=== PATIENT | male | born 1945 | race Caucasian/White ===

== ENCOUNTER → 2018-01-02 15:09 | Outpatient (CLI) | payer OTHER, SELFPAY ==
[2018-01-02 16:42] LABS: Alanine Aminotransferase 72 IU/L (21-72); Albumin 4.4 g/dL (3.5-5.0); Albumin Globulin Ratio 1.6 (1.0-2.8); Alkaline Phosphatase 58 U/L (38-126); Aspartate Aminotransferase 54 IU/L (17-59); Bilirubin Total 0.8 mg/dL (0.2-1.3); Bilirubin Unconjugated 0.5 mg/dL (0.0-1.1); Globulin 2.8 g/dL (1.7-4.1); HEMOLYSIS < 15 (0-50); Total Protein 7.2 g/dL (6.3-8.2)
== END ==
PROVIDERS: Family Provider Family Medicine; PCP Family Medicine; Visit Provider Internal Medicine Cardiovascular Disease
DX: E78.5 Hyperlipidemia, unspecified (principal)
CPT/HCPCS: 36415; 80076

== ENCOUNTER → 2018-01-19 12:14 | Outpatient (CLI) | payer OTHER, SELFPAY ==
--- NOTE | 2018-01-21 05:15 | DI.NM.S_ITS ---
DATE OF SERVICE: 01/19/2018 REFERRING PHYSICIAN: Alcon Hardin MD PROCEDURE: Nuclear cardiac stress study. INDICATIONS: Mr. Friedman is a 72-year-old gentleman with a prior history of coronary bypass graft surgery. Nuclear cardiac stress study is performed for follow-up evaluation. STRESS TEST: This patient underwent pharmacologic stress study using a standard Lexiscan injection due to a ventricularly paced rhythm. He received 25.4 mCi of technetium-99 Myoview and returned 1 day later for the resting portion of the examination, receiving an additional 25.5 mCi. The patient had no symptoms of anginal chest discomfort following Lexiscan injection and tolerated the procedure well. FINDINGS: Raw Data: Raw data images show a modest amount of up-and-down motion artifact on both stress and rest perfusion imaging. No other significant source of artifact or interference noted. Quantitative Gated SPECT Imaging: Gated images demonstrate an enlarged ventricle with an end diastolic volume of 283 cc. Estimated ejection fraction in the range of 51% with no clear-cut obvious wall motion abnormalities seen. There is some dyskinesia of the distal apex identified on both stress and rest perfusion imaging, likely related to right ventricular apical pacing. Quantitative Perfusion SPECT Imaging: Myocardial perfusion imaging shows a moderate amount of diaphragmatic attenuation on both stress and rest perfusion images, which is eliminated with prone imaging. There is a small fixed inferior apical defect which may relate to right ventricular apical pacing. I don't see any reversible perfusion abnormalities that would suggest significant ischemia. IMPRESSION: Abnormal nuclear cardiac stress study. Left ventricular enlargement with mildly reduced ejection fraction of 51% and apical wall motion abnormality related to right ventricular apical pacing. Small focal inferoapical region of fixed hypoperfusion, likely related to right ventricular apical pacing with no reversible perfusion abnormalities to suggest ischemia. Clinical correlation suggested. Saeed Friedman - DL/fn/ts doc#: [id number]/job#: [id number] dd: 01/20/2018 16:03:00 dt: 01/21/2018 04:57:00 DICTATING MD/COPIES TO: Raymundo Chiu MD COPIES MNE: DERIK
== END ==
PROVIDERS: Family Provider Family Medicine; PCP Family Medicine; Visit Provider Internal Medicine Cardiovascular Disease
DX: I51.7 Cardiomegaly (principal); Z95.1 Presence of aortocoronary bypass graft
CPT/HCPCS: 78452; 93016; 93017; 93018; A9502; J2785

== ENCOUNTER → 2018-01-20 08:01 | Outpatient (CLI) | payer OTHER, SELFPAY ==
--- NOTE | 2018-01-20 | DI.ECHO.S_ITS ---
[facility]---------[facility] +---------+ : : [address] : : [place] : : : : [phone] : : : : Phone: [phone]+ Echocardiogram Report + + :Name: LOBO BROOKS Study Date: 01/20/2018 Height: 73 in : :[facility] Exam Location: [place] Weight: 249 lb : : Gender: Male BSA: 2.4 m2 : :: 1945 Age: 72 yrs BP: 155/95 mmHg: :Reason For Study: Ascending aorta dilation : :Ordering Physician: Alcon : :Wilfred Performed By: Lara Page : + + Interpretation Summary The patient has a paced rhythm. The patient had frequent PVCs during the exam. The left ventricle is mild-moderately dilated (Increased). The ejection fraction is estimated to be 50-55%. Compared to the prior exam, the left ventricular function is reduced. Apical wall motion abnormality with apical hypokinesis may reflect pacemaker activation (New). There is a significant dyssynchronous contraction pattern during PVCs, consistent with a conduction abnormality. The right ventricle is mild to moderately dilated. The right ventricular systolic function is normal. There is a pacemaker lead in the right ventricle (New). There is mild to moderate mitral regurgitation. Compared to the prior echo study, there has been an increase in the severity of mitral regurgitation. There is a bioprosthetic aortic valve. The prosthetic aortic valve is well-seated. The prosthetic aortic valve appears to open OK. The peak aortic velocity is 3.5 m/sec. The peak aortic velocity on the previous exam was 3.5 m/sec. The aortic valve mean gradient is 28.5 mmHg. There is mild tricuspid regurgitation. Compared to the prior echo exam, there has been no change in TR severity. The right ventricular systolic pressure is estimated at 25 mmHg assuming a right atrial pressure of 3 mm Hg. The ascending aorta is moderately enlarged. Asc Aorta Diam: 4.6 cm. In 06/2011 it was 4.4 cm. Procedure: A two-dimensional transthoracic echocardiogram with color flow and Doppler was performed. The study quality was technically adequate. Comparison is made with the echocardiogram of 06/17/2011. The patient has a paced rhythm. The patient had frequent PVCs during the exam. Left Ventricle: The left ventricle is mild-moderately dilated. There is mild-moderate concentric left ventricular hypertrophy. Trabeculae near apex are visualized. No thrombus is observed. A false chord is noted (normal variant). The ejection fraction is estimated to be 50-55%. Compared to the prior exam, the left ventricular function is reduced. Apical wall motion abnormality may reflect pacemaker activation. There is a significant dyssynchronous contraction pattern, consistent with a conduction abnormality. MV E/A: 2.0 Med Peak E' Adam: 3.3 cm/sec E/E' med: 28. Right Ventricle: The right ventricle is mild to moderately dilated. There is a pacemaker lead in the right ventricle. The right ventricular systolic function is normal. Atria: The left atrium is severely dilated. The left atrium has mildly increased in size since the prior echo exam. The right atrium is mild to moderately dilated. The right atrium has mildly increased in size since the prior echo exam. There is no Doppler evidence for an interatrial shunt. Mitral Valve: The mitral valve leaflets appear thickened, but open well. There is mild mitral annular calcification. The mitral valve leaflets are slightly calcified. There is mild to moderate mitral regurgitation. Compared to the prior echo study, there has been an increase in the severity of mitral regurgitation. Aortic Valve: There is a bioprosthetic aortic valve. The prosthetic aortic valve is well-seated. The prosthetic aortic valve appears to open well. The peak aortic velocity is 3.5 m/sec. The peak aortic velocity on the previous exam was 3.5 m/sec. The aortic valve mean gradient is 28.5 mmHg. No aortic regurgitation is present. Tricuspid Valve: The tricuspid valve is not well visualized, but is grossly normal. There is mild tricuspid regurgitation. The right ventricular systolic pressure is estimated at 25 mmHg assuming a right atrial pressure of 3 mm Hg. Compared to the prior echo exam, there has been a decrease in the severity of pulmonary hypertension. Compared to the prior echo exam, there has been no change in TR severity. Pulmonic Valve: The pulmonic valve is not well seen, but is grossly normal. There is trace pulmonic regurgitation. Great Vessels: The aortic root is normal size. The ascending aorta is moderately enlarged. The aortic arch is normal in size. The pulmonary artery is normal size. The IVC is of normal diameter and collapses greater than 50% with a sniff. This suggests a low right atrial pressure of 3 mm Hg. Pericardium/ Pleura There is no pericardial effusion. There is no pleural effusion. MMode/2D Measurements & Calculations LVIDd: 6.6 cm LVOT diam: 2.4 cm LVIDs: 4.7 cm Ao root diam: 4.1 cm FS: 28.7 % asc Aorta Diam: 4.6 cm EPSS: 1.0 cm Ao Arch Diam (Prox Trans): 3.0 cm IVSd: 1.2 cm LVPWd: 0.98 cm LV carter. diameter/BSA (cm/m^2): 2.8 LV sys. diameter/BSA (cm/m^2): 2.0 LA A2 area: 35.5 cm2 RA long axis: 6.2 cm LA A4 area: 35.3 cm2 RA area: 25.5 cm2 LA length (vol): 7.4 cm RA vol: 89.2 ml LA vol: 143.7 ml RA : 37.8 ml/m2 LA vol index: 60.9 ml/m2 IVC diam: 1.6 cm RVD1 (basal): 5.6 cm TAPSE: 2.0 cm Doppler Measurements & Calculations Ao V2 max: 352.5 cm/sec LVOT Max Adam: 94.2 cm/sec Ao V2 mean: 251.5 cm/sec LV V1 max P.5 mmHg Ao max P.7 mmHg LV V1 VTI: 18.9 cm Ao mean P.5 mmHg ELICIA(I,D): 1.4 cm2 Ao V2 VTI: 62.8 cm ELICIA(V,D): 1.2 cm2 sev ratio: 0.30 ELICIA indexed to BSA (cm^2/m^2): 0.57 MV E max adam: 93.5 cm/sec TR max adam: 231.6 cm/sec MV A max adam: 46.1 cm/sec TR max P.5 mmHg MV E/A: 2.0 PA V2 max: 78.6 cm/sec Med Peak E' Adam: 3.3 cm/sec PA V2 mean: 59.1 cm/sec E/E' med: 28.3 PA mean P.5 mmHg Lat Peak E' Adam: 3.6 cm/sec PA Accel Time: 0.06 sec E/E' lat: 25.9 E/e' average: 27.1 MV dec time: 0.26 sec MV P1/2t: 75.6 msec MV P1/2t max adam: 93.9 cm/sec MVA(P1/2t): 2.9 cm2 Reading Physician:JAM
== END ==
PROVIDERS: Family Provider Family Medicine; PCP Family Medicine; Visit Provider Internal Medicine Cardiovascular Disease
DX: I77.819 Aortic ectasia, unspecified site (principal)
CPT/HCPCS: 93306

== ENCOUNTER → 2018-02-21 13:28 | Outpatient (CLI) | payer OTHER, SELFPAY ==
[2018-02-21 15:19] LABS: Alanine Aminotransferase 91 IU/L (21-72); Albumin 4.5 g/dL (3.5-5.0); Albumin Globulin Ratio 1.7 (1.0-2.8); Alkaline Phosphatase 50 U/L (38-126); Aspartate Aminotransferase 71 IU/L (17-59); BUN Creatinine Ratio 17.5 (6-22); Bilirubin Total 1.1 mg/dL (0.2-1.3); Bilirubin Unconjugated 0.8 mg/dL (0.0-1.1); Blood Urea Nitrogen 14 mg/dL (9-20); Calcium 9.8 mg/dL (8.4-10.2); Carbon Dioxide 23 mmol/L (22-32); Chloride 102 mmol/L (98-107); Estimated Glomerular Filt Rate > 60.0 mL/min (>60); Globulin 2.6 g/dL (1.7-4.1); Glucose 107 mg/dL (80-110); HEMOLYSIS < 15 (0-50); Magnesium 1.9 mg/dL (1.6-2.3); Potassium 3.7 mmol/L (3.4-5.1); Sodium 140 mmol/L (137-145); Total Protein 7.1 g/dL (6.3-8.2)
[2018-02-21 15:50] LABS: Thyroid Stimulating Hormone 2.72 uIU/mL (0.47-4.68)
== END ==
PROVIDERS: Family Provider Family Medicine; PCP Family Medicine; Visit Provider Internal Medicine Cardiovascular Disease
DX: I10 Essential (primary) hypertension (principal); E78.5 Hyperlipidemia, unspecified; I42.0 Dilated cardiomyopathy
CPT/HCPCS: 36415; 80048; 80076; 83735; 84443

== ENCOUNTER → 2018-09-06 14:51 | Outpatient (CLI) | payer OTHER, SELFPAY ==
--- NOTE | 2018-09-06 14:53 | DI.ECHO.S_ITS ---
[facility]---------+ [facility] +---------+ : : [address] : : [place] : : : : [phone] : : : : Phone: [phone] +---------+ Echocardiogram Report + + :Name: LOBO BROOKS Study Date: 09/06/2018 Height: 73 in : :[facility] Weight: 240 lb : : Gender: Male BSA: 2.3 m2 : :: 1945 Age: 72 yrs BP: 150/90 mmHg: :Reason For Study: DCMO : : Performed By: Odalys Baum : :Referring: Michael Byrd : + + Interpretation Summary The patient has a paced rhythm. The patient had frequent PVCs during the exam. The left ventricle is normal in size. The ejection fraction is estimated to be 50-55%. Apical wall motion abnormality with apical hypokinesis may reflect pacemaker activation. The right ventricle is mildly dilated. Right ventricular systolic function is at the lower limits of normal. There is a bioprosthetic aortic valve. The prosthetic aortic valve is well-seated. The peak aortic velocity is 2.6 m/sec. The aortic valve mean gradient is 15 mmHg. These values are within normal limits for a bioprosthetic valve and are lower than prior study (3.5 m/s and 28.5 mmHg) -Overall there is no significant change compared to prior study on 01/20/2018 iron and lower is aortic valve velocities and gradients. Procedure: A two-dimensional transthoracic echocardiogram with color flow and Doppler was performed. The study quality was technically adequate. Comparison is made with the echocardiogram of 01/20/2018. The patient has a paced rhythm. The patient had frequent PVCs during the exam. Left Ventricle: Left ventricular wall thickness is mildly increased. The left ventricle is normal in size. Apical wall motion abnormality with apical hypokinesis may reflect pacemaker activation. Trabeculae near apex are visualized. No thrombus is observed. A false chord is noted (normal variant). The ejection fraction is estimated to be 50-55%. Apical wall motion abnormality may reflect pacemaker activation. Right Ventricle: There is a pacemaker lead in the right ventricle. The right ventricle is mildly dilated. Right ventricular systolic function is at the lower limits of normal. Atria: The left atrium is severely dilated. The right atrium is mildly dilated. There is no Doppler evidence for an interatrial shunt. Mitral Valve: The mitral valve leaflets appear mildly thickened, but open well. The mitral valve chordae are thickened and/or calcified. There is moderate mitral regurgitation. Aortic Valve: The prosthetic aortic valve is well-seated. There is a bioprosthetic aortic valve. The prosthetic aortic valve appears to open well. The peak aortic velocity is 2.6 m/sec. The aortic valve mean gradient is 15 mmHg. No aortic regurgitation is present. Tricuspid Valve: The tricuspid valve is normal in structure and function. There is mild tricuspid regurgitation. The right ventricular systolic pressure is estimated to be at least 25 mmHg based on an estimated right atrial pressure of 3 mm Hg. Pulmonic Valve: The pulmonic valve leaflets are thin and pliable; valve motion is normal. There is mild to moderate pulmonic regurgitation. Great Vessels: The aortic root is normal size. The ascending aorta is mildly enlarged. Mild pulmonary artery dilation. The IVC is of normal diameter and collapses greater than 50% with a sniff. This suggests a low right atrial pressure of 3 mm Hg. Pericardium/ Pleura There is no pericardial effusion. There is no pleural effusion. MMode/2D Measurements & Calculations LVIDd: 6.4 cm LVOT diam: 2.6 cm LVIDs: 4.5 cm Ao root diam: 3.8 cm FS: 29.0 % asc Aorta Diam: 4.1 cm IVSd: 0.99 cm LVPWd: 1.1 cm LV carter. diameter/BSA (cm/m^2): 2.7 LV sys. diameter/BSA (cm/m^2): 2.0 LA A2 area: 29.0 cm2 RA long axis: 6.3 cm LA A4 area: 30.7 cm2 RA area: 24.8 cm2 LA length (vol): 6.2 cm RA vol: 83.1 ml LA vol: 121.0 ml RA : 35.7 ml/m2 LA vol index: 52.1 ml/m2 IVC diam: 2.1 cm RVD1 (basal): 4.9 cm LVAd ap4: 43.9 cm2 TAPSE: 1.7 cm LVAs ap4: 32.4 cm2 LVLs ap4: 8.4 cm Doppler Measurements & Calculations Ao V2 max: 261.8 cm/sec LVOT Max Adam: 75.9 cm/sec Ao V2 mean: 178.1 cm/sec LV V1 max P.3 mmHg Ao max P.4 mmHg LV V1 VTI: 16.1 cm Ao mean P.7 mmHg ELICIA(I,D): 1.6 cm2 Ao V2 VTI: 52.4 cm ELICIA(V,D): 1.5 cm2 sev ratio: 0.31 ELICIA indexed to BSA (cm^2/m^2): 0.69 MV E max adam: 114.0 cm/sec TR max adam: 235.6 cm/sec MV A max adam: 54.9 cm/sec TR max P.2 mmHg MV E/A: 2.1 Med Peak E' Adam: 3.3 cm/sec E/E' med: 34.6 MV dec time: 0.27 sec SV(LVOT): 84.5 ml Electronically signed by: Vinny Purvis M.D. on Reading Physician:09/06/2018 08:26 PM
== END ==
PROVIDERS: Family Provider Family Medicine; PCP Family Medicine; Visit Provider Physician Assistant
DX: I08.1 Rheumatic disorders of both mitral and tricuspid valves (principal); I42.0 Dilated cardiomyopathy; Z95.0 Presence of cardiac pacemaker; Z95.2 Presence of prosthetic heart valve
CPT/HCPCS: 93306

== ENCOUNTER → 2018-12-28 10:09 | Outpatient (CLI) | payer OTHER, SELFPAY ==
[2018-12-28 11:26] LABS: Hematocrit 39.3 % (41-53); Hemoglobin 13.6 g/dL (13.5-17.5); Mean Corpuscular HGB Conc 34.6 % (30-36); Mean Corpuscular Hemoglobin 31.6 PG (26-34); Mean Corpuscular Volume 91.5 fL (80-100); Platelet Count 141 X10^3/uL (150-400); Red Cell Distribution Width 13.2 % (11.6-14.8); White Blood Cell Count 6.6 X10^3/uL (4.5-11.0)
[2018-12-28 12:03] LABS: Alanine Aminotransferase 108 IU/L (21-72); Albumin 4.3 g/dL (3.5-5.0); Albumin Globulin Ratio 1.7 (1.0-2.8); Alkaline Phosphatase 54 U/L (38-126); Aspartate Aminotransferase 87 IU/L (17-59); BUN Creatinine Ratio 18.8 (6-22); Bilirubin Total 0.6 mg/dL (0.2-1.3); Blood Urea Nitrogen 15 mg/dL (9-20); Calcium 10.5 mg/dL (8.4-10.2); Carbon Dioxide 26 mmol/L (22-32); Chloride 107 mmol/L (98-107); Cholesterol 134 mg/dL (140-199); Estimated Glomerular Filt Rate > 60.0 mL/min (>60); Globulin 2.6 g/dL (1.7-4.1); Glucose 180 mg/dL (80-110); HDL Cholesterol 25 mg/dL (40-60); HEMOLYSIS < 15 (0-50); LDL Cholesterol Calculated 42 mg/dL (<100); Sodium 141 mmol/L (137-145); Total Protein 6.9 g/dL (6.3-8.2); Triglycerides 336 mg/dL (35-150)
[2018-12-28 12:04] LABS: Appearance Urine UA CLEAR; Bilirubin Urine UA NEGATIVE (NEGATIVE); Color Urine UA YELLOW; Glucose Urine UA NEGATIVE (Negative); Ketones Urine UA NEGATIVE (NEGATIVE); Leukocyte Esterase Urine UA NEGATIVE (NEGATIVE); Neutrophils Absolute Manual 4158 /uL (3000-5900); Nitrite Urine UA NEGATIVE (Negative); Occult Blood Urine UA NEGATIVE (Negative); Protein Urine UA NEGATIVE (Negative); RBC Morphology Normal Morphology; Specific Gravity Urine UA >=1.030 (1.000-1.035); Total Cells Counted 100; Urobilinogen Urine UA 0.2 E.U./dL (0.2); pH Urine UA 5.5 (4.5-8.0)
[2018-12-28 12:31] LABS: Prostate Specific Antigen Scrn 0.694 ng/mL (0.1-4.0)
[2018-12-28 12:35] LABS: Thyroid Stimulating Hormone 2.51 uIU/mL (0.47-4.68)
== END ==
PROVIDERS: Family Provider Family Medicine; PCP Family Medicine; Visit Provider Family Medicine
DX: I25.10 Atherosclerotic heart disease of native coronary artery without angina pectoris (principal); I48.91 Unspecified atrial fibrillation; Z13.220 Encounter for screening for lipoid disorders; Z13.29 Encounter for screening for other suspected endocrine disorder; Z51.81 Encounter for therapeutic drug level monitoring; Z12.5 Encounter for screening for malignant neoplasm of prostate
CPT/HCPCS: 36415; 80053; 80061; 81003; 84443; 85025; G0103

== ENCOUNTER → 2018-12-29 15:36 | Outpatient (CLI) | payer OTHER, SELFPAY ==
[2018-12-29 15:55] LABS: Hemoglobin A1C% w Est Avg Glu 6.2 % (4.0-6.0)
[2019-01-01 08:36] LABS: Hepatitis A Antibody IgM NONREACTIVE (NONREACTIVE); Hepatitis Acute Panel Interp 0.01; Hepatitis B Core Antibody IgM NONREACTIVE (NONREACTIVE); Hepatitis B Surface Antigen NONREACTIVE (NONREACTIVE); Hepatitis C Antibody NONREACTIVE
== END ==
PROVIDERS: Family Provider Family Medicine; PCP Family Medicine; Visit Provider Family Medicine
DX: R73.09 Other abnormal glucose (principal); R74.8 Abnormal levels of other serum enzymes
CPT/HCPCS: 80074; 83036

== ENCOUNTER → 2019-01-12 09:49 | Outpatient (CLI) | payer OTHER, SELFPAY | PROVIDERS: Family Provider Family Medicine; PCP Family Medicine; Visit Provider Physician Assistant | DX: J02.9 Acute pharyngitis, unspecified (principal) | CPT/HCPCS: 87070 ==

== ENCOUNTER 2019-02-20 11:13 | Inpatient (IN) | payer OTHER, SELFPAY ==
[2019-02-20] VITALS (16 sets, daily range): BP systolic 112–156; BP diastolic 56–70; PULSE 60–68; RESP 13–20; TEMP 36.4–37.4; O2SAT 99–100; BMI 30.9; BMI 29.7
--- NOTE | 2019-02-20 11:17 | ED.SOB ---
HPI - SOB/Dyspnea General Chief Complaint: Shortness of Breath/Dyspnea Stated Complaint: shortness of breath,chest pain Time Seen by Provider: 02/20/19 11:16 Source: patient Mode of arrival: ambulatory Limitations: no limitations History of Present Illness 73-year-old male here for evaluation of 2 weeks of dyspnea on exertion and chest pain on exertion. He does have a significant cardiac history with history of atrial fibrillation, aortic valve replacement, coronary artery bypass graft. States that the past couple weeks he has had shortness of breath with walking which has started to occur with less and less exertion. No abdominal pain. No change in bowel habits. 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 Related Data Home Medications Medication Instructions Recorded Confirmed multivitamin 1 tab PO DAILY #0 11/23/10 02/20/19 aspirin 81 mg PO DAILY #0 05/31/11 02/20/19 metoprolol succinate [Toprol XL] 25 mg PO QAM #0 09/01/16 02/20/19 lisinopril 10 mg tablet 10 mg PO QPM 11/22/18 02/20/19 lisinopril 20 1 tab PO QAM 11/22/18 02/20/19 mg-hydrochlorothiazide 12.5 mg tablet rivaroxaban 20 mg tablet 20 mg PO QPM 11/22/18 02/20/19 atorvastatin 40 mg PO QPM 02/20/19 02/20/19 Allergies Allergy/AdvReac Type Severity Reaction Status Date / Time No Known Drug Allergies Allergy Verified 02/20/19 11:20 Review of Systems Constitutional Denies fever(s), Denies headache(s) and Reports lethargy ENT Ears, Nose, Mouth, and Throat: Denies headache(s) Cardiovascular Reports chest pain (On exertion), Denies edema, Denies leg edema and Reports dyspnea on exertion Respiratory Reports dyspnea on exertion Gastrointestinal Gastrointestinal: Denies abdominal pain, Denies coffee ground emesis, Denies dyspepsia, Denies nausea and Denies vomiting Genitourinary Denies dysuria Musculoskeletal Denies abnormal gait, Denies myalgias and Denies arthralgias Integumentary/Breasts Denies lesions, Denies new lesions and Denies rash Neurologic Denies abnormal gait and Denies headache(s) Hematologic/Lymphatic Comments: On blood thinners Allergic/Immunologic Denies urticaria [facility] Medical History Paroxysmal atrial fibrillation (Acute) Coronary artery disease (Acute) Surgical History History of aortic valve replacement with bioprosthetic valve (Acute) Status post cardiac catheterization Status post coronary artery bypass graft Status post hernia repair Social History household members: spouse Smoking Status: Former smoker alcohol intake: never Social History household members: spouse Smoking Status: Former smoker alcohol intake: never Exam Initial Vital Signs Initial Vital Signs: Vital Signs Temperature 97.5 F L 02/20/19 11:20 Pulse Rate 68 02/20/19 11:20 Respiratory Rate 18 02/20/19 11:20 Blood Pressure 156/67 H 02/20/19 11:20 Pulse Oximetry 100 02/20/19 11:20 Const General: cooperative, comfortable, well developed, well groomed and No acute distress Orientation: alert, awake and oriented x3 HENMT Head: normal to inspection and normocephalic Resp Effort & Inspection: normal respiratory effort Auscultation: clear to auscultation bilaterally Cardio Rate: regular rate Rhythm: regular rhythm Pulses: radial pulses present GI Inspection: non-distended Palpation: soft, No firm and No tender Rectal Exam: heme negative stool Skin Lesions: no lesions Rashes: no rashes Other: Skin pallor Neuro General: alert, awake and oriented x3 Cognition: normal cognition Speech: speech normal Gait: normal gait Sensory Exam: no sensory deficits noted Extrem General: normal to inspection and capillary refill normal Psych Appearance: grossly normal and well kempt Scores GCS [place] coma scale eye opening: Spontaneous Imelda coma scale verbal response: Orientated [place] coma scale motor response: Obey commands Imelda coma scale total score: 15 Course Orders Ordered: ED Orders 02/20/19 11:16 EKG-12 Lead Stat 02/20/19 11:17 XR chest 1V Stat 02/20/19 11:23 B Type Natriuretic Peptide Stat Complete Blood Count AUTO DIFF Stat Comprehensive Metabolic Panel Stat Ferritin Routine Iron Profile (w/ % Saturation) Routine Lipase Stat Partial Thromboplastin Time Stat Prothrombin Time INR Stat Troponin I Stat 02/20/19 12:00 Lactate (Lactic Acid) Stat Packed Cells Stat Type and Screen Stat 02/20/19 13:25 MRSA PCR Stat 02/20/19 13:31 Consult to Physician Routine 02/21/19 05:00 Complete Blood Count AUTO DIFF Routine 02/21/19 07:30 Complete Blood Count AUTO DIFF DAILY Acetaminophen (Tylenol) 650 mg PO Q6HR PRN PRN Reason: As Needed for Fever/Mild Pain Atorvastatin Calcium (Lipitor) 40 mg PO QPM FERNANDA Hydrochlorothiazide (Hydrochlorothiazide) 12.5 mg PO DAILY [facility] Pantoprazole Sodium 80 mg/ (Sodium Chloride) 100 mls @ 10 mls/hr IV CONT [facility] Last Admin: 02/20/19 15:30 Dose: 8 mg/hr, 10 mls/hr Lisinopril (Zestril) 10 mg PO 0900,1700 [facility] Magnesium Hydroxide (Milk Of Magnesia) 30 ml PO DAILY PRN PRN Reason: Constipation Metoprolol Succinate (Toprol Xl) 25 mg PO DAILY [facility] Last Admin: 02/20/19 14:52 Dose: Not Given Vital Signs - 8 hr 02/20/19 11:20 02/20/19 11:30 02/20/19 12:04 Temperature 97.5 F L Pulse Rate 68 60 61 Respiratory Rate 18 14 15 Blood Pressure 156/67 H Blood Pressure [Left Arm] 124/67 125/67 Pulse Oximetry 100 100 100 02/20/19 12:29 02/20/19 12:30 02/20/19 12:43 Temperature Pulse Rate 62 60 60 Respiratory Rate 13 13 15 Blood Pressure 120/61 Blood Pressure [Left Arm] 115/61 120/61 Pulse Oximetry 99 100 100 02/20/19 12:58 02/20/19 13:46 02/20/19 13:50 Temperature 98.4 F 98.7 F 98.7 F Pulse Rate 64 61 61 Respiratory Rate 20 14 14 Blood Pressure 140/59 L 113/58 L 113/58 L Blood Pressure [Left Arm] Pulse Oximetry 100 100 02/20/19 14:05 Temperature 98.9 F Pulse Rate 61 Respiratory Rate 18 Blood Pressure 112/56 L Blood Pressure [Left Arm] Pulse Oximetry MDM - SOB/Dyspnea Lab Data Attestation: I reviewed the patient's lab results. Result diagrams: 02/20/19 11:23 02/20/19 11:23 Lab Results 02/20/19 02/20/19 02/20/19 Range/Units 11:23 11:23 11:23 WBC 7.8 (4.5-11.0) X10^3/uL RBC 2.50 L (4.5-5.9) X10^6/uL Hgb 6.5 L* (13.5-17.5) g/dL Hct 20.2 L* (41-53) % MCV 80.9 (80-100) fL MCH 26.1 (26-34) PG MCHC 32.3 (30-36) % RDW 19.4 H (11.6-14.8) % Plt Count 236 (150-400) X10^3/uL Neut % (Auto) 76.8 H (50-75) % Lymph % (Auto) 13.1 L (25-40) % [place] % (Auto) 8.4 (3-14) % Eos % (Auto) 0.6 L (2-4) % Baso % (Auto) 1.1 (0-2) % Neut # (Auto) 6000 (0864-7413) /uL Lymph # (Auto) 1000 L (7729-7982) /uL [place] # (Auto) 700 (0-900) /uL Eos # (Auto) 0 (0-450) /uL Baso # (Auto) 100 (0-100) /uL PT 16.9 H (10.1-12.7) SECONDS INR 1.5 H (0.9-1.3) APTT 37 H (26.4-36.2) SECONDS Sodium 138 (137-145) mmol/L Potassium 4.2 (3.4-5.1) mmol/L Chloride 102 (98-107) mmol/L Carbon Dioxide 22 (22-32) mmol/L BUN 17 (9-20) mg/dL Creatinine 1.00 (0.66-1.25) mg/dL Estimated GFR > 60.0 (>60) mL/min BUN/Creatinine Ratio 17.0 (6-22) Glucose 196 H (80-110) mg/dL Lactate (0.7-2.1) mmol/L Calcium 9.9 (8.4-10.2) mg/dL Iron (49-181) ug/dL TIBC (261-462) ug/dL % Saturation (20-50) % Transferrin (206-381) mg/dL Total Bilirubin 0.7 (0.2-1.3) mg/dL AST 71 H (17-59) IU/L ALT 77 H (21-72) IU/L Alkaline Phosphatase 53 (38-126) U/L Troponin I 0.014 (0.01-0.034) ng/mL B-Natriuretic Peptide < 100 (<100) Total Protein 7.1 (6.3-8.2) g/dL Albumin 4.5 (3.5-5.0) g/dL Globulin 2.6 (1.7-4.1) g/dL Albumin/Globulin Ratio 1.7 (1.0-2.8) Lipase 197 (23-300) U/L Nasal Screen MRSA (PCR) (Negative) Blood Type Antibody Screen Crossmatch 02/20/19 02/20/19 02/20/19 Range/Units 11:23 12:00 12:00 WBC (4.5-11.0) X10^3/uL RBC (4.5-5.9) X10^6/uL Hgb (13.5-17.5) g/dL Hct (41-53) % MCV (80-100) fL MCH (26-34) PG MCHC (30-36) % RDW (11.6-14.8) % Plt Count (150-400) X10^3/uL Neut % (Auto) (50-75) % Lymph % (Auto) (25-40) % [place] % (Auto) (3-14) % Eos % (Auto) (2-4) % Baso % (Auto) (0-2) % Neut # (Auto) (2913-4821) /uL Lymph # (Auto) (7316-9509) /uL [place] # (Auto) (0-900) /uL Eos # (Auto) (0-450) /uL Baso # (Auto) (0-100) /uL PT (10.1-12.7) SECONDS INR (0.9-1.3) APTT (26.4-36.2) SECONDS Sodium (137-145) mmol/L Potassium (3.4-5.1) mmol/L Chloride (98-107) mmol/L Carbon Dioxide (22-32) mmol/L BUN (9-20) mg/dL Creatinine (0.66-1.25) mg/dL Estimated GFR (>60) mL/min BUN/Creatinine Ratio (6-22) Glucose (80-110) mg/dL Lactate 3.3 H (0.7-2.1) mmol/L Calcium (8.4-10.2) mg/dL Iron 14 L (49-181) ug/dL TIBC 470 H (261-462) ug/dL % Saturation 3 L (20-50) % Transferrin 381 (206-381) mg/dL Total Bilirubin (0.2-1.3) mg/dL AST (17-59) IU/L ALT (21-72) IU/L Alkaline Phosphatase (38-126) U/L Troponin I (0.01-0.034) ng/mL B-Natriuretic Peptide (<100) Total Protein (6.3-8.2) g/dL Albumin (3.5-5.0) g/dL Globulin (1.7-4.1) g/dL Albumin/Globulin Ratio (1.0-2.8) Lipase (23-300) U/L Nasal Screen MRSA (PCR) (Negative) Blood Type A Negative Antibody Screen Negative Crossmatch See Detail 02/20/19 02/20/19 Range/Units 13:25 14:20 WBC (4.5-11.0) X10^3/uL RBC (4.5-5.9) X10^6/uL Hgb (13.5-17.5) g/dL Hct (41-53) % MCV (80-100) fL MCH (26-34) PG MCHC (30-36) % RDW (11.6-14.8) % Plt Count (150-400) X10^3/uL Neut % (Auto) (50-75) % Lymph % (Auto) (25-40) % [place] % (Auto) (3-14) % Eos % (Auto) (2-4) % Baso % (Auto) (0-2) % Neut # (Auto) (4873-4430) /uL Lymph # (Auto) (6255-5192) /uL [place] # (Auto) (0-900) /uL Eos # (Auto) (0-450) /uL Baso # (Auto) (0-100) /uL PT (10.1-12.7) SECONDS INR (0.9-1.3) APTT (26.4-36.2) SECONDS Sodium (137-145) mmol/L Potassium (3.4-5.1) mmol/L Chloride (98-107) mmol/L Carbon Dioxide (22-32) mmol/L BUN (9-20) mg/dL Creatinine (0.66-1.25) mg/dL Estimated GFR (>60) mL/min BUN/Creatinine Ratio (6-22) Glucose (80-110) mg/dL Lactate 1.8 (0.7-2.1) mmol/L Calcium (8.4-10.2) mg/dL Iron (49-181) ug/dL TIBC (261-462) ug/dL % Saturation (20-50) % Transferrin (206-381) mg/dL Total Bilirubin (0.2-1.3) mg/dL AST (17-59) IU/L ALT (21-72) IU/L Alkaline Phosphatase (38-126) U/L Troponin I (0.01-0.034) ng/mL B-Natriuretic Peptide (<100) Total Protein (6.3-8.2) g/dL Albumin (3.5-5.0) g/dL Globulin (1.7-4.1) g/dL Albumin/Globulin Ratio (1.0-2.8) Lipase (23-300) U/L Nasal Screen MRSA (PCR) Negative for mrsa (Negative) Blood Type Antibody Screen Crossmatch Imaging Data Chest x-ray: Radiologist's impression: Saeed Friedman Jose L M [address] [address] XRay Report Signed Patient: Saeed Friedman HMR#: [id number] : 8Acct:[id number] Age/Sex: 73 / MDate of Service: 02/20/19 Loc: ED Accession Number: [id number] Procedure: XR chest 1V Ordering Provider: Bryant Alvarado D.O. PROCEDURE: XR CHEST 1V INDICATIONS: Shortness of breath TECHNIQUE: One view of the chest was acquired. COMPARISON: [facility], , CHEST 2 VIEW, 09/04/2009, 14:01. FINDINGS: Surgical changes and devices: Sternotomy wires, presumed prior CABG. Dual chambered cardiac pacemaking device and leads appear normal Lungs and pleura: Lungs are clear. No pleural effusions or pneumothorax. Mediastinum: Mediastinal contours appear normal. Heart size is normal. Bones and chest wall: No suspicious bony lesions. Overlying soft tissues appear unremarkable. IMPRESSION: Source of shortness of breath is not seen. Cardiac surgery and pacemaking device as discussed. Dictated by: Eric Goodwin M.D. on 02/20/2019 at 11:42 Approved by: Eric Goodwin M.D. on 02/20/2019 at 11:42 ECG Data Attestation: I personally reviewed and interpreted this ECG as follows: Prior ECG tracings: not available for review Interpretation: Ventricular paced Rate is [address] changes concerning for acute abdomen MDM Narrative Medical decision making narrative: Patient does have symptomatic anemia. Discussed with him the importance of a blood transfusion. Patient did sign the consent. This discussion was had with his at bedside. Patient does have heme-negative stool however this does not completely rule out a GI source. He has not been vomiting. Does not drink alcohol. Is on blood thinners. Does not have excessive use of nonsteroidal anti-inflammatories. I did discuss the case with Dr. Badillo with internal medicine will accept the patient. Discussed admission with the patient expressed understanding and agreement. Critical Care Time Critical Care Time: Yes Total Critical Care Time: 30 Attestation: The high probability of a clinically significant, sudden or life threatening deterioration of the cardiovascular/hematology system(s) required my full and direct attention, intervention and personal management. The aggregate critical care time was 30 minutes. This time is in addition to time spent performing reported procedures but includes the following: [] Data Review and interpretation [] Patient assessment and monitoring of vital signs [] Documentation [] Medication orders and management Discharge Plan Departure Patient Disposition: Admitted As Inpatient Clinical Impression: Dyspnea on exertion Anemia Qualifiers: Anemia type: unspecified type Qualified Code(s): D64.9 - Anemia, unspecified Coronary artery disease Qualifiers: Coronary Disease-Associated Artery/Lesion type: unspecified vessel or lesion type [place] vs. transplanted heart: ka[place]ab heart Associated angina: with unspecified angina Qualified Code(s): I25.119 - Atherosclerotic heart disease of [place] coronary artery with unspecified angina pectoris Discharge Date/Time: 02/20/19 12:45 Interventions: ED Discharge Assessment Last Done: 02/20/19 12:43 Admit Date/Time: 02/20/19 12:41 Admit Provider: Td Badillo
[2019-02-20 11:38] LABS: Alanine Aminotransferase 77 IU/L (21-72); Albumin 4.5 g/dL (3.5-5.0); Albumin Globulin Ratio 1.7 (1.0-2.8); Alkaline Phosphatase 53 U/L (38-126); Aspartate Aminotransferase 71 IU/L (17-59); Bilirubin Total 0.7 mg/dL (0.2-1.3); Blood Urea Nitrogen 17 mg/dL (9-20); Calcium 9.9 mg/dL (8.4-10.2); Carbon Dioxide 22 mmol/L (22-32); Chloride 102 mmol/L (98-107); Estimated Glomerular Filt Rate > 60.0 mL/min (>60); Globulin 2.6 g/dL (1.7-4.1); Glucose 196 mg/dL (80-110); HEMOLYSIS < 15 (0-50); Lipase 197 U/L (23-300); Potassium 4.2 mmol/L (3.4-5.1); Sodium 138 mmol/L (137-145); Total Protein 7.1 g/dL (6.3-8.2)
[2019-02-20 11:48] LABS: INR 1.5 (0.9-1.3); Prothrombin Time 16.9 SECONDS (10.1-12.7)
[2019-02-20 11:50] LABS: Troponin I 0.014 ng/mL (0.01-0.034)
[2019-02-20 11:51] LABS: PTT Partial Thromboplastin Tim 37 SECONDS (26.4-36.2)
[2019-02-20 11:53] LABS: Add Manual Diff / Slide Review NO; Basophils Absolute Auto 100 /uL (0-100); Basophils Percent Auto 1.1 % (0-2); Eosinophils Absolute Auto 0 /uL (0-450); Eosinophils Percent Auto 0.6 % (2-4); Lymphocytes Absolute Auto 1000 /uL (1100-4500); Lymphocytes Percent Auto 13.1 % (25-40); Mean Corpuscular HGB Conc 32.3 % (30-36); Mean Corpuscular Hemoglobin 26.1 PG (26-34); Mean Corpuscular Volume 80.9 fL (80-100); Monocytes Absolute Auto 700 /uL (0-900); Monocytes Percent Auto 8.4 % (3-14); Neutrophils Absolute Auto 6000 /uL (1500-7000); Neutrophils Percent Auto 76.8 % (50-75); Platelet Count 236 X10^3/uL (150-400); Red Cell Distribution Width 19.4 % (11.6-14.8); White Blood Cell Count 7.8 X10^3/uL (4.5-11.0)
[2019-02-20 11:55] LABS: Hemoglobin 6.5 g/dL (13.5-17.5)
[2019-02-20 11:56] LABS: Hematocrit 20.2 % (41-53)
[2019-02-20 11:59] LABS: B Type Natriuretic Peptide < 100 (<100)
[2019-02-20 12:20] LABS: Lactate (Lactic Acid) 3.3 mmol/L (0.7-2.1)
--- NOTE | 2019-02-20 13:49 | P.HP_ITS ---
History of Present Illness Date Patient Seen: 02/20/19 Chief complaint: shortness of breath,chest pain Narrative: Mr. segura is a 73-year-old male with history of CAD, CABG x3 vessels, ventricular pacemaker, porcine aortic valve replacement, paroxysmal atrial fibrillation presented to emergency department with complaints of dyspnea on exertion. He did notice gradual onset of dyspnea on exertion for the past jay h. It has gradually gotten worse. He states his chest feels a little tight with exertion but feels it is more related to the being out of breath. Patient is on low-dose aspirin and Xarelto. In addition he had a tonsillar abscess about a month ago and took both Aleve and ibuprofen for a couple of days during that time. Patient states he had a colonoscopy within the past 3-5 years which was normal. He has never had a peptic ulcer or GI bleed. His troponin was normal at 0.014. He was severely anemic with hemoglobin 6.5 and hematocrit 20.2. Back on December 28, 2018 his hemoglobin was 13.6 and hematocrit 39.3. Patient History Medical History (Updated 02/20/19 @ 13:39 by Td Badillo MD) Paroxysmal atrial fibrillation (Acute) Coronary artery disease (Acute) Surgical History (Updated 02/20/19 @ 13:41 by Td Badillo MD) History of aortic valve replacement with bioprosthetic valve (Acute) Status post cardiac catheterization Status post coronary artery bypass graft Status post hernia repair Social History household members: spouse Smoking Status: Former smoker alcohol intake: never Family & Social History Social History: household members spouse Prior Living Arrangements House Safety & Behavioral: Feels Safe in Current Yes Environment Been Physically Hurt or No Threatened By a Person Suicidal Ideation Description None Suicide Plan Description No Plan Tobacco & Substance use: Smoking Status Former smoker alcohol intake never Substance Use Type does not use Meds Home Medications Medication Instructions Recorded Confirmed Type multivitamin 1 tab PO DAILY #0 11/23/10 02/20/19 History aspirin 81 mg PO DAILY #0 05/31/11 02/20/19 History metoprolol succinate [Toprol XL] 25 mg PO QAM #0 09/01/16 02/20/19 History lisinopril 10 mg tablet 10 mg PO QPM 11/22/18 02/20/19 History lisinopril 20 1 tab PO QAM 11/22/18 02/20/19 History mg-hydrochlorothiazide 12.5 mg tablet rivaroxaban 20 mg tablet 20 mg PO QPM 11/22/18 02/20/19 History atorvastatin 40 mg PO QPM 02/20/19 02/20/19 History Allergies Allergy/AdvReac Type Severity Reaction Status Date / Time No Known Drug Allergies Allergy Verified 02/20/19 11:20 Review of Systems Review of Systems All systems reviewed & are unremarkable except as noted in HPI and below Exam Vital Signs (past 8 hours): - 02/20/19 11:20 02/20/19 11:30 02/20/19 12:04 Temperature 97.5 F L Pulse Rate 68 60 61 Respiratory Rate 18 14 15 Blood Pressure 156/67 H Blood Pressure [Left Arm] 124/67 125/67 Pulse Oximetry 100 100 100 02/20/19 12:29 02/20/19 12:30 02/20/19 12:43 Temperature Pulse Rate 62 60 60 Respiratory Rate 13 13 15 Blood Pressure 120/61 Blood Pressure [Left Arm] 115/61 120/61 Pulse Oximetry 99 100 100 02/20/19 12:58 Temperature 98.4 F Pulse Rate 64 Respiratory Rate 20 Blood Pressure 140/59 L Blood Pressure [Left Arm] Pulse Oximetry 100 Oxygen Delivery Method Room Air Oxygen Flow Rate 0 Narrative Exam Narrative: GENERAL: Alert very pleasant male in no acute distress HEAD: Atraumatic. Normocephalic. EYES: Pale conjunctiva. Pupils equal, round and reactive. Extraocular motions intact. No scleral icterus. OROPHARYNX: moist mucosa NECK: Trachea midline. No JVD or lymphadenopathy. CARDIOVASCULAR: Regular rate and rhythm, 3/6 systolic murmur heard throughout RESPIRATORY: Clear to auscultation bilaterally. GASTROINTESTINAL: Abdomen nondistended, soft, non-tender. No hepato- splenomegaly, or palpable masses. EXTREMITIES: No edema. NEUROLOGICAL: Alert, well oriented, speech is intact, normal bilateral upper and lower extremity strength SKIN: warm, dry, no rash Objective Imaging Chest x-ray: Radiologist's impression: Normal findings Labs Result Diagrams: 02/20/19 11:23 02/20/19 11:23 Labs: Laboratory Results - last 24 hr 02/20/19 02/20/19 02/20/19 11:23 11:23 11:23 WBC 7.8 RBC 2.50 L Hgb 6.5 L* Hct 20.2 L* MCV 80.9 MCH 26.1 MCHC 32.3 RDW 19.4 H Plt Count 236 Neut % (Auto) 76.8 H Lymph % (Auto) 13.1 L [place] % (Auto) 8.4 Eos % (Auto) 0.6 L Baso % (Auto) 1.1 Neut # (Auto) 6000 Lymph # (Auto) 1000 L [place] # (Auto) 700 Eos # (Auto) 0 Baso # (Auto) 100 PT 16.9 H INR 1.5 H APTT 37 H Sodium 138 Potassium 4.2 Chloride 102 Carbon Dioxide 22 BUN 17 Creatinine 1.00 Estimated GFR > 60.0 BUN/Creatinine Ratio 17.0 Glucose 196 H Lactate Calcium 9.9 Total Bilirubin 0.7 AST 71 H ALT 77 H Alkaline Phosphatase 53 Troponin I 0.014 B-Natriuretic Peptide < 100 Total Protein 7.1 Albumin 4.5 Globulin 2.6 Albumin/Globulin Ratio 1.7 Lipase 197 Blood Type Antibody Screen Crossmatch 02/20/19 02/20/19 12:00 12:00 WBC RBC Hgb Hct MCV MCH MCHC RDW Plt Count Neut % (Auto) Lymph % (Auto) [place] % (Auto) Eos % (Auto) Baso % (Auto) Neut # (Auto) Lymph # (Auto) [place] # (Auto) Eos # (Auto) Baso # (Auto) PT INR APTT Sodium Potassium Chloride Carbon Dioxide BUN Creatinine Estimated GFR BUN/Creatinine Ratio Glucose Lactate 3.3 H Calcium Total Bilirubin AST ALT Alkaline Phosphatase Troponin I B-Natriuretic Peptide Total Protein Albumin Globulin Albumin/Globulin Ratio Lipase Blood Type A Negative Antibody Screen Negative Crossmatch See Detail Assessment & Plan Assessment & Plan narrative: 1. Acute blood loss anemia secondary to GI bleed -patient presenting with dyspnea on exertion and severe anemia with hemoglobin 6.5 and hematocrit 20 -last colonoscopy within the past 3-5 years -patient on both aspirin and Xarelto as well as took combination NSAIDs for couple of days a month ago -hemodynamically stable -transfuse 2 units PRBC for symptom control -hold aspirin and Xarelto -consult Dr. Henderson for upper endoscopy, scheduled for a.m. -check iron profile and ferritin -repeat H&H in a.m. 2. Cardiac issues: History of CAD, ventricular pacemaker, paroxysmal AFib, bioprosthetic aortic valve -he is in paced ventricular rhythm with PVCs, normal troponin -dyspnea on exertion likely secondary to severe anemia and not a primary cardiac etiology -patient's senior environmental practice leader is Dr. Hardin -hold aspirin and Xarelto but continue other routine medications Patient is admitted to hospital observation services for workup and treatment of severe symptomatic anemia. Quality VTE Deep Vein Thrombosis/Pulmonary Embolism Present on Admission: No
--- NOTE | 2019-02-20 14:03 | PC.ADMIT ---
[email or web address] [place] [address] Admission Note: The patient,Saeed Friedman,73 y/o, was given written information regarding hospital policies, unit procedures and contact persons. Patient's smoking status: Former smoker. Vital Signs - 8 hr 02/20/19 11:20 02/20/19 11:30 02/20/19 12:04 Temperature 97.5 F L Pulse Rate 68 60 61 Respiratory Rate 18 14 15 Blood Pressure 156/67 H Blood Pressure [Left Arm] 124/67 125/67 Pulse Oximetry 100 100 100 02/20/19 12:29 02/20/19 12:30 02/20/19 12:43 Temperature Pulse Rate 62 60 60 Respiratory Rate 13 13 15 Blood Pressure 120/61 Blood Pressure [Left Arm] 115/61 120/61 Pulse Oximetry 99 100 100 02/20/19 12:58 02/20/19 13:46 02/20/19 13:50 Temperature 98.4 F 98.7 F 98.7 F Pulse Rate 64 61 61 Respiratory Rate 20 14 14 Blood Pressure 140/59 L 113/58 L 113/58 L Blood Pressure [Left Arm] Pulse Oximetry 100 100 Rec'd pt to rm 102 from ED at 1250 via w/c. Pt is AAO x3. Stood from w/c and walked into BR with steady gait to void. Completed admission assessment. Verified blood consent signed and educated pt to blood transfusion. Pt called to update on plan of care. Oriented to room, environment, routine, call light, fall risk. Call light in easy reach.
[2019-02-20 14:07] LABS: Reflexed Lactate in 2 Hours Y
--- NOTE | 2019-02-20 14:34 | P.CONS_ITS ---
History of Present Illness Date Patient Seen: 02/20/19 Time Patient Seen: 14:29 Chief complaint: shortness of breath,chest pain Narrative: 73-year-old white male with history of coronary artery disease having CABG about 3 years ago and a history of atrial fib on aspirin and Xarelto. Has had a 1 month history of feeling weak and fatigued. Denies abdominal pain denies observing melena or hematochezia. Has no history of ulcer disease. This found to have a hemoglobin of 6-1/2 in the emergency room this morning. Current he is being transfused. His vital signs are stable. [facility] Medical History (Updated 02/20/19 @ 13:39 by Td Badillo MD) Paroxysmal atrial fibrillation (Acute) Coronary artery disease (Acute) Surgical History (Updated 02/20/19 @ 13:41 by Td Badillo MD) History of aortic valve replacement with bioprosthetic valve (Acute) Status post cardiac catheterization Status post coronary artery bypass graft Status post hernia repair Social History household members: spouse Smoking Status: Former smoker alcohol intake: never Social History household members: spouse Smoking Status: Former smoker alcohol intake: never Meds Home Medications Medication Instructions Recorded Confirmed Type multivitamin 1 tab PO DAILY #0 11/23/10 02/20/19 History aspirin 81 mg PO DAILY #0 05/31/11 02/20/19 History metoprolol succinate [Toprol XL] 25 mg PO QAM #0 09/01/16 02/20/19 History lisinopril 10 mg tablet 10 mg PO QPM 11/22/18 02/20/19 History lisinopril 20 1 tab PO QAM 11/22/18 02/20/19 History mg-hydrochlorothiazide 12.5 mg tablet rivaroxaban 20 mg tablet 20 mg PO QPM 11/22/18 02/20/19 History atorvastatin 40 mg PO QPM 02/20/19 02/20/19 History Allergies Allergy/AdvReac Type Severity Reaction Status Date / Time No Known Drug Allergies Allergy Verified 02/20/19 11:20 Review of Systems Review of Systems All systems reviewed & are unremarkable except as noted in HPI and below Exam Vital Signs (past 8 hours): - 02/20/19 11:20 02/20/19 11:30 02/20/19 12:04 Temperature 97.5 F L Pulse Rate 68 60 61 Respiratory Rate 18 14 15 Blood Pressure 156/67 H Blood Pressure [Left Arm] 124/67 125/67 Pulse Oximetry 100 100 100 02/20/19 12:29 02/20/19 12:30 02/20/19 12:43 Temperature Pulse Rate 62 60 60 Respiratory Rate 13 13 15 Blood Pressure 120/61 Blood Pressure [Left Arm] 115/61 120/61 Pulse Oximetry 99 100 100 02/20/19 12:58 02/20/19 13:46 02/20/19 13:50 Temperature 98.4 F 98.7 F 98.7 F Pulse Rate 64 61 61 Respiratory Rate 20 14 14 Blood Pressure 140/59 L 113/58 L 113/58 L Blood Pressure [Left Arm] Pulse Oximetry 100 100 02/20/19 14:05 Temperature 98.9 F Pulse Rate 61 Respiratory Rate 18 Blood Pressure 112/56 L Blood Pressure [Left Arm] Pulse Oximetry Oxygen Delivery Method Room Air Oxygen Flow Rate 0 Narrative Exam Narrative: Patient is alert and oriented having no pain, heart rate is in the 70s blood pressure 140 systolic. Lungs are clear Heart regular rhythm at the moment. Abdomen is soft and nontender. No masses are noted. Objective Labs Result Diagrams: 02/20/19 11:23 02/20/19 11:23 Labs: Laboratory Results - last 24 hr 02/20/19 02/20/19 02/20/19 11:23 11:23 11:23 WBC 7.8 RBC 2.50 L Hgb 6.5 L* Hct 20.2 L* MCV 80.9 MCH 26.1 MCHC 32.3 RDW 19.4 H Plt Count 236 Neut % (Auto) 76.8 H Lymph % (Auto) 13.1 L Borden % (Auto) 8.4 Eos % (Auto) 0.6 L Baso % (Auto) 1.1 Neut # (Auto) 6000 Lymph # (Auto) 1000 L B[place] # (Auto) 700 Eos # (Auto) 0 Baso # (Auto) 100 PT 16.9 H INR 1.5 H APTT 37 H Sodium 138 Potassium 4.2 Chloride 102 Carbon Dioxide 22 BUN 17 Creatinine 1.00 Estimated GFR > 60.0 BUN/Creatinine Ratio 17.0 Glucose 196 H Lactate Calcium 9.9 Total Bilirubin 0.7 AST 71 H ALT 77 H Alkaline Phosphatase 53 Troponin I 0.014 B-Natriuretic Peptide < 100 Total Protein 7.1 Albumin 4.5 Globulin 2.6 Albumin/Globulin Ratio 1.7 Lipase 197 Blood Type Antibody Screen Crossmatch 02/20/19 02/20/19 12:00 12:00 WBC RBC Hgb Hct MCV MCH MCHC RDW Plt Count Neut % (Auto) Lymph % (Auto) Borden % (Auto) Eos % (Auto) Baso % (Auto) Neut # (Auto) Lymph # (Auto) Borden # (Auto) Eos # (Auto) Baso # (Auto) PT INR APTT Sodium Potassium Chloride Carbon Dioxide BUN Creatinine Estimated GFR BUN/Creatinine Ratio Glucose Lactate 3.3 H Calcium Total Bilirubin AST ALT Alkaline Phosphatase Troponin I B-Natriuretic Peptide Total Protein Albumin Globulin Albumin/Globulin Ratio Lipase Blood Type A Negative Antibody Screen Negative Crossmatch See Detail Assessment & Plan Assessment & Plan narrative: Patient with blood loss anemia presumably from upper GI source. This is no doubt related to his aspirin and Xarelto therapy. Patient is being transfused today now receiving his 1st unit of packed cells. He is due to receive several units of packed cells today. Once he is transfused and has a hemoglobin closer to 10 I will do an EGD likely tomorrow. Patient understands and agrees. I have instituted PPI therapy with a continuous Protonix drip. I will recheck his hemoglobin 1st thing in the morning.
[2019-02-20 14:48] LABS: HEMOLYSIS < 15 (0-50); Iron 14 ug/dL (49-181)
[2019-02-20 14:52] LABS: Lactate 2HR (Lactic Acid Rflx) 1.8 mmol/L (0.7-2.1)
[2019-02-20 14:59] LABS: Percent Iron Saturation 3 % (20-50); Total Iron Binding Capacity 470 ug/dL (261-462); Transferrin 381 mg/dL (206-381)
[2019-02-20] MEDS: PANTOPRAZOLE 80 MG in SODIUM CHLORIDE 0.9% 100 ML 10 ML IV (15:30)
[2019-02-20 16:50] LABS: Ferritin 7.3 ng/mL (17.9-464)
[2019-02-20] MEDS: ATORVASTATIN 20 MG TABLET 40 MG PO (17:13)
[2019-02-20] MEDS: LISINOPRIL 10 MG TABLET PO (17:13)
--- NOTE | 2019-02-20 22:15 | PC.NURSE ---
2215 -Pt resting in bed. Reports that maybe feeling less fatigued following completion of blood transfusions. It's hard to tell when your just laying around in bed. Denies lightheadedness, dizziness or chest pressure. VSS. Protonix gtt infusing. Reviewed NPO at ND. Pt verbalized understanding. Reinforced safety and call light use. Call light in reach.
[2019-02-21] VITALS (17 sets, daily range): BP systolic 108–154; BP diastolic 67–84; PULSE 60–66; RESP 11–18; TEMP 36.5–37.2; O2SAT 97–99
--- NOTE | 2019-02-21 | PATH_ITS ---
[facility] Accession Number: [id number] . 01 Material submitted: . gastrointestinal site - BIOPSY GASTRIC ANTRUM . 01 Clinical history: . RULE OUT H.PYLORI . 02 Diagnosis: Stomach, Antrum, Biopsy: Antral mucosa with no diagnostic abnormality. Negative for Helicobacter by immunohistochemistry. Negative for intestinal metaplasia. Negative for dysplasia and malignancy. [facility]/02/23/2019 . 02 Electronically signed: . Lilly Hester MD, Pathologist NPI- [id number] . 01 Gross description: . BIOPSY GASTRIC ANTRUM: Received in formalin is 1 fragment(s) of arce, soft tissue measuring 0.3 x 0.2 x 0.2 cm which is entirely submitted and submitted entirely in 1 cassette(s) /DMC /DMC . 02 Microscopic: . An immunohistochemical stain was performed to evaluate for Helicobacter organisms and is negative. The control stain showed appropriate reactivity. . * This test was developed and its performance characteristics determined by [facility]. It has not been cleared or approved by the U.S. Food and Drug Administration. The FDA has determined that such clearance or approval is not necessary. This test is used for clinical purposes. It should not be regarded as investigational or for research. . 02 Pathologist provided ICD-10: R10.9 . 02 CPT . 555525, V69516 Performed at: [facility] [address] [facility], [place], [place] [id number] MD Dmitri Chen MD Phone: [phone] Performed at: [facility] [id number] [place], [place] [id number] MD Lilly Hester MD Phone: [phone]
[2019-02-21 05:26] LABS: Add Manual Diff / Slide Review NO; Basophils Absolute Auto 100 /uL (0-100); Basophils Percent Auto 0.8 % (0-2); Eosinophils Absolute Auto 100 /uL (0-450); Eosinophils Percent Auto 1.3 % (2-4); Hematocrit 21.6 % (41-53); Lymphocytes Absolute Auto 1600 /uL (1100-4500); Lymphocytes Percent Auto 22.2 % (25-40); Mean Corpuscular HGB Conc 32.5 % (30-36); Mean Corpuscular Hemoglobin 26.6 PG (26-34); Mean Corpuscular Volume 81.8 fL (80-100); Monocytes Absolute Auto 800 /uL (0-900); Monocytes Percent Auto 10.7 % (3-14); Neutrophils Absolute Auto 4600 /uL (1500-7000); Platelet Count 188 X10^3/uL (150-400); Red Blood Cell Count 2.64 X10^6/uL (4.5-5.9); Red Cell Distribution Width 18.4 % (11.6-14.8); White Blood Cell Count 7.1 X10^3/uL (4.5-11.0)
[2019-02-21] MEDS: PANTOPRAZOLE 80 MG in SODIUM CHLORIDE 0.9% 100 ML 10 ML IV ×2 (06:45→09:10)
--- NOTE | 2019-02-21 07:12 | PC.NURSE ---
NOC Shift: Pt post RBC transfusion for possible GIB admit H&H 01/04. VSS, Vpaced on tele. Denies pain, discomfort. No active bleeding thru shift pt ambulating to bathroom w/o symptoms. Dr. Cruz notified this AM for continued low H&H 02/04 orders to transfuse 2 more RBC's, cont. protonix infusion. Pt. NPO for EGD this morning at 1100. Pt aware and agreed.
--- NOTE | 2019-02-21 08:56 | CM.DANOTE ---
Addendum entered by Lissa Gallardo R.N. 02/21/19 15:31: Patient already had EGD today, which noted, no GI bleed. Patient will be discharged home, will be initiating iron, secondary to iron deficiency, and will be following up with Dr. Lemus. Original Note: DCP: Case received, EMR reviewed and met with patient. Introduced self and role. Was able to obtain baseline health information from patient. , [place], also at bedside. DCP assessment completed with information currently available. Patient is a 73 year old male who admitted yesterday afternoon to the care of the hospitalist team. PCP: Dr. Fournier. Payer: confirmed: [facility]. Patient came to the hospital via family vehicle secondary to some fatigue and shortness of breath. Patient holds diagnosis of Anemia, potential GI bleed. He is having an EGD at approximately 11:00. Patient received some blood yesterday, and is currently receiving blood now, secondary to low H&H. Met with patient, pleasant. Alert and oriented, independent. , [place], also at bedside. They both reside here in [place]. Patient discussed his cardiac history. He has history of a-fib, has a ventricular pacemaker, and has had CABG. He was concerned that this problem was heart related. He is from [place], his shgaal-ma-cem lives with him and his . His mother used to reside at [facility] with dementia, but passed. He is an avid [employer], and stated that his cammie helped him give up smoking cold turkey. P: DCP to continue to follow. He will have his procedure today. He should be able to go home when he is medically stable. Lissa Gallardo RN/Party Plan Sales Agent
[2019-02-21] MEDS: LISINOPRIL 10 MG TABLET PO (09:03)
[2019-02-21] MEDS: hydroCHLOROthiazide 12.5 MG CAPSULE PO (09:04)
[2019-02-21] MEDS: METOPROLOL ER 25 MG TABLET PO (09:04)
--- NOTE | 2019-02-21 11:50 | PM.OP.ENDO ---
Operative Date/Time/Diagnoses Date of procedure: 02/21/19 Time of procedure: 11:50 Pre-op diagnosis: Upper GI bleed Post-op diagnosis: other (No evidence of upper GI bleeding patient has a hiatal hernia small periesophageal hiatal hernia slight esophageal stricture at the EG junction) Procedure & Clinicians Same procedure as scheduled: Yes Surgeon: Juan Henderson Procedure Notes SCOAP/Timeout: Was done Procedure in detail: Patient was properly identified during surgical pause given mac conscious sedation by the anesthesiologist because he has a severe cardiac history. The flexible fiberoptic gastroscope was inserted transorally from the hypopharynx into the 2nd portion of the duodenum. the patient does have a sliding hiatal hernia with mild stricture at the EG junction and also has a pair esophageal hernia. this was all photographed. The gastroscope was retroflexed and there is no evidence of a Stephania-Stapleton tear. There is absolutely no fresh or old blood anywhere in the upper GI tract. The stomach appears normal. I biopsy the gastric antrum for H pylori. The pyloric channel 1st and 2nd portion of the duodenum and duodenal bulb are all normal. the procedure was well tolerated. Scope withdrawal time: 8 Sedation minutes: 10 Findings: stricture Specimen(s): other (Gastric biopsy for H pylori) Complications: none Impression: There is no evidence of recent upper GI bleeding in this patient. there is certainly no old blood new blood or any source of upper GI bleeding identified. Disposition: ICU
[2019-02-21] MEDS: LACTATED RINGERS 1,000 ML 42 ML IV (13:20)
[2019-02-21 14:25] LABS: Add Manual Diff / Slide Review NO; Basophils Absolute Auto 100 /uL (0-100); Basophils Percent Auto 1.1 % (0-2); Eosinophils Absolute Auto 100 /uL (0-450); Eosinophils Percent Auto 0.7 % (2-4); Hematocrit 26.9 % (41-53); Hemoglobin 8.9 g/dL (13.5-17.5); Lymphocytes Absolute Auto 1200 /uL (1100-4500); Lymphocytes Percent Auto 18.3 % (25-40); Mean Corpuscular HGB Conc 33.1 % (30-36); Mean Corpuscular Hemoglobin 27.6 PG (26-34); Mean Corpuscular Volume 83.3 fL (80-100); Monocytes Absolute Auto 500 /uL (0-900); Monocytes Percent Auto 7.7 % (3-14); Neutrophils Absolute Auto 4900 /uL (1500-7000); Neutrophils Percent Auto 72.2 % (50-75); Platelet Count 180 X10^3/uL (150-400); Red Blood Cell Count 3.23 X10^6/uL (4.5-5.9); Red Cell Distribution Width 17.9 % (11.6-14.8); White Blood Cell Count 6.8 X10^3/uL (4.5-11.0)
[2019-02-21 14:37] LABS: Lactate Dehydrogenase 603 U/L (313-618)
--- NOTE | 2019-02-21 14:50 | P.PN_ITS ---
Subjective Date Patient Seen: 02/21/19 Interval history: The patient is a 73-year-old male who was admitted to the hospital for symptomatic anemia yesterday. He received 2 units of blood last evening. His hemoglobin this morning remained at 7 despite 2 units of blood. He has since received 2 additional units of blood. In addition the patient underwent upper endoscopy which was negative for any evidence of bleeding. He has had no hematemesis or melena. Overall he feels significantly improved. He has no further shortness of breath or dizziness at this time. Exam Vital Signs (past 8 hours): - 02/21/19 07:48 02/21/19 08:00 02/21/19 08:07 Temperature 98.4 F 98.4 F 98.2 F Pulse Rate 61 61 60 Respiratory Rate 12 12 12 Blood Pressure 130/80 128/73 135/74 Pulse Oximetry 97 02/21/19 09:03 02/21/19 09:04 02/21/19 11:09 Temperature 98.2 F Pulse Rate 60 60 61 Respiratory Rate 12 Blood Pressure 135/74 128/73 151/84 H Pulse Oximetry 02/21/19 11:23 02/21/19 11:53 02/21/19 12:00 Temperature 97.7 F Pulse Rate 61 60 61 Respiratory Rate 11 L 18 Blood Pressure 154/81 H 108/69 117/69 Pulse Oximetry 98 98 02/21/19 12:05 02/21/19 12:10 02/21/19 12:16 Temperature 99.0 F Pulse Rate 61 61 63 Respiratory Rate 17 11 L 15 Blood Pressure 127/67 132/69 131/78 Pulse Oximetry 99 99 99 02/21/19 13:44 Temperature 98.6 F Pulse Rate 60 Respiratory Rate 12 Blood Pressure 134/72 Pulse Oximetry Fraction of Inspired Oxygen 0 Oxygen Delivery Method Room Air Oxygen Flow Rate 0 Narrative Exam Narrative: Pleasant male in no obvious distress Lungs: Clear to auscultation Cardiac exam: Regular rate and rhythm normal S1-S2 with a 3/6 systolic ejection murmur Abdomen: Soft and nontender nondistended without hepatosplenomegaly Extremities: No edema Objective Labs Result Diagrams: 02/21/19 14:13 02/20/19 11:23 Labs: Laboratory Results - last 24 hr 02/20/19 02/20/19 02/20/19 11:23 11:23 12:00 WBC RBC Hgb Hct MCV MCH MCHC RDW Plt Count Neut % (Auto) Lymph % (Auto) Ste[place]s % (Auto) Eos % (Auto) Baso % (Auto) Neut # (Auto) Lymph # (Auto) [place]s # (Auto) Eos # (Auto) Baso # (Auto) Lactate Iron 14 L TIBC 470 H % Saturation 3 L Transferrin 381 Ferritin 7.3 L Total Bilirubin Lactate Dehydrogenase Nasal Screen MRSA (PCR) Blood Type A Negative Antibody Screen Negative Crossmatch See Detail 02/20/19 02/20/19 02/21/19 13:25 14:20 05:00 WBC 7.1 RBC 2.64 L Hgb 7.0 L Hct 21.6 L MCV 81.8 MCH 26.6 MCHC 32.5 RDW 18.4 H Plt Count 188 Neut % (Auto) 65.0 Lymph % (Auto) 22.2 L [place] % (Auto) 10.7 Eos % (Auto) 1.3 L Baso % (Auto) 0.8 Neut # (Auto) 4600 Lymph # (Auto) 1600 [place]s # (Auto) 800 Eos # (Auto) 100 Baso # (Auto) 100 Lactate 1.8 Iron TIBC % Saturation Transferrin Ferritin Total Bilirubin Lactate Dehydrogenase Nasal Screen MRSA (PCR) Negative for mrsa Blood Type Antibody Screen Crossmatch 02/21/19 02/21/19 14:13 14:13 WBC 6.8 RBC 3.23 L Hgb 8.9 L Hct 26.9 L MCV 83.3 MCH 27.6 MCHC 33.1 RDW 17.9 H Plt Count 180 Neut % (Auto) 72.2 Lymph % (Auto) 18.3 L [place] % (Auto) 7.7 Eos % (Auto) 0.7 L Baso % (Auto) 1.1 Neut # (Auto) 4900 Lymph # (Auto) 1200 Ste[place]s # (Auto) 500 Eos # (Auto) 100 Baso # (Auto) 100 Lactate Iron TIBC % Saturation Transferrin Ferritin Total Bilirubin 1.0 Lactate Dehydrogenase 603 Nasal Screen MRSA (PCR) Blood Type Antibody Screen Crossmatch Assessment & Plan Assessment & Plan narrative: 1. Symptomatic anemia, etiology unclear. No evidence of blood loss at this time. Patient will be ruled out for hemolytic anemia, if his hemolysis workup is negative would consider Hematology consultation and bone marrow aspirate/biopsy as an outpatient. Patient has been transfused to a hemoglobin of 8.9. Will advance his diet and await laboratory studies. Should the home also as workup be negative consider discharge home. 2. Coronary artery disease, status post poor seen valve, with a history of atrial fibrillation. Patient will continue his aspirin and rivaroxaban. Will continue him on his other home meds as well. 3. Hyperlipidemia continue statin 4. Hypertension continue lisinopril Quality VTE Deep Vein Thrombosis/Pulmonary Embolism Present on Admission: No
--- NOTE | 2019-02-21 15:20 | PM.DS.1 ---
History of Present Illness Date Patient Seen: 02/21/19 Chief complaint: shortness of breath,chest pain Narrative: Mr. segura is a 73-year-old male with history of CAD, CABG x3 vessels, ventricular pacemaker, porcine aortic valve replacement, paroxysmal atrial fibrillation presented to emergency department with complaints of dyspnea on exertion. He did notice gradual onset of dyspnea on exertion for the past month. It has gradually gotten worse. He states his chest feels a little tight with exertion but feels it is more related to the being out of breath. Patient is on low-dose aspirin and Xarelto. In addition he had a tonsillar abscess about a month ago and took both Aleve and ibuprofen for a couple of days during that time. Patient states he had a colonoscopy within the past 3-5 years which was normal. He has never had a peptic ulcer or GI bleed. His troponin was normal at 0.014. He wa Discharge Providers Date of admission: 02/20/19 12:41 Discharge Date: 02/21/19 Primary care physician: Katarina Fournier DO Consults: 02/20/19 13:31 Consult to Physician Routine Comment: Consulting Provider: Juan Henderson Reason for consultation: GI BLEED Has provider been notified: Yes Discharge provider: Anaya Oconnor MD Summary Discharge Diagnosis: 1. Iron deficient anemia 2. Status post 4 units of packed RBCs 3. Paroxysmal atrial fibrillation 4. Coronary artery disease 5. Hyperlipidemia 6. Hypertension Hospital Course: The patient is a 73-year-old male who was admitted to the hospital for symptomatic anemia. He received 2 units of blood the 1st evening. Following day he had an upper endoscopy which was negative for any evidence of bleeding. The patient was guaiac negative. He was no rectal bleeding. He received 2 additional units of blood with improvement of his hemoglobin to 8.6. His iron study showed that he was markedly iron deficient with a iron saturation of 3%. Iron level of 14. The patient made significant improvement and was deemed appropriate for discharge home. He will be started on iron 325 twice daily. The patient will follow up with Dr. Fournier next week, and he will be referred to Dr. Whipple for an evaluation in 2 weeks. Patient is deemed appropriate for discharge and arrangements were made for him to be discharged home. Status at Discharge Cognitive/behavioral status at discharge: oriented Functional status at discharge: independent ambulation Overall status at discharge: patient is back to baseline Time Spent with Patient Less than 30 minutes Exam Vital Signs (past 8 hours): - 02/21/19 07:48 02/21/19 08:00 02/21/19 08:07 Temperature 98.4 F 98.4 F 98.2 F Pulse Rate 61 61 60 Respiratory Rate 12 12 12 Blood Pressure 130/80 128/73 135/74 Pulse Oximetry 97 02/21/19 09:03 02/21/19 09:04 02/21/19 11:09 Temperature 98.2 F Pulse Rate 60 60 61 Respiratory Rate 12 Blood Pressure 135/74 128/73 151/84 H Pulse Oximetry 02/21/19 11:23 02/21/19 11:53 02/21/19 12:00 Temperature 97.7 F Pulse Rate 61 60 61 Respiratory Rate 11 L 18 Blood Pressure 154/81 H 108/69 117/69 Pulse Oximetry 98 98 02/21/19 12:05 02/21/19 12:10 02/21/19 12:16 Temperature 99.0 F Pulse Rate 61 61 63 Respiratory Rate 17 11 L 15 Blood Pressure 127/67 132/69 131/78 Pulse Oximetry 99 99 99 02/21/19 13:44 Temperature 98.6 F Pulse Rate 60 Respiratory Rate 12 Blood Pressure 134/72 Pulse Oximetry Fraction of Inspired Oxygen 0 Oxygen Delivery Method Room Air Oxygen Flow Rate 0 Narrative Exam Narrative: Pleasant gentleman resting comfortably in no obvious distress Lungs: Clear to auscultation Cardiac exam: Regular rate and rhythm normal S1-S2 with a 3/6 systolic ejection murmur Abdomen: Soft and nontender Extremities: No edema Objective Labs Result Diagrams: 02/21/19 14:13 02/20/19 11:23 Labs: Laboratory Results - last 24 hr 02/20/19 02/20/19 02/21/19 11:23 12:00 05:00 WBC 7.1 RBC 2.64 L Hgb 7.0 L Hct 21.6 L MCV 81.8 MCH 26.6 MCHC 32.5 RDW 18.4 H Plt Count 188 Neut % (Auto) 65.0 Lymph % (Auto) 22.2 L [place] % (Auto) 10.7 Eos % (Auto) 1.3 L Baso % (Auto) 0.8 Neut # (Auto) 4600 Lymph # (Auto) 1600 [place] # (Auto) 800 Eos # (Auto) 100 Baso # (Auto) 100 Ferritin 7.3 L Total Bilirubin Lactate Dehydrogenase Blood Type A Negative Antibody Screen Negative Crossmatch See Detail 02/21/19 02/21/19 14:13 14:13 WBC 6.8 RBC 3.23 L Hgb 8.9 L Hct 26.9 L MCV 83.3 MCH 27.6 MCHC 33.1 RDW 17.9 H Plt Count 180 Neut % (Auto) 72.2 Lymph % (Auto) 18.3 L [place]ward % (Auto) 7.7 Eos % (Auto) 0.7 L Baso % (Auto) 1.1 Neut # (Auto) 4900 Lymph # (Auto) 1200 [place] # (Auto) 500 Eos # (Auto) 100 Baso # (Auto) 100 Ferritin Total Bilirubin 1.0 Lactate Dehydrogenase 603 Blood Type Antibody Screen Crossmatch Discharge Plan Discharge Plan Discharge Problem: Anemia, Dyspnea on exertion, Coronary artery disease Patient Disposition: Home Discharge Med Rec/Prescriptions Prescriptions: New ferrous sulfate [iron] 325 mg (65 mg iron) tablet 325 mg PO BID Qty: 60 RF: 0 Continued multivitamin Tablet 1 tab PO DAILY Qty: 0 RF: 0 aspirin 81 mg Tablet,Delayed Release (Dr/Ec) 81 mg PO DAILY Qty: 0 RF: 0 metoprolol succinate [Toprol XL] 25 MG tablet extended release 24 hr 25 mg PO QAM Qty: 0 RF: 0 Xarelto 20 mg tablet 20 mg PO QPM RF: 0 lisinopril-hydrochlorothiazide 20-12.5 mg tablet 1 tab PO QAM RF: 0 lisinopril 10 mg tablet 10 mg PO QPM RF: 0 atorvastatin 40 mg tablet 40 mg PO QPM RF: 0 Follow up/Referrals: Katarina Fournier DO [Primary Care Provider] - Provider Discharge Instructions Diet: Low-sodium and Low-cholesterol Activity: as tolerated Other treatments: F/U with Dr. Fournier in one week, F/U with Dr. Lemus in 2 weeks Discharge Data Primary Care Provider: Katarina Fournier Attending Provider: Td Badillo Admit Date/Time: 02/20/19 12:41 Quality VTE Deep Vein Thrombosis/Pulmonary Embolism Present on Admission: No
[2019-02-23 15:08] LABS: Haptoglobin 175 mg/dL (43-212)
== END 2019-02-21 16:10 | disposition home or self-care (01) | DRG 812 ==
LOC: ED 12:24 → ICU 12:46
PROVIDERS: Internal Medicine; Surgery; Admitting Provider Internal Medicine; Emergency Provider Emergency Medicine; Family Provider Family Medicine; PCP Family Medicine; Visit Provider Internal Medicine
PROC: 0DJ08ZZ Inspection of Upper Intestinal Tract, Via Natural or Artificial Opening Endoscopic (ICD-10-PCS; CPT 43235; principal; 2019-02-21 11:15)
DX: D50.9 Iron deficiency anemia, unspecified (principal); R06.09 Other forms of dyspnea; I25.10 Atherosclerotic heart disease of native coronary artery without angina pectoris; Z95.0 Presence of cardiac pacemaker; I48.0 Paroxysmal atrial fibrillation; Z95.1 Presence of aortocoronary bypass graft; Z95.2 Presence of prosthetic heart valve; E78.5 Hyperlipidemia, unspecified; I10 Essential (primary) hypertension; Z79.01 Long term (current) use of anticoagulants
CPT/HCPCS: 36415; 36430; 36591; 43235; 71045; 80053; 82247; 82728; 83010; 83540; 83550; 83605; 83615; 83690; 83880; 84484; 85025; 85610; 85730; 86850; 86900; 86901; 87797; 93005; 99152; 99232; 99283; 99285; P9016; C9113; J2704

== ENCOUNTER → 2019-03-05 10:10 | Outpatient (CLI) | payer OTHER, SELFPAY ==
[2019-02-20 12:50] VITALS: BMI 29.7
[2019-03-05 10:54] LABS: Add Manual Diff / Slide Review NO; Basophils Absolute Auto 100 /uL (0-100); Basophils Percent Auto 1.2 % (0-2); Eosinophils Absolute Auto 100 /uL (0-450); Eosinophils Percent Auto 1.7 % (2-4); Hematocrit 30.5 % (41-53); Hemoglobin 9.9 g/dL (13.5-17.5); Lymphocytes Absolute Auto 1100 /uL (1100-4500); Lymphocytes Percent Auto 17.5 % (25-40); Mean Corpuscular HGB Conc 32.4 % (30-36); Mean Corpuscular Volume 86.3 fL (80-100); Monocytes Absolute Auto 600 /uL (0-900); Monocytes Percent Auto 8.7 % (3-14); Neutrophils Absolute Auto 4600 /uL (1500-7000); Neutrophils Percent Auto 70.9 % (50-75); Platelet Count 183 X10^3/uL (150-400); Red Blood Cell Count 3.54 X10^6/uL (4.5-5.9); Red Cell Distribution Width 21.3 % (11.6-14.8); White Blood Cell Count 6.5 X10^3/uL (4.5-11.0)
[2019-03-05 11:06] LABS: BUN Creatinine Ratio 16.3 (6-22); Blood Urea Nitrogen 13 mg/dL (9-20); Calcium 9.8 mg/dL (8.4-10.2); Carbon Dioxide 23 mmol/L (22-32); Chloride 109 mmol/L (98-107); Estimated Glomerular Filt Rate > 60.0 mL/min (>60); Glucose 141 mg/dL (80-110); HEMOLYSIS < 15 (0-50); Potassium 4.2 mmol/L (3.4-5.1); Sodium 141 mmol/L (137-145)
[2019-03-05 11:14] LABS: Appearance Urine UA CLEAR; Bilirubin Urine UA NEGATIVE (NEGATIVE); Color Urine UA YELLOW; Glucose Urine UA NEGATIVE (Negative); Ketones Urine UA NEGATIVE (NEGATIVE); Leukocyte Esterase Urine UA NEGATIVE (NEGATIVE); Nitrite Urine UA NEGATIVE (Negative); Occult Blood Urine UA NEGATIVE (Negative); Protein Urine UA NEGATIVE (Negative); Specific Gravity Urine UA 1.025 (1.000-1.035); Urobilinogen Urine UA 0.2 E.U./dL (0.2)
[2019-03-05 11:17] LABS: Anisocytosis 2+; Hypochromasia 1+
== END ==
PROVIDERS: PCP Family Medicine; Visit Provider Nurse Practitioner
DX: K92.2 Gastrointestinal hemorrhage, unspecified (principal); D64.9 Anemia, unspecified; I25.10 Atherosclerotic heart disease of native coronary artery without angina pectoris; I48.0 Paroxysmal atrial fibrillation; R06.09 Other forms of dyspnea; I10 Essential (primary) hypertension
CPT/HCPCS: 36415; 80048; 81003; 85025; 86747

== ENCOUNTER → 2019-04-10 10:20 | Oncology outpatient (ONC) | payer OTHER, SELFPAY ==
[2019-02-20 12:50] VITALS: BMI 29.7
[2019-03-07 08:49] VITALS: BP 142/89; PULSE 59; RESP 18; TEMP 37.2; O2SAT 97
--- NOTE | 2019-03-07 09:29 | P.CONONC_ITS ---
History of Present Illness - Data of Consult Consult date: 03/07/19 Primary Care Provider: Katarina Fournier DO - Consult Narrative Narrative: Diagnosis: Anemia, likely iron deficiency History of present illness: Saeed Friedman is a 73 year old male who is referred for further evaluation of a new onset anemia. The patient reports that he has recently developed a significant anemia. He had a CBC done in December. At that time, his hemoglobin was 13.9 hematocrit was 39.3. In early January, he developed some upper respiratory symptoms with cough and sore throat. Because of the sore throat, he had taken some frjr-map-wpvzait pain medications including Aleve and ibuprofen. He gradually began to develop some increasing dyspnea on exertion and shortness of breath. By February, the symptoms were severe enough that he presented to the emergency room. He was found to have a hemoglobin of 6.5 hematocrit of 20.2. He was transfused 4 units with an improvement in his hemoglobin and hematocrit 8.9 and 26.9. He did have an endoscopy done with no obvious cause of bleeding found. His ferritin was 7.3. Iron was 14 with a TIBC of 470. B12 and folate were normal TSH was normal. Bilirubin was normal although ALT and AST were slightly elevated. He started taking iron replacement. On CBC earlier this week, his hemoglobin had improved to 9.9 and hematocrit 30.5. The patient reports that he had not been aware of any unusual bleeding or bruising but had been taking Xarelto and aspirin. He is now taking oral iron and tolerating it well. He is not having any abdominal pain or nausea. He has had a little bit of a tendency towards constipation. No fevers chills or sweats. He has not noted any adenopathy. His weight has been stable. He denies any prior history of anemia. His past medical history is notable for coronary artery disease. He has had a prior bypass surgery. He has had valve replacement. He does have a history of atrial fibrillation and has a pacemaker. He has a history of reflux symptoms and has taken Tums frequently. He has had a prior hernia repair. He had multiple fractures as child. He also has had some borderline or diet-controlled diabetes. His family history is notable for cancer in his father. He had a grandfather with lung cancer. There been multiple family members with skin cancers. 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 He quit smoking more than 30 years ago. He does not drink alcohol. CC: Jerson Lemus MD Home Medications and Allergies Home Medications Medication Instructions Recorded Confirmed Type multivitamin 1 tab PO DAILY #0 11/23/10 03/07/19 History aspirin 81 mg PO DAILY #0 05/31/11 03/07/19 History metoprolol succinate [Toprol XL] 25 mg PO QAM #0 09/01/16 03/07/19 History rivaroxaban 20 mg tablet 20 mg PO QPM 11/22/18 03/07/19 History atorvastatin 40 mg PO QPM 02/20/19 03/07/19 History ferrous sulfate [iron] 325 mg PO BID #60 tab 02/21/19 03/07/19 Rx ascorbic acid (vitamin C) [Vitamin 500 mg PO DAILY 03/07/19 03/07/19 History C] chlorthalidone 25 mg PO DAILY 03/07/19 03/07/19 History lisinopril 20 mg PO DAILY 03/07/19 03/07/19 History Allergies Allergy/AdvReac Type Severity Reaction Status Date / Time No Known Drug Allergies Allergy Verified 02/28/19 09:34 Medical History - Medical, Surgical, Family History Medical History: Medical History (Updated 02/20/19 @ 13:39 by Td Badillo MD) Paroxysmal atrial fibrillation (Acute) Coronary artery disease (Acute) Surgical History: Surgical History (Updated 02/20/19 @ 13:41 by Td Badillo MD) History of aortic valve replacement with bioprosthetic valve Status post cardiac catheterization Status post coronary artery bypass graft Status post hernia repair - Social History Smoking Status: Former smoker Review of Systems - Patient Self-Reported Symptoms SR ears, nose, mouth, throat issues: Cough SR respiratory issues: Cough SR Neuro issues: Numbness or tingling Constitutional: able to conduct usual activities, no weight loss Ears, nose, mouth, throat: lightheadedness Cardiovascular: no chest pain, no palpitations, no dyspnea on exertion Gastrointestinal: no change in appetite, no abdominal pain, no abnormal stools Hematologic/Lymphatic: anemia Exam Vital signs: Vital Signs Temp Pulse Resp BP Pulse Ox 03/07/19 08:49 99.0 F 59 L 18 142/89 H 97 Intake and Output 03/06/19 03/07/19 03/07/19 23:59 07:59 15:59 Other: Weight 109.3 kg Patient Weight 03/07/19 23:59 Weight 109.3 kg - Constitutional positive no acute distress, positive average body habitus - Routine HEENT Exam Head: Present: normocephalic, atraumatic Eye: Present: EOMI, PERRL. Absent: conjunctival icterus, scleral injection ENT: Present: mucous membranes moist, oropharynx clear - Routine Neck Exam Present: supple. Absent: lymphadenopathy, thyromegaly - Routine Chest/Breast/Axilla Exam Axillae: Absent: lymphadenopathy - Routine Respiratory Exam Present: Clear to auscultation bilaterally. Absent: rales, wheezes - Routine Cardiovascular Exam Present: RRR, S1, S2, murmur Comments: He has a soft systolic murmur. - Routine Abdominal Exam Present: soft, normoactive bowel sounds. Absent: tenderness, organomegaly, mass - Routine Extremities Exam Absent: cyanosis, clubbing, edema - Routine Back/Spine Exam Back/Spine: Absent: vertebral tenderness - Routine Skin Exam Present: intact. Absent: petechiae, rash - Routine Neurological Exam Present: alert, oriented X3 - Routine Psychiatric Exam Present: normal affect, normal thought process Results - Imaging Additional studies: Procedures Colonoscopy (06/05/14) Excision of Stomach, Via Natural or Artificial Opening Endoscopic, Diagnostic (02/20/19) Transfusion of Nonautologous Red Blood Cells into Peripheral Vein, Percutaneous Approach (02/20/19) Assessment and Plan (1) Anemia Current visit: No Status: Acute 73-year-old man with a recent onset of anemia his labs are consistent with iron deficiency. I suspect that he has had some slow ongoing a blood loss possibly related to his blood thinner. He is clinically improving after his transfusion and iron therapy. I think would be reasonable to check a serum and urine protein electrophoresis just to make sure that there is no underlying sign of myeloma. Will also plan on checking a reticulocyte count to make sure that he is responding to iron as expected. Will also make referral to Gastroenterology for colonoscopy as it has been several years since he has had that done. He will return to clinic in about 4 weeks or so for follow-up. (1) Anemia Qualifiers: Anemia type: unspecified type Qualified Code(s): D64.9 - Anemia, unspecified
[2019-03-21 10:57] LABS: Add Manual Diff / Slide Review NO; Basophils Absolute Auto 100 /uL (0-100); Eosinophils Absolute Auto 100 /uL (0-450); Eosinophils Percent Auto 1.7 % (2-4); Hematocrit 36.8 % (41-53); Hemoglobin 12.2 g/dL (13.5-17.5); Lymphocytes Absolute Auto 1400 /uL (1100-4500); Lymphocytes Percent Auto 23.6 % (25-40); Mean Corpuscular HGB Conc 33.1 % (30-36); Mean Corpuscular Hemoglobin 29.3 PG (26-34); Mean Corpuscular Volume 88.6 fL (80-100); Monocytes Absolute Auto 500 /uL (0-900); Monocytes Percent Auto 9.3 % (3-14); Neutrophils Absolute Auto 3800 /uL (1500-7000); Neutrophils Percent Auto 64.4 % (50-75); Platelet Count 147 X10^3/uL (150-400); Red Blood Cell Count 4.15 X10^6/uL (4.5-5.9); Red Cell Distribution Width 21.7 % (11.6-14.8); White Blood Cell Count 5.9 X10^3/uL (4.5-11.0)
[2019-03-21 11:13] LABS: Reticulocyte Count, Percent 1.5 % (0.87-2.60)
[2019-03-21 11:44] LABS: Anisocytosis 1+; Poikilocytosis 1+
[2019-03-21 12:50] LABS: Lactate Dehydrogenase 397 U/L (313-618)
[2019-03-23 14:02] LABS: Free Kappa/ Lambda Ratio 1.02 (0.26-1.65); Free Lambda 13.8 mg/L (5.7-26.3)
[2019-03-23 20:54] LABS: Alpha 1 Globulin 0.3 g/dL (0.2-0.3); Alpha 2 Globulin 0.8 g/dL (0.5-0.9); Beta 1 Globulin 0.4 g/dL (0.4-0.6); Gamma Globulin 0.7 g/dL (0.8-1.7); Protein, Total 6.5 g/dL (6.1-8.1)
[2019-03-24 17:29] LABS: Albumin 100 %; Protein/ Creatinine Ratio 68 mg/g creat (22-128); Total Urine Protein 11 mg/dL (5-25); Urine Creatinine, Random 161 mg/dL (20-320)
[2019-04-10 10:19] VITALS: BP 122/65; PULSE 66; RESP 18; TEMP 36.8; O2SAT 99
--- NOTE | 2019-04-10 10:31 | P.PNONC_ITS ---
PN -Subjective Interval history: Diagnosis: Iron deficiency anemia Previous treatment: Transfusion in February 2019 with oral iron replacement. Interval history: The patient is a 73-year-old man who returns today for follow-up. He developed acute onset of anemia in February of this year. He had not been aware of any bleeding but his hemoglobin had dropped to 6.6. He was found to be iron deficient and started on oral iron replacement as well as a transfusion. Since his visit here, he feels like his strength and energy level have been improving. He feels like he is nearly back to normal. He is not having any dyspnea on exertion. No chest pain or pressure. No dizziness or lightheadedness. He is tolerating the iron without any difficulty and denies any nausea or vomiting. He does have occasional constipation but it has not been severe. He has not been aware of any unusual bleeding or bruising. He did have an EGD during his h ospitalization. He is scheduled for colonoscopy an 1-2 months. He does continue on anticoagulation. He denies any other changes in his health. - Patient Self-Reported Symptoms SR ears, nose, mouth, throat issues: Cough SR respiratory issues: Cough SR Neuro issues: Numbness or tingling Home Medications and Allergies Home Medications Medication Instructions Recorded Confirmed Type multivitamin 1 tab PO DAILY #0 11/23/10 04/10/19 History aspirin 81 mg PO DAILY #0 05/31/11 04/10/19 History metoprolol succinate [Toprol XL] 25 mg PO QAM #0 09/01/16 04/10/19 History rivaroxaban 20 mg tablet 20 mg PO QPM 11/22/18 04/10/19 History atorvastatin 40 mg PO QPM 02/20/19 04/10/19 History ferrous sulfate [iron] 325 mg PO BID #60 tab 02/21/19 04/10/19 Rx ascorbic acid (vitamin C) [Vitamin 500 mg PO DAILY 03/07/19 04/10/19 History C] chlorthalidone 25 mg PO DAILY 03/07/19 04/10/19 History lisinopril 20 mg PO DAILY 03/07/19 04/10/19 History Allergies Allergy/AdvReac Type Severity Reaction Status Date / Time No Known Drug Allergies Allergy Verified 03/22/19 10:03 Exam Vital signs: Vital Signs Temp Pulse Resp BP Pulse Ox 04/10/19 10:19 98.3 F 66 18 122/65 99 Intake and Output 04/09/19 04/10/19 04/10/19 23:59 07:59 15:59 Other: Weight 107.1 kg Patient Weight 04/10/19 23:59 Weight 107.1 kg - Constitutional positive no acute distress, positive average body habitus Comments: He is not further examined. Results - Labs Laboratory Last Values WBC 5.9 X10^3/uL (4.5-11.0) 03/21/19 10:30 RBC 4.15 X10^6/uL (4.5-5.9) L 03/21/19 10:30 Hgb 12.2 g/dL (13.5-17.5) L 03/21/19 10:30 Hct 36.8 % (41-53) L 03/21/19 10:30 MCV 88.6 fL (80-100) 03/21/19 10:30 MCH 29.3 PG (26-34) 03/21/19 10:30 MCHC 33.1 % (30-36) 03/21/19 10:30 RDW 21.7 % (11.6-14.8) H 03/21/19 10:30 Plt Count 147 X10^3/uL (150-400) L 03/21/19 10:30 Neut % (Auto) 64.4 % (50-75) 03/21/19 10:30 Lymph % (Auto) 23.6 % (25-40) L 03/21/19 10:30 [place] % (Auto) 9.3 % (3-14) 03/21/19 10:30 Eos % (Auto) 1.7 % (2-4) L 03/21/19 10:30 Baso % (Auto) 1.0 % (0-2) 03/21/19 10:30 Neut # (Auto) 3800 /uL (8520-2784) 03/21/19 10:30 Lymph # (Auto) 1400 /uL (6857-9292) 03/21/19 10:30 [place] # (Auto) 500 /uL (0-900) 03/21/19 10:30 Eos # (Auto) 100 /uL (0-450) 03/21/19 10:30 Baso # (Auto) 100 /uL (0-100) 03/21/19 10:30 RBC Morphology See below 03/21/19 10:30 Poikilocytosis 1+ H 03/21/19 10:30 Anisocytosis 1+ H 03/21/19 10:30 Percent Retic 1.5 % (0.87-2.60) 03/21/19 10:30 Lactate Dehydrogenase 397 U/L (313-618) 03/21/19 10:30 Serum Total Protein 6.5 g/dL (6.1-8.1) 03/21/19 10:30 Albumin 4.0 g/dL (3.8-4.8) 03/21/19 10:30 Orwim-8-Misybgwbg 0.3 g/dL (0.2-0.3) 03/21/19 10:30 Beoxt-5-Reechvasz 0.8 g/dL (0.5-0.9) 03/21/19 10:30 Frqo-5-Tcirczuz 0.4 g/dL (0.4-0.6) 03/21/19 10:30 Mjtk-7-Tqcqlvuz 0.3 g/dL (0.2-0.5) 03/21/19 10:30 Gamma Globulins 0.7 g/dL (0.8-1.7) L 03/21/19 10:30 Abnorm Protein Band 1 Not Reportable 03/21/19 10:30 Abnorm Protein Band 2 Not Reportable 03/21/19 10:30 Abn Gamma Band 3 Serum Not Reportable 03/21/19 10:30 PEP Comment See note 03/21/19 10:30 Ur Random Creatinine 161 mg/dL (20-320) 03/21/19 11:01 Protein/Creatinin Ratio 68 mg/g creat (22-128) 03/21/19 11:01 Urine Total Protein 11 mg/dL (5-25) 03/21/19 11:01 Urine Albumin 100 % 03/21/19 11:01 U Random e-2-Kvldfmax 0 % 03/21/19 11:01 U Shjse-3-Cmrdqhrx 0 % 03/21/19 11:01 U Beta Globulin 0 % 03/21/19 11:01 U Gamma Globulin 0 % 03/21/19 11:01 U Abnormal Prot Band 1 Not Reportable 03/21/19 11:01 U Abnormal Prot Band 2 Not Reportable 03/21/19 11:01 U Abnormal Prot Band 3 Not Reportable 03/21/19 11:01 Urine Interpretation See note 03/21/19 11:01 Free [place] Light Chains 14.0 mg/L (3.3-19.4) 03/21/19 10:30 Free Lambda Light Chain 13.8 mg/L (5.7-26.3) 03/21/19 10:30 Free [place]/Lambda Ratio 1.02 (0.26-1.65) 03/21/19 10:30 - Imaging Additional studies: Procedures Colonoscopy (06/05/14) Excision of Stomach, Via Natural or Artificial Opening Endoscopic, Diagnostic (02/20/19) Transfusion of Nonautologous Red Blood Cells into Peripheral Vein, Percutaneous Approach (02/20/19) Assessment and Plan (1) Anemia Current visit: No Status: Acute 73-year-old man with a recent onset of anemia his labs are consistent with iron deficiency. He has had marked improvement with near normalization in his hemoglobin and hematocrit with iron therapy. There is no evidence of underlying myeloma. B12 and folate were normal. He will continue with his iron for a few more months and. Around the end of the year. He will go ahead with his colonoscopy. I believe this is scheduled in May. I have not scheduled a follow-up appointment for him here but would be happy to see him again in the future should new questions or problems arise. (1) Anemia Qualifiers: Anemia type: unspecified type Qualified Code(s): D64.9 - Anemia, unspecified
== END ==
PROVIDERS: PCP Family Medicine
DX: D50.9 Iron deficiency anemia, unspecified (principal)
CPT/HCPCS: 36415; 83615; 83883; 84155; 84156; 84165; 84166; 85025; 85045; 99204; 99213; 99214

== ENCOUNTER → 2019-04-11 17:05 | Outpatient (CLI) | payer OTHER, SELFPAY ==
[2019-03-08 12:19] VITALS: BMI 29.7
[2019-04-11 18:36] LABS: BUN Creatinine Ratio 16.7 (6-22); Blood Urea Nitrogen 15 mg/dL (9-20); Calcium 10.6 mg/dL (8.4-10.2); Carbon Dioxide 25 mmol/L (22-32); Chloride 101 mmol/L (98-107); Estimated Glomerular Filt Rate > 60.0 mL/min (>60); Glucose 123 mg/dL (80-110); HEMOLYSIS < 15 (0-50); Potassium 4.4 mmol/L (3.4-5.1); Sodium 137 mmol/L (137-145)
== END ==
PROVIDERS: Family Provider Family Medicine; PCP Family Medicine; Visit Provider Nurse Practitioner
DX: I10 Essential (primary) hypertension (principal)
CPT/HCPCS: 36415; 80048

== ENCOUNTER 2019-05-31 11:45 | Observation (INO) | payer OTHER, SELFPAY ==
[2019-03-08 12:19] VITALS: BMI 29.7
[2019-05-31] VITALS (21 sets, daily range): BP systolic 119–161; BP diastolic 67–119; PULSE 59–119; RESP 9–25; TEMP 36.4–37.1; O2SAT 91–99; BMI 30.7
[2019-05-31] MEDS: SODIUM CHLORIDE 0.9% 1,000 ML 200 ML IV (12:37)
--- NOTE | 2019-05-31 13:03 | PM.HP.1 ---
History of Present Illness History of Present Illness Date Patient Seen: 05/31/19 Time Patient Seen: 13:05 Chief complaint: [id number] DIAGNOSTIC COLONOSCOPY Narrative: 73-year-old male referred by Oncology with a diagnosis of iron deficiency anemia for screening colonoscopy. He has a history of aflutter for which he is maintained on Xarelto and aspirin and developed symptomatic anemia over the past month. As part of his workup he underwent an esophagoduodenoscopy which was negative for gastritis and peptic ulcer disease. He has had previous colonoscopy within the past 10 years which was reportedly negative per the patient. He has no history of colon cancer or inflammatory bowel disease. He has not had no bright red blood per rectum or melena. Patient History Medical History Coronary artery disease (Acute) Paroxysmal atrial fibrillation (Acute) Surgical History History of aortic valve replacement with bioprosthetic valve (Acute) Status post cardiac catheterization Status post coronary artery bypass graft Status post hernia repair Family & Social History Social History: household members spouse Tobacco & Substance use: Smoking Status Former smoker alcohol intake never Substance Use Type does not use Meds Home Medications and Allergies Home Medications Medication Instructions Recorded Confirmed Type multivitamin 1 tab PO DAILY #0 11/23/10 05/31/19 History aspirin 81 mg PO DAILY #0 05/31/11 05/31/19 History metoprolol succinate [Toprol XL] 25 mg PO QAM #0 09/01/16 05/31/19 History rivaroxaban 20 mg tablet 20 mg PO QPM 11/22/18 05/31/19 History atorvastatin 40 mg PO QPM 02/20/19 05/31/19 History ferrous sulfate [iron] 325 mg PO BID #60 tab 02/21/19 05/31/19 Rx ascorbic acid (vitamin C) [Vitamin 500 mg PO DAILY 03/07/19 05/31/19 History C] chlorthalidone 25 mg PO DAILY 03/07/19 05/31/19 History lisinopril 20 mg PO DAILY 03/07/19 05/31/19 History Allergies Allergy/AdvReac Type Severity Reaction Status Date / Time No Known Drug Allergies Allergy Verified 03/22/19 10:03 Review of Systems Review of Systems ROS Unobtainable: All systems reviewed & are unremarkable except as noted in HPI and below Exam Vital Signs (past 8 hours): - 05/31/19 12:06 Temperature 97.6 F Pulse Rate 62 Respiratory Rate 16 Blood Pressure 142/80 H Pulse Oximetry 97 Oxygen Delivery Method Room Air Narrative Exam Narrative: General-no acute distress, well nourished HEENT-moist mucous membranes, no scleral icterus Neck-supple, no lymphadenopathy Chest- non labored respirations, clear to auscultation bilaterally Cardiac-regular rate no peripheral edema Abdomen-soft, nontender, non distended Extremities-warm, well perfused Neurological-alert and oriented, no focal deficits Assessment & Plan Assessment & Plan narrative: The patient requires diagnostic colonoscopy for anemia. Technical details were discussed. Risks, benefits, alternatives explained. Risks including but not limited to myocardial infarction, aspiration, bleeding, pain, missed lesion, incomplete examination, need for further radiographic studies, colonic perforation, and need for major abdominal surgery were discussed. All questions were answered to their satisfaction, and they are in agreement with this plan.
[2019-05-31] MEDS: fentaNYL 250 MCG/5 ML INJ IV (13:30)
[2019-05-31] MEDS: MIDAZOLAM 5 MG/5 ML VIAL IV (13:31)
--- NOTE | 2019-05-31 13:37 | PM.OP.ENDO ---
Operative Date/Time/Diagnoses Date of procedure: 05/31/19 Time of procedure: 13:37 Pre-op diagnosis: anemia Post-op diagnosis: same Procedure & Clinicians Study performed: colonoscopy Same procedure as scheduled: Yes Indications: 73-year-old male with previously normal colonoscopy 10 years ago developed microcytic anemia and presents for a diagnostic colonoscopy. Surgeon: Jian Alas Procedure Notes SCOAP/Timeout: Performed Procedure in detail: Patient placed in left lateral decubitus position. Time out was performed. Procedural sedation was administered with Versed and Fentanyl. A rectal exam demonstrated no external hemorrhoids no internal masses. Colonoscopy scope was placed into the rectum and advanced through the colon to the cecum. The ileocecal valve was identified. The scope was then slowly withdrawn examining colon thoroughly in all directions. The colonoscopy was notable for the following 1. Sigmoid diverticulosis 2. Moderate quality prep Scope withdrawal time: 8 Sedation minutes: 26 Findings: diverticulosis Specimen(s): none sent Complications: none Impression: normal colonoscopy Post-procedure Recommendations: Colonscopy in 10 years Disposition: same day surgery
--- NOTE | 2019-05-31 13:52 | SUR.PHASEI ---
Patient denied pain. Abd distended, soft. Insp wheeze in blanka anterior lobes. HR 119, sinus tach, BP 151/109. Pt instructed to hold his breath and bear down. HR decreased to 60s for approx 15 seconds and then increased to 110s. Dr. Alas notified of patient status by Karen. Orders obtained.
--- NOTE | 2019-05-31 13:58 | SUR.PHASEI ---
Pt's heart rate ranging from 110s to 60s and back again. Patient denied chest pain, nausea or sob.
--- NOTE | 2019-05-31 14:56 | SUR.PHASEI ---
Dr. lAas and Dr. Lutz shown the EKG results and discussed patient status. No new orders. Dr. Lutz notified of troponin results.
--- NOTE | 2019-05-31 16:13 | SUR.PHASEII ---
pt held for observation after episodes of tach/aflutter/fib on monitor, 12 lead done and troponins drawn x2
[2019-05-31 16:22] LABS: Add Manual Diff / Slide Review NO; Basophils Absolute Auto 0 /uL (0-100); Basophils Percent Auto 0.7 % (0-2); Eosinophils Absolute Auto 100 /uL (0-450); Eosinophils Percent Auto 1.1 % (2-4); Hematocrit 37.3 % (41-53); Lymphocytes Absolute Auto 1600 /uL (1100-4500); Mean Corpuscular HGB Conc 34.9 % (30-36); Mean Corpuscular Hemoglobin 32.3 PG (26-34); Mean Corpuscular Volume 92.7 fL (80-100); Monocytes Absolute Auto 600 /uL (0-900); Monocytes Percent Auto 9.4 % (3-14); Neutrophils Absolute Auto 4300 /uL (1500-7000); Neutrophils Percent Auto 64.8 % (50-75); Platelet Count 146 X10^3/uL (150-400); Red Blood Cell Count 4.02 X10^6/uL (4.5-5.9); Red Cell Distribution Width 13.2 % (11.6-14.8); White Blood Cell Count 6.6 X10^3/uL (4.5-11.0)
[2019-05-31 16:39] LABS: Creatine Kinase 106 U/L (55-170)
[2019-05-31 16:51] LABS: Troponin I 0.045 ng/mL (0.01-0.034)
[2019-05-31 16:54] LABS: CKMB % Relative Index 2.2 % (1.5-5.0); Creatine Kinase MB 2.38 ng/mL (<2.37)
--- NOTE | 2019-05-31 18:45 | SUR.PHASEII ---
Pt remained in Aflutter with BBB at a controlled rate in the low 60's Occasional PVC noted when HR elevates to around 65 due to pt having a ventricle pace maker implanted. First set of troponins at 1408 showed a slight elevation of 0.040 and the second set at 1608 showed an increase of 0.045. CK-MB also was elevated at 2.38 on the 1608 draw. It was decided that with this elevation change pt would be admitted under observation status so cardiac panel could be monitored more closely. He was admitted to room 222 and pt care was transferred to [facility]. Pt was in stable condition at the time of transfer
--- NOTE | 2019-05-31 21:09 | PM.CN ---
History of Present Illness Consult details Date Patient Seen: 05/31/19 Time Patient Seen: 21:09 Chief complaint: [id number] DIAGNOSTIC COLONOSCOPY Reason for consult: Cardiac Arrhythmia Requesting provider: Jian Alas Narrative: The patient is a 73-year-old male with PMH of HTN, CAD and aortic stenosis (s/p 3v-CABG and bovine bioprosthetic AVR, during the same surgery, 2010), bradycardia / heart block (s/p PPM, 2 lead [employer], 06/24/2015), PAF (h/o cardioversion, cardiac ablation 2015), chronic AC w/ Xarelto, obesity, pre-diabetes, HLD, and prior history of tobacco dependence (32 PYH, quit 1981), iron deficiency, and anemia. Patient is being admitted for observation and evaluation of suspected cardiac arrhythmia (specifically atrial fibrillation). Earlier in the day patient was undergoing a colonoscopy for evaluation of anemia. Patient is known to have developed a sudden onset of anemia. At that time a hemoglobin of 6.6 g/dL noted. Patient's workup revealed iron deficiency. He required transfusion of 4 units of PRBCs and iron supplementation. His workup included an EGD (02/21/2019), which was unremarkable for gastritis and peptic ulcer disease. However, a sliding hiatal hernia w/ mild stricture at the EG junction and a paraesophageal hernia noted. He was referred to Oncology, Dr. Lemus. A colonoscopy was recommended, which patient was receiving earlier in the day. Prior to the procedure he was prepped w/ a Miralax-Gatorade solution. During his prep he was taking all of his medications, including chlorthalidone 25 mg QD. Colonoscopy (05/31/2019) revealed sigmoid diverticulosis. No external hemorrhoids or masses noted, per most recent oncology note. Shortly post colonoscopy, while in recovery was noted to have an episode of tachyarrhythmia, suspected to be atrial fibrillation. There is no telemetry strip or EKG available for review. Review vital signs does show an hour of elevated heart rate of 110-120s, patient reports being asymptomatic. At time of event labs and EKG obtained. Troponin of 0.04. EKG showed V-paced rhythm and prolonged QTc 546. Patient was treated w/ 5 mg of IV metoprolol. Patient denied experiencing headache, change in vision, chest pain, palpitations, dyspnea, dizziness, lightheadedness, abdominal pain, or GI distress. FOR[facility]LY [facility] Medical History (Updated 05/31/19 @ 23:22 by NED Nguyen) Aortic stenosis (Chronic) Coronary artery disease (Chronic) Essential hypertension (Chronic) Paroxysmal atrial fibrillation (Acute) Surgical History History of aortic valve replacement with bioprosthetic valve (Acute) Status post cardiac catheterization Status post coronary artery bypass graft Status post hernia repair Social History (Updated 05/31/19 @ 23:24 by NED Nguyen) household members: spouse Smoking Status: Former smoker alcohol intake: never additional social history: Former smoker, 2ppd, quit in 1981. reports a 1 year h/o of tobacco dependence. Meds Home Medications and Allergies Home Medications Medication Instructions Recorded Confirmed Type multivitamin 1 tab PO DAILY #0 11/23/10 05/31/19 History aspirin 81 mg PO DAILY #0 05/31/11 05/31/19 History metoprolol succinate [Toprol XL] 25 mg PO QAM #0 09/01/16 05/31/19 History rivaroxaban 20 mg tablet 20 mg PO QPM 11/22/18 05/31/19 History atorvastatin 40 mg PO QPM 02/20/19 05/31/19 History ferrous sulfate [iron] 325 mg PO BID #60 tab 02/21/19 05/31/19 Rx Vitamin C 500 mg PO DAILY 03/07/19 05/31/19 History chlorthalidone 25 mg PO DAILY 03/07/19 05/31/19 History lisinopril 20 mg PO DAILY 03/07/19 05/31/19 History Allergies Allergy/AdvReac Type Severity Reaction Status Date / Time No Known Drug Allergies Allergy Verified 03/22/19 10:03 Review of Systems Review of Systems ROS Unobtainable: All systems reviewed & are unremarkable except as noted in HPI and below Exam Vital Signs (past 8 hours): - 05/31/19 13:40 05/31/19 13:43 05/31/19 13:45 Temperature 97.8 F Pulse Rate 118 H 119 H 111 H Respiratory Rate 16 20 25 H Blood Pressure 149/117 H 160/119 H 161/115 H Pulse Oximetry 91 92 94 05/31/19 13:49 05/31/19 13:54 05/31/19 14:00 Temperature Pulse Rate 112 H 60 106 H Respiratory Rate 11 L 13 14 Blood Pressure 151/109 H 146/95 H 144/89 H Pulse Oximetry 96 96 93 05/31/19 14:06 05/31/19 14:09 05/31/19 14:19 Temperature Pulse Rate 116 H 60 60 Respiratory Rate 13 13 13 Blood Pressure 120/79 135/82 133/88 Pulse Oximetry 95 95 95 05/31/19 14:29 05/31/19 14:44 05/31/19 14:52 Temperature Pulse Rate 60 60 59 L Respiratory Rate 15 14 9 L Blood Pressure 142/89 H 132/82 138/86 Pulse Oximetry 94 96 95 05/31/19 15:50 05/31/19 16:42 05/31/19 16:57 Temperature Pulse Rate 61 61 61 Respiratory Rate 16 12 12 Blood Pressure 130/95 H 140/82 140/82 Pulse Oximetry 98 96 96 05/31/19 17:27 05/31/19 17:42 05/31/19 17:57 Temperature Pulse Rate 59 L 60 60 Respiratory Rate 9 L 11 L 12 Blood Pressure 138/86 142/88 H 140/85 Pulse Oximetry 95 96 99 05/31/19 18:20 Temperature 97.6 F Pulse Rate 63 Respiratory Rate 20 Blood Pressure 135/98 H Pulse Oximetry 95 Oxygen Delivery Method Room Air Oxygen Flow Rate 0 Narrative Exam Narrative: Constitutional: seen at bedside, in good spirits, no acute distress, at bedside appears younger than stated age, BMI 30.7 Neurologic: AOx3, no focal neurological deficits, forgetful Head: NC, AT Eyes: PERRL, EOMI, sclerae anicteric Ears: external ears normal, no otorrhea Nose: external nose normal, no rhinorrhea or epistaxis Throat: dry MM, oropharynx w/o exudate Neck: no masses, lymphadenopathy, or JVD Chest / Respiratory: equal chest rise, unlabored respiratory effort, No dyspnea or tachypnea at rest. On room air. CTAB Heart / CV: S1-S2, occasional ectopic beats, click noted, no murmur Abdomen / GI: round, NT, ND, + BS / hyperactive, no organomegaly : no suprapubic tenderness, no CVA Peripheral / Vascular: warm to touch, DP and PT pulses palpable, no edema; varicose veins noted Musc: full ROM of upper and lower extremities, adequate muscle tone and bulk Skin: no ecchymosis or suspicious lesions / ulcers Objective Labs Result Diagrams: 05/31/19 16:08 05/31/19 21:00 Labs: Laboratory Results - last 24 hr 05/31/19 05/31/19 05/31/19 14:08 16:08 16:08 WBC 6.6 RBC 4.02 L Hgb 13.0 L Hct 37.3 L MCV 92.7 MCH 32.3 MCHC 34.9 RDW 13.2 Plt Count 146 L Neut % (Auto) 64.8 Lymph % (Auto) 24.0 L [place] % (Auto) 9.4 Eos % (Auto) 1.1 L Baso % (Auto) 0.7 Neut # (Auto) 4300 Lymph # (Auto) 1600 [place] # (Auto) 600 Eos # (Auto) 100 Baso # (Auto) 0 Total Creatine Kinase 106 CK-MB (CK-2) 2.38 H CK-MB (CK-2) Rel Index 2.2 Troponin I 0.040 H 0.045 H Assessment & Plan Assessment & Plan narrative: Hospital Medicine consult requested for evaluation of arrhythmia Tachyarrhythmia, acute, present on admission, active - acute self-limited episode of tachyarrhythmia, present x1 hour (rats 110-120s) - h/o PAF, PPM present EKG v-paced rhythm, Trop 0.04 and 0.045, asymptomatic Given that the rhythm is paced, it is difficult to definitively know if tachy-arrhythmia was afib - STAT labs CMP, Mg, and TSH - Resume PT regimen of metoprolol succinate in a.m. (06/01) PAF, chronic condition, present on admission, active - PPM present, consider interrogating (Blume Distillation) to determine if patient is in persistent atrial fibrillation - Replete electrolytes, goal K > 4 and goal Mg > 2 - Resuming Xarelto 06/01, when ok with surgery Echo, 09/06/2018, LVEF 50-55%. Apical wall motion abnormality with atypical hypokinesis may reflect pacemaker activation. LV normal in size. RV mildly dilated. RV systolic function is at the lower limit of normal. Bioprosthetic aortic valve. Peak aortic velocity 2.6 m/sec and aortic valve mean gradient 15 mmHg, values are within normal limits for bioprosthetic valve in her lower than prior study. Type II MT, acute, present on admission, active - Trop 0.04 and 0.045. EKG not indicative of ischemia. Suspected to be in the setting of tachy arrhythmia - Hgb 13, stable, no active s/s of bleeding - Trend troponin level - Risk stratify: FLP, A1C Electrolyte imbalance, acute, present on admission, active - Suspected to be in the setting of recent GI prep and concurrent use of chlorthalidone - CMP reviewed. K 3.2 and Mg 1.9 replete w/ 40 mEq IV KCl and 2 gm MgSO4 Dehydration, acute, present on admission, active - IV hydration, 1L NS over 12 hours. 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 Today will get ASA 325 mg, then continue w/ 81 mg QD Essential hypertension, chronic condition, present on admission, stable - BP within normal limits, continue trending - ASSISTANT DEPARTMENT MANAGER on chlorthalidone 25 mg QD, lisinopril 20 mg QD, and metoprolol succinate 25 mg QD hold chlorthalidone pending BP trend overnight, consider resume lisinopril and metoprolol in am (06/01), if stable Chronic Thrombocytopenia, present on admission, stable - continued to trend / monitor platelets with routine lab, no active s/s of bleeding Full code. Spouse is the surrogate decision maker. Home medications reviewed and reconciled accordingly.
[2019-05-31 21:24] LABS: Alanine Aminotransferase 117 IU/L (<50); Albumin 4.2 g/dL (3.5-5.0); Albumin Globulin Ratio 1.7 (1.0-2.8); Alkaline Phosphatase 44 U/L (38-126); Aspartate Aminotransferase 106 IU/L (17-59); BUN Creatinine Ratio 18.8 (6-22); Bilirubin Total 0.8 mg/dL (0.2-1.3); Blood Urea Nitrogen 15 mg/dL (9-20); Calcium 9.7 mg/dL (8.4-10.2); Carbon Dioxide 31 mmol/L (22-32); Chloride 101 mmol/L (98-107); Creatine Kinase 98 U/L (55-170); Estimated Glomerular Filt Rate > 60.0 mL/min (>60); Globulin 2.5 g/dL (1.7-4.1); Glucose 155 mg/dL (80-110); HEMOLYSIS < 15 (0-50); Magnesium 1.9 mg/dL (1.6-2.3); Potassium 3.2 mmol/L (3.4-5.1); Sodium 141 mmol/L (137-145); Total Protein 6.7 g/dL (6.3-8.2)
[2019-05-31 21:34] LABS: B Type Natriuretic Peptide < 100 (<100)
[2019-05-31 21:36] LABS: Troponin I 0.043 ng/mL (0.01-0.034)
--- NOTE | 2019-05-31 21:40 | P.PN_ITS ---
Exam Vital Signs (past 8 hours): - 05/31/19 13:43 05/31/19 13:45 05/31/19 13:49 Temperature Pulse Rate 119 H 111 H 112 H Respiratory Rate 20 25 H 11 L Blood Pressure 160/119 H 161/115 H 151/109 H Pulse Oximetry 92 94 96 05/31/19 13:54 05/31/19 14:00 05/31/19 14:06 Temperature Pulse Rate 60 106 H 116 H Respiratory Rate 13 14 13 Blood Pressure 146/95 H 144/89 H 120/79 Pulse Oximetry 96 93 95 05/31/19 14:09 05/31/19 14:19 05/31/19 14:29 Temperature Pulse Rate 60 60 60 Respiratory Rate 13 13 15 Blood Pressure 135/82 133/88 142/89 H Pulse Oximetry 95 95 94 05/31/19 14:44 05/31/19 14:52 05/31/19 15:50 Temperature Pulse Rate 60 59 L 61 Respiratory Rate 14 9 L 16 Blood Pressure 132/82 138/86 130/95 H Pulse Oximetry 96 95 98 05/31/19 16:42 05/31/19 16:57 05/31/19 17:27 Temperature Pulse Rate 61 61 59 L Respiratory Rate 12 12 9 L Blood Pressure 140/82 140/82 138/86 Pulse Oximetry 96 96 95 05/31/19 17:42 05/31/19 17:57 05/31/19 18:20 Temperature 97.6 F Pulse Rate 60 60 63 Respiratory Rate 11 L 12 20 Blood Pressure 142/88 H 140/85 135/98 H Pulse Oximetry 96 99 95 Oxygen Delivery Method Room Air Oxygen Flow Rate 0 Objective Labs Result Diagrams: 05/31/19 16:08 05/31/19 21:00 Labs: Laboratory Results - last 24 hr 05/31/19 05/31/19 05/31/19 14:08 16:08 16:08 WBC 6.6 RBC 4.02 L Hgb 13.0 L Hct 37.3 L MCV 92.7 MCH 32.3 MCHC 34.9 RDW 13.2 Plt Count 146 L Neut % (Auto) 64.8 Lymph % (Auto) 24.0 L [place] % (Auto) 9.4 Eos % (Auto) 1.1 L Baso % (Auto) 0.7 Neut # (Auto) 4300 Lymph # (Auto) 1600 [place] # (Auto) 600 Eos # (Auto) 100 Baso # (Auto) 0 Sodium Potassium Chloride Carbon Dioxide BUN Creatinine Estimated GFR BUN/Creatinine Ratio Glucose Calcium Magnesium Total Bilirubin AST ALT Alkaline Phosphatase Total Creatine Kinase 106 CK-MB (CK-2) 2.38 H CK-MB (CK-2) Rel Index 2.2 Troponin I 0.040 H 0.045 H B-Natriuretic Peptide Total Protein Albumin Globulin Albumin/Globulin Ratio 05/31/19 05/31/19 05/31/19 21:00 21:00 21:00 WBC RBC Hgb Hct MCV MCH MCHC RDW Plt Count Neut % (Auto) Lymph % (Auto) [place] % (Auto) Eos % (Auto) Baso % (Auto) Neut # (Auto) Lymph # (Auto) [place] # (Auto) Eos # (Auto) Baso # (Auto) Sodium 141 Potassium 3.2 L Chloride 101 Carbon Dioxide 31 BUN 15 Creatinine 0.80 Estimated GFR > 60.0 BUN/Creatinine Ratio 18.8 Glucose 155 H Calcium 9.7 Magnesium 1.9 Total Bilirubin 0.8 AST 106 H ALT 117 H Alkaline Phosphatase 44 Total Creatine Kinase 98 CK-MB (CK-2) TNP CK-MB (CK-2) Rel Index TNP Troponin I 0.043 H B-Natriuretic Peptide < 100 Total Protein 6.7 Albumin 4.2 Globulin 2.5 Albumin/Globulin Ratio 1.7 Quality VTE Deep Vein Thrombosis/Pulmonary Embolism Present on Admission: No
--- NOTE | 2019-05-31 21:41 | PM.EVENT ---
Event Note Date Patient Seen: 05/31/19 Time Patient Seen: 14:41 Event Note: 73 M with cardiac history underwent routine screening colonoscopy today. During the procedure he had some form of tachyarythmia that subsequently resolved spontaneously. He remained hemodynamically stable. An EKG and troponin were checked in recovery room demonstrates ventricular pacing no ischemia similar to prior EKG and trop 0.040 (slightly elevated). In PACU he has no chest pain. Internal medicine was consulted and plans to admit the patient for observation. Discussed with the patient and who are in agreement with this plan. His cardiac history is significant for coronary artery disease sp CABG, aortic valve replacement, pacemaker and atrial fibrillation.
[2019-05-31] MEDS: SODIUM CHLORIDE 0.9% 1,000 ML 75 ML IV (22:43)
[2019-05-31] MEDS: MAGNESIUM SULFATE 2 GM/50 ML PIGGYBACK IV (22:43)
[2019-05-31] MEDS: ASPIRIN 325 MG TABLET PO (23:59)
[2019-06-01] MEDS: POTASSIUM CHLORIDE 40 MEQ in SODIUM CHLORIDE 0.9% 500 ML 130 ML IV (00:49)
[2019-06-01 04:42] LABS: Cholesterol 123 mg/dL (140-199); HDL Cholesterol 23 mg/dL (40-60); LDL Cholesterol Calculated 34 mg/dL (<100); Triglycerides 332 mg/dL (35-150)
[2019-06-01 04:45] LABS: Hemoglobin A1C% w Est Avg Glu 6.3 % (4.0-6.0)
[2019-06-01 04:50] VITALS: BP 141/88; PULSE 63; RESP 16; TEMP 36.8; O2SAT 97
[2019-06-01 04:54] LABS: Troponin I 0.036 ng/mL (0.01-0.034)
[2019-06-01 05:14] LABS: TSH w/ Reflex to FT4 1.64 uIU/mL (0.47-4.68)
[2019-06-01 08:00] VITALS: BP 143/87; PULSE 62; RESP 16; TEMP 36.8; O2SAT 99
[2019-06-01 08:36] VITALS: BP 143/87
[2019-06-01] MEDS: METOPROLOL ER 25 MG TABLET PO (08:36)
[2019-06-01 08:37] VITALS: BP 143/87
[2019-06-01] MEDS: FERROUS SULFATE 325 MG TABLET PO (08:37)
[2019-06-01] MEDS: LISINOPRIL 20 MG TABLET PO (08:37)
[2019-06-01] MEDS: ASPIRIN EC 81 MG TABLET PO (08:37)
[2019-06-01] MEDS: ASCORBIC ACID 500 MG TABLET PO (08:37)
[2019-06-01] MEDS: MULTIVITAMIN 1 TABLET 1 TAB PO (08:37)
[2019-06-01 08:42] LABS: Add Manual Diff / Slide Review NO; Basophils Absolute Auto 100 /uL (0-100); Basophils Percent Auto 0.8 % (0-2); Eosinophils Absolute Auto 200 /uL (0-450); Eosinophils Percent Auto 2.2 % (2-4); Hematocrit 37.1 % (41-53); Lymphocytes Absolute Auto 2100 /uL (1100-4500); Lymphocytes Percent Auto 26.5 % (25-40); Mean Corpuscular HGB Conc 35.1 % (30-36); Mean Corpuscular Hemoglobin 32.4 PG (26-34); Mean Corpuscular Volume 92.2 fL (80-100); Monocytes Absolute Auto 800 /uL (0-900); Monocytes Percent Auto 10.4 % (3-14); Neutrophils Absolute Auto 4700 /uL (1500-7000); Neutrophils Percent Auto 60.1 % (50-75); Platelet Count 155 X10^3/uL (150-400); Red Blood Cell Count 4.02 X10^6/uL (4.5-5.9); Red Cell Distribution Width 13.3 % (11.6-14.8); White Blood Cell Count 7.8 X10^3/uL (4.5-11.0)
[2019-06-01 08:47] LABS: Alanine Aminotransferase 110 IU/L (<50); Albumin 3.9 g/dL (3.5-5.0); Albumin Globulin Ratio 1.6 (1.0-2.8); Alkaline Phosphatase 55 U/L (38-126); Aspartate Aminotransferase 96 IU/L (17-59); BUN Creatinine Ratio 23.8 (6-22); Bilirubin Total 0.5 mg/dL (0.2-1.3); Blood Urea Nitrogen 19 mg/dL (9-20); Calcium 9.5 mg/dL (8.4-10.2); Carbon Dioxide 25 mmol/L (22-32); Chloride 107 mmol/L (98-107); Estimated Glomerular Filt Rate > 60.0 mL/min (>60); Globulin 2.4 g/dL (1.7-4.1); Glucose 122 mg/dL (80-110); HEMOLYSIS < 15 (0-50); Potassium 4.3 mmol/L (3.4-5.1); Sodium 140 mmol/L (137-145); Total Protein 6.3 g/dL (6.3-8.2)
--- NOTE | 2019-06-01 09:01 | P.DS_ITS ---
History of Present Illness History of Present Illness Date Patient Seen: 06/01/19 Chief complaint: [id number] DIAGNOSTIC COLONOSCOPY Narrative: The patient is a 73-year-old male with PMH of HTN, CAD and aortic stenosis (s/p 3v-CABG and bovine bioprosthetic AVR, during the same surgery, 2010), bradycardia / heart block (s/p PPM, 2 lead [employer], 06/24/2015), PAF (h/o cardioversion, cardiac ablation 2015), chronic AC w/ Xarelto, obesity, pre-diabetes, HLD, and prior history of tobacco dependence (32 PYH, quit 1981), iron deficiency, and anemia. Patient is being admitted for observation and evaluation of suspected cardiac arrhythmia (specifically atrial fibrillation). Earlier in the day patient was undergoing a colonoscopy for evaluation of anemia. Patient is known to have de veloped a sudden onset of anemia. At that time a hemoglobin of 6.6 g/dL noted. Patient's workup revealed iron deficiency. He required transfusion of 4 units of PRBCs and iron supplementation. His workup included an EGD (02/21/2019), which was unremarkable for gastritis and peptic ulcer disease. However, a sliding hiatal hernia w/ mild stricture at the EG junction and a paraesophageal hernia noted. He was referred to Oncology, Dr. Lemus. A colonoscopy was recommended, which patient was receiving earlier in the day. Prior to the procedure he was prepped w/ a Miralax-Gatorade solution. During his prep he was taking all of his medications, including chlorthalidone 25 mg QD. Colonoscopy (05/31/2019) revealed sigmoid diverticulosis. No external hemorrhoids or masses noted, per most recent oncology note. Shortly post colonoscopy, while in recovery was noted to have an episode of tachyarrhythmia, suspected to be atrial fibrillation. There is no telemetry strip or EKG available for review. Review vital signs does show an hour of elevated heart rate of 110-120s, patient reports being asymptomatic. At time of event labs and EKG obtained. Troponin of 0.04. EKG showed V-paced rhythm and prolonged QTc 546. Patient was treated w/ 5 mg of IV metoprolol. Patient denied experiencing headache, change in vision, chest pain, palpitations, dyspnea, dizziness, lightheadedness, abdominal pain, or GI distress. Discharge Providers Provider Discharge Date: 06/01/19 Primary care physician: Katarina Fournier DO Consults: 05/31/19 20:06 Consult to Hospitalist Service Routine Comment: Consulting Provider: Annita Ji Reason for consultation: A-fib Has provider been notified: Yes Discharge provider: Anaya Oconnor MD Summary Hospital Course Discharge Diagnosis: 1. His paroxysmal atrial fibrillation, now resolved 2. Coronary artery disease, with a history of 3 vessel CABG 3. History of aortic stenosis, status post porcine aortic valve 4. Hyperlipidemia 5. Hypertension 6. History of bradycardia status post DDD pacer 7. History of anemia status post EGD, now status post colonoscopy which revealed sigmoid diverticulosis 8. Iron deficiency anemia 9. Chronic anticoagulation for atrial fibrillation on Xarelto 10. Type 2 myocardial infarction, no evidence of EKG abnormalities, mildly elevated troponin at 0.045 Hospital Course: The patient was in the outpatient area undergoing colonoscopy w hen it was noted that he had a rapid irregular rhythm. A troponin was obtained which was elevated at 0.040. Repeat troponin was 0.045. Hospitalist consultation was obtained. The patient was placed in observation overnight. EKG in the morning showed a ventricular paced rhythm. There were no obvious EKG changes. Repeat troponin came back at 0.036. The patient had no chest pain or shortness of breath. He had no specific complaints. He was found to be hypokalemic the night before which was replaced. Patient had improvement of symptoms and was deemed appropriate for discharge home. He does have a follow- up appointment with Dr. Brown in 2 weeks. Patient was deemed appropriate for discharge and discharged home accordingly. Exam Vital Signs (past 8 hours): - 06/01/19 04:50 06/01/19 08:36 06/01/19 08:37 Temperature 98.3 F Pulse Rate 63 Respiratory Rate 16 Blood Pressure 141/88 H 143/87 H 143/87 H Pulse Oximetry 97 Oxygen Delivery Method Room Air Oxygen Flow Rate 0 Narrative Exam Narrative: Pleasant male in no acute distress Lungs: Clear to auscultation Cardiac exam: Regular rate and rhythm normal S1-S2 with a 3/6 systolic ejection murmur Abdomen: Soft nontender nondistended Extremities: No edema Objective Labs Result Diagrams: 06/01/19 04:20 06/01/19 04:20 Labs: Laboratory Results - last 24 hr 05/31/19 05/31/19 05/31/19 14:08 16:08 16:08 WBC 6.6 RBC 4.02 L Hgb 13.0 L Hct 37.3 L MCV 92.7 MCH 32.3 MCHC 34.9 RDW 13.2 Plt Count 146 L Neut % (Auto) 64.8 Lymph % (Auto) 24.0 L [place] % (Auto) 9.4 Eos % (Auto) 1.1 L Baso % (Auto) 0.7 Neut # (Auto) 4300 Lymph # (Auto) 1600 [place] # (Auto) 600 Eos # (Auto) 100 Baso # (Auto) 0 Sodium Potassium Chloride Carbon Dioxide BUN Creatinine Estimated GFR BUN/Creatinine Ratio Glucose Hemoglobin A1c Calcium Magnesium Total Bilirubin AST ALT Alkaline Phosphatase Total Creatine Kinase 106 CK-MB (CK-2) 2.38 H CK-MB (CK-2) Rel Index 2.2 Troponin I 0.040 H 0.045 H B-Natriuretic Peptide Total Protein Albumin Globulin Albumin/Globulin Ratio Triglycerides Cholesterol LDL Cholesterol, Calc HDL Cholesterol TSH 05/31/19 05/31/19 05/31/19 21:00 21:00 21:00 WBC RBC Hgb Hct MCV MCH MCHC RDW Plt Count Neut % (Auto) Lymph % (Auto) [place] % (Auto) Eos % (Auto) Baso % (Auto) Neut # (Auto) Lymph # (Auto) [place] # (Auto) Eos # (Auto) Baso # (Auto) Sodium 141 Potassium 3.2 L Chloride 101 Carbon Dioxide 31 BUN 15 Creatinine 0.80 Estimated GFR > 60.0 BUN/Creatinine Ratio 18.8 Glucose 155 H Hemoglobin A1c Calcium 9.7 Magnesium 1.9 Total Bilirubin 0.8 AST 106 H ALT 117 H Alkaline Phosphatase 44 Total Creatine Kinase 98 CK-MB (CK-2) TNP CK-MB (CK-2) Rel Index TNP Troponin I 0.043 H B-Natriuretic Peptide < 100 Total Protein 6.7 Albumin 4.2 Globulin 2.5 Albumin/Globulin Ratio 1.7 Triglycerides Cholesterol LDL Cholesterol, Calc HDL Cholesterol TSH 06/01/19 06/01/19 06/01/19 04:20 04:20 04:20 WBC RBC Hgb Hct MCV MCH MCHC RDW Plt Count Neut % (Auto) Lymph % (Auto) [place] % (Auto) Eos % (Auto) Baso % (Auto) Neut # (Auto) Lymph # (Auto) [place] # (Auto) Eos # (Auto) Baso # (Auto) Sodium Potassium Chloride Carbon Dioxide BUN Creatinine Estimated GFR BUN/Creatinine Ratio Glucose Hemoglobin A1c 6.3 H Calcium Magnesium Total Bilirubin AST ALT Alkaline Phosphatase Total Creatine Kinase CK-MB (CK-2) CK-MB (CK-2) Rel Index Troponin I B-Natriuretic Peptide Total Protein Albumin Globulin Albumin/Globulin Ratio Triglycerides 332 H Cholesterol 123 L LDL Cholesterol, Calc 34 HDL Cholesterol 23 L TSH 1.64 06/01/19 06/01/19 06/01/19 04:20 04:20 04:20 WBC 7.8 RBC 4.02 L Hgb 13.0 L Hct 37.1 L MCV 92.2 MCH 32.4 MCHC 35.1 RDW 13.3 Plt Count 155 Neut % (Auto) 60.1 Lymph % (Auto) 26.5 [place] % (Auto) 10.4 Eos % (Auto) 2.2 Baso % (Auto) 0.8 Neut # (Auto) 4700 Lymph # (Auto) 2100 [place] # (Auto) 800 Eos # (Auto) 200 Baso # (Auto) 100 Sodium 140 Potassium 4.3 Chloride 107 Carbon Dioxide 25 BUN 19 Creatinine 0.80 Estimated GFR > 60.0 BUN/Creatinine Ratio 23.8 H Glucose 122 H Hemoglobin A1c Calcium 9.5 Magnesium Total Bilirubin 0.5 AST 96 H ALT 110 H Alkaline Phosphatase 55 Total Creatine Kinase CK-MB (CK-2) CK-MB (CK-2) Rel Index Troponin I 0.036 H B-Natriuretic Peptide Total Protein 6.3 Albumin 3.9 Globulin 2.4 Albumin/Globulin Ratio 1.6 Triglycerides Cholesterol LDL Cholesterol, Calc HDL Cholesterol TSH Discharge Plan Discharge Plan Patient Disposition: Home Discharge Med Rec/Prescriptions Prescriptions: Continued multivitamin Tablet 1 tab PO DAILY Qty: 0 RF: 0 aspirin 81 mg Tablet,Delayed Release (Dr/Ec) 81 mg PO DAILY Qty: 0 RF: 0 metoprolol succinate [Toprol XL] 25 MG tablet extended release 24 hr 25 mg PO QAM Qty: 0 RF: 0 Xarelto 20 mg tablet 20 mg PO QPM RF: 0 atorvastatin 40 mg tablet 40 mg PO QPM RF: 0 ferrous sulfate [iron] 325 mg (65 mg iron) tablet 325 mg PO BID Qty: 60 RF: 0 lisinopril 20 mg Tablet 20 mg PO DAILY RF: 0 Vitamin C 250 mg Tablet,Chewable 500 mg PO DAILY RF: 0 chlorthalidone 25 mg Tablet 25 mg PO DAILY RF: 0 Follow up/Referrals: Katarina Fournier DO [Primary Care Provider] - Discharge Orders: Discharge (Order); Ordered 05/31/19 Ordered By: Jian Alas Provider Discharge Instructions Diet: Regular Activity: Do not drive or operate machinery today Skin/Wound/Dressing Care Report to your healthcare provider any signs of infection, such as:: increased pain Visit Report/Discharge Packet Instructions: DI for Diverticulosis Stand Alone Forms: Colonoscopy Result: [place] [facility]urg Discharge Data Primary Care Provider: Katarina Fournier Attending Provider: Ochoa Calero VTE Deep Vein Thrombosis/Pulmonary Embolism Present on Admission: No
--- NOTE | 2019-06-01 11:18 | PC.NURSE ---
Pt is dressed and ready for discharge home with Spouse. Pt denies pain, chest pain, nausea, or shortness of breath. Tele and IV were removed. Went over d/c instructions with Pt and Spouse-discussed d/c meds, time of last dose, reviewed info on diverticulosis. Pt to follow up with Dr. Atkinson next week. Pt and spouse deny further questions and Pt was taken out to POV via w/c by [employer] with Spouse and all belongings.
== END 2019-06-01 11:20 | disposition home or self-care (01) ==
LOC: ENDO 17:48 → AC 20:58
PROVIDERS: Nurse Practitioner Gerontology; Admitting Provider Surgery; Family Provider Family Medicine; PCP Family Medicine; Referring Provider Surgery; Visit Provider Surgery
PROC: 0DJD8ZZ Inspection of Lower Intestinal Tract, Via Natural or Artificial Opening Endoscopic (ICD-10-PCS; CPT 45378; principal; 2019-05-31 13:00)
DX: D50.9 Iron deficiency anemia, unspecified (principal); K57.30 Diverticulosis of large intestine without perforation or abscess without bleeding; I25.10 Atherosclerotic heart disease of native coronary artery without angina pectoris; I48.0 Paroxysmal atrial fibrillation; Z95.0 Presence of cardiac pacemaker; Z95.1 Presence of aortocoronary bypass graft; I97.791 Other intraoperative cardiac functional disturbances during other surgery
CPT/HCPCS: 45378; 36415; 80053; 80061; 82550; 82553; 83036; 83735; 83880; 84443; 84484; 85025; 93005; 99152; 99153; G0378; G0379; J2250; J3010; J3480

== ENCOUNTER → 2020-02-17 13:59 | Outpatient (CLI) | payer OTHER, SELFPAY ==
[2019-05-31 18:03] VITALS: BMI 30.7
--- NOTE | 2020-02-17 14:01 | DI.RAD.S_ITS ---
PROCEDURE: XR ANKLE RT MIN 3V INDICATIONS: hit right ankle with a sac and [place] bar TECHNIQUE: 3 views of the ankle were acquired. COMPARISON: None. FINDINGS: Bones: There is a 7 mm avulsion fracture fragment seen involving the distal medial malleolus inferiorly. Additional foci of well corticated irregularity can be seen involving the distal medial and lateral malleoli, which are attributed to remote avulsion fractures. No suspicious lytic or blastic lesions are seen. The ankle mortise does not appear widened. The talar dome demonstrates no norma abnormality. Age-appropriate bony degenerative changes are seen. Plantar and Achilles calcaneal spurs are seen. Soft tissues: No tibiotalar joint effusion. Achilles tendon appears normal. IMPRESSION: Likely acute avulsion fracture seen involving the distal medial malleolus. Please correlate with focal tenderness. Additional foci of remote avulsion fractures are seen. Degenerative changes are seen throughout, including plantar and Achilles calcaneal spurs. Dictated by: Bubba Ordaz M.D. on 02/17/2020 at 13:23 Approved by: Bubba Ordaz M.D. on 02/17/2020 at 13:25
== END ==
PROVIDERS: Family Provider Family Medicine; PCP Family Medicine; Referring Provider Nurse Practitioner; Visit Provider Nurse Practitioner
DX: M25.571 Pain in right ankle and joints of right foot (principal); M77.31 Calcaneal spur, right foot
CPT/HCPCS: 73610

== ENCOUNTER → 2020-02-21 15:56 | Outpatient (CLI) | payer OTHER, SELFPAY ==
[2019-05-31 18:03] VITALS: BMI 30.7
--- NOTE | 2020-02-21 15:58 | DI.RAD.S_ITS ---
PROCEDURE: XR SHOULDER RT MIN 2V INDICATIONS: pain TECHNIQUE: 2 views of the shoulder were acquired. COMPARISON: CR, XR CHEST 2VW, 06/25/2015, 9:34. FINDINGS: Bones: No fractures or dislocations. No suspicious bony lesions. Visualized ribs appear intact. Mild joint narrowing with periarticular osteophyte formation. Soft tissues: No suspicious soft tissue calcifications. Median sternotomy wires and left cardiac pacer leads are incompletely visualized. IMPRESSION: Mild acromioclavicular and glenohumeral joint degeneration. Dictated by: Mikhail Vela [facility] Interpreted: Aníbal Watkins MD on 02/21/2020 at 16:35 Approved by: Aníbal Watkins M.D. on 02/21/2020 at 17:08
== END ==
PROVIDERS: Family Provider Family Medicine; PCP Family Medicine; Referring Provider Family Medicine; Visit Provider Family Medicine
DX: M25.511 Pain in right shoulder (principal); M19.011 Primary osteoarthritis, right shoulder; G89.29 Other chronic pain
CPT/HCPCS: 73030

== ENCOUNTER → 2020-03-01 10:10 | Outpatient (CLI) | payer OTHER, SELFPAY ==
[2019-05-31 18:03] VITALS: BMI 30.7
[2020-03-01 10:50] LABS: Add Manual Diff / Slide Review NO; Basophils Absolute Auto 100 /uL (0-100); Basophils Percent Auto 1.1 % (0-2); Eosinophils Absolute Auto 100 /uL (0-450); Eosinophils Percent Auto 2.2 % (2-4); Hematocrit 41.2 % (41-53); Hemoglobin 14.4 g/dL (13.5-17.5); Lymphocytes Absolute Auto 1100 /uL (1100-4500); Lymphocytes Percent Auto 18.8 % (25-40); Mean Corpuscular Hemoglobin 32.5 PG (26-34); Monocytes Absolute Auto 600 /uL (0-900); Neutrophils Absolute Auto 3800 /uL (1500-7000); Neutrophils Percent Auto 67.9 % (50-75); Platelet Count 155 X10^3/uL (150-400); Red Blood Cell Count 4.43 X10^6/uL (4.5-5.9); White Blood Cell Count 5.6 X10^3/uL (4.5-11.0)
[2020-03-01 11:04] LABS: Alanine Aminotransferase 105 IU/L (<50); Albumin 4.4 g/dL (3.5-5.0); Albumin Globulin Ratio 1.5 (1.0-2.8); Alkaline Phosphatase 68 U/L (38-126); Aspartate Aminotransferase 87 IU/L (17-59); BUN Creatinine Ratio 26.4 (6-22); Bilirubin Total 0.7 mg/dL (0.2-1.3); Blood Urea Nitrogen 19 mg/dL (9-20); Calcium 10.4 mg/dL (8.4-10.2); Carbon Dioxide 22 mmol/L (22-32); Chloride 99 mmol/L (98-107); Cholesterol 152 mg/dL (140-199); Estimated Glomerular Filt Rate > 60.0 mL/min (>60); Glucose 412 mg/dL (80-110); HDL Cholesterol 23 mg/dL (40-60); Potassium 4.1 mmol/L (3.4-5.1); Sodium 132 mmol/L (137-145); Total Protein 7.4 g/dL (6.3-8.2)
[2020-03-01 11:11] LABS: HEMOLYSIS 42 (0-50)
[2020-03-01 11:16] LABS: Triglycerides 987 mg/dL (35-150)
== END ==
PROVIDERS: Family Provider Family Medicine; PCP Family Medicine; Referring Provider Family Medicine; Visit Provider Family Medicine
DX: D64.9 Anemia, unspecified (principal); I10 Essential (primary) hypertension; I25.119 Atherosclerotic heart disease of native coronary artery with unspecified angina pectoris; Z12.5 Encounter for screening for malignant neoplasm of prostate
CPT/HCPCS: 36415; 80053; 80061; 85025; G0103

== ENCOUNTER → 2020-03-05 15:40 | Outpatient (CLI) | payer OTHER, SELFPAY ==
[2019-05-31 18:03] VITALS: BMI 30.7
[2020-03-05 16:05] LABS: Hemoglobin A1C% w Est Avg Glu 11.1 % (4.0-6.0)
== END ==
PROVIDERS: Family Provider Family Medicine; PCP Family Medicine; Referring Provider Family Medicine; Visit Provider Family Medicine
DX: R73.01 Impaired fasting glucose (principal)
CPT/HCPCS: 36415; 83036

== ENCOUNTER → 2020-03-20 08:35 | Outpatient (CLI) | payer OTHER, SELFPAY ==
[2019-05-31 18:03] VITALS: BMI 30.7
[2020-03-20 09:11] LABS: Alanine Aminotransferase 88 IU/L (<50); Albumin 4.5 g/dL (3.5-5.0); Albumin Globulin Ratio 1.8 (1.0-2.8); Alkaline Phosphatase 56 U/L (38-126); Aspartate Aminotransferase 68 IU/L (17-59); BUN Creatinine Ratio 24.7 (6-22); Bilirubin Total 0.6 mg/dL (0.2-1.3); Blood Urea Nitrogen 21 mg/dL (9-20); Calcium 10.1 mg/dL (8.4-10.2); Carbon Dioxide 25 mmol/L (22-32); Chloride 103 mmol/L (98-107); Cholesterol 132 mg/dL (140-199); Estimated Glomerular Filt Rate > 60.0 mL/min (>60); Globulin 2.5 g/dL (1.7-4.1); Glucose 171 mg/dL (80-110); HDL Cholesterol 29 mg/dL (40-60); HEMOLYSIS < 15 (0-50); LDL Cholesterol Calculated 28 mg/dL (<100); Potassium 4.1 mmol/L (3.4-5.1); Sodium 136 mmol/L (137-145); Triglycerides 377 mg/dL (35-150)
== END ==
PROVIDERS: Family Provider Family Medicine; PCP Family Medicine; Referring Provider Internal Medicine Cardiovascular Disease; Visit Provider Internal Medicine Cardiovascular Disease
DX: E78.5 Hyperlipidemia, unspecified (principal)
CPT/HCPCS: 36415; 80053; 80061

== ENCOUNTER 2020-03-27 16:46 | Emergency (ER) | payer OTHER, SELFPAY ==
[2019-05-31 18:03] VITALS: BMI 30.7
[2020-03-27] VITALS (30 sets, daily range): BP systolic 106–170; BP diastolic 68–90; PULSE 60–149; RESP 7–25; TEMP 35.9; O2SAT 96–100; BMI 28.2
--- NOTE | 2020-03-27 16:54 | DI.RAD.S_ITS ---
PROCEDURE: XR CHEST 1V INDICATIONS: chest pain TECHNIQUE: One view of the chest was acquired. COMPARISON: [facility], CR, XR CHEST 1V, 02/20/2019, 11:22. FINDINGS: Surgical changes and devices: Sternotomy wires and cardiac valvular prosthesis. Dual lead cardiac pacer. Ill-defined mild ground-glass opacities. Sachin B lines noted. No pleural effusions or pneumothorax. Mediastinum: Mediastinal contours appear normal. Heart size is normal. Bones and chest wall: No suspicious bony lesions. Overlying soft tissues appear unremarkable. IMPRESSION: Findings raise the possibility of early/trace pulmonary edema. No focal consolidation Dictated by: Siddhartha Davis M.D. on 03/27/2020 at 18:19 Approved by: Siddhartha Davis M.D. on 03/27/2020 at 18:21
--- NOTE | 2020-03-27 17:08 | ED_ITS ---
HPI - Chest Pain General Chief Complaint: Chest Pain Stated Complaint: chest pains Time Seen by Provider: 03/27/20 17:06 Source: patient Mode of arrival: Ambulatory History of Present Illness HPI narrative: Patient is a 74-year-old male with history of pre diabetes, hypertension, CAD, s/p CABG, s/p aortic valve replacement, paroxysmal AFib, anticoagulated with Xarelto, s/p ICD placement, aortic stenosis, chronic right shoulder pain, and anemia presenting today with heart palpitations and diaphoresis. He said something happened last evening, he did not feel quite right. He thought it was constipation having some mild abdominal discomfort. Today he started having more palpitations chest, which brought him to the ER. He appears diaphoretic and in acute distress. Related Data Home Medications Medication Instructions Recorded Confirmed multivitamin 1 tab PO DAILY #0 11/23/10 03/06/20 aspirin 81 mg PO DAILY #0 05/31/11 03/06/20 metoprolol succinate [Toprol XL] 25 mg PO QAM #0 09/01/16 03/06/20 rivaroxaban 20 mg tablet 20 mg PO QPM 11/22/18 03/06/20 atorvastatin 40 mg PO QPM 02/20/19 03/06/20 Vitamin C 500 mg PO DAILY 03/07/19 03/06/20 chlorthalidone 25 mg PO DAILY 03/07/19 03/06/20 lisinopril 20 mg PO DAILY 03/07/19 03/06/20 alpha lipoic acid 600 mg capsule 600 mg PO DAILY 02/13/20 03/06/20 misoprostol 200 mcg tablet 200 mcg PO BID tab 02/13/20 03/06/20 Previous Rx's Medication Instructions Recorded ferrous sulfate [iron] 325 mg PO BID #60 tab 02/21/19 metformin 500 mg tablet 1,000 mg PO BID #240 tab 03/06/20 Allergies Allergy/AdvReac Type Severity Reaction Status Date / Time No Known Drug Allergies Allergy Verified 03/27/20 16:54 Review of Systems Review of Systems ROS Unobtainable: All systems reviewed & are unremarkable except as noted in HPI and below Constitutional Constitutional: Reports excessive sweating and Reports fatigue Eyes Eyes: Denies change in vision, Denies eye discharge, Denies irritation and Denies loss of vision ENT Ears, Nose, Mouth, and Throat: Denies dizziness Cardiovascular Cardiovascular: Reports chest pain and Reports rapid heart rate Gastrointestinal Gastrointestinal: Denies abdominal pain, Denies change in bowel habits, Denies diarrhea, Denies nausea and Denies vomiting Musculoskeletal Musculoskeletal: Denies arthralgias and Denies back pain Integumentary/Breasts Skin/Breast: Denies pruritus, Denies erythema, Denies rash and Denies wounds Neurologic Neurologic: Denies abnormal movements, Denies dizziness and Denies loss of vision Endocrine Endocrine: Reports excessive sweating and Reports fatigue Patient History Medical History Aortic stenosis (Chronic) Chronic right shoulder pain (Acute) Coronary artery disease (Chronic) Cranial somatic dysfunction (Acute) Essential hypertension (Chronic) Fasting hyperglycemia (Acute) Foot joint stiffness, bilateral (Acute) Hx of basal cell carcinoma (Acute) Paroxysmal atrial fibrillation (Acute) Polyneuropathy associated with underlying disease (Acute) Somatic dysfunction of lower extremity (Acute) Suspicious nevus (Acute) Type 2 diabetes mellitus with peripheral neuropathy (Acute) Surgical History History of aortic valve replacement with bioprosthetic valve (Acute) Status post cardiac catheterization Status post coronary artery bypass graft Status post hernia repair Family History Father Cancer Congestive heart failure Mother CAD (coronary artery disease) Social History household members: spouse Smoking Status: Former smoker alcohol intake: never additional social history: Former smoker, 2ppd, quit in 1981. reports a 1 year h/o of tobacco dependence. Smoking Status: Former smoker Substance Use Type: does not use Exam Initial Vital Signs Initial Vital Signs: Vital Signs Temperature 96.7 F L 03/27/20 16:49 Pulse Rate 149 H 03/27/20 16:49 Respiratory Rate 18 03/27/20 16:49 Blood Pressure 123/80 03/27/20 16:49 Pulse Oximetry 98 03/27/20 16:49 GENERAL: Alert slightly diaphoretic male and in no acute distress. HEENT: Head atraumatic,EOMI, pupils reactive, face symmetric, moist mucous membranes CARDIOVASCULAR: Regular tachycardic RESPIRATORY: Breath sounds equal bilaterally, no wheezes rales or rhonchi. ABDOMEN: Soft, nontender. Normoactive bowel sounds all 4 quadrants. No guarding or rebound. EXTREMITIES: Normal range of motion, no clubbing or edema. Neurovascularly intact NEUROLOGICAL: Alert and oriented x4.Normal gait and speech. Cranial nerves II through XII grossly intact. SKIN: Warm, dry, no laceration, no petechiae, no rashes or lesions. Procedures Cardioversion Consent Signed: No Indication: Emergent ventricular tachycardia Stability: Unstable Number of attempts (shocks): 1 Joules used: 150 Cardiac rhythm post-cardioversion: Paced rhythm Procedural Sedation Consent signed: No Time out performed: Yes Indication: cardioversion Presedation Evaluation: Emergent ASA Class: II Mallampati Airway Classification: Class II Preparation: food stylist applied, pulse oximeter, capnometry used and supplemental O2 applied IV Etomidate dose (mg): 10 Intraservice time/total sedation time (min): 12 ED Sedation Level: Moderate (Concious) Patient Tolerated Procedure: Well Complications: none Course Orders Ordered: ED Orders 03/27/20 16:54 XR chest 1V Stat 03/27/20 17:04 Complete Blood Count AUTO DIFF Stat Comprehensive Metabolic Panel Stat Lipase Stat Partial Thromboplastin Time Stat Prothrombin Time INR Stat Troponin & CK Cardiac Panel Stat 03/27/20 17:24 EKG-12 Lead Stat 03/27/20 19:15 COVID19 -ED/INPAT/OR/L&D Stat Amiodarone HCl/Dextrose (Nexterone) 360 mg in 200 mls @ 33.333 mls/hr IV NOW ONE; Protocol Stop: 03/27/20 23:24 Last Admin: 03/27/20 17:26 Dose: 33.333 mls/hr, 33.33 mls/hr Documented by: GAIL Discontinued Medications Etomidate (Amidate) 10 mg IV NOW ONE Stop: 03/27/20 18:01 Last Admin: 03/27/20 17:36 Dose: 10 mg Documented by: GAIL Amiodarone HCl/Dextrose (Nexterone) 150 mg in 100 mls @ 600 mls/hr IV NOW ONE; Protocol Stop: 03/27/20 17:19 Last Infusion: 03/27/20 17:21 Dose: 0 mls/hr Documented by: Admin: 03/27/20 17:11 Dose: 600 mls/hr Documented by: GAIL Consultations Consultation #1: Dr. Hardin, cardiology is quite familiar with patient. Request planning magnet off and on the the pacemaker. Agrees with amiodarone a nd amiodarone drip. However patient is on Xarelto and requests that patient be cardioverted, and have a device interrogated by [employer]. Time: 17:25 Vital Signs Vital signs: Vital Signs - 8 hr 03/27/20 16:49 03/27/20 17:14 03/27/20 17:15 Temperature 96.7 F L Pulse Rate 149 H 148 H 147 H Respiratory Rate 18 11 L 18 Blood Pressure 123/80 112/77 106/72 Pulse Oximetry 98 98 97 03/27/20 17:25 03/27/20 17:30 03/27/20 17:35 Temperature Pulse Rate 144 H 144 H 144 H Respiratory Rate 20 18 15 Blood Pressure 110/84 112/88 108/90 Pulse Oximetry 97 96 96 03/27/20 17:40 03/27/20 17:41 03/27/20 17:45 Temperature Pulse Rate 62 65 60 Respiratory Rate 10 L 14 11 L Blood Pressure 170/89 H 141/77 H Pulse Oximetry 100 100 98 03/27/20 17:50 03/27/20 17:55 03/27/20 18:00 Temperature Pulse Rate 62 62 60 Respiratory Rate 18 15 10 L Blood Pressure 125/70 126/76 122/75 Pulse Oximetry 98 97 97 03/27/20 18:05 03/27/20 18:11 03/27/20 18:15 Temperature Pulse Rate 60 60 60 Respiratory Rate 9 L 11 L 13 Blood Pressure 123/75 130/73 117/68 Pulse Oximetry 96 97 99 MDM - Chest Pain Lab Data Attestation: I reviewed the patient's lab results. Result diagrams: 03/27/20 17:04 03/27/20 17:04 Labs: Lab Results 03/27/20 03/27/20 03/27/20 Range/Units 17:04 17:04 17:04 WBC 11.1 H (4.5-11.0) X10^3/uL RBC 4.43 L (4.5-5.9) X10^6/uL Hgb 14.1 (13.5-17.5) g/dL Hct 40.8 L (41-53) % MCV 92.2 (80-100) fL MCH 31.9 (26-34) PG MCHC 34.6 (30-36) % RDW 13.0 (11.6-14.8) % Plt Count 172 (150-400) X10^3/uL Neut % (Auto) 80.5 H (50-75) % Lymph % (Auto) 10.7 L (25-40) % Bureau % (Auto) 7.9 (3-14) % Eos % (Auto) 0.4 L (2-4) % Baso % (Auto) 0.5 (0-2) % Neut # (Auto) 9000 H (4278-2775) /uL Lymph # (Auto) 1200 (0123-7043) /uL Bureau # (Auto) 900 (0-900) /uL Eos # (Auto) 0 (0-450) /uL Baso # (Auto) 100 (0-100) /uL PT 13.5 H (10.1-12.7) SECONDS INR 1.2 (0.9-1.3) APTT 35 D (26.4-36.2) SECONDS Sodium 138 (137-145) mmol/L Potassium 3.8 (3.4-5.1) mmol/L Chloride 103 (98-107) mmol/L Carbon Dioxide 24 (22-32) mmol/L BUN 19 (9-20) mg/dL Creatinine 0.78 (0.66-1.25) mg/dL Estimated GFR > 60.0 (>60) mL/min BUN/Creatinine Ratio 24.4 H (6-22) Glucose 121 H (80-110) mg/dL Calcium 10.1 (8.4-10.2) mg/dL Total Bilirubin 0.6 (0.2-1.3) mg/dL AST 72 H (17-59) IU/L ALT 88 H (<50) IU/L Alkaline Phosphatase 57 (38-126) U/L Total Creatine Kinase 141 (55-170) U/L CK-MB (CK-2) 5.55 H (<2.37) ng/mL CK-MB (CK-2) Rel Index 3.9 (1.5-5.0) % Troponin I 0.217 H* (0.01-0.034) ng/mL Total Protein 7.6 (6.3-8.2) g/dL Albumin 4.7 (3.5-5.0) g/dL Globulin 2.9 (1.7-4.1) g/dL Albumin/Globulin Ratio 1.6 (1.0-2.8) Lipase 159 (23-300) U/L Imaging Data Chest x-ray: Radiologist's Impression: PROCEDURE: XR CHEST 1V INDICATIONS: chest pain TECHNIQUE: One view of the chest was acquired. COMPARISON: [facility], , XR CHEST 1V, 02/20/2019, 11:22. FINDINGS: Surgical changes and devices: Sternotomy wires and cardiac valvular prosthesis. Dual lead cardiac pacer. Ill-defined mild ground-glass opacities. Sachin B lines noted. No pleural effusions or pneumothorax. Mediastinum: Mediastinal contours appear normal. Heart size is normal. Bones and chest wall: No suspicious bony lesions. Overlying soft tissues appear unremarkable. IMPRESSION: Findings raise the possibility of early/trace pulmonary edema. No focal consolidation Dictated by: Siddhartha Davis M.D. on 03/27/2020 at 18:19 Approved by: Siddhartha Davis M.D. on 03/27/2020 at 18:21 ECG Data Attestation: I personally reviewed and interpreted this ECG as follows: Prior ECG tracings: available for review Interpretation: EKG 1. V-tach rate 149 EKG 2. V-tach rate 149 EKG 3. V-tach rate 149 EKG 4. Paced rhythm rate 68 MDM Narrative Medical decision making narrative: The patient presents with V-tach. Amiodarone immediately started. Cardiology immediately consulted, quite familiar with the patient. Recommend putting magnet over pacemaker rhythm transiently stops and then comes back. Patient was successfully cardioverted back into a paced rhythm and remains on an amiodarone drip. The pacemaker has been interrogated and device shows pacemaker tachycardia. Troponin is elevated 0.217 but likely due to tachycardia. At this time cardiology did not recommend heparin drip. Dr. Hardin, request patient be transferred over to [facility]. Dr. Bolivar Hospitalist at [facility] accepts patient for transfer Critical Care Time Critical Care Time Critical Care Time: Yes Total Critical Care Time: 60 Attestation: The high probability of a clinically significant, sudden or life threatening deterioration of the [cardiovascular] system(s) required my full and direct attention, intervention and personal management. The aggregate critical care time was 60 minutes. This time is in addition to time spent performing reported procedures but includes the following: [x] Data Review and interpretation [x] Patient assessment and monitoring of vital signs [x] Documentation [x] Medication orders and management Discharge Plan Departure Patient Disposition: [facility] Clinical Impression: Ventricular tachycardia, sustained Prescriptions: No Action multivitamin Tablet 1 tab PO DAILY Qty: 0 RF: 0 aspirin 81 mg Tablet,Delayed Release (Dr/Ec) 81 mg PO DAILY Qty: 0 RF: 0 metoprolol succinate [Toprol XL] 25 MG tablet extended release 24 hr 25 mg PO QAM Qty: 0 RF: 0 Xarelto 20 mg tablet 20 mg PO QPM RF: 0 misoprostol 200 mcg tablet 200 mcg PO BID RF: 0 alpha lipoic acid 600 mg capsule 600 mg PO DAILY RF: 0 metformin 500 mg tablet 1,000 mg PO BID Qty: 240 RF: 0 atorvastatin 40 mg tablet 40 mg PO QPM RF: 0 ferrous sulfate [iron] 325 mg (65 mg iron) tablet 325 mg PO BID Qty: 60 RF: 0 lisinopril 20 mg Tablet 20 mg PO DAILY RF: 0 Vitamin C 250 mg Tablet,Chewable 500 mg PO DAILY RF: 0 chlorthalidone 25 mg Tablet 25 mg PO DAILY RF: 0 Referrals: Oziel Diaz DO [Primary Care Provider] -
[2020-03-27 17:11] LABS: Add Manual Diff / Slide Review NO; Basophils Absolute Auto 100 /uL (0-100); Basophils Percent Auto 0.5 % (0-2); Eosinophils Absolute Auto 0 /uL (0-450); Eosinophils Percent Auto 0.4 % (2-4); Hematocrit 40.8 % (41-53); Hemoglobin 14.1 g/dL (13.5-17.5); Lymphocytes Absolute Auto 1200 /uL (1100-4500); Lymphocytes Percent Auto 10.7 % (25-40); Mean Corpuscular HGB Conc 34.6 % (30-36); Mean Corpuscular Hemoglobin 31.9 PG (26-34); Mean Corpuscular Volume 92.2 fL (80-100); Monocytes Absolute Auto 900 /uL (0-900); Monocytes Percent Auto 7.9 % (3-14); Neutrophils Absolute Auto 9000 /uL (1500-7000); Neutrophils Percent Auto 80.5 % (50-75); Platelet Count 172 X10^3/uL (150-400); Red Blood Cell Count 4.43 X10^6/uL (4.5-5.9); White Blood Cell Count 11.1 X10^3/uL (4.5-11.0)
[2020-03-27] MEDS: AMIODARONE 150 MG/100 ML PIGGYBACK 600 MG IV (17:11)
--- NOTE | 2020-03-27 17:15 | PC.NURSE ---
Per patients pt was having constipation and abd pain last night. Reports today having increased weakness, pallor, diaphoresis. HR noted to be 150 VTACH. Pt denies CP SOB at this time. BP noted to be 106/72 at this time. Etomidate at bedside for cardioversion if needed. Pt with IV x 2 in bilateral forearms, Amiodarone 150mg/100ml infusing over 10 min. Pharmacist at bedside. Dr Carter at bedside.
[2020-03-27 17:18] LABS: INR 1.2 (0.9-1.3); Prothrombin Time 13.5 SECONDS (10.1-12.7)
[2020-03-27 17:20] LABS: PTT Partial Thromboplastin Tim 35 SECONDS (26.4-36.2)
[2020-03-27] MEDS: AMIODARONE 360 MG/200 ML PIGGYBACK 33.33 MG IV (17:26)
[2020-03-27 17:33] LABS: Alanine Aminotransferase 88 IU/L (<50); Albumin 4.7 g/dL (3.5-5.0); Albumin Globulin Ratio 1.6 (1.0-2.8); Alkaline Phosphatase 57 U/L (38-126); Aspartate Aminotransferase 72 IU/L (17-59); BUN Creatinine Ratio 24.4 (6-22); Bilirubin Total 0.6 mg/dL (0.2-1.3); Blood Urea Nitrogen 19 mg/dL (9-20); Calcium 10.1 mg/dL (8.4-10.2); Carbon Dioxide 24 mmol/L (22-32); Chloride 103 mmol/L (98-107); Creatine Kinase 141 U/L (55-170); Estimated Glomerular Filt Rate > 60.0 mL/min (>60); Globulin 2.9 g/dL (1.7-4.1); Glucose 121 mg/dL (80-110); HEMOLYSIS < 15 (0-50); Lipase 159 U/L (23-300); Potassium 3.8 mmol/L (3.4-5.1); Sodium 138 mmol/L (137-145); Total Protein 7.6 g/dL (6.3-8.2)
[2020-03-27] MEDS: ETOMIDATE 2 MG/ML 10 ML VIAL 10 MG IV (17:36)
[2020-03-27 17:48] LABS: CKMB % Relative Index 3.9 % (1.5-5.0); Creatine Kinase MB 5.55 ng/mL (<2.37)
--- NOTE | 2020-03-27 18:04 | PC.NURSE ---
1730: Magnet applied to pacemaker per Dr Carter. No change in rhythm. Removed. Pt prepped for cardioversion. Pt placed supine. IVF infusing. Capnography applied. pt placed on 2L for comfort. RT at bedside. BVM available. Pt RR easy and unlabored at this time. Amiodarone 360mg infusing in LFA per SEP. Pharmacist and Dr Carter also at bedside. Pads, cardiac monitoring, and SPO2 in place. Sedated with Etomidate per SEP. Refer to procedural sedation flowsheet. [id number]: Pt in a VPaced Rhythm at 60 post cardioversion. AAO x 3. Pacemaker interrogated with [employer] machine. Transportation Sales Consultant sent and spoke to Nisa at [phone] and confirmed retrieval. Awaiting faxed report. Pt resting on stretcher. CXR obtained. Critical troponin received by lab 0.217. Dr Carter made aware. Awaiting update on transfer to [facility].
[2020-03-27 18:11] LABS: Troponin I 0.217 ng/mL (0.01-0.034)
[2020-03-27 19:46] LABS: COVID19 -Nasal RAPID Negative (Negative)
== END 2020-03-27 19:45 | disposition short-term general hospital (02) ==
PROVIDERS: Emergency Provider Emergency Medicine; Family Provider Family Medicine; PCP Family Medicine
DX: I47.2 Ventricular tachycardia (principal); E11.9 Type 2 diabetes mellitus without complications; I10 Essential (primary) hypertension; I25.10 Atherosclerotic heart disease of native coronary artery without angina pectoris; I48.0 Paroxysmal atrial fibrillation; Z79.01 Long term (current) use of anticoagulants; Z95.5 Presence of coronary angioplasty implant and graft; Z95.0 Presence of cardiac pacemaker
CPT/HCPCS: 36415; 71045; 80053; 82550; 82553; 83690; 84484; 85025; 85610; 85730; 87635; 92960; 93005; 96365; 96366; 96375; 99152; 99285; 99291; J0282

== ENCOUNTER → 2020-06-06 14:28 | Outpatient (CLI) | payer OTHER, SELFPAY ==
[2019-05-31 18:03] VITALS: BMI 30.7
[2020-06-06 15:22] LABS: Bacteria Urine None Seen
[2020-06-06 16:01] LABS: Appearance Urine UA CLEAR; Bilirubin Urine UA NEGATIVE (NEGATIVE); Color Urine UA YELLOW; Glucose Urine UA NEGATIVE (Negative); Ketones Urine UA TRACE (NEGATIVE); Leukocyte Esterase Urine UA 2+ (NEGATIVE); Nitrite Urine UA NEGATIVE (Negative); Occult Blood Urine UA 3+ (Negative); Protein Urine UA 2+ (Negative); Specific Gravity Urine UA 1.025 (1.000-1.035); Urobilinogen Urine UA 0.2 E.U./dL (0.2)
[2020-06-06 16:11] LABS: Culture Indicated Urine Specimen Cultured; RBC Urine 30-100/HPF (0-5/HPF); WBC Urine 10-30/HPF (0-5/HPF)
== END ==
PROVIDERS: Family Provider Family Medicine; PCP Family Medicine; Visit Provider Family Medicine
DX: R30.0 Dysuria (principal)
CPT/HCPCS: 81001; 87077; 87086; 87186

== ENCOUNTER 2020-09-23 05:05 | Emergency (ER) | payer OTHER, SELFPAY ==
[2019-05-31 18:03] VITALS: BMI 30.7
[2020-09-23] VITALS (40 sets, daily range): BP systolic 81–169; BP diastolic 60–114; PULSE 60–130; RESP 6–31; TEMP 36.2; O2SAT 91–100; BMI 28.3
--- NOTE | 2020-09-23 05:07 | DI.RAD.S_ITS ---
PROCEDURE: XR CHEST 1V INDICATIONS: Chest pain TECHNIQUE: One view of the chest was acquired. COMPARISON: [facility], CR, XR CHEST 1V, 02/20/2019, 11:22. [facility], CR, XR CHEST 1V, 03/27/2020, 16:57. FINDINGS: Surgical changes and devices: Sternotomy and CABG. Cardiac pacemaker in appropriate position. Lungs and pleura: Lungs are clear. No pleural effusions or pneumothorax. Mediastinum: Mediastinal contours appear normal. Heart size is normal. Bones and chest wall: No suspicious bony lesions. Overlying soft tissues appear unremarkable. IMPRESSION: No acute cardiopulmonary disease. No significant discrepancy with the director of casework services radiology preliminary report. Dictated by: Aníbal Watkins M.D. on 09/23/2020 at 9:22 Approved by: Aníbal Watkins M.D. on 09/23/2020 at 9:23
[2020-09-23 05:30] LABS: Add Manual Diff / Slide Review NO; Basophils Absolute Auto 100 /uL (0-100); Basophils Percent Auto 0.8 % (0-2); Eosinophils Absolute Auto 200 /uL (0-450); Eosinophils Percent Auto 2.3 % (2-4); Hematocrit 41.2 % (41-53); Hemoglobin 14.1 g/dL (13.5-17.5); Lymphocytes Absolute Auto 1400 /uL (1100-4500); Lymphocytes Percent Auto 14.3 % (25-40); Mean Corpuscular HGB Conc 34.2 % (30-36); Mean Corpuscular Hemoglobin 31.4 PG (26-34); Mean Corpuscular Volume 91.7 fL (80-100); Monocytes Absolute Auto 900 /uL (0-900); Monocytes Percent Auto 9.3 % (3-14); Neutrophils Absolute Auto 7400 /uL (1500-7000); Neutrophils Percent Auto 73.3 % (50-75); Platelet Count 157 X10^3/uL (150-400); Red Blood Cell Count 4.49 X10^6/uL (4.5-5.9); Red Cell Distribution Width 13.5 % (11.6-14.8); White Blood Cell Count 10.1 X10^3/uL (4.5-11.0)
--- NOTE | 2020-09-23 05:30 | ED_ITS ---
HPI - General Adult <Bryant Alvarado DO - Last Filed: 09/23/20 18:17> General Chief complaint: Chest Pain Stated complaint: chest pain woke him Time Seen by Provider: 09/23/20 05:06 Source: patient Mode of arrival: Ambulatory Limitations: no limitations History of Present Illness HPI narrative: Patient is a 74-year-old male with a known history of hypertension, prediabetes, aortic valve replacement, paroxysmal atrial fibrillation, coronary artery disease, implanted [employer] DDIR device anticoagulation here for evaluation of chest discomfort. He states that he was awoken from sleep and states that it occurred approximately 330 this morning. It was difficult for him to describe a cardiac discomfort he was having. He was not having any palpitations. No shortness of breath. He states that the end of last year he had a similar episode when he came to the emergency department and was subsequently transferred and had adjustments made to his device. He was concerned about this again which is why came to the emergency department. He states that he is taking his medications. Related Data Home Medications Medication Instructions Recorded Confirmed multivitamin 1 tab PO DAILY #0 11/23/10 09/23/20 aspirin 81 mg PO DAILY #0 05/31/11 09/23/20 metoprolol succinate [Toprol XL] 25 mg PO BID #0 09/01/16 09/23/20 rivaroxaban 20 mg tablet 20 mg PO QPM 11/22/18 09/23/20 atorvastatin 40 mg PO QPM 02/20/19 09/23/20 chlorthalidone 25 mg PO DAILY 03/07/19 09/23/20 lisinopril 20 mg PO DAILY 03/07/19 09/23/20 alpha lipoic acid 600 mg capsule 600 mg PO DAILY 02/13/20 09/23/20 metformin 1,000 mg PO BID 09/23/20 09/23/20 Previous Rx's Medication Instructions Recorded ferrous sulfate [iron] 325 mg PO BID #60 tab 02/21/19 glipizide 5 mg tablet, extended 5 mg PO BID #60 tab 04/03/20 release 24 hr Allergies Allergy/AdvReac Type Severity Reaction Status Date / Time No Known Drug Allergies Allergy Verified 06/06/20 14:26 Review of Systems <DO Stan Toledo Last Filed: 09/23/20 18:17> Constitutional Constitutional: Denies fever(s) and Denies headache(s) ENT Ears, Nose, Mouth, and Throat: Denies headache(s) Cardiovascular Cardiovascular: Reports chest pain, Denies rapid heart rate and Denies dyspnea Respiratory Respiratory: Denies cough and Denies dyspnea Gastrointestinal Gastrointestinal: Denies abdominal pain, Denies nausea and Denies vomiting Genitourinary Genitourinary: Denies dysuria Genitourinary: Denies dysuria Musculoskeletal Musculoskeletal: Denies arthralgias and Denies myalgias Integumentary/Breasts Skin/Breast: Denies lesions and Denies rash Neurologic Neurologic: Denies behavioral changes and Denies headache(s) Psychiatric Psychiatric: Denies behavioral changes Hematologic/Lymphatic Hematologic/Lymphatic: Reports easy bleeding and Reports easy bruising On Anticoagulants: Yes Allergic/Immunologic Allergic/Immunologic: Denies urticaria Patient History <Bryant Alvarado DO - Last Filed: 09/23/20 18:17> Medical History Aortic stenosis Chronic right shoulder pain Coronary artery disease Cranial somatic dysfunction Essential hypertension Fasting hyperglycemia Foot joint stiffness, bilateral Hx of basal cell carcinoma Paroxysmal atrial fibrillation Polyneuropathy associated with underlying disease Somatic dysfunction of lower extremity 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 reports a 1 year h/o of tobacco dependence. Smoking Status: Former smoker alcohol intake frequency: 0-2 drinks per day Substance Use Type: does not use Exam <Bryant Alvarado DO - Last Filed: 09/23/20 18:17> Initial Vital Signs Initial Vital Signs: Vital Signs Temperature 97.2 F L 09/23/20 05:07 Pulse Rate 129 H 09/23/20 05:07 Respiratory Rate 20 09/23/20 05:07 Blood Pressure 169/114 H 03/09/21 05:07 Pulse Oximetry 99 09/23/20 05:07 Const General: cooperative, comfortable and well developed Limitations: mental status not altered HENMT Head: normal to inspection and normocephalic Resp Effort & Inspection: normal respiratory effort Auscultation: clear to auscultation bilaterally Cardio Rate: tachycardic Rhythm: regular rhythm Heart Sounds: murmur GI Inspection: non-distended Palpation: soft Skin Lesions: no lesions Rashes: no rashes Neuro General: patient alert and patient awake Cognition: normal cognition Speech: speech normal Extrem General: normal to inspection and capillary refill normal Psych Appearance: grossly normal and well kempt <Michael Glover DO - Last Filed: 09/23/20 17:57> Initial Vital Signs Initial Vital Signs: Vital Signs Temperature 97.2 F L 09/23/20 05:07 Pulse Rate 129 H 09/23/20 05:07 Respiratory Rate 20 09/23/20 05:07 Blood Pressure 169/114 H 09/23/20 05:07 Pulse Oximetry 99 09/23/20 05:07 Course <Bryant Alvarado DO - Last Filed: 09/23/20 18:17> Orders Ordered: Discontinued Medications Sodium Chloride (Normal Saline 0.9%) 1,000 mls @ 1,000 mls/hr IV BOLUS ONE Stop: 09/23/20 07:31 Last Infusion: 09/23/20 08:03 Dose: 0 mls/hr Documented by: Admin: 09/23/20 06:40 Dose: 1,000 mls/hr Documented by: MAYA Metoprolol Tartrate (Metoprolol Tartrate 5 Mg/5 Ml Inj) 5 mg IV NOW ONE Stop: 09/23/20 06:14 Last Admin: 09/23/20 06:18 Dose: 5 mg Documented by: MAYA Vital Signs Vital signs: Vital Signs - 8 hr 09/23/20 10:30 09/23/20 10:45 09/23/20 11:00 Pulse Rate 100 H 100 H 100 H Respiratory Rate 15 15 14 Blood Pressure 119/82 117/79 119/79 Pulse Oximetry 95 95 95 09/23/20 11:15 09/23/20 11:30 09/23/20 11:45 Pulse Rate 100 H 63 61 Respiratory Rate 20 22 16 Blood Pressure 126/81 123/81 117/67 Pulse Oximetry 97 98 98 09/23/20 12:00 Pulse Rate 60 Respiratory Rate 18 Blood Pressure 122/72 Pulse Oximetry 98 <Michael Glover, DO - Last Filed: 09/23/20 17:57> Orders Ordered: Discontinued Medications Sodium Chloride (Normal Saline 0.9%) 1,000 mls @ 1,000 mls/hr IV BOLUS ONE Stop: 09/23/20 07:31 Last Infusion: 09/23/20 08:03 Dose: 0 mls/hr Documented by: Admin: 09/23/20 06:40 Dose: 1,000 mls/hr Documented by: MAYA Metoprolol Tartrate (Metoprolol Tartrate 5 Mg/5 Ml Inj) 5 mg IV NOW ONE Stop: 09/23/20 06:14 Last Admin: 09/23/20 06:18 Dose: 5 mg Documented by: MAYA Reevaluation(s) Reevaluation #1: patient continues with HR 130s, paced at this rate. BP dropping to the 80s/90s. Magnet placed and HR down to 100 and BP up to 110. Patient feeling great Consultations Consultation #1: Dr. Hardin informed of need for magnet. Requests transfer to [facility] Time: 08:00 Consultation #2: call to Dr. Al Mendoza ([facility]) who is in agreement with need and location of transfer call to Dr. Soto ([facility] Hospitalist) happy to accept call to Dr. Byrd ([facility]) requests that we call [employer] to come reprogram the device [place] rep has come and reprogrammed. Patient feeling well. Calls to both Wilfred and Rochelle and they will see him in follow up. Time: 08:07 Vital Signs Vital signs: Vital Signs - 8 hr 09/23/20 10:30 09/23/20 10:45 09/23/20 11:00 Pulse Rate 100 H 100 H 100 H Respiratory Rate 15 15 14 Blood Pressure 119/82 117/79 119/79 Pulse Oximetry 95 95 95 09/23/20 11:15 09/23/20 11:30 09/23/20 11:45 Pulse Rate 100 H 63 61 Respiratory Rate 20 22 16 Blood Pressure 126/81 123/81 117/67 Pulse Oximetry 97 98 98 03/09/21 12:00 Pulse Rate 60 Respiratory Rate 18 Blood Pressure 122/72 Pulse Oximetry 98 Medical Decision Making <Bryant Alvarado DO - Last Filed: 09/23/20 18:17> Lab Data Lab results reviewed: Yes I reviewed the patient's lab results. Result diagrams: 09/23/20 05:20 09/23/20 05:20 Labs: Lab Results 09/23/20 09/23/20 09/23/20 Range/Units 05:20 05:20 05:20 WBC 10.1 (4.5-11.0) X10^3/uL RBC 4.49 L (4.5-5.9) X10^6/uL Hgb 14.1 (13.5-17.5) g/dL Hct 41.2 (41-53) % MCV 91.7 (80-100) fL MCH 31.4 (26-34) PG MCHC 34.2 (30-36) % RDW 13.5 (11.6-14.8) % Plt Count 157 (150-400) X10^3/uL Neut % (Auto) 73.3 (50-75) % Lymph % (Auto) 14.3 L (25-40) % Johnston % (Auto) 9.3 (3-14) % Eos % (Auto) 2.3 (2-4) % Baso % (Auto) 0.8 (0-2) % Neut # (Auto) 7400 H (3386-1387) /uL Lymph # (Auto) 1400 (8046-1590) /uL Johnston # (Auto) 900 (0-900) /uL Eos # (Auto) 200 (0-450) /uL Baso # (Auto) 100 (0-100) /uL PT 13.7 H (10.1-12.7) SECONDS INR 1.2 (0.9-1.3) APTT 38 H (26.4-36.2) SECONDS Sodium 136 L (137-145) mmol/L Potassium 3.7 (3.4-5.1) mmol/L Chloride 102 (98-107) mmol/L Carbon Dioxide 25 (22-32) mmol/L BUN 26 H (9-20) mg/dL Creatinine 0.92 (0.66-1.25) mg/dL Estimated GFR > 60.0 (>60) mL/min BUN/Creatinine Ratio 28.3 H (6-22) Glucose 92 (80-110) mg/dL Calcium 10.3 H (8.4-10.2) mg/dL Total Bilirubin 0.5 (0.2-1.3) mg/dL AST 34 (17-59) IU/L ALT 29 (<50) IU/L Alkaline Phosphatase 50 (38-126) U/L Total Creatine Kinase (55-170) U/L CK-MB (CK-2) CK-MB (CK-2) Rel Index Troponin I (0.01-0.034) ng/mL Total Protein 7.3 (6.3-8.2) g/dL Albumin 4.7 (3.5-5.0) g/dL Globulin 2.6 (1.7-4.1) g/dL Albumin/Globulin Ratio 1.8 (1.0-2.8) Triglycerides (35-150) mg/dL Cholesterol (140-199) mg/dL LDL Cholesterol, Calc (<100) mg/dL HDL Cholesterol (40-60) mg/dL Lipase (23-300) U/L SARS-CoV-2 (PCR) (Negative) 09/23/20 09/23/20 09/23/20 Range/Units 05:20 05:20 07:00 WBC (4.5-11.0) X10^3/uL RBC (4.5-5.9) X10^6/uL Hgb (13.5-17.5) g/dL Hct (41-53) % MCV (80-100) fL MCH (26-34) PG MCHC (30-36) % RDW (11.6-14.8) % Plt Count (150-400) X10^3/uL Neut % (Auto) (50-75) % Lymph % (Auto) (25-40) % Johnston % (Auto) (3-14) % Eos % (Auto) (2-4) % Baso % (Auto) (0-2) % Neut # (Auto) (8289-9428) /uL Lymph # (Auto) (1892-6846) /uL Johnston # (Auto) (0-900) /uL Eos # (Auto) (0-450) /uL Baso # (Auto) (0-100) /uL PT (10.1-12.7) SECONDS INR (0.9-1.3) APTT (26.4-36.2) SECONDS Sodium (137-145) mmol/L Potassium (3.4-5.1) mmol/L Chloride (98-107) mmol/L Carbon Dioxide (22-32) mmol/L BUN (9-20) mg/dL Creatinine (0.66-1.25) mg/dL Estimated GFR (>60) mL/min BUN/Creatinine Ratio (6-22) Glucose (80-110) mg/dL Calcium (8.4-10.2) mg/dL Total Bilirubin (0.2-1.3) mg/dL AST (17-59) IU/L ALT (<50) IU/L Alkaline Phosphatase (38-126) U/L Total Creatine Kinase 96 (55-170) U/L CK-MB (CK-2) TNP CK-MB (CK-2) Rel Index TNP Troponin I 0.017 (0.01-0.034) ng/mL Total Protein (6.3-8.2) g/dL Albumin (3.5-5.0) g/dL Globulin (1.7-4.1) g/dL Albumin/Globulin Ratio (1.0-2.8) Triglycerides 372 H (35-150) mg/dL Cholesterol 126 L (140-199) mg/dL LDL Cholesterol, Calc 28 (<100) mg/dL HDL Cholesterol 24 L (40-60) mg/dL Lipase 198 (23-300) U/L SARS-CoV-2 (PCR) Negative (Negative) Imaging Data Chest x-ray: Radiologist's Impression: Preliminary read shows a small focal area of airspace disease in the left lower lobe which may be secondary to atelectasis or pneumonia. The lungs are otherwise clear. Cardiomegaly. ECG Data Attestation: I personally reviewed and interpreted this ECG as follows: Prior ECG tracings: available for review Interpretation: Ventricularly paced Ventricular rate 123 MDM Narrative Medical decision making narrative: No chest pain currently, no shortness of breath. He does state that overall he feels well. He is not having palpitations. He is ventricularly paced with a rate in the 120s. His labs are relatively unremarkable. Interrogation of pacemaker shows that he most likely is in atrial tachycardia. Discussed the case with Dr hardin with cardiology who recommended IV labetalol 5 mg and can repeat this if needed the patient responds he can be discharged home with not he recommended transfer. Care turned over to Dr. Glover to disposition <Michael Glover, DO - Last Filed: 09/23/20 17:57> Lab Data Labs: Lab Results 09/23/20 09/23/20 09/23/20 Range/Units 05:20 05:20 05:20 WBC 10.1 (4.5-11.0) X10^3/uL RBC 4.49 L (4.5-5.9) X10^6/uL Hgb 14.1 (13.5-17.5) g/dL Hct 41.2 (41-53) % MCV 91.7 (80-100) fL MCH 31.4 (26-34) PG MCHC 34.2 (30-36) % RDW 13.5 (11.6-14.8) % Plt Count 157 (150-400) X10^3/uL Neut % (Auto) 73.3 (50-75) % Lymph % (Auto) 14.3 L (25-40) % Johnston % (Auto) 9.3 (3-14) % Eos % (Auto) 2.3 (2-4) % Baso % (Auto) 0.8 (0-2) % Neut # (Auto) 7400 H (6153-7498) /uL Lymph # (Auto) 1400 (8619-1189) /uL Johnston # (Auto) 900 (0-900) /uL Eos # (Auto) 200 (0-450) /uL Baso # (Auto) 100 (0-100) /uL PT 13.7 H (10.1-12.7) SECONDS INR 1.2 (0.9-1.3) APTT 38 H (26.4-36.2) SECONDS Sodium 136 L (137-145) mmol/L Potassium 3.7 (3.4-5.1) mmol/L Chloride 102 (98-107) mmol/L Carbon Dioxide 25 (22-32) mmol/L BUN 26 H (9-20) mg/dL Creatinine 0.92 (0.66-1.25) mg/dL Estimated GFR > 60.0 (>60) mL/min BUN/Creatinine Ratio 28.3 H (6-22) Glucose 92 (80-110) mg/dL Calcium 10.3 H (8.4-10.2) mg/dL Total Bilirubin 0.5 (0.2-1.3) mg/dL AST 34 (17-59) IU/L ALT 29 (<50) IU/L Alkaline Phosphatase 50 (38-126) U/L Total Creatine Kinase (55-170) U/L CK-MB (CK-2) CK-MB (CK-2) Rel Index Troponin I (0.01-0.034) ng/mL Total Protein 7.3 (6.3-8.2) g/dL Albumin 4.7 (3.5-5.0) g/dL Globulin 2.6 (1.7-4.1) g/dL Albumin/Globulin Ratio 1.8 (1.0-2.8) Triglycerides (35-150) mg/dL Cholesterol (140-199) mg/dL LDL Cholesterol, Calc (<100) mg/dL HDL Cholesterol (40-60) mg/dL Lipase (23-300) U/L SARS-CoV-2 (PCR) (Negative) 09/23/20 09/23/20 09/23/20 Range/Units 05:20 05:20 07:00 WBC (4.5-11.0) X10^3/uL RBC (4.5-5.9) X10^6/uL Hgb (13.5-17.5) g/dL Hct (41-53) % MCV (80-100) fL MCH (26-34) PG MCHC (30-36) % RDW (11.6-14.8) % Plt Count (150-400) X10^3/uL Neut % (Auto) (50-75) % Lymph % (Auto) (25-40) % Johnston % (Auto) (3-14) % Eos % (Auto) (2-4) % Baso % (Auto) (0-2) % Neut # (Auto) (6045-5584) /uL Lymph # (Auto) (8544-7090) /uL Johnston # (Auto) (0-900) /uL Eos # (Auto) (0-450) /uL Baso # (Auto) (0-100) /uL PT (10.1-12.7) SECONDS INR (0.9-1.3) APTT (26.4-36.2) SECONDS Sodium (137-145) mmol/L Potassium (3.4-5.1) mmol/L Chloride (98-107) mmol/L Carbon Dioxide (22-32) mmol/L BUN (9-20) mg/dL Creatinine (0.66-1.25) mg/dL Estimated GFR (>60) mL/min BUN/Creatinine Ratio (6-22) Glucose (80-110) mg/dL Calcium (8.4-10.2) mg/dL Total Bilirubin (0.2-1.3) mg/dL AST (17-59) IU/L ALT (<50) IU/L Alkaline Phosphatase (38-126) U/L Total Creatine Kinase 96 (55-170) U/L CK-MB (CK-2) TNP CK-MB (CK-2) Rel Index TNP Troponin I 0.017 (0.01-0.034) ng/mL Total Protein (6.3-8.2) g/dL Albumin (3.5-5.0) g/dL Globulin (1.7-4.1) g/dL Albumin/Globulin Ratio (1.0-2.8) Triglycerides 372 H (35-150) mg/dL Cholesterol 126 L (140-199) mg/dL LDL Cholesterol, Calc 28 (<100) mg/dL HDL Cholesterol 24 L (40-60) mg/dL Lipase 198 (23-300) U/L SARS-CoV-2 (PCR) Negative (Negative) <Michael Glover DO - Last Filed: 09/23/20 17:57> Critical Care Time Critical Care Time: Yes Total Critical Care Time: 30 Attestation: The high probability of a clinically significant, sudden or life threatening deterioration of the [CV] system(s) required my full and direct attention, intervention and personal management. The aggregate critical care time was [30] minutes. 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 Let them know you were seen in the Emergency Department and that we ask that you be seen in follow up *Return to ER if you should have any new, worsening or concerning symptoms, Prescriptions: No Action multivitamin Tablet 1 tab PO DAILY Qty: 0 RF: 0 aspirin 81 mg Tablet,Delayed Release (Dr/Ec) 81 mg PO DAILY Qty: 0 RF: 0 metoprolol succinate [Toprol XL] 25 MG tablet extended release 24 hr 25 mg PO BID Qty: 0 RF: 0 Xarelto 20 mg tablet 20 mg PO QPM RF: 0 alpha lipoic acid 600 mg capsule 600 mg PO DAILY RF: 0 glipizide 5 mg tablet extended release 24hr 5 mg PO BID Qty: 60 RF: 5 atorvastatin 40 mg tablet 40 mg PO QPM RF: 0 ferrous sulfate [iron] 325 mg (65 mg iron) tablet 325 mg PO BID Qty: 60 RF: 0 lisinopril 20 mg Tablet 20 mg PO DAILY RF: 0 chlorthalidone 25 mg Tablet 25 mg PO DAILY RF: 0 metformin 500 mg tablet 1,000 mg PO BID RF: 0 Referrals: Michael Byrd MD [Physician] - Oziel Diaz DO [Primary Care Provider] -
[2020-09-23 05:33] LABS: INR 1.2 (0.9-1.3); Prothrombin Time 13.7 SECONDS (10.1-12.7)
[2020-09-23 05:35] LABS: PTT Partial Thromboplastin Tim 38 SECONDS (26.4-36.2)
[2020-09-23 05:39] LABS: Alanine Aminotransferase 29 IU/L (<50); Albumin 4.7 g/dL (3.5-5.0); Albumin Globulin Ratio 1.8 (1.0-2.8); Alkaline Phosphatase 50 U/L (38-126); Aspartate Aminotransferase 34 IU/L (17-59); BUN Creatinine Ratio 28.3 (6-22); Bilirubin Total 0.5 mg/dL (0.2-1.3); Blood Urea Nitrogen 26 mg/dL (9-20); Calcium 10.3 mg/dL (8.4-10.2); Carbon Dioxide 25 mmol/L (22-32); Chloride 102 mmol/L (98-107); Creatine Kinase 96 U/L (55-170); Estimated Glomerular Filt Rate > 60.0 mL/min (>60); Globulin 2.6 g/dL (1.7-4.1); Glucose 92 mg/dL (80-110); HEMOLYSIS 19 (0-50); Lipase 198 U/L (23-300); Potassium 3.7 mmol/L (3.4-5.1); Sodium 136 mmol/L (137-145); Total Protein 7.3 g/dL (6.3-8.2)
[2020-09-23 05:50] LABS: Troponin I 0.017 ng/mL (0.01-0.034)
--- NOTE | 2020-09-23 05:58 | PC.NURSE ---
[employer] Pacemaker interrogated; report being faxed over
[2020-09-23] MEDS: METOPROLOL TARTRATE 5 MG/5 ML INJ IV (06:18)
[2020-09-23] MEDS: SODIUM CHLORIDE 0.9% 1,000 ML 1000 ML IV (06:40)
[2020-09-23 07:22] LABS: COVID19 -Nasal RAPID Negative (Negative)
--- NOTE | 2020-09-23 07:52 | PC.NURSE ---
BP noted 99/79, HR 129 wide complex tach. pads placed. Dr fuller at bedside. magnet placed. pt HR stabilizing at 100 and BP improving 119/78 paced Afib with widened QRS on EKG. Pt states he feels well. denies CP dizziness SOB. Magnet remains in place. Cards paged.
[2020-09-23 08:51] LABS: Cholesterol 126 mg/dL (140-199); HDL Cholesterol 24 mg/dL (40-60); LDL Cholesterol Calculated 28 mg/dL (<100); Triglycerides 372 mg/dL (35-150)
--- NOTE | 2020-09-23 11:23 | PC.NURSE ---
Tech from [employer] at bedside to try to calibrate pacer
== END 2020-09-23 12:46 | disposition home or self-care (01) ==
PROVIDERS: Emergency Medicine; Internal Medicine Cardiovascular Disease; Emergency Provider Emergency Medicine; Family Provider Family Medicine; PCP Family Medicine
DX: I47.1 Supraventricular tachycardia (principal); Z79.82 Long term (current) use of aspirin; Z20.822 Contact with and (suspected) exposure to COVID-19; Z95.0 Presence of cardiac pacemaker
CPT/HCPCS: 36415; 71045; 80053; 80061; 82550; 83690; 84484; 85025; 85610; 85730; 87635; 93005; 96361; 96374; 99284; C9803

== ENCOUNTER → 2021-01-14 11:50 | Outpatient (CLI) | payer OTHER, SELFPAY ==
[2019-05-31 18:03] VITALS: BMI 30.7
[2021-01-14 13:03] LABS: BUN Creatinine Ratio 20.3 (6-22); Blood Urea Nitrogen 15 mg/dL (9-20); Calcium 9.8 mg/dL (8.4-10.2); Carbon Dioxide 26 mmol/L (22-32); Chloride 107 mmol/L (98-107); Estimated Glomerular Filt Rate > 60.0 mL/min (>60); Glucose 112 mg/dL (80-110); HEMOLYSIS < 15 (0-50); Sodium 141 mmol/L (137-145)
== END ==
PROVIDERS: Family Provider Family Medicine; PCP Family Medicine; Referring Provider Nurse Practitioner; Visit Provider Nurse Practitioner
DX: I10 Essential (primary) hypertension (principal); Z95.2 Presence of prosthetic heart valve; Z95.1 Presence of aortocoronary bypass graft; Z95.0 Presence of cardiac pacemaker
CPT/HCPCS: 36415; 80048

== ENCOUNTER → 2021-08-24 09:19 | Outpatient (CLI) | payer OTHER, SELFPAY ==
[2019-05-31 18:03] VITALS: BMI 30.7
--- NOTE | 2021-08-24 | DI.US.S_ITS ---
PROCEDURE: US CAROTID DOPPLER BI INDICATIONS: BILATERAL CAROTID ARTERY STENOSIS TECHNIQUE: Color and pulse Doppler interrogation was performed of both carotid systems, with image documentation and velocity measurements. COMPARISON: [facility], , CAROTID ARTERY DOPPLER BILAT, 01/21/2012, 14:30. FINDINGS: Stenosis calculations are based on SRU (Society of Radiologists in Ultrasound) criteria. Right side: Brachial blood pressure: 140/82 mm Hg. Common carotid artery peak systolic velocity: 73 cm/sec. Internal carotid artery peak systolic velocity: 59 cm/sec. Internal carotid artery end diastolic velocity: 21 cm/sec. External carotid artery peak systolic velocity: 96 cm/sec. ICA/CCA peak systolic ratio: 0.8 . Ruiz scale imaging description: Calcified plaque Percent internal carotid artery stenosis: Less than 50% . Vertebral artery: Flow direction is antegrade. Left side: Brachial blood pressure: 142/84 mm Hg. Common carotid artery peak systolic velocity: 140 cm/sec. Internal carotid artery peak systolic velocity: 67 cm/sec. Internal carotid artery end diastolic velocity: 27 cm/sec. External carotid artery peak systolic velocity: 85 cm/sec. ICA/CCA peak systolic ratio: 0.5 . Ruiz scale imaging description: Calcified plaque Percent internal carotid artery stenosis: Less than 50% . Vertebral artery: Flow direction is antegrade. IMPRESSION: 1. Less than 50% stenosis of the origins of the internal carotid arteries bilaterally. 2. Hypertension at the time of imaging. Dictated by: Niyah Brunner MD, PhD on 08/24/2021 at 12:52 Approved by: Niyah Brunner MD, PhD on 08/24/2021 at 12:54
--- NOTE | 2021-08-24 | DI.ECHO.S_ITS ---
[facility]---------+ [facility] +---------+ : : [address] : [place] : : : : [phone] : : : : Phone: [phone]---------+ Echocardiogram Report + + :Name: LOBO BROOKS Study Date: 08/24/2021 Height: 73 in : :[facility] ReadingLocation: Weight: 223 lb : : Gender: Male BSA: 2.3 m2 : :: 1945 Age: 75 yrs BP: 143/90 mmHg: :Reason For Study: AORTIC VALVE REPLACEMENT : :Ordering Physician: ZELDA, : :CASH Performed By: Brooke Wallace : :Referring: CASH NDIAYE : + + Interpretation Summary The left ventricle is mildly dilated. The ejection fraction is estimated to be 40-45%. Compared to the prior exam, the left ventricular function is reduced. There is apical hypokinesis. There is inferior wall hypokinesis. E/E' med: 27.6 The right ventricle is borderline dilated. The right ventricular systolic function is normal. There is a pacemaker lead in the right ventricle. There is mild to moderate mitral regurgitation. Compared to the prior echo study, there has been no change in the severity of mitral regurgitation. There is a bioprosthetic aortic valve. The peak aortic velocity is 2.75 m/sec. The aortic valve mean gradient is 17 mmHg. The peak aortic velocity on the previous exam was 3.27 m/sec. There is mild to moderate tricuspid regurgitation. Compared to the prior echo exam, there has been no change in TR severity. The right ventricular systolic pressure is estimated to be at least 28 mmHg based on an estimated right atrial pressure of 3 mm Hg. The ascending aorta is mild-moderately enlarged. 4.2 cm in diameter. In February 2019 it was 4.1 cm. Mild atherosclerotic plaque(s) in the aortic arch. There is mild luminal irregularity and echogenicity in the abdominal aorta, suggestive of aortic atherosclerotic disease. Procedure: A two-dimensional transthoracic echocardiogram with color flow and Doppler was performed. The study quality was technically adequate. Comparison is made with the echocardiogram of 03/28/2020. The heart rate ranged between 59-62 bpm during the study. The patient has a paced rhythm. Left Ventricle: The left ventricle is mildly dilated. The estimated left ventricular end diastolic volume is 169 ml. There is mild-moderate concentric left ventricular hypertrophy. A false chord is noted (normal variant). The ejection fraction is estimated to be 40-45%. Compared to the prior exam, the left ventricular function is reduced. Apical wall motion abnormality may reflect pacemaker activation. There is apical hypokinesis. There is inferior wall hypokinesis. There is a mild dyssynchronous contraction pattern, consistent with a conduction abnormality. No significant change in wall motion abnormalities. Diastolic function could not be accurately assessed due to paced rhythm. E/E' med: 27.6. Right Ventricle: There is a pacemaker lead in the right ventricle. The right ventricle is borderline dilated. The right ventricular systolic function is normal. Atria: The left atrium is severely dilated. The left atrium has remained unchanged in size since the prior echo exam. There is a catheter/pacemaker lead seen in the right atrium. Right atrial size is normal. There is no Doppler evidence for an interatrial shunt. Mitral Valve: The mitral valve leaflets appear mildly thickened, but open well. The mitral valve leaflets are mildly calcified. There is mild mitral annular calcification. There is a tented mitral leaflets. There is mild to moderate mitral regurgitation. Compared to the prior echo study, there has been no change in the severity of mitral regurgitation. Aortic Valve: There is a bioprosthetic aortic valve. The prosthetic aortic valve is well-seated. The peak aortic velocity is 2.75 m/sec. The aortic valve mean gradient is 17 mmHg. The peak aortic velocity on the previous exam was 3.27 m/sec. No aortic regurgitation is present. Tricuspid Valve: The tricuspid valve is normal. There is mild to moderate tricuspid regurgitation. The right ventricular systolic pressure is estimated to be at least 28 mmHg based on an estimated right atrial pressure of 3 mm Hg. Compared to the prior echo exam, there has been no change in TR severity. Pulmonic Valve: The pulmonic valve leaflets are thin and pliable; valve motion is normal. There is mild pulmonic regurgitation. Great Vessels: The aortic root is normal size. The ascending aorta is mild- moderately enlarged. Mild atherosclerotic plaque(s) in the aortic arch. There is mild luminal irregularity and echogenicity in the abdominal aorta, suggestive of aortic atherosclerotic disease. The IVC is of normal diameter and collapses greater than 50% with a sniff. This suggests a low right atrial pressure of 3 mm Hg. Pericardium/ Pleura There is no pericardial effusion. There is no pleural effusion. MMode/2D Measurements & Calculations LVIDd: 6.1 cm LVOT diam: 2.1 cm LVIDs: 4.7 cm Ao root diam: 3.7 cm FS: 22.7 % asc Aorta Diam: 4.2 cm EPSS: 1.5 cm Ao Arch Diam (Prox Trans): 3.3 cm IVSd: 1.3 cm LVPWd: 1.4 cm LV carter. diameter/BSA (cm/m^2): 2.7 LV sys. diameter/BSA (cm/m^2): 2.1 LA A2 area: 30.8 cm2 RA long axis: 6.5 cm LA A4 area: 28.1 cm2 RA area: 22.3 cm2 LA length (vol): 6.6 cm RA vol: 65.5 ml LA vol: 111.6 ml RA : 29.1 ml/m2 LA vol index: 49.5 ml/m2 IVC diam: 1.9 cm RVD1 (basal): 4.2 cm TAPSE: 2.1 cm Doppler Measurements & Calculations Ao V2 max: 275.1 cm/sec LVOT Max Adam: 67.9 cm/sec Ao V2 mean: 193.7 cm/sec LV V1 max P.8 mmHg Ao max P.3 mmHg LV V1 VTI: 14.7 cm Ao mean P.1 mmHg ELICIA(I,D): 0.91 cm2 Ao V2 VTI: 56.2 cm ELICIA(V,D): 0.86 cm2 sev ratio: 0.26 ELICIA indexed to BSA (cm^2/m^2): 0.41 MV E max adam: 103.1 cm/sec TR max adam: 247.8 cm/sec MV A max adam: 1.0 cm/sec TR max P.6 mmHg MV E/A: 102.8 PA V2 max: 116.8 cm/sec Med Peak E' Adam: 3.7 cm/sec PA V2 mean: 73.9 cm/sec E/E' med: 27.6 PA mean P.6 mmHg Lat Peak E' Adam: 5.8 cm/sec PA pr(Accel): 39.6 mmHg E/E' lat: 17.7 E/e' average: 22.6 MV dec time: 0.23 sec SV(LVOT): 51.3 ml Reading Physician:10:04 AM
== END ==
PROVIDERS: Family Provider Family Medicine; PCP Family Medicine; Referring Provider Internal Medicine Cardiovascular Disease; Visit Provider Internal Medicine Cardiovascular Disease
DX: I08.1 Rheumatic disorders of both mitral and tricuspid valves (principal); I65.23 Occlusion and stenosis of bilateral carotid arteries; I70.0 Atherosclerosis of aorta; I77.89 Other specified disorders of arteries and arterioles; Z95.2 Presence of prosthetic heart valve; Z95.0 Presence of cardiac pacemaker
CPT/HCPCS: 93306; 93880

== ENCOUNTER → 2021-10-21 09:45 | Outpatient (CLI) | payer OTHER, SELFPAY ==
[2019-05-31 18:03] VITALS: BMI 30.7
[2021-10-21 10:25] LABS: Add Manual Diff / Slide Review NO; Basophils Absolute Auto 100 /uL (0-100); Basophils Percent Auto 0.9 % (0-2); Eosinophils Absolute Auto 200 /uL (0-450); Eosinophils Percent Auto 2.8 % (2-4); Hemoglobin 14.4 g/dL (13.5-17.5); Lymphocytes Absolute Auto 1200 /uL (1100-4500); Lymphocytes Percent Auto 16.9 % (25-40); Mean Corpuscular HGB Conc 34.3 % (30-36); Mean Corpuscular Hemoglobin 31.5 PG (26-34); Mean Corpuscular Volume 91.9 fL (80-100); Monocytes Absolute Auto 700 /uL (0-900); Monocytes Percent Auto 10.1 % (3-14); Neutrophils Absolute Auto 4800 /uL (1500-7000); Neutrophils Percent Auto 69.3 % (50-75); Platelet Count 168 X10^3/uL (150-400); Red Blood Cell Count 4.57 X10^6/uL (4.5-5.9); Red Cell Distribution Width 13.4 % (11.6-14.8); White Blood Cell Count 6.9 X10^3/uL (4.5-11.0)
[2021-10-21 10:34] LABS: Hemoglobin A1C% w Est Avg Glu 5.7 % (4.0-6.0)
[2021-10-21 10:44] LABS: Alanine Aminotransferase 49 IU/L (<50); Albumin 4.6 g/dL (3.5-5.0); Albumin Globulin Ratio 1.8 (1.0-2.8); Alkaline Phosphatase 54 U/L (38-126); Aspartate Aminotransferase 37 IU/L (17-59); BUN Creatinine Ratio 17.2 (6-22); Bilirubin Total 0.5 mg/dL (0.2-1.3); Blood Urea Nitrogen 16 mg/dL (9-20); Calcium 9.6 mg/dL (8.4-10.2); Carbon Dioxide 25 mmol/L (22-32); Chloride 106 mmol/L (98-107); Cholesterol 141 mg/dL (140-199); Estimated Glomerular Filt Rate > 60.0 mL/min (>60); Globulin 2.5 g/dL (1.7-4.1); Glucose 179 mg/dL (80-110); HDL Cholesterol 25 mg/dL (40-60); HEMOLYSIS < 15 (0-50); LDL Cholesterol Calculated 59 mg/dL (<100); Potassium 4.4 mmol/L (3.4-5.1); Sodium 142 mmol/L (137-145); Total Protein 7.1 g/dL (6.3-8.2); Triglycerides 287 mg/dL (35-150)
== END ==
PROVIDERS: Family Provider Family Medicine; PCP Family Medicine; Referring Provider Family Medicine; Visit Provider Family Medicine
DX: E11.42 Type 2 diabetes mellitus with diabetic polyneuropathy (principal); D64.9 Anemia, unspecified; I10 Essential (primary) hypertension
CPT/HCPCS: 36415; 80053; 80061; 83036; 85025

== ENCOUNTER → 2022-01-26 10:18 | Outpatient (CLI) | payer OTHER, SELFPAY ==
[2019-05-31 18:03] VITALS: BMI 30.7
[2022-01-26 12:03] LABS: Add Manual Diff / Slide Review NO; Basophils Absolute Auto 100 /uL (0-100); Basophils Percent Auto 1.2 % (0-2); Eosinophils Absolute Auto 300 /uL (0-450); Eosinophils Percent Auto 4.6 % (2-4); Hematocrit 40.4 % (41-53); Hemoglobin 14.1 g/dL (13.5-17.5); Lymphocytes Absolute Auto 1100 /uL (1100-4500); Lymphocytes Percent Auto 15.9 % (25-40); Mean Corpuscular HGB Conc 34.9 % (30-36); Mean Corpuscular Hemoglobin 31.8 PG (26-34); Mean Corpuscular Volume 91.1 fL (80-100); Monocytes Absolute Auto 600 /uL (0-900); Monocytes Percent Auto 9.3 % (3-14); Neutrophils Absolute Auto 4600 /uL (1500-7000); Platelet Count 144 X10^3/uL (150-400); Red Blood Cell Count 4.43 X10^6/uL (4.5-5.9); Red Cell Distribution Width 14.3 % (11.6-14.8); White Blood Cell Count 6.6 X10^3/uL (4.5-11.0)
[2022-01-26 13:09] LABS: Alanine Aminotransferase 37 IU/L (<50); Albumin 4.8 g/dL (3.5-5.0); Albumin Globulin Ratio 1.9 (1.0-2.8); Alkaline Phosphatase 59 U/L (38-126); Aspartate Aminotransferase 36 IU/L (17-59); BUN Creatinine Ratio 17.4 (6-22); Bilirubin Total 0.7 mg/dL (0.2-1.3); Blood Urea Nitrogen 16 mg/dL (9-20); Calcium 9.4 mg/dL (8.4-10.2); Carbon Dioxide 24 mmol/L (22-32); Chloride 108 mmol/L (98-107); Cholesterol 144 mg/dL (140-199); Estimated Glomerular Filt Rate > 60 mL/min (>60); Globulin 2.5 g/dL (1.7-4.1); Glucose 148 mg/dL (80-110); HDL Cholesterol 25 mg/dL (40-60); HEMOLYSIS < 15 (0-50); LDL Cholesterol Calculated 63 mg/dL (<100); Potassium 4.4 mmol/L (3.4-5.1); Sodium 140 mmol/L (137-145); Total Protein 7.3 g/dL (6.3-8.2); Triglycerides 280 mg/dL (35-150)
== END ==
PROVIDERS: Family Provider Family Medicine; PCP Family Medicine; Referring Provider Internal Medicine Cardiovascular Disease; Visit Provider Internal Medicine Cardiovascular Disease
DX: E78.5 Hyperlipidemia, unspecified (principal); I42.0 Dilated cardiomyopathy
CPT/HCPCS: 36415; 80053; 80061; 85025

== ENCOUNTER → 2022-03-30 09:12 | Outpatient (CLI) | payer OTHER, SELFPAY ==
[2019-05-31 18:03] VITALS: BMI 30.7
--- NOTE | 2022-03-30 | DI.ECHO.S_ITS ---
[facility]---------+ [facility] +---------+ : : [address] [place] : : : : [phone] : : : : Phone: [phone] +---------+ Echocardiogram Report + + :Name: LOBO BROOKS Study Date: 03/30/2022 Height: 73 in : :[facility] ReadingLocation: Weight: 225 lb : : Gender: Male BSA: 2.3 m2 : :: 1945 Age: 76 yrs BP: 151/94 mmHg: :Reason For Study: DILATED CARDIOMYOPATHY : :Ordering Physician: ROSE, : :JOYCE Performed By: Brooke Wallace : :Referring: JOYCE ROSE : + + Interpretation Summary The left ventricle is normal in size. This is Decreased compared to the previous study. There is mild-moderate concentric left ventricular hypertrophy. Left ventricular ejection fraction is estimated to be 50 +/- 5%. Previous LV ejection fraction 40 to 45%. LV function improved. The right ventricle is mildly dilated. The right ventricular systolic function is normal. There is a pacemaker lead in the right ventricle. There is a bioprosthetic aortic valve. The peak aortic velocity is 3.0 m/sec.The peak aortic velocity on the previous exam was 2.75 m/sec. The aortic valve mean gradient is 19 mmHg. No hemodynamically significant aortic stenosis. There is mild tricuspid regurgitation. The right ventricular systolic pressure is estimated to be at least 23 mmHg based on an estimated right atrial pressure of 3 mm Hg. Compared to the prior echo exam, there has been a decrease in TR severity. Procedure: A two-dimensional transthoracic echocardiogram with color flow and Doppler was performed in limited views only to assess ejection fraction. The study quality was technically adequate. Comparison is made with the echocardiogram of 08/24/2021. The patient has a paced rhythm. The heart rate ranged between 70 bpm during the study. Left Ventricle: The left ventricle is normal in size. There is mild-moderate concentric left ventricular hypertrophy. This is Decreased compared to the previous study. There is no thrombus. A false chord is noted (normal variant). Left ventricular ejection fraction is estimated to be 50 +/- 5%. Subtle apical and inferior wall hypokinesis. Right Ventricle: The right ventricle is mildly dilated. There is a pacemaker lead in the right ventricle. The right ventricular systolic function is normal. Atria: The left atrium is severely dilated. There has been no significant change since the previous study. The right atrium is borderline dilated. Aortic Valve: There is a bioprosthetic aortic valve. The peak aortic velocity is 3.0 m/sec. The aortic valve mean gradient is 19 mmHg. The peak aortic velocity on the previous exam was 2.75 m/sec. Tricuspid Valve: The tricuspid valve is normal. The right ventricular systolic pressure is estimated to be at least 23 mmHg based on an estimated right atrial pressure of 3 mm Hg. There is mild tricuspid regurgitation. Compared to the prior echo exam, there has been a decrease in TR severity. Great Vessels: The IVC is of normal diameter and collapses greater than 50% with a sniff. This suggests a low right atrial pressure of 3 mm Hg. Pericardium/ Pleura There is no pericardial effusion. There is no pleural effusion. MMode/2D Measurements & Calculations LVIDd: 5.6 cm LVOT diam: 2.1 cm LVIDs: 3.9 cm FS: 30.0 % IVSd: 1.4 cm LVPWd: 1.4 cm LV carter. diameter/BSA (cm/m^2): 2.5 LV sys. diameter/BSA (cm/m^2): 1.7 LA A2 area: 33.4 cm2 RA long axis: 6.1 cm LA A4 area: 27.7 cm2 RA area: 22.3 cm2 LA length (vol): 6.6 cm RA vol: 69.5 ml LA vol: 119.4 ml RA : 30.7 ml/m2 LA vol index: 52.8 ml/m2 IVC diam: 1.8 cm RVD1 (basal): 4.4 cm RVD2 (mid): 3.5 cm TAPSE: 2.0 cm Doppler Measurements & Calculations Ao V2 max: 299.6 cm/sec LVOT Max Adam: 71.8 cm/sec Ao V2 mean: 203.4 cm/sec LV V1 max P.1 mmHg Ao max P.9 mmHg LV V1 VTI: 14.6 cm Ao mean P.9 mmHg ELICIA(I,D): 0.90 cm2 Ao V2 VTI: 56.5 cm ELICIA(V,D): 0.83 cm2 sev ratio: 0.26 ELICIA indexed to BSA (cm^2/m^2): 0.40 TR max adam: 226.7 cm/sec SV(LVOT): 50.8 ml TR max P.6 mmHg Reading Physician:04:31 PM
== END ==
PROVIDERS: Family Provider Family Medicine; PCP Family Medicine; Referring Provider Physician Assistant Medical; Visit Provider Physician Assistant Medical
DX: I42.0 Dilated cardiomyopathy (principal)
CPT/HCPCS: 93306

== ENCOUNTER → 2022-05-27 08:59 | Outpatient (CLI) | payer OTHER, SELFPAY ==
[2019-05-31 18:03] VITALS: BMI 30.7
[2022-05-27 10:46] LABS: Hemoglobin A1C% w Est Avg Glu 5.1 % (4.0-6.0)
[2022-05-27 11:05] LABS: Microalbumin Urine Random 1.6 mg/dL (0-1.6)
[2022-05-27 11:07] LABS: Microalbumi Creatinin Ratio Ur 7.7 ug/mg CR (<30)
== END ==
PROVIDERS: Family Provider Family Medicine; PCP Family Medicine; Referring Provider Family Medicine; Visit Provider Family Medicine
DX: E11.42 Type 2 diabetes mellitus with diabetic polyneuropathy (principal); I10 Essential (primary) hypertension
CPT/HCPCS: 36415; 82043; 82570; 83036

== ENCOUNTER → 2022-09-01 11:02 | Outpatient (CLI) | payer OTHER, SELFPAY ==
[2019-05-31 18:03] VITALS: BMI 30.7
[2022-09-01 12:26] LABS: Add Manual Diff / Slide Review NO; Basophils Absolute Auto 100 /uL (0-100); Basophils Percent Auto 1.2 % (0-2); Eosinophils Absolute Auto 200 /uL (0-450); Hematocrit 41.6 % (41-53); Hemoglobin 14.2 g/dL (13.5-17.5); Lymphocytes Absolute Auto 1100 /uL (1100-4500); Lymphocytes Percent Auto 15.6 % (25-40); Mean Corpuscular HGB Conc 34.1 % (30-36); Mean Corpuscular Hemoglobin 31.3 PG (26-34); Mean Corpuscular Volume 91.8 fL (80-100); Monocytes Absolute Auto 600 /uL (0-900); Neutrophils Absolute Auto 5300 /uL (1500-7000); Neutrophils Percent Auto 72.2 % (50-75); Platelet Count 192 X10^3/uL (150-400); Red Blood Cell Count 4.53 X10^6/uL (4.5-5.9); Red Cell Distribution Width 13.9 % (11.6-14.8); White Blood Cell Count 7.3 X10^3/uL (4.5-11.0)
[2022-09-01 12:51] LABS: Alanine Aminotransferase 31 IU/L (<50); Albumin 4.6 g/dL (3.5-5.0); Albumin Globulin Ratio 1.8 (1.0-2.8); Alkaline Phosphatase 55 U/L (38-126); Aspartate Aminotransferase 30 IU/L (17-59); BUN Creatinine Ratio 23.9 (6-22); Bilirubin Total 0.4 mg/dL (0.2-1.3); Blood Urea Nitrogen 17 mg/dL (9-20); Calcium 9.6 mg/dL (8.4-10.2); Carbon Dioxide 26 mmol/L (22-32); Chloride 103 mmol/L (98-107); Cholesterol 145 mg/dL (140-199); Estimated Glomerular Filt Rate > 60 mL/min (>60); Globulin 2.6 g/dL (1.7-4.1); Glucose 114 mg/dL (80-110); HDL Cholesterol 29 mg/dL (40-60); HEMOLYSIS < 15 (0-50); LDL Cholesterol Calculated 70 mg/dL (<100); Potassium 4.3 mmol/L (3.4-5.1); Sodium 140 mmol/L (137-145); Total Protein 7.2 g/dL (6.3-8.2); Triglycerides 230 mg/dL (35-150)
[2022-09-01 12:55] LABS: Hemoglobin A1C% w Est Avg Glu 4.9 % (4.0-6.0)
[2022-09-01 13:15] LABS: Prostate Specific Antigen Scrn 1.01 ng/mL (0.1-4.0)
== END ==
PROVIDERS: Family Provider Family Medicine; PCP Family Medicine; Referring Provider Family Medicine; Visit Provider Family Medicine
DX: E11.42 Type 2 diabetes mellitus with diabetic polyneuropathy (principal); Z12.5 Encounter for screening for malignant neoplasm of prostate; I10 Essential (primary) hypertension; I25.119 Atherosclerotic heart disease of native coronary artery with unspecified angina pectoris
CPT/HCPCS: 36415; 80053; 80061; 83036; 85025; G0103

== ENCOUNTER → 2023-06-20 09:53 | Outpatient (CLI) | payer OTHER, SELFPAY ==
[2019-05-31 18:03] VITALS: BMI 30.7
[2023-06-20 11:00] LABS: Alanine Aminotransferase 71 IU/L (<50); Albumin 4.5 g/dL (3.5-5.0); Albumin Globulin Ratio 1.7 (1.0-2.8); Alkaline Phosphatase 51 U/L (38-126); Aspartate Aminotransferase 51 IU/L (17-59); BUN Creatinine Ratio 16.9 (6-22); Bilirubin Total 0.7 mg/dL (0.2-1.3); Blood Urea Nitrogen 13 mg/dL (9-20); Calcium 10.5 mg/dL (8.4-10.2); Carbon Dioxide 27 mmol/L (22-32); Chloride 104 mmol/L (98-107); Cholesterol 137 mg/dL (140-199); Estimated Glomerular Filt Rate > 60 mL/min (>60); Globulin 2.6 g/dL (1.7-4.1); Glucose 136 mg/dL (80-110); HDL Cholesterol 26 mg/dL (40-60); HEMOLYSIS < 15 (0-50); LDL Cholesterol Calculated 54 mg/dL (<100); Potassium 4.2 mmol/L (3.4-5.1); Sodium 140 mmol/L (137-145); Total Protein 7.1 g/dL (6.3-8.2); Triglycerides 286 mg/dL (35-150)
== END ==
PROVIDERS: Family Provider Family Medicine; PCP Family Medicine; Referring Provider Internal Medicine Cardiovascular Disease; Visit Provider Internal Medicine Cardiovascular Disease
DX: E78.5 Hyperlipidemia, unspecified (principal)
CPT/HCPCS: 36415; 80053; 80061

== ENCOUNTER → 2023-08-15 12:11 | Outpatient (CLI) | payer OTHER, SELFPAY ==
[2019-05-31 18:03] VITALS: BMI 30.7
[2023-08-15 13:04] LABS: Add Manual Diff / Slide Review NO; Basophils Absolute Auto 100 /uL (0-100); Basophils Percent Auto 0.8 % (0-2); Eosinophils Absolute Auto 200 /uL (0-450); Eosinophils Percent Auto 2.4 % (2-4); Hematocrit 41.8 % (41-53); Hemoglobin 14.1 g/dL (13.5-17.5); Lymphocytes Absolute Auto 1000 /uL (1100-4500); Mean Corpuscular HGB Conc 33.8 % (30-36); Mean Corpuscular Hemoglobin 32.4 PG (26-34); Mean Corpuscular Volume 95.8 fL (80-100); Monocytes Absolute Auto 700 /uL (0-900); Monocytes Percent Auto 9.1 % (3-14); Neutrophils Absolute Auto 5400 /uL (1500-7000); Neutrophils Percent Auto 73.7 % (50-75); Platelet Count 149 X10^3/uL (150-400); Red Blood Cell Count 4.36 X10^6/uL (4.5-5.9); Red Cell Distribution Width 14.2 % (11.6-14.8); White Blood Cell Count 7.4 X10^3/uL (4.5-11.0)
[2023-08-15 13:33] LABS: Alanine Aminotransferase 53 IU/L (<50); Albumin 4.4 g/dL (3.5-5.0); Albumin Globulin Ratio 1.7 (1.0-2.8); Alkaline Phosphatase 47 U/L (38-126); Aspartate Aminotransferase 40 IU/L (17-59); BUN Creatinine Ratio 14.9 (6-22); Bilirubin Total 0.8 mg/dL (0.2-1.3); Blood Urea Nitrogen 13 mg/dL (9-20); Carbon Dioxide 23 mmol/L (22-32); Chloride 105 mmol/L (98-107); Cholesterol 143 mg/dL (140-199); Estimated Glomerular Filt Rate > 60 mL/min (>60); Globulin 2.6 g/dL (1.7-4.1); Glucose 122 mg/dL (80-110); HDL Cholesterol 29 mg/dL (40-60); HEMOLYSIS < 15 (0-50); LDL Cholesterol Calculated 79 mg/dL (<100); Potassium 4.2 mmol/L (3.4-5.1); Sodium 139 mmol/L (137-145); Triglycerides 175 mg/dL (35-150)
[2023-08-15 13:35] LABS: Hemoglobin A1C% w Est Avg Glu 4.7 % (4.0-6.0)
[2023-08-15 13:54] LABS: Prostate Specific Antigen Scrn 0.754 ng/mL (0.1-4.0)
== END ==
LOC: LAB 12:11
PROVIDERS: Family Provider Family Medicine; PCP Family Medicine; Referring Provider Family Medicine; Visit Provider Family Medicine
DX: Z12.5 Encounter for screening for malignant neoplasm of prostate (principal); E11.42 Type 2 diabetes mellitus with diabetic polyneuropathy; I10 Essential (primary) hypertension; E78.1 Pure hyperglyceridemia
CPT/HCPCS: 36415; 80053; 80061; 83036; 85025; G0103

== ENCOUNTER → 2023-08-29 09:16 | Outpatient (CLI) | payer OTHER, SELFPAY ==
[2019-05-31 18:03] VITALS: BMI 30.7
--- NOTE | 2023-08-29 09:18 | DI.ECHO.S_ITS ---
[facility] +---------+ [facility] +---------+ : : [address] : [place] : : : : [phone] : : : : Phone: [phone] +---------+ Echocardiogram Report + + :Name: LOBO BROOKS Study Date: 08/29/2023 Height: 73 in : :[facility] ReadingLocation: Weight: 225 lb : : Gender: Male BSA: 2.3 m2 : :: 1945 Age: 77 yrs BP: 156/95 mmHg: :Reason For Study: PROSTHETIC HEART VALVE : :Ordering Physician: ZELDA, : :CASH Performed By: Brooke Wallace : :Referring: CASH NDIAYE : + + Interpretation Summary The left ventricle is borderline dilated. There is mild-moderate concentric left ventricular hypertrophy. Previously moderate concentric LVH. The left ventricular ejection fraction is normal. The ejection fraction is estimated to be 55-60%. Left ventricular global longitudinal strain average is -13.3%. Javier on top pattern seen. Visually no significant wall motion abnormalities. Previous LVEF 50 to 55%. The right ventricle is mildly dilated. The right ventricular systolic function is normal. There is a pacemaker lead in the right ventricle. Tented mitral leaflets. There is mild to moderate mitral regurgitation. Compared to the prior echo study, there has been no change in the severity of mitral regurgitation. There is a bioprosthetic aortic valve. The prosthetic aortic valve is well-seated. Mild to moderate calcification of the aortic valve seen. The peak aortic velocity is 3.2 m/sec. The aortic valve mean gradient is 28 mmHg. sev ratio: 0.25 Overall no critical aortic stenosis. There is mild aortic regurgitation. Aortic regurgitation is new. There is mild to moderate tricuspid regurgitation. Compared to the prior echo exam, there has been no change in TR severity. The right ventricular systolic pressure is estimated to be at least 47 mmHg based on an estimated right atrial pressure of 8 mm Hg. There is moderate pulmonary hypertension. The ascending aorta is mild-moderately enlarged. 4.2 cm in diameter. No significant change. Mild atherosclerotic plaque(s) in the aortic arch. Procedure: A two-dimensional transthoracic echocardiogram with color flow and Doppler was performed. The study quality was technically adequate. Comparison is made with the echocardiogram of 03/30/2022. The patient has a paced rhythm. The heart rate ranged between 70 bpm during the study. Left Ventricle: There is mild-moderate concentric left ventricular hypertrophy. The left ventricle is borderline dilated. There is no thrombus. The ejection fraction is estimated to be 55-60%. Left ventricular global longitudinal strain average is -13.3%. The left ventricular ejection fraction is normal. Right Ventricle: The right ventricle is mildly dilated. There is a pacemaker lead in the right ventricle. The right ventricular systolic function is normal. Atria: The left atrium is severely dilated. There has been no significant change since the previous study. Right atrial size is normal. There is no Doppler evidence for an interatrial shunt. Mitral Valve: The mitral valve leaflets appear mildly thickened, but open well. The mitral valve leaflets are mildly calcified. Tented mitral leaflets. There is mild to moderate mitral regurgitation. Compared to the prior echo study, there has been no change in the severity of mitral regurgitation. Aortic Valve: There is a bioprosthetic aortic valve. The prosthetic aortic valve is well-seated. Mild to moderate calcification of the aortic valve seen. The peak aortic velocity is 3.2 m/sec. The aortic valve mean gradient is 28 mmHg. The peak aortic velocity on the previous exam was 3.0 m/sec. There is mild aortic regurgitation. Tricuspid Valve: The tricuspid valve is normal. There is mild to moderate tricuspid regurgitation. The right ventricular systolic pressure is estimated to be at least 47 mmHg based on an estimated right atrial pressure of 8 mm Hg. Compared to the prior echo exam, there has been no change in TR severity. There is moderate pulmonary hypertension. Pulmonic Valve: The pulmonic valve is not well seen, but is grossly normal. There is mild pulmonic regurgitation. Great Vessels: The aortic root is normal size. The ascending aorta is mild- moderately enlarged. Mild atherosclerotic plaque(s) in the aortic arch. The IVC is dilated (diameter is greater than 2.1 cm) yet it collapses greater than 50% with a sniff. This suggests a right atrial pressure of 8 mm Hg. Pericardium/ Pleura There is no pericardial effusion. There is no pleural effusion. MMode/2D Measurements & Calculations LVIDd: 6.0 cm LVOT diam: 2.1 cm LVIDs: 4.1 cm Ao root diam: 4.0 cm FS: 31.4 % asc Aorta Diam: 4.2 cm EPSS: 1.3 cm Ao Arch Diam (Prox Trans): 3.5 cm IVSd: 1.3 cm LVPWd: 1.2 cm LV carter. diameter/BSA (cm/m^2): 2.7 LV sys. diameter/BSA (cm/m^2): 1.8 LA A2 area: 25.2 cm2 RA long axis: 6.5 cm LA A4 area: 26.0 cm2 RA area: 21.7 cm2 LA length (vol): 6.4 cm RA vol: 61.2 ml LA vol: 86.9 ml RA : 27.0 ml/m2 LA vol index: 38.4 ml/m2 IVC diam: 2.1 cm RVD1 (basal): 4.6 cm TAPSE: 1.7 cm Doppler Measurements & Calculations Ao V2 max: 321.6 cm/sec LVOT Max Adam: 77.2 cm/sec Ao V2 mean: 234.7 cm/sec LV V1 max P.4 mmHg Ao max P.8 mmHg LV V1 VTI: 16.8 cm Ao mean P.7 mmHg ELICIA(I,D): 0.92 cm2 Ao V2 VTI: 66.1 cm ELICIA(V,D): 0.87 cm2 sev ratio: 0.25 ELICIA indexed to BSA (cm^2/m^2): 0.41 MV E max adam: 96.4 cm/sec TR max adam: 311.3 cm/sec MV A max adam: 0.57 cm/sec TR max P.8 mmHg MV E/A: 169.9 PA pr(Accel): 51.6 mmHg Med Peak E' Adam: 7.1 cm/sec E/E' med: 13.7 Lat Peak E' Adam: 7.1 cm/sec E/E' lat: 13.7 E/e' average: 13.7 MV dec time: 0.25 sec MVA(VTI): 1.9 cm2 MV V2 mean: 69.3 cm/sec SV(LVOT): 60.9 ml MV mean P.4 mmHg MV V2 VTI: 31.6 cm Reading Physician:03:04 PM
== END ==
PROVIDERS: Family Provider Family Medicine; PCP Family Medicine; Referring Provider Internal Medicine Cardiovascular Disease; Visit Provider Internal Medicine Cardiovascular Disease
DX: I08.3 Combined rheumatic disorders of mitral, aortic and tricuspid valves (principal); I27.20 Pulmonary hypertension, unspecified; I77.89 Other specified disorders of arteries and arterioles; I70.0 Atherosclerosis of aorta; Z95.2 Presence of prosthetic heart valve; Z95.0 Presence of cardiac pacemaker
CPT/HCPCS: 93306

== ENCOUNTER → 2024-04-09 11:50 | Outpatient (CLI) | payer OTHER, SELFPAY ==
[2019-05-31 18:03] VITALS: BMI 30.7
[2024-04-09 14:18] LABS: BUN Creatinine Ratio 18.8 (6-22); Blood Urea Nitrogen 16 mg/dL (9-20); Calcium 9.6 mg/dL (8.4-10.2); Carbon Dioxide 24 mmol/L (22-32); Chloride 106 mmol/L (98-107); Estimated Glomerular Filt Rate > 60 mL/min (>60); Glucose 166 mg/dL (80-110); HEMOLYSIS < 15 (0-50); Potassium 4.7 mmol/L (3.4-5.1); Sodium 139 mmol/L (137-145)
== END ==
LOC: LAB 11:52
PROVIDERS: Family Provider Family Medicine; PCP Family Medicine; Referring Provider Internal Medicine Cardiovascular Disease; Visit Provider Internal Medicine Cardiovascular Disease
DX: I10 Essential (primary) hypertension (principal)
CPT/HCPCS: 36415; 80048

== ENCOUNTER → 2024-06-19 15:09 | Outpatient (CLI) | payer OTHER, SELFPAY ==
[2019-05-31 18:03] VITALS: BMI 30.7
[2024-06-19 17:42] LABS: Hematocrit 30.3 % (41-53); Hemoglobin 9.7 g/dL (13.5-17.5); Mean Corpuscular HGB Conc 31.9 % (30-36); Mean Corpuscular Hemoglobin 34.3 PG (26-34); Mean Corpuscular Volume 107.4 fL (80-100); Platelet Count 173 X10^3/uL (150-400); Red Blood Cell Count 2.82 X10^6/uL (4.5-5.9); Red Cell Distribution Width 16.1 % (11.6-14.8); White Blood Cell Count 6.5 X10^3/uL (4.5-11.0)
== END ==
PROVIDERS: PCP Family Medicine; Referring Provider Internal Medicine Cardiovascular Disease; Visit Provider Internal Medicine Cardiovascular Disease
DX: R06.09 Other forms of dyspnea (principal); D50.9 Iron deficiency anemia, unspecified
CPT/HCPCS: 36415; 85027

== ENCOUNTER 2024-06-20 13:24 | Emergency (ER) | payer OTHER, SELFPAY ==
[2019-05-31 18:03] VITALS: BMI 30.7
[2024-06-20] VITALS (7 sets, daily range): BP systolic 115–180; BP diastolic 57–70; PULSE 69–70; RESP 13–32; TEMP 36.4–37; O2SAT 92–100; BMI 29.7
--- NOTE | 2024-06-20 13:42 | EKG_ITS ---
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
[2024-06-20 14:04] LABS: Add Manual Diff / Slide Review NO; Basophils Absolute Auto 100 /uL (0-100); Basophils Percent Auto 0.9 % (0-2); Eosinophils Absolute Auto 100 /uL (0-450); Hematocrit 31.8 % (41-53); Hemoglobin 10.2 g/dL (13.5-17.5); Lymphocytes Absolute Auto 700 /uL (1100-4500); Lymphocytes Percent Auto 10.8 % (25-40); Mean Corpuscular HGB Conc 32.1 % (30-36); Mean Corpuscular Hemoglobin 33.9 PG (26-34); Mean Corpuscular Volume 105.5 fL (80-100); Monocytes Absolute Auto 600 /uL (0-900); Monocytes Percent Auto 8.7 % (3-14); Neutrophils Absolute Auto 5100 /uL (1500-7000); Neutrophils Percent Auto 77.6 % (50-75); Platelet Count 188 X10^3/uL (150-400); Red Blood Cell Count 3.01 X10^6/uL (4.5-5.9); Red Cell Distribution Width 15.4 % (11.6-14.8); White Blood Cell Count 6.5 X10^3/uL (4.5-11.0)
--- NOTE | 2024-06-20 14:06 | ED_ITS ---
HPI - Recheck/Abnormal Lab/Rx General Chief Complaint: Recheck/Abnormal Lab/Rx Stated Complaint: sent by director career services for poss internal bleeding Time Seen by Provider: 06/20/24 14:04 Source: patient Mode of arrival: Ambulatory History of Present Illness HPI narrative: 78-year-old gentleman with a history of CABG, bioprosthetic aortic valve replacement, hypertension, history of atrial flutter post ablation with recurrence, ischemic cardiomyopathy, diabetes, hyperlipidemia anticoagulated on rivaroxaban presents with director career services concern for acute change in hematocrit. Patient is currently asymptomatic - Had an acute drop in hematocrit with iron deficiency anemia in 2018 underwent colonoscopy, endoscopy and eventually pill cam in July of 2021 showing multiple erosions in the stomach and the small bowel. H&H has since resolved into normal ranges, he continues on oral iron with vitamin-C and Pepcid daily. Related Data Home Medications Medication Instructions Recorded Confirmed multivitamin 1 tab PO DAILY ##0 11/23/10 01/25/24 aspirin 81 mg tablet,delayed 81 mg PO DAILY ##0 05/31/11 01/25/24 release rivaroxaban 20 mg tablet (Xarelto) 20 mg PO QPM 11/22/18 01/25/24 atorvastatin 40 mg tablet 40 mg PO QPM 02/20/19 01/25/24 lisinopril 20 mg tablet 20 mg PO DAILY 03/07/19 01/25/24 alpha lipoic acid 600 mg capsule 600 mg PO DAILY 02/13/20 01/25/24 metoprolol tartrate 25 mg tablet 25 mg PO BID 09/08/22 01/25/24 Previous Rx's Medication Instructions Recorded ferrous sulfate 325 mg (65 mg 325 mg PO BID #60 tabs 02/21/19 iron) tablet (iron) glipizide 5 mg tablet, extended 5 mg PO BID #180 tabs 02/06/24 release 24 hr metformin 1,000 mg tablet 1,000 mg PO BID #180 tabs 03/21/24 omeprazole 40 mg capsule,delayed 40 mg PO BID #60 caps 06/20/24 release Allergies Allergy/AdvReac Type Severity Reaction Status Date / Time No Known Drug Allergies Allergy Verified 06/20/24 13:35 Review of Systems Review of Systems Narrative: Pertinent positive and negative findings as per HPI Patient History Medical History Hypertriglyceridemia Skin pustule UTI (urinary tract infection) Type 2 diabetes mellitus with peripheral neuropathy Somatic dysfunction of lower extremity Cranial somatic dysfunction Foot joint stiffness, bilateral Suspicious nevus Hx of basal cell carcinoma Chronic right shoulder pain Essential hypertension Aortic stenosis Paroxysmal atrial fibrillation Coronary artery disease Surgical History History of aortic valve replacement with bioprosthetic valve Status post cardiac catheterization Status post coronary artery bypass graft Status post hernia repair Family History Father Cancer Congestive heart failure Mother CAD (coronary artery disease) Social History household members: spouse Smoking Status: Former smoker alcohol intake: never additional social history: Former smoker, 2ppd, quit in 1981. reports a 1 year h/o of tobacco dependence. Smoking Status: Former smoker alcohol intake frequency: 0-2 drinks per day Exam Initial Vital Signs Initial Vital Signs: Vital Signs Temperature 97.5 F L 06/20/24 13:29 Pulse Rate 70 06/20/24 13:29 Respiratory Rate 18 06/20/24 13:29 Blood Pressure 180/70 H 06/20/24 13:29 Pulse Oximetry 100 06/20/24 13:29 Oxygen Delivery Method Room Air 06/20/24 13:29 General: Healthy appearing, in no acute distress. Able to give a complete and coherent history. Well-nourished well-developed HEENT: Moist mucous membranes, normal sclera with reactive pupils, Respiratory: Lungs are clear to auscultation, no wheezing no rales no rhonchi. Full and symmetrical air movement Cardiac: Regular rate and rhythm no murmurs no bruits Abdomen: Soft, nontender, good bowel tones, no flank pain Skin: Warm and dry, no rashes, appropriate coloration Neurologic: Grossly neurologically intact with no obvious asymmetries or abnormalities Extremities: No trauma, well perfused Psych: Cooperative, appropriate insight and affect Course Orders Ordered: ED Orders 06/20/24 13:42 EKG-12 Lead Stat 06/20/24 13:54 Complete Blood Count AUTO DIFF Stat Comprehensive Metabolic Panel Stat PTT Partial Thromboplastin Narendra Stat Prothrombin Time INR Stat Type and Screen Stat 06/20/24 13:55 EKG-12 Lead Stat Ondansetron HCl (Ondansetron 4 Mg/2 Ml Inj) 4 mg IV NOW PRN PRN Reason: Nausea And Vomiting Ondansetron HCl (Ondansetron 4 Mg Odt) 4 mg SL NOW PRN PRN Reason: Nausea And Vomiting Discontinued Medications Pantoprazole Sodium (Pantoprazole 40 Mg Vial) 80 mg IV NOW ONE Stop: 06/20/24 13:56 Vital Signs Vital signs: Vital Signs - 8 hr 06/20/24 13:29 Temperature 97.5 F L Pulse Rate 70 Respiratory Rate 18 Blood Pressure 180/70 H Pulse Oximetry 100 Oxygen Delivery Method Room Air MDM - Recheck/Abnormal Lab/Rx Lab Data 06/20/24 13:54 06/20/24 13:54 Labs: Lab Results 06/20/24 Range/Units 13:54 WBC 6.5 (4.5-11.0) X10^3/uL RBC 3.01 L (4.5-5.9) X10^6/uL Hgb 10.2 L (13.5-17.5) g/dL Hct 31.8 L (41-53) % MCV 105.5 H (80-100) fL MCH 33.9 (26-34) PG MCHC 32.1 (30-36) % RDW 15.4 H (11.6-14.8) % Plt Count 188 (150-400) X10^3/uL Neut % (Auto) 77.6 H (50-75) % Lymph % (Auto) 10.8 L (25-40) % [place] % (Auto) 8.7 (3-14) % Eos % (Auto) 2.0 (2-4) % Baso % (Auto) 0.9 (0-2) % Neut # (Auto) 5100 (0263-6351) /uL Lymph # (Auto) 700 L (5617-8481) /uL [place] # (Auto) 600 (0-900) /uL Eos # (Auto) 100 (0-450) /uL Baso # (Auto) 100 (0-100) /uL MDM Narrative Medical decision making narrative: CC: Acute dropped to H&H Complicating co-morbidities: Prior episode of iron-deficiency anemia 2019 evaluated with upper and lower endoscopy and pill endoscopy eventually found to have irritation in the stomach and duodenum. Currently on rivaroxaban, iron supplementation, also diabetes, hypertension hyperlipidemia Data collected from: patient Medical records reviewed: Multiple notes from the 2019 timeframe to see what previous workup had entailed are reviewed. Differential considered: Acute bleeding, microscopic bleeding exacerbated by rivaroxaban Exam documented above, pertinent findings include: Patient's exam is entirely benign Lab Test results independently reviewed as above. Pertinent findings: CBC shows no leukocytosis. In July of 2023 hemoglobin has been 14.1 yesterday was 9.7 and today is 10.2. MCV is actually large at 1:05 a.m. 0.5. Platelet count is appropriate Chemistries are reassuring Independently reviewed EKG: Paced at a rate of 70 Discussion: 78-year-old gentleman with routine lab work showing acute drop in H&H since July. He is completely asymptomatic at this time. Similar findings in 2019 at that point with a microcytic anemia showed gastric erosions. Today he has a macrocytic anemia. We will go ahead and start him on 40 mg b.i.d. of omeprazole have him continue his iron with vitamin-C supplementation. We will ask him to follow up with his primary care physician. Needs gastroenterology consult and possibly hematology consult for a macrocytic anemia. B12 and folic acid are added to his lab work done today. At this time he is completely asymptomatic, feeling well with no indication for additional imaging or hospitalization. Questions are answered and he is discharged Discharge Plan Departure Patient Disposition: Home Clinical Impression: Anemia Qualifiers: Anemia type: unspecified type Qualified Code(s): D64.9 - Anemia, unspecified Activity Restrictions/Additional Instructions: Thank you for coming in today You had a rather precipitous drop from the end of July to the beginning of June in your hemoglobin. Since yesterday it is actually come up slightly. In looking through your records you had pill cam diagnosed some irritation in your stomach and duodenum in 2019 as the cause of your microcytic anemia. I am going to ask you to start omeprazole twice a day for the next 2 weeks and daily after that. You do need to follow up with Dr. Kc. I suspect that your H&H has been gradually decreasing over the year rather than acutely falling which is why you have new symptoms today. I am encouraged that it has increased from yesterday. This time your red blood cells are actually slightly big which makes me think that this anemia may not be from iron deficiency like it was before. I have added B12 and folic acid levels to the blood work that was done in the emergency room today as this will be part of the workup in the future. If you find that you are getting worse or having new symptoms please return to the ER Prescriptions: New omeprazole 40 mg capsule,delayed release(DR/EC) 40 mg PO BID Qty: 60 0RF No Action multivitamin Tablet 1 tab PO DAILY Qty: 0 aspirin 81 mg Tablet,Delayed Release (Dr/Ec) 81 mg PO DAILY Qty: 0 glipizide 5 mg tablet extended release 24hr 5 mg PO BID Qty: 180 1RF metformin 1,000 mg tablet 1,000 mg PO BID Qty: 180 1RF Xarelto 20 mg tablet 20 mg PO QPM alpha lipoic acid 600 mg capsule 600 mg PO DAILY metoprolol tartrate 25 mg tablet 25 mg PO BID atorvastatin 40 mg tablet 40 mg PO QPM ferrous sulfate [iron] 325 mg (65 mg iron) tablet 325 mg PO BID Qty: 60 0RF Rx Instructions: diabasic calcium phosphate 18mg + ferrous sulphate 65mg lisinopril 20 mg Tablet 20 mg PO DAILY Referrals: Peter Diaz DO [Primary Care Provider] - Stand Alone Forms: Patient Portal/API/Survey
[2024-06-20 14:11] LABS: INR 1.1 (0.9-1.3)
[2024-06-20 14:14] LABS: PTT Partial Thromboplastin Tim 39 SECONDS (25.1-36.5)
[2024-06-20 14:16] LABS: Alanine Aminotransferase 46 IU/L (<50); Albumin 4.8 g/dL (3.5-5.0); Alkaline Phosphatase 54 U/L (38-126); Aspartate Aminotransferase 44 IU/L (17-59); BUN Creatinine Ratio 19.8 (6-22); Bilirubin Total 0.6 mg/dL (0.2-1.3); Blood Urea Nitrogen 21 mg/dL (9-20); Carbon Dioxide 22 mmol/L (22-32); Chloride 107 mmol/L (98-107); Estimated Glomerular Filt Rate > 60 mL/min (>60); Globulin 2.4 g/dL (1.7-4.1); Glucose 88 mg/dL (80-110); HEMOLYSIS < 15 (0-50); Potassium 4.1 mmol/L (3.4-5.1); Sodium 141 mmol/L (137-145); Total Protein 7.2 g/dL (6.3-8.2)
--- NOTE | 2024-06-20 14:16 | PC.NURSE ---
Pt came to ED today because he was advised by Dr Hardin due to low hgb. Pt states that he has been having intermittent SOB and dizziness episodes. Denies cp, n/v. Denies bloody stools, rectal bleeding, bloody urine or vomiting blood. Denies pain. A&Ox4.
[2024-06-20] MEDS: PANTOPRAZOLE 40 MG VIAL 80 MG IV (14:27)
[2024-06-20 19:21] LABS: Vitamin B12 Reflex MMA if <400 669 pg/mL (239-931)
== END 2024-06-20 15:21 | disposition home or self-care (01) ==
PROVIDERS: Emergency Provider Emergency Medicine; PCP Family Medicine
DX: D64.9 Anemia, unspecified (principal); R79.89 Other specified abnormal findings of blood chemistry; R07.9 Chest pain, unspecified; Z95.0 Presence of cardiac pacemaker
CPT/HCPCS: 36415; 80053; 82607; 85025; 85610; 85730; 86850; 86900; 86901; 93005; 93010; 96374; 99284; J2470

== ENCOUNTER 2024-06-24 16:24 | Observation (INO) | payer OTHER, SELFPAY ==
[2019-05-31 18:03] VITALS: BMI 30.7
[2024-06-24] VITALS (21 sets, daily range): BP systolic 97–125; BP diastolic 33–59; PULSE 56–83; RESP 15–25; TEMP 36.2–37.2; O2SAT 94–100; BMI 29.7
--- NOTE | 2024-06-24 16:39 | EKG_ITS ---
[facility] [address] [address] Test Date: 2024-06-24 Pat Name: Saeed Friedman Department: [facility] Room: Gender: Male Medical Social Worker: LUDY : 1945 Requested By: Order Number: [id number] Reading MD: Al Kim MD Measurements Intervals [place] Rate: 60 P: 70 RI: 128 QRS: 269 QRSD: 154 T: 84 QT: 484 QTc: 484 Interpretive Statements Atrial-sensed ventricular-paced rhythm Biventricular pacemaker detected Electronically Signed On 06-25-2024 7:47:33 PST by Al Kim MD
--- NOTE | 2024-06-24 17:23 | PC.NURSE ---
This patient reports intermittent chest pain when up and ambulating. He states, it's probably my GERD. This RN calls for EKG. Primary RN Sydnee made aware of his reported chest pain and SOB.
[2024-06-24 17:28] LABS: Basophils Absolute Auto 100 /uL (0-100); Basophils Percent Auto 0.7 % (0-2); Eosinophils Absolute Auto 100 /uL (0-450); Eosinophils Percent Auto 0.6 % (2-4); Lymphocytes Absolute Auto 800 /uL (1100-4500); Lymphocytes Percent Auto 8.8 % (25-40); Mean Corpuscular HGB Conc 32.1 % (30-36); Mean Corpuscular Hemoglobin 34.6 PG (26-34); Monocytes Absolute Auto 800 /uL (0-900); Monocytes Percent Auto 8.9 % (3-14); Neutrophils Absolute Auto 7700 /uL (1500-7000); Platelet Count 172 X10^3/uL (150-400); Red Blood Cell Count 1.95 X10^6/uL (4.5-5.9); White Blood Cell Count 9.5 X10^3/uL (4.5-11.0)
[2024-06-24] MEDS: ONDANSETRON 4 MG/2 ML INJ IV (17:30)
[2024-06-24] MEDS: PANTOPRAZOLE 40 MG VIAL 80 MG IV (17:30)
[2024-06-24 17:37] LABS: Hemoglobin 6.7 g/dL (13.5-17.5)
[2024-06-24 17:38] LABS: Add Manual Diff / Slide Review SLIDE REVIEW; INR 1.2 (0.9-1.3); Prothrombin Time 13.1 SECONDS (9.4-12.5)
[2024-06-24 17:40] LABS: PTT Partial Thromboplastin Tim 34 SECONDS (25.1-36.5)
[2024-06-24 17:42] LABS: Alanine Aminotransferase 29 IU/L (<50); Albumin 3.6 g/dL (3.5-5.0); Albumin Globulin Ratio 1.6 (1.0-2.8); Alkaline Phosphatase 39 U/L (38-126); Aspartate Aminotransferase 33 IU/L (17-59); BUN Creatinine Ratio 41.3 (6-22); Bilirubin Total 0.5 mg/dL (0.2-1.3); Blood Urea Nitrogen 38 mg/dL (9-20); Calcium 9.1 mg/dL (8.4-10.2); Carbon Dioxide 19 mmol/L (22-32); Chloride 109 mmol/L (98-107); Estimated Glomerular Filt Rate > 60 mL/min (>60); Globulin 2.3 g/dL (1.7-4.1); Glucose 90 mg/dL (80-110); HEMOLYSIS < 15 (0-50); Potassium 4.5 mmol/L (3.4-5.1); Sodium 135 mmol/L (137-145); Total Protein 5.9 g/dL (6.3-8.2)
[2024-06-24 17:49] LABS: Macrocytosis 1+
--- NOTE | 2024-06-24 18:38 | ED_ITS ---
HPI - GI Bleed General Chief complaint: GI Bleed Stated complaint: abn lab, sent by welt butter hand Time Seen by Provider: 06/24/24 17:59 Source: patient Mode of arrival: Ambulatory History of Present Illness HPI Narrative: 78 year old male with history of atrial fibrillation on Xarelto, history of aortic valve replacement, history of CABG, diabetes presents by private vehicle from home for possible low hemoglobin. Patient states that he has felt overall fatigued with low energy and intermittent chest pains since April. He has been followed by his welt butter hand Dr. Hardin, who has been monitoring his hemoglobin. His hemoglobin baseline appears to be about 14, over the last month it has varied between 9 and 10. Patient brought a home hemoglobin monitoring system which has given him results between 6 and 8. He was told by his welt butter hand that if he was persistent symptoms he should come to the ER. He was seen 4 days ago with hemoglobin measurement 10.2 at that time Patient reports dark tarry stools over the last several days. This morning he had some thin red blood in his stools. Reports having an EGD, colonoscopy, and pill endoscopy 5 years ago, which noted some ulcerations in the stomach without active bleeding. Required 4u PRBCs at that hospitalization. Last dose Xarelto yesterday. Related Data Home Medications Medication Instructions Recorded Confirmed multivitamin 1 tab PO DAILY ##0 11/23/10 01/25/24 aspirin 81 mg tablet,delayed 81 mg PO DAILY ##0 05/31/11 01/25/24 release rivaroxaban 20 mg tablet (Xarelto) 20 mg PO QPM 11/22/18 01/25/24 atorvastatin 40 mg tablet 40 mg PO QPM 02/20/19 01/25/24 lisinopril 20 mg tablet 20 mg PO DAILY 03/07/19 01/25/24 alpha lipoic acid 600 mg capsule 600 mg PO DAILY 02/13/20 01/25/24 metoprolol tartrate 25 mg tablet 25 mg PO BID 09/08/22 01/25/24 Previous Rx's Medication Instructions Recorded ferrous sulfate 325 mg (65 mg 325 mg PO BID #60 tabs 02/21/19 iron) tablet (iron) glipizide 5 mg tablet, extended 5 mg PO BID #180 tabs 02/06/24 release 24 hr metformin 1,000 mg tablet 1,000 mg PO BID #180 tabs 03/21/24 omeprazole 40 mg capsule,delayed 40 mg PO BID #60 caps 06/20/24 release Allergies Allergy/AdvReac Type Severity Reaction Status Date / Time No Known Drug Allergies Allergy Verified 06/20/24 13:35 Patient History Medical History Hypertriglyceridemia Skin pustule UTI (urinary tract infection) Type 2 diabetes mellitus with peripheral neuropathy Somatic dysfunction of lower extremity Cranial somatic dysfunction Foot joint stiffness, bilateral Suspicious nevus Hx of basal cell carcinoma Chronic right shoulder pain Essential hypertension Aortic stenosis Paroxysmal atrial fibrillation Coronary artery disease Surgical History History of aortic valve replacement with bioprosthetic valve Status post cardiac catheterization Status post coronary artery bypass graft Status post hernia repair Family History Father Cancer Congestive heart failure Mother CAD (coronary artery disease) Social History household members: spouse Smoking Status: Former smoker alcohol intake: never additional social history: Former smoker, 2ppd, quit in 1981. reports a 1 year h/o of tobacco dependence. Smoking Status: Former smoker alcohol intake frequency: 0-2 drinks per day Exam Initial Vital Signs Initial Vital Signs: Vital Signs Temperature 97.9 F 06/24/24 16:32 Pulse Rate 74 06/24/24 16:32 Blood Pressure 119/58 L 06/24/24 16:32 Pulse Oximetry 100 06/24/24 16:32 Oxygen Delivery Method Room Air 06/24/24 16:32 Const: Awake, alert, no acute distress Cardiac: regular rate, regular rhythm RESP: unlabored, clear bilaterally, no wheezing GI: Soft, nontender, nondistended, no rebound, no guarding Rectal: Sales And Marketing Assistant present, melena present, no gross blood MSK: Atraumatic, full range of motion, pulses equal Skin: Warm, Dry, pale Neuro: AO x3, CN II-XII grossly intact, moves all extremities Course Orders Ordered: ED Orders 06/24/24 16:39 EKG-12 Lead Stat 06/24/24 17:17 Complete Blood Count AUTO DIFF Stat Comprehensive Metabolic Panel Stat PTT Partial Thromboplastin Narendra Stat Prothrombin Time INR Stat Type and Screen Stat transfuse [Packed Cells] Stat 06/24/24 19:44 Consult to General Surgery Stat Ondansetron HCl (Ondansetron 4 Mg/2 Ml Inj) 4 mg IV NOW PRN PRN Reason: Nausea And Vomiting Last Admin: 06/24/24 17:30 Dose: 4 mg Documented By: ASTON Ondansetron HCl (Ondansetron 4 Mg Odt) 4 mg SL NOW PRN PRN Reason: Nausea And Vomiting Discontinued Medications Pantoprazole Sodium (Pantoprazole 40 Mg Vial) 80 mg IV NOW ONE Stop: 06/24/24 16:40 Last Admin: 06/24/24 17:30 Dose: 80 mg Documented By: ASTON Vital Signs Vital signs: Vital Signs - 8 hr 06/24/24 16:32 06/24/24 17:40 06/24/24 17:58 Temperature 97.9 F Pulse Rate 74 60 60 Respiratory Rate 18 15 Blood Pressure 119/58 L 106/55 L Pulse Oximetry 100 97 98 Oxygen Delivery Method Room Air 06/24/24 18:00 06/24/24 18:01 06/24/24 18:01 Temperature Pulse Rate 60 60 Respiratory Rate 20 18 Blood Pressure 115/59 L Pulse Oximetry 98 98 Oxygen Delivery Method 06/24/24 18:15 06/24/24 18:15 06/24/24 18:30 Temperature Pulse Rate 60 60 Respiratory Rate 23 15 Blood Pressure 107/56 L Pulse Oximetry 98 98 Oxygen Delivery Method 06/24/24 18:30 06/24/24 18:39 06/24/24 18:40 Temperature 98.6 F 98.6 F Pulse Rate 83 69 Respiratory Rate 18 18 Blood Pressure 119/55 L 119/55 L 119/55 L Pulse Oximetry 98 Oxygen Delivery Method Room Air 06/24/24 18:45 06/24/24 18:45 06/24/24 18:55 Temperature 98.4 F Pulse Rate 69 83 Respiratory Rate 18 18 Blood Pressure 117/54 L 107/54 L Pulse Oximetry 98 Oxygen Delivery Method 06/24/24 18:55 06/24/24 18:55 06/24/24 19:00 Temperature 98.4 F 98.4 F Pulse Rate 69 69 69 Respiratory Rate 18 18 17 Blood Pressure 107/54 L 107/54 L 112/57 L Pulse Oximetry 96 96 96 Oxygen Delivery Method Room Air Room Air MDM - GI Bleed Differential Diagnosis Differential diagnosis: Likely hemorrhoids, hematochezia and melena Lab Data 06/24/24 17:17 06/24/24 17:17 Labs: Lab Results 06/24/24 Range/Units 17:17 WBC 9.5 (4.5-11.0) X10^3/uL RBC 1.95 L (4.5-5.9) X10^6/uL Hgb 6.7 L* (13.5-17.5) g/dL Hct 21.0 L (41-53) % MCV 108.0 H (80-100) fL MCH 34.6 H (26-34) PG MCHC 32.1 (30-36) % RDW 16.0 H (11.6-14.8) % Plt Count 172 (150-400) X10^3/uL Neut % (Auto) 81.0 H (50-75) % Lymph % (Auto) 8.8 L (25-40) % Barton % (Auto) 8.9 (3-14) % Eos % (Auto) 0.6 L (2-4) % Baso % (Auto) 0.7 (0-2) % Neut # (Auto) 7700 H (9981-3709) /uL Lymph # (Auto) 800 L (2188-9213) /uL Barton # (Auto) 800 (0-900) /uL Eos # (Auto) 100 (0-450) /uL Baso # (Auto) 100 (0-100) /uL RBC Morphology See below Macrocytosis 1+ H PT 13.1 H (9.4-12.5) SECONDS INR 1.2 (0.9-1.3) APTT 34 (25.1-36.5) SECONDS Sodium 135 L (137-145) mmol/L Potassium 4.5 (3.4-5.1) mmol/L Chloride 109 H (98-107) mmol/L Carbon Dioxide 19 L (22-32) mmol/L BUN 38 H (9-20) mg/dL Creatinine 0.92 (0.66-1.25) mg/dL Estimated GFR > 60 (>60) mL/min BUN/Creatinine Ratio 41.3 H (6-22) Glucose 90 (80-110) mg/dL Calcium 9.1 (8.4-10.2) mg/dL Total Bilirubin 0.5 (0.2-1.3) mg/dL AST 33 (17-59) IU/L ALT 29 (<50) IU/L Alkaline Phosphatase 39 (38-126) U/L Total Protein 5.9 L (6.3-8.2) g/dL Albumin 3.6 (3.5-5.0) g/dL Globulin 2.3 (1.7-4.1) g/dL Albumin/Globulin Ratio 1.6 (1.0-2.8) Blood Type A Negative Antibody Screen Negative Crossmatch See Detail MDM Narrative Medical decision making narrative: Presumed upper GI bleed. Patient was on Xarelto, last dose yesterday. Hemodynamically stable, resting comfortably in ED bed, no acute distress. Melena present on rectal exam. Patient aready received protonix prior to arrival. Hemoglobin 6.7. No evidence of active hemorrhage. 1u PRBCs ordered for transfusion. Patient amenable to staying in hospital. General surgeon Dr. Alas consulted, who is willing to see patient in hospital. Patient admitted for further treatment. Critical Care Time Critical Care Time Critical Care Time: Yes Total Critical Care Time: 35 Attestation: Upper GI bleed with anemia requiring transfusion. Discharge Plan Departure Patient Disposition: Admitted as Observation Clinical Impression: Acute GI bleeding, Anemia requiring transfusions Admit Date/Time: 06/24/24 19:44 Admit Provider: Edward Leon
--- NOTE | 2024-06-24 20:12 | P.HP_ITS ---
History of Present Illness History of Present Illness Date Patient Seen: 06/24/24 Chief complaint: abn lab, sent by line fixer Narrative: 78 y/o with PMH of severe GI bleed 5 years ago requiring hospitalization and transfusion, presented with subacute GI bleed. Started to feel weak and short of breath in April and in last week noticed melena. He is severely anemic and is getting one unit of PRBCs in the ED. He takes both ASA 81 mg and Xarelto 20 mg daily, for severe multivessel disease and A-fib. He has no chest pain on admission and vitals are stable. He did have multiple episodes of substernal pain that he relates to eating. [facility] Medical History Hypertriglyceridemia Skin pustule UTI (urinary tract infection) Type 2 diabetes mellitus with peripheral neuropathy Somatic dysfunction of lower extremity Cranial somatic dysfunction Foot joint stiffness, bilateral Suspicious nevus Hx of basal cell carcinoma Chronic right shoulder pain Essential hypertension Aortic stenosis Paroxysmal atrial fibrillation Coronary artery disease Surgical History History of aortic valve replacement with bioprosthetic valve Status post cardiac catheterization Status post coronary artery bypass graft Status post hernia repair Family History Father Cancer Congestive heart failure Mother CAD (coronary artery disease) Social History household members: spouse Smoking Status: Former smoker alcohol intake: never additional social history: Former smoker, 2ppd, quit in 1981. reports a 1 year h/o of tobacco dependence. Meds Home Medications and Allergies Home Medications Medication Instructions Recorded Confirmed Type multivitamin 1 tab PO DAILY ##0 11/23/10 01/25/24 History aspirin 81 mg tablet,delayed 81 mg PO DAILY ##0 05/31/11 01/25/24 History release rivaroxaban 20 mg tablet (Xarelto) 20 mg PO QPM 11/22/18 01/25/24 History atorvastatin 40 mg tablet 40 mg PO QPM 02/20/19 01/25/24 History ferrous sulfate 325 mg (65 mg 325 mg PO BID #60 tabs 02/21/19 01/25/24 Rx iron) tablet (iron) lisinopril 20 mg tablet 20 mg PO DAILY 03/07/19 01/25/24 History alpha lipoic acid 600 mg capsule 600 mg PO DAILY 02/13/20 01/25/24 History metoprolol tartrate 25 mg tablet 25 mg PO BID 09/08/22 01/25/24 History glipizide 5 mg tablet, extended 5 mg PO BID #180 tabs 02/06/24 Rx release 24 hr metformin 1,000 mg tablet 1,000 mg PO BID #180 tabs 03/21/24 Rx omeprazole 40 mg capsule,delayed 40 mg PO BID #60 caps 06/20/24 Rx release Allergies Allergy/AdvReac Type Severity Reaction Status Date / Time No Known Drug Allergies Allergy Verified 06/20/24 13:35 Review of Systems Constitutional Comments: progressive generalized weakness Cardiovascular Comments: Without palpitations or chest pain Respiratory Comments: progressive exertional dyspnea Gastrointestinal Comments: Heartburn, epigastric pain, dark stool, melena Exam Vital Signs (past 8 hours): - 06/24/24 16:32 06/24/24 17:40 06/24/24 17:58 Temperature 97.9 F Pulse Rate 74 60 60 Respiratory Rate 18 15 Blood Pressure 119/58 L 106/55 L Pulse Oximetry 100 97 98 Oxygen Delivery Method Room Air 06/24/24 18:00 06/24/24 18:01 06/24/24 18:01 Temperature Pulse Rate 60 60 Respiratory Rate 20 18 Blood Pressure 115/59 L Pulse Oximetry 98 98 Oxygen Delivery Method 06/24/24 18:15 06/24/24 18:15 06/24/24 18:30 Temperature Pulse Rate 60 60 Respiratory Rate 23 15 Blood Pressure 107/56 L Pulse Oximetry 98 98 Oxygen Delivery Method 06/24/24 18:30 06/24/24 18:39 06/24/24 18:40 Temperature 98.6 F 98.6 F Pulse Rate 83 69 Respiratory Rate 18 18 Blood Pressure 119/55 L 119/55 L 119/55 L Pulse Oximetry 98 Oxygen Delivery Method Room Air 06/24/24 18:45 06/24/24 18:45 06/24/24 18:55 Temperature 98.4 F Pulse Rate 69 83 Respiratory Rate 18 18 Blood Pressure 117/54 L 107/54 L Pulse Oximetry 98 Oxygen Delivery Method 06/24/24 18:55 06/24/24 18:55 06/24/24 19:00 Temperature 98.4 F 98.4 F Pulse Rate 69 69 69 Respiratory Rate 18 18 17 Blood Pressure 107/54 L 107/54 L 112/57 L Pulse Oximetry 96 96 96 Oxygen Delivery Method Room Air Room Air 06/24/24 19:00 06/24/24 19:15 06/24/24 19:15 Temperature Pulse Rate 69 Respiratory Rate 15 Blood Pressure 112/57 L 120/53 L Pulse Oximetry 94 Oxygen Delivery Method 06/24/24 19:30 06/24/24 19:30 06/24/24 19:45 Temperature Pulse Rate 69 69 Respiratory Rate 15 15 Blood Pressure 113/53 L Pulse Oximetry 96 95 Oxygen Delivery Method 06/24/24 19:45 Temperature Pulse Rate Respiratory Rate Blood Pressure 117/55 L Pulse Oximetry Oxygen Delivery Method Oxygen Delivery Method Room Air Const Other: in no distress HENMT Other: normocephalic Neck Other: supple Resp Other: CTA Cardio Other: PPM, ADRIANNA Skin Other: pale, no bruises Extrem Other: w/o swelling Psych Other: lucid, appropriate mood Objective Labs 06/24/24 17:17 06/24/24 17:17 Labs: Laboratory Results - last 24 hr 06/24/24 17:17 WBC 9.5 RBC 1.95 L Hgb 6.7 L* Hct 21.0 L MCV 108.0 H MCH 34.6 H MCHC 32.1 RDW 16.0 H Plt Count 172 Neut % (Auto) 81.0 H Lymph % (Auto) 8.8 L [place] % (Auto) 8.9 Eos % (Auto) 0.6 L Baso % (Auto) 0.7 Neut # (Auto) 7700 H Lymph # (Auto) 800 L [place] # (Auto) 800 Eos # (Auto) 100 Baso # (Auto) 100 RBC Morphology See below Macrocytosis 1+ H PT 13.1 H INR 1.2 APTT 34 Sodium 135 L Potassium 4.5 Chloride 109 H Carbon Dioxide 19 L BUN 38 H Creatinine 0.92 Estimated GFR > 60 BUN/Creatinine Ratio 41.3 H Glucose 90 Calcium 9.1 Total Bilirubin 0.5 AST 33 ALT 29 Alkaline Phosphatase 39 Total Protein 5.9 L Albumin 3.6 Globulin 2.3 Albumin/Globulin Ratio 1.6 Blood Type A Negative Antibody Screen Negative Crossmatch See Detail Assessment & Plan Assessment and plan (1) Acute GI bleeding: Status: Acute (2) Acute posthemorrhagic anemia: Status: Acute (3) Paroxysmal atrial fibrillation: Status: Acute (4) Coronary artery disease: Problem details: s/p 3v-CABG Qualifiers: Associated angina: with unspecified angina Coronary Disease-Associated Artery/Lesion type: unspecified vessel or lesion type [place] vs. transplanted heart: [place] heart Qualified Code(s): I25.119 - Atherosclerotic heart disease of [place] coronary artery with unspecified angina pectoris Status: Chronic (5) Type 2 diabetes mellitus with peripheral neuropathy: Status: Acute (6) Essential hypertension: Status: Chronic Assessment & Plan narrative: GI Bleed / Multivessel CAD - recurrent, acute to subacute - NPO, needs EGD. Had gastritis 5 years ago. He could potentially have treatable source. He will need to continue with Xarelto and ASA for severe underlying MVD and A-fib - Protonix - off ASA - troponin, EKG Acute Posthemorrhagic Anemia - 1 x PRBC on admission - CBC monitoring DM - SS tonight, resume oral hypoglycemics with resumed PO HTN / A-fib - Lisinopril and metoprolol with resumed PO tomorrow - prn iv metoprolol tonight DVT prophylaxis - SCDs Time-Based Coding :: [TOTAL MINUTES] spent with patient and on the chart (including review of chart, obtaining history, exam, reviewing outside data, placing orders, documenting exam and treatment plan, and counseling patient) on [DATE].
--- NOTE | 2024-06-24 21:24 | EKG_ITS ---
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
[2024-06-24] MEDS: LACTATED RINGERS 1,000 ML 100 ML IV (21:48)
[2024-06-24 22:04] LABS: Hematocrit 22.1 % (41-53); Hemoglobin 7.2 g/dL (13.5-17.5); Mean Corpuscular HGB Conc 32.5 % (30-36); Mean Corpuscular Hemoglobin 33.8 PG (26-34); Platelet Count 158 X10^3/uL (150-400); Red Blood Cell Count 2.13 X10^6/uL (4.5-5.9); Red Cell Distribution Width 17.5 % (11.6-14.8); White Blood Cell Count 8.3 X10^3/uL (4.5-11.0)
[2024-06-24 22:26] LABS: Troponin I 0.043 ng/mL (0.01-0.034)
[2024-06-25] VITALS (7 sets, daily range): BP systolic 102–123; BP diastolic 48–60; PULSE 60–79; RESP 18; TEMP 36.1–36.8; O2SAT 96–98
--- NOTE | 2024-06-25 01:10 | PC.NURSE ---
Addendum entered by Hina Tan R.N. 06/25/24 03:01: 2nd unit of blood transfused, no adverse reactions noted, VSS. Original Note: speech lang path therapist: Patient arrived onto floor approximately 2029, ambulated from wheelchair to bed. Denies dizziness, weakness, pain, chest pain (although reports intermittent chest pain at home), nausea. Reports some SOB on exertion. VSS, SpO2 98% on RA. Discussed findings with MD; MD discussed plan of care with patient. Cont tele placed. 2nd unit of blood ordered & transfusing, no adverse reactions noted. Patient oriented to call-light. Plan of care ongoing.
[2024-06-25 01:34] LABS: Troponin I 0.041 ng/mL (0.01-0.034)
[2024-06-25 05:46] LABS: Add Manual Diff / Slide Review NO; Basophils Absolute Auto 100 /uL (0-100); Basophils Percent Auto 0.8 % (0-2); Eosinophils Absolute Auto 100 /uL (0-450); Hematocrit 22.4 % (41-53); Hemoglobin 7.4 g/dL (13.5-17.5); Lymphocytes Absolute Auto 1100 /uL (1100-4500); Lymphocytes Percent Auto 14.1 % (25-40); Mean Corpuscular Hemoglobin 33.2 PG (26-34); Mean Corpuscular Volume 100.7 fL (80-100); Monocytes Absolute Auto 800 /uL (0-900); Monocytes Percent Auto 10.7 % (3-14); Neutrophils Absolute Auto 5400 /uL (1500-7000); Neutrophils Percent Auto 72.4 % (50-75); Platelet Count 149 X10^3/uL (150-400); Red Blood Cell Count 2.22 X10^6/uL (4.5-5.9); Red Cell Distribution Width 18.7 % (11.6-14.8); White Blood Cell Count 7.5 X10^3/uL (4.5-11.0)
[2024-06-25 05:57] LABS: BUN Creatinine Ratio 38.2 (6-22); Blood Urea Nitrogen 34 mg/dL (9-20); Calcium 8.5 mg/dL (8.4-10.2); Carbon Dioxide 23 mmol/L (22-32); Chloride 110 mmol/L (98-107); Estimated Glomerular Filt Rate > 60 mL/min (>60); Glucose 91 mg/dL (80-110); HEMOLYSIS < 15 (0-50); Potassium 4.1 mmol/L (3.4-5.1); Sodium 137 mmol/L (137-145)
--- NOTE | 2024-06-25 08:49 | P.PN_ITS ---
Subjective Subjective Interval history: From H&P: 78 y/o with PMH of severe GI bleed 5 years ago requiring hospitalization and transfusion, presented with subacute GI bleed. Started to feel weak and short of breath in April and in last week noticed melena. He is severely anemic and is getting one unit of PRBCs in the ED. He takes both ASA 81 mg and Xarelto 20 mg daily, for severe multivessel disease and A-fib. He has no chest pain on admission and vitals are stable. He did have multiple episodes of substernal pain that he relates to eating. S: He was doing well, he denies any abdominal pain. He did have anemia 5 years ago and was evaluated with a negative endoscopy and presumably colonoscopy. Ultimately he had a PillCam and was described as having multiple lesions. His plant taxonomy teacher is Dr. Hardin. Exam Vital Signs (past 8 hours): - 06/25/24 02:42 06/25/24 04:00 Temperature 98.3 F 97.6 F Pulse Rate 60 61 Respiratory Rate 18 18 Blood Pressure 110/48 L 102/49 L Pulse Oximetry 96 Oxygen Flow Rate 0 Oxygen Delivery Method Room Air Oxygen Flow Rate 0 Narrative Exam Narrative: NAD, alert and oriented. Fluent speech. Lungs are clear, normal rate and effort. Heart is regular, no murmur gallop or rub. Abdomen is soft, non distended. Extremities are free of edema. Objective Labs 06/25/24 04:55 06/25/24 04:55 Labs: Laboratory Results - last 24 hr 06/24/24 06/24/24 06/25/24 17:17 21:50 01:00 WBC 9.5 8.3 RBC 1.95 L 2.13 L Hgb 6.7 L* 7.2 L Hct 21.0 L 22.1 L MCV 108.0 H 104.0 H D MCH 34.6 H 33.8 MCHC 32.1 32.5 RDW 16.0 H 17.5 H Plt Count 172 158 Neut % (Auto) 81.0 H Lymph % (Auto) 8.8 L [place] % (Auto) 8.9 Eos % (Auto) 0.6 L Baso % (Auto) 0.7 Neut # (Auto) 7700 H Lymph # (Auto) 800 L [place] # (Auto) 800 Eos # (Auto) 100 Baso # (Auto) 100 RBC Morphology See below Macrocytosis 1+ H PT 13.1 H INR 1.2 APTT 34 Sodium 135 L Potassium 4.5 Chloride 109 H Carbon Dioxide 19 L BUN 38 H Creatinine 0.92 Estimated GFR > 60 BUN/Creatinine Ratio 41.3 H Glucose 90 Calcium 9.1 Total Bilirubin 0.5 AST 33 ALT 29 Alkaline Phosphatase 39 Troponin I 0.043 H 0.041 H Total Protein 5.9 L Albumin 3.6 Globulin 2.3 Albumin/Globulin Ratio 1.6 Blood Type A Negative Antibody Screen Negative Crossmatch See Detail 06/25/24 04:55 WBC 7.5 RBC 2.22 L Hgb 7.4 L Hct 22.4 L MCV 100.7 H D MCH 33.2 MCHC 33.0 RDW 18.7 H Plt Count 149 L Neut % (Auto) 72.4 Lymph % (Auto) 14.1 L [place] % (Auto) 10.7 Eos % (Auto) 2.0 Baso % (Auto) 0.8 Neut # (Auto) 5400 Lymph # (Auto) 1100 [place] # (Auto) 800 Eos # (Auto) 100 Baso # (Auto) 100 RBC Morphology Macrocytosis PT INR APTT Sodium 137 Potassium 4.1 Chloride 110 H Carbon Dioxide 23 BUN 34 H Creatinine 0.89 Estimated GFR > 60 BUN/Creatinine Ratio 38.2 H Glucose 91 Calcium 8.5 Total Bilirubin AST ALT Alkaline Phosphatase Troponin I Total Protein Albumin Globulin Albumin/Globulin Ratio Blood Type Antibody Screen Crossmatch [facility] Medical History Hypertriglyceridemia Skin pustule UTI (urinary tract infection) Type 2 diabetes mellitus with peripheral neuropathy Somatic dysfunction of lower extremity Cranial somatic dysfunction Foot joint stiffness, bilateral Suspicious nevus Hx of basal cell carcinoma Chronic right shoulder pain Essential hypertension Aortic stenosis Paroxysmal atrial fibrillation Coronary artery disease Surgical History History of aortic valve replacement with bioprosthetic valve Status post cardiac catheterization Status post coronary artery bypass graft Status post hernia repair Family History Father Cancer Congestive heart failure Mother CAD (coronary artery disease) Social History household members: spouse Smoking Status: Former smoker alcohol intake: never additional social history: Former smoker, 2ppd, quit in 1981. reports a 1 year h/o of tobacco dependence. Assessment & Plan Assessment & Plan narrative: GI Bleed, present on admission and active. - recurrent, acute to subacute - NPO, needs EGD. Had gastritis 5 years ago. He could potentially have treatable source. He will need to continue with Xarelto and ASA for severe underlying MVD and A-fib - Protonix - off ASA, Xarelto. - troponin, EKG -general surgery, Dr. Alas, was consulted from the emergency department for consideration of endoscopy. Acute Posthemorrhagic Anemia, present on admission and active. - 1 x PRBC on admission - CBC monitoring Multivessel CAD (H/O CAGB), present on admission and stable. DM 2,, present on admission and stable. - SS tonight, resume oral hypoglycemics with resumed PO HTN,, present on admission and stable. - Lisinopril and metoprolol with resumed PO tomorrow - prn iv metoprolol tonight Atrial fibrillation, present on admission and stable. Plan: -continue Protonix -monitor H&H -blood products as needed -surgery consulted for endoscopy. -obtain old endoscopy, colonoscopy, and PillCam records from [facility] from about 5 years ago. MUSA: 12/10. Anticipate a 2 midnight need for hospital services, this supports inpatient status. DVT prophylaxis - SCDs Time-Based Coding :: [TOTAL MINUTES] spent with patient and on the chart (including review of chart, obtaining history, exam, reviewing outside data, placing orders, documenting exam and treatment plan, and counseling patient) on [DATE].
[2024-06-25] MEDS: PANTOPRAZOLE 40 MG VIAL IV ×2 (09:44→20:42)
[2024-06-25] MEDS: LACTATED RINGERS 1,000 ML 100 ML IV ×2 (09:44→21:12)
--- NOTE | 2024-06-25 12:50 | PM.CN ---
History of Present Illness Consult details Date Patient Seen: 06/25/24 Time Patient Seen: 12:50 Chief complaint: abn lab, sent by monomer recovery supervisor Narrative: Saeed is a 78-year-old man who presented to the ER for fatigue and shortness of breath since Thanksgiving and melena for the past week. He was found to be anemic. He had a similar episode about 5 years ago and had an EGD and colonoscopy which reportedly did not reveal any source of GI bleeding but he then had a follow up PillCam as an outpatient which according to his monomer recovery supervisor showed ?lesions?. He does not recall any intervention resulting from that study. Meds Home Medications and Allergies Home Medications Medication Instructions Recorded Confirmed Type multivitamin 1 tab PO DAILY ##0 11/23/10 06/24/24 History aspirin 81 mg tablet,delayed 81 mg PO DAILY ##0 05/31/11 06/24/24 History release rivaroxaban 20 mg tablet (Xarelto) 20 mg PO QPM 11/22/18 06/24/24 History atorvastatin 40 mg tablet 40 mg PO QPM 02/20/19 06/24/24 History ferrous sulfate 325 mg (65 mg 325 mg PO BID #60 tabs 02/21/19 06/24/24 Rx iron) tablet (iron) lisinopril 20 mg tablet 20 mg PO BID 03/07/19 06/24/24 History alpha lipoic acid 600 mg capsule 600 mg PO DAILY 02/13/20 06/24/24 History metoprolol tartrate 25 mg tablet 25 mg PO BID 09/08/22 06/24/24 History glipizide 5 mg tablet, extended 5 mg PO BID #180 tabs 02/06/24 06/24/24 Rx release 24 hr metformin 1,000 mg tablet 1,000 mg PO BID #180 tabs 03/21/24 06/24/24 Rx omeprazole 40 mg capsule,delayed 40 mg PO BID #60 caps 06/20/24 06/24/24 Rx release Allergies Allergy/AdvReac Type Severity Reaction Status Date / Time No Known Drug Allergies Allergy Verified 06/20/24 13:35 Exam Vital Signs (past 8 hours): - 06/25/24 08:00 Temperature 97.0 F L Pulse Rate 60 Respiratory Rate 18 Blood Pressure 105/50 L Pulse Oximetry 98 Oxygen Flow Rate 0 Oxygen Delivery Method Room Air Oxygen Flow Rate 0 Const General: No acute distress Resp Effort & Inspection: normal respiratory effort Objective Labs 06/25/24 04:55 06/25/24 04:55 Labs: Laboratory Results - last 24 hr 06/24/24 06/24/24 06/25/24 17:17 21:50 01:00 WBC 9.5 8.3 RBC 1.95 L 2.13 L Hgb 6.7 L* 7.2 L Hct 21.0 L 22.1 L MCV 108.0 H 104.0 H D MCH 34.6 H 33.8 MCHC 32.1 32.5 RDW 16.0 H 17.5 H Plt Count 172 158 Neut % (Auto) 81.0 H Lymph % (Auto) 8.8 L [place] % (Auto) 8.9 Eos % (Auto) 0.6 L Baso % (Auto) 0.7 Neut # (Auto) 7700 H Lymph # (Auto) 800 L [place] # (Auto) 800 Eos # (Auto) 100 Baso # (Auto) 100 RBC Morphology See below Macrocytosis 1+ H PT 13.1 H INR 1.2 APTT 34 Sodium 135 L Potassium 4.5 Chloride 109 H Carbon Dioxide 19 L BUN 38 H Creatinine 0.92 Estimated GFR > 60 BUN/Creatinine Ratio 41.3 H Glucose 90 Calcium 9.1 Total Bilirubin 0.5 AST 33 ALT 29 Alkaline Phosphatase 39 Troponin I 0.043 H 0.041 H Total Protein 5.9 L Albumin 3.6 Globulin 2.3 Albumin/Globulin Ratio 1.6 Blood Type A Negative Antibody Screen Negative Crossmatch See Detail 06/25/24 04:55 WBC 7.5 RBC 2.22 L Hgb 7.4 L Hct 22.4 L MCV 100.7 H D MCH 33.2 MCHC 33.0 RDW 18.7 H Plt Count 149 L Neut % (Auto) 72.4 Lymph % (Auto) 14.1 L [place] % (Auto) 10.7 Eos % (Auto) 2.0 Baso % (Auto) 0.8 Neut # (Auto) 5400 Lymph # (Auto) 1100 [place] # (Auto) 800 Eos # (Auto) 100 Baso # (Auto) 100 RBC Morphology Macrocytosis PT INR APTT Sodium 137 Potassium 4.1 Chloride 110 H Carbon Dioxide 23 BUN 34 H Creatinine 0.89 Estimated GFR > 60 BUN/Creatinine Ratio 38.2 H Glucose 91 Calcium 8.5 Total Bilirubin AST ALT Alkaline Phosphatase Troponin I Total Protein Albumin Globulin Albumin/Globulin Ratio Blood Type Antibody Screen Crossmatch [facility] Medical History Hypertriglyceridemia Skin pustule UTI (urinary tract infection) Type 2 diabetes mellitus with peripheral neuropathy Somatic dysfunction of lower extremity Cranial somatic dysfunction Foot joint stiffness, bilateral Suspicious nevus Hx of basal cell carcinoma Chronic right shoulder pain Essential hypertension Aortic stenosis Paroxysmal atrial fibrillation Coronary artery disease Surgical History History of aortic valve replacement with bioprosthetic valve Status post cardiac catheterization Status post coronary artery bypass graft Status post hernia repair Family History Father Cancer Congestive heart failure Mother CAD (coronary artery disease) Social History household members: spouse Tobacco & Substance Use Smoking Status: Former smoker alcohol intake: never Additional Social History additional social history: Former smoker, 2ppd, quit in 1981. reports a 1 year h/o of tobacco dependence. Assessment & Plan Assessment and plan (1) Anemia: Qualifiers: Anemia type: unspecified type Qualified Code(s): D64.9 - Anemia, unspecified Status: Acute Plan We discussed the role of esophagogastroduodenoscopy today. If cause of anemia is found on EGD we should make plans to follow up with a colonoscopy at some point in the near future. Time-Based Coding :: [TOTAL MINUTES] spent with patient and on the chart (including review of chart, obtaining history, exam, reviewing outside data, placing orders, documenting exam and treatment plan, and counseling patient) on [DATE].
--- NOTE | 2024-06-25 14:29 | CM.DANOTE ---
Patient is a 78 yo male who was admitted on 06/24/24 for GI Bleed/Anemia. Pt has [facility] for insurance and his PCP is Dr. Peter Diaz. EMR was reviewed. Per MD, pt with hx of GI Bleed and now admitted with acute GI Bleed and anemia and received 2 Units blood and possible need for scope. Per Surgeon Consult, recommendation of EGD and scheduled for 1600 today. SW met bedside briefly with pt and explained role and he was not feeling well and he confirms he lives in [place] at home with his and is independent at baseline and drives and sometimes has some pain with ambulating as pt has GERD. Pt denies any hx of HH or SNF and pt's last [facility] admission was in 2019 a few years ago. Pt does not anticipate any needs at d/c at this time but pending his EGD results and progress post intervention. Plan: SW to follow closely in the AM for scope results to confirm safe plan of home with spouse and any further identified discharge planning needs. MUSTAPHA Gutiérrez Discharge Planning/Care Management CM Discharge Assessment Start: 06/25/24 14:28 Freq: Status: Active Protocol: Document 06/25/24 14:28 BF (Rec: 06/25/24 14:29 BF [id number]) Discharge Planning Assessment Assigned Nutrition Internship MUSTAPHA Almaraz DPOA/Assigned Designee Name spouse Loida Contact Information [phone] Advance Directives? Yes Advance Directives on File No History Provided By Patient,Medical Record Has Patient been admitted in last 30 No days? Prior Living Arrangements House Household Members spouse Type of transporation used prior to Drives own vehicle admit Independent with ADL's Yes Is patient alert and oriented? Yes Caregiver for Another No DME Already Rented / Owned Cane Comment Has GERD Barriers to Discharge No Discharge Plan Home Transportation Arrangement Spouse Referrals Initiated None needed Additional Comment Pending EGD scope results Whiteboard Updated in Patient Room with Yes name and ext. # of Nutrition Internship Review Status In Process Please Provide Date Initial DC 06/25/24 Assessment Was Performed Next Review Type Continued Stay Review
[2024-06-25] MEDS: INSULIN LISPRO 100 UNIT/ML 3ML VIAL SUBCUT (20:42)
[2024-06-26] VITALS (12 sets, daily range): BP systolic 129–166; BP diastolic 52–76; PULSE 60–86; RESP 12–20; TEMP 36–36.6; O2SAT 93–98
--- NOTE | 2024-06-26 03:15 | EKG_ITS ---
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
--- NOTE | 2024-06-26 03:37 | DI.RAD.S_ITS ---
PROCEDURE: XR CHEST 1V INDICATIONS: SOB TECHNIQUE: One view of the chest was acquired. COMPARISON: [facility], CR, XR CHEST 1V, 09/23/2020, 5:10. FINDINGS: Surgical changes and devices: Patient is status post median sternotomy. An additional cardiac lead is noted when compared to the prior chest film dated September 15, 2020. Lungs and pleura: There is diffuse interstitial prominence and bilateral perihilar radiopacities. No pleural effusions or pneumothorax. Mediastinum: The heart is enlarged, as before. Bones and chest wall: No suspicious bony lesions. Overlying soft tissues appear unremarkable. IMPRESSION: 1. Interstitial prominence and cardiomegaly. Findings suggest congestive failure. Alternatively, multifocal pneumonia could be considered in the differential if clinically appropriate. Dictated by: Kelly Mcbride M.D. on 06/26/2024 at 8:08 Approved by: Kelly Mcbride M.D. on 06/26/2024 at 8:09
[2024-06-26 04:01] LABS: Add Manual Diff / Slide Review NO; Basophils Absolute Auto 100 /uL (0-100); Basophils Percent Auto 0.6 % (0-2); Eosinophils Absolute Auto 100 /uL (0-450); Eosinophils Percent Auto 1.6 % (2-4); Hematocrit 24.7 % (41-53); Hemoglobin 8.1 g/dL (13.5-17.5); Lymphocytes Absolute Auto 800 /uL (1100-4500); Lymphocytes Percent Auto 9.1 % (25-40); Mean Corpuscular HGB Conc 32.8 % (30-36); Mean Corpuscular Hemoglobin 33.2 PG (26-34); Mean Corpuscular Volume 101.2 fL (80-100); Monocytes Absolute Auto 800 /uL (0-900); Monocytes Percent Auto 9.5 % (3-14); Neutrophils Absolute Auto 7000 /uL (1500-7000); Neutrophils Percent Auto 79.2 % (50-75); Platelet Count 154 X10^3/uL (150-400); Red Blood Cell Count 2.44 X10^6/uL (4.5-5.9); Red Cell Distribution Width 18.5 % (11.6-14.8); White Blood Cell Count 8.9 X10^3/uL (4.5-11.0)
[2024-06-26 04:16] LABS: BUN Creatinine Ratio 23.5 (6-22); Blood Urea Nitrogen 19 mg/dL (9-20); Calcium 8.8 mg/dL (8.4-10.2); Carbon Dioxide 20 mmol/L (22-32); Chloride 109 mmol/L (98-107); Estimated Glomerular Filt Rate > 60 mL/min (>60); Glucose 120 mg/dL (80-110); HEMOLYSIS < 15 (0-50); Potassium 3.9 mmol/L (3.4-5.1); Sodium 137 mmol/L (137-145)
[2024-06-26 04:26] LABS: NT-proBNP (BNP-Adult 18+) 285 pg/mL (<450)
[2024-06-26 04:28] LABS: Troponin I 0.037 ng/mL (0.01-0.034)
--- NOTE | 2024-06-26 05:03 | PC.NURSE ---
supervisor prop making: Patient reported SOB at rest, and waking up gasping for air. Patient does not appear to be in distress, respirations are even and unlabored. SpO2 in mid-high 90s on RA, fine crackles auscultated in lower lobes bilaterally. VSS. Called RT to assess, placed patient on 2L NC. Notified MD [place] of findings; new orders for labs, CXR, EKG, and VBG ordered & completed. Notified MD of results. Patient states that he feels better after oxygen supplementation. Plan of care ongoing.
--- NOTE | 2024-06-26 06:32 | PM.CALLCOV.1 ---
Call Coverage Note Note Date of Patient Contact: 06/26/24 Narrative of Care Provided: Pt's nurse contacted me re: Pt having some Shortness of breath at rest , nurse concerned for Fluid overload, and nurse auscultating crackles at bases, stating : can hear as pt has been on IVF being NPO for EGD later today , as admitted with GIB Per nurse O2 sats at 95% on RA Chart reviewed, including , PMH, admission and current problems, Labs and imaging and Echo Labs and CXR STAT ordered Results reviewed RT was also called per nurse to evaluate pt at bedside. Pt started on 2 L O2 via NC though was not hypoxic IVF are held, pt feels more comfortable after IVF held and being on O2 at 2 L NC sats at 100% Troponin trending down , BNP not elevated at [address]-T wave changes Ventricular paced rhythm VR 73 CXR ( no CXR prior to current during this admission) : Multifocal bilat pulm infiltrates F/U CXR to document resolution after treatment advised Have been in on going communication with pt's nurse, who states that pt is feeling much better once the IVF held, as well as O2 2 L NC started. CXR with builat pulm infiltrates however no CXR during current admission to compare with. Pt needs to be monitored closely for any ongoing fluid overload Shall hold Diuresis for now, as pt NPO and IVF held, and Pt SOB has improved Strict Is and Os Nurse shall sign out to Day shift nurse for close monitoring. Nurse's questions answered and nurse advised to inform me if any recurrence of SOB
--- NOTE | 2024-06-26 07:56 | PM.PN.1 ---
Subjective Subjective Interval history: Summary: The patient was a 78-year-old male with a history of a GI bleed 5 years ago he was found to have erosions on a PillCam consistent with aspirin use. Now presents with melena, and received 1 unit of blood upon arrival. He was scheduled for EGD on June 25, but this was delayed due to emergency case. The patient developed dyspnea on the evening of June 25 and IV fluids were stopped. He does have a history of CAD with bypass grafting. He also has a known history of ischemic cardiomyopathy and a biventricular pacemaker was implanted in 2021. An echo in March of 2024 revealed moderate aortic stenosis and an EF of 60-65%. He also has aortic regurgitation, moderate. ECG: Ventricular-paced rhythm Biventricular pacemaker detected CXR: Pulmonary edema by my read. Trop: 0.037. S: He denies feeling any more short of breath than usual. He was chronic CHOWDHURY. He notes that CT scan indicated emphysema in the past. He was never seen Pulmonary or had pulmonary function tests. He was an extensive history of smoking. He quit smoking distantly. He denies any chest pain. An echo from March reveals EF of 60-65% with aortic regurgitation. He denies any melena overnight we will have EGD later today. Exam Vital Signs (past 8 hours): - 06/26/24 00:00 06/26/24 04:00 06/26/24 05:00 Temperature 96.8 F L 97.3 F L Pulse Rate 82 67 Respiratory Rate 18 18 Blood Pressure 137/65 139/65 Pulse Oximetry 98 93 98 Oxygen Delivery Method Oxygen Flow Rate 0 0 2 Fraction of Inspired Oxygen 06/26/24 07:25 Temperature Pulse Rate 61 Respiratory Rate Blood Pressure Pulse Oximetry 96 Oxygen Delivery Method Room Air Oxygen Flow Rate 0 Fraction of Inspired Oxygen 21 Fraction of Inspired Oxygen 21 SaO2/FiO2 Ratio 457 Oxygen Delivery Method Room Air Oxygen Flow Rate 0 Narrative Exam Narrative: NAD, alert and oriented. Fluent speech. Lungs are clear, normal rate and effort. Heart is regular, no murmur gallop or rub. Abdomen is soft, non distended. Extremities are free of edema. Objective Labs 06/26/24 03:40 06/26/24 03:40 Labs: Laboratory Results - last 24 hr 06/26/24 03:40 WBC 8.9 RBC 2.44 L Hgb 8.1 L Hct 24.7 L MCV 101.2 H MCH 33.2 MCHC 32.8 RDW 18.5 H Plt Count 154 Neut % (Auto) 79.2 H Lymph % (Auto) 9.1 L [place] % (Auto) 9.5 Eos % (Auto) 1.6 L Baso % (Auto) 0.6 Neut # (Auto) 7000 Lymph # (Auto) 800 L [place] # (Auto) 800 Eos # (Auto) 100 Baso # (Auto) 100 Sodium 137 Potassium 3.9 Chloride 109 H Carbon Dioxide 20 L BUN 19 Creatinine 0.81 Estimated GFR > 60 BUN/Creatinine Ratio 23.5 H Glucose 120 H Calcium 8.8 Troponin I 0.037 H NT-Pro-B Natriuret Pep 285 PFSH Medical History Hypertriglyceridemia Skin pustule UTI (urinary tract infection) Type 2 diabetes mellitus with peripheral neuropathy Somatic dysfunction of lower extremity Cranial somatic dysfunction Foot joint stiffness, bilateral Suspicious nevus Hx of basal cell carcinoma Chronic right shoulder pain Essential hypertension Aortic stenosis Paroxysmal atrial fibrillation Coronary artery disease Surgical History History of aortic valve replacement with bioprosthetic valve Status post cardiac catheterization Status post coronary artery bypass graft Status post hernia repair Family History Father Cancer Congestive heart failure Mother CAD (coronary artery disease) Social History household members: spouse Smoking Status: Former smoker alcohol intake: never additional social history: Former smoker, 2ppd, quit in 1981. reports a 1 year h/o of tobacco dependence. Assessment & Plan Assessment & Plan narrative: 1. GI Bleed, present on admission and active. - recurrent, acute to subacute - NPO, needs EGD. Had gastritis 5 years ago. He could potentially have treatable source. He will need to continue with Xarelto and ASA for severe underlying MVD and A-fib - Protonix - off ASA, Xarelto. -EGD today 2. Acute dyspnea consistent with acute diastolic heart failure, new and active. 3. Acute Posthemorrhagic Anemia, present on admission and active. - 1 x PRBC on admission - CBC monitoring 4. Multivessel CAD (H/O CAGB), present on admission and stable. 5. DM 2, present on admission and stable. - SS tonight, resume oral hypoglycemics with resumed PO 6. HTN, present on admission and stable. - Lisinopril and metoprolol with resumed PO tomorrow - prn iv metoprolol tonight 7. Atrial fibrillation, present on admission and stable. Plan: -continue Protonix -diurese with lasix 20 IV once. -monitor H&H -blood products as needed -surgery consulted for endoscopy. Today, was bumped due to an emergency case on June 25. -obtain old endoscopy, colonoscopy, and PillCam records from [facility] from about 5 years ago. PillCam report not obtained but narrative suggestive of aspirin erosions. MUSA: 06/27. Anticipate a 2 midnight need for hospital services, this supports inpatient status. DVT prophylaxis - SCDs Time-Based Coding :: [TOTAL MINUTES] spent with patient and on the chart (including review of chart, obtaining history, exam, reviewing outside data, placing orders, documenting exam and treatment plan, and counseling patient) on [DATE].
[2024-06-26 08:51] LABS: Base Excess VBG -2.9 mmol/L (0-4); HCO3 VBG 21 mmol/L (24-28); Oxygen Saturation VBG 98 % (70-75); PCO2 VBG 32.4 mmHg (45-50); PO2 VBG 106 mmHg (35-45); Total CO2 VBG 20 mmol/L (24-29); pH VBG 7.42 (7.33-7.43)
[2024-06-26] MEDS: PANTOPRAZOLE 40 MG VIAL IV (08:58)
[2024-06-26] MEDS: FUROSEMIDE 20 MG/2 ML VIAL IV (08:58)
--- NOTE | 2024-06-26 14:14 | PM.PREOP ---
Pre-operative Note Interval Note History & Physical reviewed/Exam performed by Physician: Yes Changes to H&P: No
--- NOTE | 2024-06-26 15:10 | PM.OP.EGD ---
Operative Date/Time/Diagnoses Date of procedure: 06/26/24 Time of procedure: 15:10 Pre-op diagnosis: Anemia Procedure & Clinicians Study performed: Esophagogastroduodenoscopy Same procedure as scheduled: Yes Indications: Anemia Surgeon: Jian Alas Procedure Notes Procedure in detail: The history and physical was performed/updated and the patient is ASA class is 2. The procedure was discussed in detail with the patient. Potential risks complications including infection, bleeding, missed diagnosis, perforation, need for surgery, and were explained. Their questions were answered and informed consent was obtained. Patient placed in left lateral decubitus position. Time out was performed. Procedural sedation was administered by Anesthesia. A bite block was placed. the scope was inserted into the mouth and advanced through the esophagus and into the stomach. The pylorus was intubated and the duodenum was examined to the 2nd portion. The scope was then withdrawn into the stomach and was retroflexed. The stomach was decompressed and scope was withdrawn slowly through the esophagus. FINDINGS Unremarkable upper endoscopy. No esophagitis, gastritis, duodenitis. The patient tolerated the procedure well and will be discharged when they meet criteria. Impression: Normal upper endoscopy Post-procedure Plan for aftercare: Outpatient colonoscopy Disposition: same day surgery
[2024-06-26] MEDS: glipiZIDE 5 MG TABLET PO (16:14)
--- NOTE | 2024-06-26 16:29 | PM.DS.1 ---
History of Present Illness History of Present Illness Chief complaint: abn lab, sent by managing broker Narrative: From H&P: 78 y/o with PMH of severe GI bleed 5 years ago requiring hospitalization and transfusion, presented with subacute GI bleed. Started to feel weak and short of breath in April and in last week noticed melena. He is severely anemic and is getting one unit of PRBCs in the ED. He takes both ASA 81 mg and Xarelto 20 mg daily, for severe multivessel disease and A-fib. He has no chest pain on admission and vitals are stable. He did have multiple episodes of substernal pain that he relates to eating. Discharge Providers Provider Date of admission: 06/24/24 19:44 Discharge Date: 06/26/24 Primary care physician: Peter Diaz DO Consults: 06/24/24 19:44 Consult to General Surgery Stat Comment: Consulting Provider: Jian Alas Reason for consultation: GI BLEED Has provider been notified: Yes Discharge provider: Td Lamar MD Summary Hospital Course Discharge Diagnosis: 1. GI Bleed (Melena), present on admission and resolved. 2. Acute dyspnea consistent with acute diastolic heart failure, new and resolved. 3. Acute blood loss anemia, present on admission and improved. 4. Multivessel CAD (H/O CABG), present on admission and stable. 5. DM 2, present on admission and stable. 6. HTN, present on admission and stable. 7. Atrial fibrillation, present on admission and stable. 8. Demand ischemia with very mild elevation troponin, present on admission and stable. Hospital Course: He was admitted with melena. The patient received a transfusion in the emergency department. He was aspirin and Xarelto were held. He would resolution of melena and underwent EGD on June 26, as he was bumped by an emergency case on June 25. This was completely unremarkable with a normal esophagus, stomach and duodenum. The patient had a similar episode 5 years ago which resulted in PillCam which apparently revealed some erosions consistent with aspirin use. He would mild shortness a breath in the deputy director of finance of June 26 and was given a dose Lasix for possible volume overload. The patient felt well was felt to be stable for discharge home with close follow up with his PCP, Dr. Kc this week. We will also recommend a repeat hemoglobin Tuesday of this week. He will watch for stools to be sure that he was having no recurrent melena and we will seek medical attention immediately if that happens. Status at Discharge Cognitive/behavioral status at discharge: oriented Functional status at discharge: independent ambulation Overall status at discharge: patient is back to baseline Time Spent with Patient Time spent: Greater than 30 minutes Exam Vital Signs (past 8 hours): - 06/26/24 12:00 06/26/24 14:36 06/26/24 15:07 Temperature 97.6 F 98 F Pulse Rate 77 63 60 Respiratory Rate 15 16 20 Blood Pressure 129/59 L 143/76 H 166/69 H Pulse Oximetry 98 96 94 Oxygen Delivery Method Room Air Room Air Oxygen Flow Rate 0 06/26/24 15:12 06/26/24 15:18 06/26/24 15:24 Temperature 97.4 F L Pulse Rate 70 86 85 Respiratory Rate 12 17 19 Blood Pressure 145/70 H 153/65 H 146/71 H Pulse Oximetry 95 95 94 Oxygen Delivery Method Room Air Room Air Room Air Oxygen Flow Rate Fraction of Inspired Oxygen 21 SaO2/FiO2 Ratio 457 Oxygen Delivery Method Room Air Oxygen Flow Rate 0 Narrative Exam Narrative: NAD, alert and oriented. Fluent speech. Lungs are clear, normal rate and effort. Heart is regular, no murmur gallop or rub. Abdomen is soft, non distended. Extremities are free of edema. Objective ECG Impression: Ventricular-paced rhythm Biventricular pacemaker detected Imaging Chest x-ray: Radiologist's impression: 1. Interstitial prominence and cardiomegaly. Findings suggest congestive failure. Alternatively, multifocal pneumonia could be considered in the differential if clinically appropriate. Labs 06/26/24 03:40 06/26/24 03:40 Labs: Laboratory Results - last 24 hr 06/26/24 06/26/24 03:40 03:55 WBC 8.9 RBC 2.44 L Hgb 8.1 L Hct 24.7 L MCV 101.2 H MCH 33.2 MCHC 32.8 RDW 18.5 H Plt Count 154 Neut % (Auto) 79.2 H Lymph % (Auto) 9.1 L [place] % (Auto) 9.5 Eos % (Auto) 1.6 L Baso % (Auto) 0.6 Neut # (Auto) 7000 Lymph # (Auto) 800 L [place] # (Auto) 800 Eos # (Auto) 100 Baso # (Auto) 100 VBG pH 7.42 VBG pCO2 32.4 L VBG pO2 106 H VBG HCO3 21 L VBG Total CO2 20 L VBG O2 Saturation 98 H VBG Base Excess -2.9 L FiO2 % 28 % Sodium 137 Potassium 3.9 Chloride 109 H Carbon Dioxide 20 L BUN 19 Creatinine 0.81 Estimated GFR > 60 BUN/Creatinine Ratio 23.5 H Glucose 120 H Calcium 8.8 Troponin I 0.037 H NT-Pro-B Natriuret Pep 285 PFSH Medical History Hypertriglyceridemia Skin pustule UTI (urinary tract infection) Type 2 diabetes mellitus with peripheral neuropathy Somatic dysfunction of lower extremity Cranial somatic dysfunction Foot joint stiffness, bilateral Suspicious nevus Hx of basal cell carcinoma Chronic right shoulder pain Essential hypertension Aortic stenosis Paroxysmal atrial fibrillation Coronary artery disease Surgical History History of aortic valve replacement with bioprosthetic valve Status post cardiac catheterization Status post coronary artery bypass graft Status post hernia repair Family History Father Cancer Congestive heart failure Mother CAD (coronary artery disease) Social History household members: spouse Smoking Status: Former smoker alcohol intake: never additional social history: Former smoker, 2ppd, quit in 1981. reports a 1 year h/o of tobacco dependence. Discharge Assessment & Plan Assessment and Plan Assessment: 1. GI Bleed (Melena), present on admission and resolved. 2. Acute dyspnea consistent with acute diastolic heart failure, new and resolved. 3. Acute blood loss anemia, present on admission and improved. 4. Multivessel CAD (H/O CABG), present on admission and stable. 5. DM 2, present on admission and stable. 6. HTN, present on admission and stable. 7. Atrial fibrillation, present on admission and stable. 8. Demand ischemia with very mild elevation troponin, present on admission and stable. Plan of Treatment: Discharge home, resume all meds including aspirin and Xarelto. He will come back immediately for recurrent melena. Recommend follow up with Dr. Diaz within 6 days and repeat hemoglobin by Tuesday of this week. Discharge Plan Discharge Plan Patient Disposition: Home Provider Discharge Comment: Stable for discharge home with close follow up and repeat hemoglobin within the next several days. He will seek medical attention for recurrent melena. Discharge orders & Medications Prescriptions: Continued multivitamin Tablet 1 tab PO DAILY Qty: 0 aspirin 81 mg Tablet,Delayed Release (Dr/Ec) 81 mg PO DAILY Qty: 0 glipizide 5 mg tablet extended release 24hr 5 mg PO BID Qty: 180 1RF metformin 1,000 mg tablet 1,000 mg PO BID Qty: 180 1RF Xarelto 20 mg tablet 20 mg PO QPM alpha lipoic acid 600 mg capsule 600 mg PO DAILY metoprolol tartrate 25 mg tablet 25 mg PO BID atorvastatin 40 mg tablet 40 mg PO QPM ferrous sulfate [iron] 325 mg (65 mg iron) tablet 325 mg PO BID Qty: 60 0RF Rx Instructions: diabasic calcium phosphate 18mg + ferrous sulphate 65mg lisinopril 20 mg Tablet 20 mg PO BID omeprazole 40 mg capsule,delayed release(DR/EC) 40 mg PO BID Qty: 60 0RF Follow up/Referrals: Peter Diaz DO [Primary Care Provider] - Diet/Activity/Treatments Diet: Carb-consistent/Diabetic Activity: As tolerated. Visit Report/Discharge Packet Instructions: Gastrointestinal Bleeding Stand Alone Forms: Patient Portal/API Discharge Data Primary Care Provider: Peter Diaz Quality MIPS - DC The patient has a history of heart transplant or Left Ventricular Assist Device (LVAD). If yes, STOP here.: No The patient has current or prior documentation of left ventricular ejection fraction (LVEF) less than or equal to 40%, or moderate or severely depressed left ventricular systolic function.: No
--- NOTE | 2024-06-26 17:09 | PC.NURSE ---
pt discharged home with ; spoke w/ Dr Lamar and questions answered; iv's removed x 2; tele removed; pt able to dress self; all belongings sent w/ pt; admission note reported belongings placed in safe, but pt denied placing items in safe and coordinator verified that he did not have belongings in the safe; escorted to private vehicle by RN and
== END 2024-06-26 17:04 | disposition admitted as inpatient to this hospital (09) ==
LOC: ED 19:27 → AC 20:33
PROVIDERS: Emergency Medicine; Hospitalist; Surgery; Admitting Provider Internal Medicine; Emergency Provider Emergency Medicine; PCP Family Medicine; Referring Provider Emergency Medicine; Visit Provider Internal Medicine
PROC: 0DJ08ZZ Inspection of Upper Intestinal Tract, Via Natural or Artificial Opening Endoscopic (ICD-10-PCS; CPT 43235; principal; 2024-06-26 14:15)
DX: K92.2 Gastrointestinal hemorrhage, unspecified (principal); D62 Acute posthemorrhagic anemia; I48.0 Paroxysmal atrial fibrillation; I24.89 Other forms of acute ischemic heart disease; I10 Essential (primary) hypertension; I50.31 Acute diastolic (congestive) heart failure; E11.42 Type 2 diabetes mellitus with diabetic polyneuropathy; I25.10 Atherosclerotic heart disease of native coronary artery without angina pectoris; Z79.84 Long term (current) use of oral hypoglycemic drugs; Z79.01 Long term (current) use of anticoagulants; Z95.1 Presence of aortocoronary bypass graft; Z87.891 Personal history of nicotine dependence
CPT/HCPCS: 43235; 36415; 36430; 71045; 80048; 80053; 81003; 82805; 82962; 83880; 84484; 85025; 85027; 85610; 85730; 86850; 86900; 86901; 93005; 93010; 96361; 96374; 96375; 96376; 99232; 99285; 99291; G0378; P9016; J1815; J1940; J2405; J2470; J2704

== ENCOUNTER → 2024-06-29 12:13 | Outpatient (CLI) | payer OTHER, SELFPAY ==
[2024-06-24 21:49] VITALS: BMI 29.7
[2024-06-29 12:49] LABS: Hematocrit 25.1 % (41-53); Hemoglobin 8.3 g/dL (13.5-17.5); Mean Corpuscular HGB Conc 32.9 % (30-36); Mean Corpuscular Hemoglobin 32.4 PG (26-34); Mean Corpuscular Volume 98.6 fL (80-100); Platelet Count 190 X10^3/uL (150-400); Red Blood Cell Count 2.55 X10^6/uL (4.5-5.9); Red Cell Distribution Width 16.8 % (11.6-14.8); White Blood Cell Count 6.7 X10^3/uL (4.5-11.0)
== END ==
PROVIDERS: PCP Family Medicine; Referring Provider Internal Medicine Cardiovascular Disease; Visit Provider Internal Medicine Cardiovascular Disease
DX: D50.8 Other iron deficiency anemias (principal); R06.09 Other forms of dyspnea
CPT/HCPCS: 36415; 85027

== ENCOUNTER → 2024-07-30 13:41 | Outpatient (CLI) | payer OTHER, SELFPAY ==
[2024-06-24 21:49] VITALS: BMI 29.7
[2024-07-30 15:08] LABS: Hematocrit 31.5 % (41-53); Hemoglobin 10.1 g/dL (13.5-17.5); Mean Corpuscular HGB Conc 32.1 % (30-36); Mean Corpuscular Hemoglobin 29.5 PG (26-34); Mean Corpuscular Volume 91.9 fL (80-100); Platelet Count 302 X10^3/uL (150-400); Red Blood Cell Count 3.43 X10^6/uL (4.5-5.9); White Blood Cell Count 5.8 X10^3/uL (4.5-11.0)
== END ==
PROVIDERS: PCP Family Medicine; Referring Provider Family Medicine; Visit Provider Family Medicine
DX: D62 Acute posthemorrhagic anemia (principal)
CPT/HCPCS: 36415; 85027

== ENCOUNTER → 2024-08-20 11:43 | Outpatient (CLI) | payer OTHER, SELFPAY ==
[2024-06-24 21:49] VITALS: BMI 29.7
[2024-08-20 12:25] LABS: Hemoglobin A1C% w Est Avg Glu 4.1 % (4.0-6.0)
== END ==
PROVIDERS: PCP Family Medicine; Referring Provider Family Medicine; Visit Provider Family Medicine
DX: E11.42 Type 2 diabetes mellitus with diabetic polyneuropathy (principal)
CPT/HCPCS: 83036

== ENCOUNTER → 2024-08-22 15:29 | Outpatient (CLI) | payer OTHER, SELFPAY ==
[2024-06-24 21:49] VITALS: BMI 29.7
[2024-08-22 16:28] LABS: Hematocrit 38.2 % (41-53); Hemoglobin 12.4 g/dL (13.5-17.5)
== END ==
LOC: LAB 15:29
PROVIDERS: PCP Family Medicine; Referring Provider Family Medicine; Visit Provider Family Medicine
DX: D62 Acute posthemorrhagic anemia (principal)
CPT/HCPCS: 36415; 85014; 85018

== ENCOUNTER → 2024-11-12 15:15 | Outpatient (CLI) | payer OTHER, SELFPAY ==
[2024-06-24 21:49] VITALS: BMI 29.7
[2024-11-12 15:58] LABS: Add Manual Diff / Slide Review NO; Basophils Absolute Auto 100 /uL (0-100); Basophils Percent Auto 1.1 % (0-2); Eosinophils Absolute Auto 200 /uL (0-450); Eosinophils Percent Auto 2.4 % (2-4); Hematocrit 34.5 % (41-53); Hemoglobin 11.7 g/dL (13.5-17.5); Lymphocytes Absolute Auto 900 /uL (1100-4500); Lymphocytes Percent Auto 11.3 % (25-40); Mean Corpuscular Hemoglobin 31.7 PG (26-34); Mean Corpuscular Volume 93.4 fL (80-100); Monocytes Absolute Auto 800 /uL (0-900); Monocytes Percent Auto 9.9 % (3-14); Neutrophils Absolute Auto 6200 /uL (1500-7000); Neutrophils Percent Auto 75.3 % (50-75); Platelet Count 152 X10^3/uL (150-400); Red Blood Cell Count 3.69 X10^6/uL (4.5-5.9); Red Cell Distribution Width 17.7 % (11.6-14.8); White Blood Cell Count 8.2 X10^3/uL (4.5-11.0)
[2024-11-12 16:18] LABS: BUN Creatinine Ratio 23.2 (6-22); Blood Urea Nitrogen 23 mg/dL (9-20); Calcium 9.7 mg/dL (8.4-10.2); Carbon Dioxide 25 mmol/L (22-32); Chloride 104 mmol/L (98-107); Estimated Glomerular Filt Rate > 60 mL/min (>60); Glucose 67 mg/dL (70-99); HEMOLYSIS < 15 (0-50); Potassium 4.1 mmol/L (3.4-5.1); Sodium 138 mmol/L (137-145)
== END ==
PROVIDERS: PCP Family Medicine; Referring Provider Internal Medicine Interventional Cardiology; Visit Provider Internal Medicine Interventional Cardiology
DX: I35.0 Nonrheumatic aortic (valve) stenosis (principal)
CPT/HCPCS: 36415; 80048; 85025

== ENCOUNTER → 2025-01-22 11:46 | Outpatient (CLI) | payer OTHER, SELFPAY ==
[2024-06-24 21:49] VITALS: BMI 29.7
[2025-01-22 13:18] LABS: Cholesterol 161 mg/dL (140-199); HDL Cholesterol 27 mg/dL (40-60); Triglycerides 231 mg/dL (35-150)
== END ==
PROVIDERS: PCP Family Medicine; Referring Provider Internal Medicine Cardiovascular Disease; Visit Provider Internal Medicine Cardiovascular Disease
DX: E78.5 Hyperlipidemia, unspecified (principal)
CPT/HCPCS: 36415; 80061

== ENCOUNTER → 2025-02-14 09:11 | Outpatient (CLI) | payer OTHER, SELFPAY ==
[2024-06-24 21:49] VITALS: BMI 29.7
--- NOTE | 2025-02-14 09:12 | DI.US.S_ITS ---
PROCEDURE: US CAROTID DOPPLER BI INDICATIONS: STENOSIS TECHNIQUE: Color and pulse Doppler interrogation was performed of both carotid systems, with image documentation and velocity measurements. COMPARISON: [facility], , US CAROTID DOPPLER BI, 08/24/2021, 10:45. FINDINGS: Stenosis calculations are based on SRU (Society of Radiologists in Ultrasound) criteria. Right side: Brachial blood pressure: 104/65 mm Hg. Common carotid artery peak systolic velocity: 49 cm/sec. Internal carotid artery peak systolic velocity: 86 cm/sec. Previously 59 centimeter/second. Internal carotid artery end diastolic velocity: 31 cm/sec. External carotid artery peak systolic velocity: 95 cm/sec. ICA/CCA peak systolic ratio: 1.8 . Ruiz scale imaging description: Moderate atherosclerotic plaque. Percent internal carotid artery stenosis: Less than 50 percent. Vertebral artery: Flow direction is antegrade. Left side: Brachial blood pressure: 108/67 mm Hg. Common carotid artery peak systolic velocity: 58 cm/sec. Internal carotid artery peak systolic velocity: 83 cm/sec. Previously 67 centimeter/second. Internal carotid artery end diastolic velocity: 31 cm/sec. External carotid artery peak systolic velocity: 80 cm/sec. ICA/CCA peak systolic ratio: 1.4 . Ruiz scale imaging description: Moderate atherosclerotic plaque Percent internal carotid artery stenosis: Less than 50 percent . Vertebral artery: Flow direction is antegrade. IMPRESSION: 1. In the right carotid artery, there is less than 50 percent stenosis based on peak systolic velocity criteria. 2. In the left carotid artery, there is less than 50 percent stenosis based on peak systolic velocity criteria. 3. Antegrade vertebral arteries. Dictated by: Marko Ludwig M.D. on 02/14/2025 at 11:51 Approved by: Marko Ludwig M.D. on 02/14/2025 at 11:53
== END ==
LOC: US 09:12
PROVIDERS: PCP Family Medicine; Referring Provider Internal Medicine Cardiovascular Disease; Visit Provider Internal Medicine Cardiovascular Disease
DX: I65.23 Occlusion and stenosis of bilateral carotid arteries (principal)
CPT/HCPCS: 93880

== ENCOUNTER → 2025-02-18 13:54 | Outpatient (CLI) | payer OTHER, SELFPAY ==
[2024-06-24 21:49] VITALS: BMI 29.7
--- NOTE | 2025-02-18 13:55 | DI.US.S_ITS ---
US axillary only rt: 02/18/2025. BI-RADS: 2 CLINICAL: 79-year old male for right diagnostic breast ultrasound. The patient presents for evaluation of a palpable abnormality in the right axilla (1 year). PRIOR EXAMS: CT 09/01/2024, 04/25/2024. ULTRASOUND TECHNIQUE: Real-time grider scale and color doppler imaging of the area of clinical interest was performed with image documentation. Exam is limited to the right axilla. ULTRASOUND FINDINGS Right: Axilla, measuring 1.2 x 0.8 x 1.1 cm: Correlating with palpable lump and also with CT findings there is a subdermal sebaceous cyst present. Doppler shows no vascularity. This finding is stable compared to the prior studies. IMPRESSION: Right * No evidence of malignancy with benign findings. RECOMMENDATIONS Right * Clinical follow-up is recommended, and further management of palpable abnormalities or other focal signs or symptoms should be based on the results of clinical evaluation. If palpable abnormality or other concerning symptom persists or progresses, further clinical evaluation should be considered. COMMENTS: Findings and recommendations were conveyed to the patient during today's evaluation. OVERALL ASSESSMENT CATEGORY BI-RADS-2: Benign. ELECTRONICALLY SIGNED: Sera Castrejon M.D. on 02/18/2025 at 03:16:44 PM PT Interpreting Station ID: [id number]
== END ==
PROVIDERS: PCP Family Medicine; Referring Provider Family Medicine; Visit Provider Family Medicine
DX: R59.9 Enlarged lymph nodes, unspecified (principal)
CPT/HCPCS: 76882

== ENCOUNTER → 2025-02-22 10:33 | Outpatient (CLI) | payer OTHER, SELFPAY ==
[2024-06-24 21:49] VITALS: BMI 29.7
[2025-02-22 11:19] LABS: Add Manual Diff / Slide Review NO; Hematocrit 40.9 % (41-53); Hemoglobin 14.0 g/dL (13.5-17.5); Lymphocytes Absolute Auto 1000 /uL (1100-4500); Mean Corpuscular HGB Conc 34.1 % (30-36); Mean Corpuscular Hemoglobin 31.3 PG (26-34); Mean Corpuscular Volume 91.9 fL (80-100); Platelet Count 135 X10^3/uL (150-400)
[2025-02-22 13:25] LABS: HEMOLYSIS 31 (0-50)
[2025-02-22 14:33] LABS: Alanine Aminotransferase 48 IU/L (<50); Albumin 4.7 g/dL (3.5-5.0); Albumin Globulin Ratio 1.9 (1.0-2.8); Alkaline Phosphatase 61 U/L (38-126); Blood Urea Nitrogen 21 mg/dL (9-20); Calcium 9.6 mg/dL (8.4-10.2); Carbon Dioxide 23 mmol/L (22-32); Chloride 104 mmol/L (98-107); Cholesterol 91 mg/dL (140-199); Estimated Glomerular Filt Rate > 60 mL/min (>60); Globulin 2.5 g/dL (1.7-4.1); Glucose 144 mg/dL (70-99); Potassium 4.0 mmol/L (3.4-5.1); Sodium 138 mmol/L (137-145); Total Protein 7.2 g/dL (6.3-8.2); Triglycerides 255 mg/dL (35-150)
[2025-02-22 16:44] LABS: HDL Cholesterol 11 mg/dL (40-60)
[2025-02-22 18:18] LABS: Hemoglobin A1C% w Est Avg Glu 5.6 % (4.0-6.0)
== END ==
PROVIDERS: PCP Family Medicine; Referring Provider Family Medicine; Visit Provider Family Medicine
DX: E78.1 Pure hyperglyceridemia (principal); E11.42 Type 2 diabetes mellitus with diabetic polyneuropathy; I10 Essential (primary) hypertension
CPT/HCPCS: 36415; 80053; 80061; 83036; 85025

== ENCOUNTER → 2025-04-26 14:15 | Outpatient (CLI) | payer OTHER, SELFPAY ==
[2024-06-24 21:49] VITALS: BMI 29.7
[2025-04-26 16:03] LABS: Blood Urea Nitrogen 26 mg/dL (9-20); Cholesterol 149 mg/dL (140-199); Estimated Glomerular Filt Rate > 60 mL/min (>60); HDL Cholesterol 28 mg/dL (40-60); Triglycerides 242 mg/dL (35-150)
== END ==
PROVIDERS: PCP Family Medicine; Referring Provider Family Medicine; Visit Provider Family Medicine
DX: R79.89 Other specified abnormal findings of blood chemistry (principal); E11.42 Type 2 diabetes mellitus with diabetic polyneuropathy
CPT/HCPCS: 36415; 80061; 82565; 84520

== ENCOUNTER → 2025-06-18 10:25 | Outpatient (CLI) | payer OTHER, SELFPAY ==
[2024-06-24 21:49] VITALS: BMI 29.7
[2025-06-18 11:29] LABS: Cholesterol 194 mg/dL (140-199); HDL Cholesterol 32 mg/dL (40-60); Triglycerides 301 mg/dL (35-150)
== END ==
PROVIDERS: PCP Family Medicine; Referring Provider Family Medicine; Visit Provider Family Medicine
DX: R79.89 Other specified abnormal findings of blood chemistry (principal); E78.1 Pure hyperglyceridemia; E11.42 Type 2 diabetes mellitus with diabetic polyneuropathy
CPT/HCPCS: 36415; 80061

== ENCOUNTER 2025-06-20 14:15 | Outpatient (RCR) | payer OTHER, SELFPAY ==
[2024-06-24 21:49] VITALS: BMI 29.7
== END 2025-06-20 16:15 ==
LOC: CAR 14:15
PROVIDERS: PCP Family Medicine; Referring Provider Internal Medicine; Visit Provider Registered Nurse
DX: Z95.2 Presence of prosthetic heart valve (principal)
CPT/HCPCS: 93798

== ENCOUNTER 2025-07-11 00:21 | Emergency (ER) | payer OTHER, SELFPAY ==
[2024-06-24 21:49] VITALS: BMI 29.7
[2025-07-11] VITALS (81 sets, daily range): BP systolic 71–137; BP diastolic 46–88; PULSE 60–90; RESP 11–24; TEMP 36.6–38.5; O2SAT 86–100; BMI 29.0
--- NOTE | 2025-07-11 00:25 | ED.ABDPAIN ---
HPI - Abdominal Pain <Margaret Wagner MD - Last Filed: 07/13/25 11:18> General Chief Complaint: Abdominal Pain Stated Complaint: Abdominal Pain, Vomiting Time Seen by Provider: 07/11/25 00:25 History of Present Illness HPI narrative: Patient is a 79-year-old man who presents with abdominal pain and vomiting. Past medical history significant for atrial fibrillation that is post watchman procedure, aortic valve replacement in October 2024, multivessel CABG, diabetes, diabetes, hypertension, hyperlipidemia. Patient has been having minor abdominal pain since yesterday morning an approximately 1.5 hours prior to presentation had diffuse abdominal pain, nausea, vomiting. No diarrhea or constipation. No chest pain, he is no dyspnea, no diaphoresis. No fevers, chills. Related Data Home Medications ?Medication ?Instructions ?Recorded ?Confirmed multivitamin 1 tab PO DAILY ##0 11/23/10 06/18/25 lisinopril 20 mg tablet 20 mg PO BID 03/07/19 06/18/25 alpha lipoic acid 600 mg capsule 600 mg PO DAILY 02/13/20 06/18/25 ascorbic acid (vitamin C) 1,000 mg 500 mg PO DAILY 06/27/24 06/18/25 tablet mv-min-vit C 1,000 ea PO 06/27/24 06/18/25 [id number]-trxywu-herb 124 50 mg efferves tablet (Airborne) metoprolol succinate 25 mg 25 mg PO BID 09/06/24 06/18/25 tablet,extended release 24 hr (Toprol XL) nitroglycerin 0.4 mg sublingual 0.4 mg sublingual Q5M PRN 11/19/24 06/18/25 tablet aspirin 81 mg tablet 81 mg PO DAILY 03/15/25 06/18/25 Previous Rx's ?Medication ?Instructions ?Recorded ferrous sulfate 325 mg (65 mg 325 mg PO BID #60 tabs 02/21/19 iron) tablet (iron) albuterol sulfate 90 mcg/actuation 2 puff inhalation Q6H PRN 08/22/24 aerosol inhaler shortness of breath or wheezing #6.7 grams omeprazole 20 mg capsule,delayed 20 mg PO DAILY #90 caps 08/22/24 release tiotropium bromide 2.5 2 inh inhalation QAM #4 grams 08/22/24 mcg/actuation mist for inhalation (Spiriva Respimat) metformin 1,000 mg tablet 1,000 mg PO BID #180 tabs 09/13/24 empagliflozin 25 mg tablet 25 mg PO DAILY #30 tabs 11/30/24 (Jardiance) glipizide 5 mg tablet, extended 5 mg PO BID #180 tabs 02/12/25 release 24 hr fenofibrate 50 mg capsule 50 mg PO DAILY #90 caps 03/15/25 omega 5-lki-suf-fish oil 1,200 mg 2 cap PO DAILY #180 caps 03/15/25 (144 mg-216 mg) capsule (Fish Oil) atorvastatin 80 mg tablet 80 mg PO BEDTIME #90 tabs 06/18/25 furosemide 20 mg tablet 20 mg PO BID #180 tabs 07/08/25 Allergies Allergy/AdvReac Type Severity Reaction Status Date / Time No Known Drug Allergies Allergy Verified 07/11/25 00:32 Review of Systems <Margaret Wagner MD - Last Filed: 07/13/25 11:18> Review of Systems Narrative: See HPI. 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 Diarrhea Smoking greater than 25 pack years COPD with emphysema Anemia requiring transfusions Acute GI bleeding Hypertriglyceridemia Skin pustule UTI (urinary tract infection) Type 2 diabetes mellitus with peripheral neuropathy Somatic dysfunction of lower extremity Cranial somatic dysfunction Foot joint stiffness, bilateral Suspicious nevus Hx of basal cell carcinoma Chronic right shoulder pain Essential hypertension Aortic stenosis Paroxysmal atrial fibrillation Coronary artery disease Surgical History (Updated 11/20/24 @ 14:03 by Peter Diaz DO) S/P TAVR (transcatheter aortic valve replacement) History of aortic valve replacement with bioprosthetic valve Status post cardiac catheterization Status post coronary artery bypass graft Status post hernia repair Family History Father Cancer Congestive heart failure Mother CAD (coronary artery disease) Social History household members: spouse Smoking Status: Never smoker alcohol intake: never additional social history: Former smoker, 2ppd, quit in 1981. reports a 1 year h/o of tobacco dependence. alcohol intake frequency: 0-2 drinks per day Exam <Margaret Wagner MD - Last Filed: 07/13/25 11:18> Narrative Exam Narrative: Vitals: Blood pressure 125/88 with map 102. Gen: Well-developed, well-nourished, appears in acute distress Skin: Skin is cold to the touch in peripheral extremities, patient was cyanotic around the lips, anterior chest and abdominal man was mottled. Card: Bradycardic, no rubs or gallops. Pulm: Patient is breathing deliberately similar to a patient with Dannie-Strokes respiration, lungs were clear to auscultation Abd: Distended, nontender with voluntary guarding, non peritonitic Ext: Distal fingers were cold to the touch and skin was mottled, 2+ radial pulses in bilateral upper extremities, no edema in bilateral lower extremities Neuro: A&O x4, cranial nerves grossly intact, moving all 4 extremities spontaneously Psych: Appropriate Initial Vital Signs Initial Vital Signs: Vital Signs Blood Pressure 125/88 07/11/25 00:31 <Ethel Andrade MD - Last Filed: 07/11/25 19:02> Initial Vital Signs Initial Vital Signs: Vital Signs Blood Pressure 125/88 07/11/25 00:31 Procedures <Ethel Andrade MD - Last Filed: 07/11/25 19:02> Central Line Placement Right IJ: Time of procedure: 08:05 Time Out Performed: Yes Patient Placed on Monitor/Pulse Ox: Yes MD Prep: mask, gown and gloves Central Line Prep: Chlorhexidine scrub Local Anesthetic: lidocaine 1% Amount of anesthesia used (mL): 2 Ultrasound Used for Placement: Yes Central Line Lumen Inserted: triple Post Procedure: sutured in place, good blood return, all ports aspirated, flushed, capped, sterile dressing applied and line stabilization device Post Procedure X-Ray: tip of catheter in good position and no pneumothorax seen Patient Tolerated Procedure: Well Complications: none Course <Margaret Wagner MD - Last Filed: 07/13/25 11:18> Orders Ordered: Discontinued Medications Furosemide (Furosemide 40 Mg/4 Ml Vial) 20 mg IV NOW ONE Stop: 07/11/25 05:57 Last Admin: 07/11/25 07:22 Dose: Not Given Documented By: TEAGAN Hydromorphone HCl (Hydromorphone Hcl 0.5 Mg/0.5 Ml Syringe) 0.5 mg IV NOW ONE Stop: 07/11/25 00:32 Last Admin: 07/11/25 00:59 Dose: 0.5 mg Documented By: STEVEN Hydromorphone HCl (Hydromorphone Hcl 0.5 Mg/0.5 Ml Syringe) 0.5 mg IV NOW ONE Stop: 07/11/25 06:15 Last Admin: 07/11/25 06:28 Dose: 0.5 mg Documented By: TEAGAN Sodium Chloride (Normal Saline 0.9%) 1,000 mls @ 1,000 mls/hr IV BOLUS ONE Stop: 07/11/25 02:12 Last Infusion: 07/11/25 02:22 Dose: Infused Documented By: Admin: 07/11/25 01:15 Dose: 1,000 mls/hr Documented By: STEVEN Piperacillin Sod/Tazobactam (Sod 4.5 gm/ Sodium Chloride) 100 mls @ 200 mls/hr IV STAT ONE Stop: 07/11/25 01:14 Last Infusion: 07/11/25 02:22 Dose: Infused Documented By: Admin: 07/11/25 01:35 Dose: 200 mls/hr Documented By: STEVEN Sodium Chloride (Normal Saline 0.9%) 2,993.7 mls @ 1,995.8 mls/hr 30 ml/kg infuse over 90 min (2993.7 ml) IV NOW ONE Stop: 07/11/25 05:04 Last Infusion: 07/11/25 07:27 Dose: Infused Documented By: Infusion: 07/11/25 04:40 Dose: 999 mls/hr Documented By: Admin: 07/11/25 03:40 Dose: 1,995.8 mls/hr Documented By: STEVEN Sodium Chloride (Normal Saline 0.9%) 1,000 mls @ 1,000 mls/hr IV BOLUS ONE Stop: 07/11/25 07:37 Last Infusion: 07/11/25 07:54 Dose: Infused Documented By: Admin: 07/11/25 06:46 Dose: 250 mls/hr Documented By: SH NOREPINEPHRINE BIT/0.9 % NACL (Norepinephr 4 Mg/250-0.9% Nacl) 4 mg in 250 mls @ 37.421 mls/hr IV TITRATE FERNANDA; Protocol Last Titration: 07/11/25 09:37 Dose: 0.09 mcg/kg/min, 33.7 mls/hr Documented By: Titration: 07/11/25 09:09 Dose: 0.07 mcg/kg/min, 26.2 mls/hr Documented By: Titration: 07/11/25 08:30 Dose: 0.05 mcg/kg/min, 18.711 mls/hr Documented By: Titration: 07/11/25 07:37 Dose: 0 mcg/kg/min, 0 mls/hr Documented By: Admin: 07/11/25 07:37 Dose: 0.1 mcg/kg/min, 37.421 mls/hr Documented By: RB Acetaminophen (Ofirmev) 1,000 mg in 100 mls @ 400 mls/hr IV NOW ONE Stop: 07/11/25 07:57 Last Infusion: 07/11/25 08:34 Dose: Infused Documented By: Admin: 07/11/25 07:48 Dose: 400 mls/hr Documented By: RB Piperacillin Sod/Tazobactam (Sod 3.375 gm/ Sodium Chloride) 100 mls @ 25 mls/hr IV Q8H FERNANDA Last Admin: 07/11/25 08:00 Dose: 25 mls/hr Documented By: RB Sodium Chloride (Normal Saline 0.9%) 716 mls @ 716 mls/hr IV BOLUS ONE Stop: 07/11/25 08:53 Last Infusion: 07/11/25 08:35 Dose: Infused Documented By: Admin: 07/11/25 07:59 Dose: 716 mls/hr Documented By: RB Sodium Chloride (Normal Saline 0.9%) 1,000 mls @ 1,000 mls/hr IV BOLUS ONE Stop: 07/11/25 09:39 Last Infusion: 07/11/25 09:23 Dose: Infused Documented By: Admin: 07/11/25 08:40 Dose: 1,000 mls/hr Documented By: RB Sodium Chloride (Normal Saline 0.9%) 1,000 mls @ 150 mls/hr IV CONT FERNANDA Last Admin: 07/11/25 09:29 Dose: 150 mls/hr Documented By: RB Sodium Chloride (Normal Saline 0.9%) 1,000 mls @ 1,000 mls/hr IV BOLUS ONE Stop: 07/11/25 10:07 Last Admin: 07/11/25 09:26 Dose: Not Given Documented By: RB Sodium Chloride (Normal Saline 0.9%) 1,000 mls @ 100 mls/hr IV CONT FERNANDA Last Admin: 07/11/25 09:28 Dose: Not Given Documented By: RB Ondansetron HCl (Ondansetron 4 Mg/2 Ml Inj) 4 mg IV Q6HR PRN PRN Reason: Nausea And Vomiting Last Admin: 07/11/25 00:59 Dose: 4 mg Documented By: STEVEN Vital Signs Vital signs: Vital Signs - 8 hr 07/11/25 01:30 07/11/25 01:30 07/11/25 01:32 Temperature Pulse Rate 60 60 Respiratory Rate 22 22 Blood Pressure 123/59 L Pulse Oximetry 97 97 Oxygen Delivery Method Nasal Cannula Nasal Cannula Oxygen Flow Rate 6 6 07/11/25 01:32 07/11/25 01:40 07/11/25 01:40 Temperature Pulse Rate 60 Respiratory Rate 22 Blood Pressure 119/58 L 115/52 L Pulse Oximetry 96 Oxygen Delivery Method Nasal Cannula Oxygen Flow Rate 6 07/11/25 01:53 07/11/25 01:53 07/11/25 02:00 Temperature Pulse Rate 77 73 Respiratory Rate 13 Blood Pressure 127/61 Pulse Oximetry 92 90 L Oxygen Delivery Method Nasal Cannula Nasal Cannula Oxygen Flow Rate 6 6 07/11/25 02:00 07/11/25 02:30 07/11/25 02:30 Temperature Pulse Rate 71 Respiratory Rate 16 Blood Pressure 114/58 L 101/56 L Pulse Oximetry 98 Oxygen Delivery Method Nasal Cannula Oxygen Flow Rate 6 07/11/25 03:00 07/11/25 03:00 07/11/25 03:30 Temperature Pulse Rate 67 67 Respiratory Rate 24 19 Blood Pressure 106/53 L Pulse Oximetry 95 97 Oxygen Delivery Method Nasal Cannula Nasal Cannula Oxygen Flow Rate 3 3 07/11/25 03:30 07/11/25 04:00 07/11/25 04:00 Temperature Pulse Rate 72 Respiratory Rate 22 Blood Pressure 97/53 L 95/53 L Pulse Oximetry 92 Oxygen Delivery Method Nasal Cannula Oxygen Flow Rate 3 07/11/25 04:30 07/11/25 04:32 07/11/25 04:32 Temperature Pulse Rate 74 73 Respiratory Rate 19 21 Blood Pressure 98/56 L Pulse Oximetry 95 96 Oxygen Delivery Method Nasal Cannula Nasal Cannula Oxygen Flow Rate 3 3 07/11/25 05:00 07/11/25 05:00 07/11/25 05:30 Temperature Pulse Rate 71 72 Respiratory Rate 18 23 Blood Pressure 93/50 L Pulse Oximetry 92 Oxygen Delivery Method Nasal Cannula Oxygen Flow Rate 3 07/11/25 05:30 07/11/25 05:59 07/11/25 06:01 Temperature Pulse Rate Respiratory Rate Blood Pressure 95/53 L 137/73 Pulse Oximetry 91 Oxygen Delivery Method Nasal Cannula Oxygen Flow Rate 3 07/11/25 06:11 07/11/25 06:12 07/11/25 06:12 Temperature Pulse Rate 75 72 Respiratory Rate 22 24 Blood Pressure 125/60 Pulse Oximetry 87 L 89 L Oxygen Delivery Method Oxygen Flow Rate 07/11/25 06:30 07/11/25 06:31 07/11/25 06:31 Temperature 99.3 F Pulse Rate 90 87 Respiratory Rate Blood Pressure 71/46 L Pulse Oximetry 91 86 L Oxygen Delivery Method Room Air Oxygen Flow Rate 07/11/25 06:34 07/11/25 06:34 07/11/25 06:35 Temperature Pulse Rate 80 78 Respiratory Rate 18 21 Blood Pressure 91/54 L Pulse Oximetry 90 L 91 Oxygen Delivery Method Oxygen Flow Rate 07/11/25 06:36 07/11/25 06:36 07/11/25 06:40 Temperature Pulse Rate 75 76 Respiratory Rate 16 17 Blood Pressure 107/52 L Pulse Oximetry 92 91 Oxygen Delivery Method Oxygen Flow Rate 07/11/25 06:40 07/11/25 06:45 07/11/25 06:45 Temperature Pulse Rate 74 Respiratory Rate 20 Blood Pressure 101/54 L 109/58 L Pulse Oximetry 88 L Oxygen Delivery Method Oxygen Flow Rate 07/11/25 06:50 07/11/25 06:50 07/11/25 06:51 Temperature Pulse Rate 72 Respiratory Rate 17 Blood Pressure 104/55 L 110/61 Pulse Oximetry 93 Oxygen Delivery Method Oxygen Flow Rate 07/11/25 06:51 07/11/25 06:55 07/11/25 06:55 Temperature Pulse Rate 72 72 Respiratory Rate 18 15 Blood Pressure 99/57 L Pulse Oximetry 93 97 Oxygen Delivery Method Oxygen Flow Rate 07/11/25 07:00 07/11/25 07:00 07/11/25 07:05 Temperature Pulse Rate 69 Respiratory Rate 17 Blood Pressure 106/59 L 102/59 L Pulse Oximetry 96 Oxygen Delivery Method Oxygen Flow Rate 07/11/25 07:05 07/11/25 07:10 07/11/25 07:10 Temperature Pulse Rate 70 77 Respiratory Rate 18 17 Blood Pressure 106/61 Pulse Oximetry 92 Oxygen Delivery Method Oxygen Flow Rate 07/11/25 07:15 07/11/25 07:15 07/11/25 07:20 Temperature Pulse Rate 69 70 Respiratory Rate 17 19 Blood Pressure 99/55 L Pulse Oximetry Oxygen Delivery Method Oxygen Flow Rate 07/11/25 07:20 07/11/25 07:28 07/11/25 07:28 Temperature Pulse Rate 71 Respiratory Rate 17 Blood Pressure 95/55 L 86/53 L Pulse Oximetry 92 Oxygen Delivery Method Oxygen Flow Rate 07/11/25 07:30 07/11/25 07:30 07/11/25 07:35 Temperature Pulse Rate 70 Respiratory Rate 17 Blood Pressure 90/52 L 112/65 Pulse Oximetry 88 L Oxygen Delivery Method Oxygen Flow Rate 07/11/25 07:35 07/11/25 07:40 07/11/25 07:40 Temperature Pulse Rate 74 85 Respiratory Rate 17 17 Blood Pressure 123/69 Pulse Oximetry 89 L 92 Oxygen Delivery Method Oximask Oxygen Flow Rate 4 07/11/25 07:45 07/11/25 07:45 07/11/25 07:50 Temperature Pulse Rate 84 74 Respiratory Rate 19 15 Blood Pressure 123/68 Pulse Oximetry 93 93 Oxygen Delivery Method Oximask Oximask Oxygen Flow Rate 4 4 07/11/25 07:50 07/11/25 07:55 07/11/25 07:55 Temperature Pulse Rate 72 Respiratory Rate 19 Blood Pressure 135/75 122/59 L Pulse Oximetry 94 Oxygen Delivery Method Oximask Oxygen Flow Rate 4 07/11/25 08:00 07/11/25 08:00 07/11/25 08:05 Temperature Pulse Rate 73 Respiratory Rate 24 Blood Pressure 111/55 L 88/54 L Pulse Oximetry Oxygen Delivery Method Oxygen Flow Rate 07/11/25 08:05 07/11/25 08:10 07/11/25 08:10 Temperature Pulse Rate 70 67 Respiratory Rate 19 20 Blood Pressure 91/54 L Pulse Oximetry 92 96 Oxygen Delivery Method Oximask Oximask Oxygen Flow Rate 4 4 07/11/25 08:15 07/11/25 08:15 07/11/25 08:20 Temperature Pulse Rate 66 Respiratory Rate 19 Blood Pressure 91/51 L 89/55 L Pulse Oximetry 94 Oxygen Delivery Method Oximask Oxygen Flow Rate 4 07/11/25 08:20 07/11/25 08:25 07/11/25 08:25 Temperature Pulse Rate 66 66 Respiratory Rate 17 20 Blood Pressure 94/51 L Pulse Oximetry 96 97 Oxygen Delivery Method Oximask Oximask Oxygen Flow Rate 4 4 07/11/25 08:30 07/11/25 08:30 07/11/25 08:35 Temperature 100.5 F H Pulse Rate 64 Respiratory Rate 18 Blood Pressure 88/53 L Pulse Oximetry 97 Oxygen Delivery Method Oximask Oxygen Flow Rate 4 07/11/25 08:35 07/11/25 08:35 07/11/25 08:40 Temperature Pulse Rate 61 Respiratory Rate 21 Blood Pressure 94/52 L 94/52 L Pulse Oximetry 96 Oxygen Delivery Method Oximask Oxygen Flow Rate 4 07/11/25 08:40 07/11/25 08:44 07/11/25 08:45 Temperature 100.8 F H Pulse Rate 60 60 Respiratory Rate 19 17 Blood Pressure 92/52 L Pulse Oximetry 94 95 Oxygen Delivery Method Oximask Oximask Oxygen Flow Rate 4 4 <Ethel Andrade MD - Last Filed: 07/11/25 19:02> Orders Ordered: Discontinued Medications Furosemide (Furosemide 40 Mg/4 Ml Vial) 20 mg IV NOW ONE Stop: 07/11/25 05:57 Last Admin: 07/11/25 07:22 Dose: Not Given Documented By: HNG Hydromorphone HCl (Hydromorphone Hcl 0.5 Mg/0.5 Ml Syringe) 0.5 mg IV NOW ONE Stop: 07/11/25 00:32 Last Admin: 07/11/25 00:59 Dose: 0.5 mg Documented By: SH Hydromorphone HCl (Hydromorphone Hcl 0.5 Mg/0.5 Ml Syringe) 0.5 mg IV NOW ONE Stop: 07/11/25 06:15 Last Admin: 07/11/25 06:28 Dose: 0.5 mg Documented By: TEAGAN Sodium Chloride (Normal Saline 0.9%) 1,000 mls @ 1,000 mls/hr IV BOLUS ONE Stop: 07/11/25 02:12 Last Infusion: 07/11/25 02:22 Dose: Infused Documented By: Admin: 07/11/25 01:15 Dose: 1,000 mls/hr Documented By: STEVEN Piperacillin Sod/Tazobactam (Sod 4.5 gm/ Sodium Chloride) 100 mls @ 200 mls/hr IV STAT ONE Stop: 07/11/25 01:14 Last Infusion: 07/11/25 02:22 Dose: Infused Documented By: Admin: 07/11/25 01:35 Dose: 200 mls/hr Documented By: STEVEN Sodium Chloride (Normal Saline 0.9%) 2,993.7 mls @ 1,995.8 mls/hr 30 ml/kg infuse over 90 min (2993.7 ml) IV NOW ONE Stop: 07/11/25 05:04 Last Infusion: 07/11/25 07:27 Dose: Infused Documented By: Infusion: 07/11/25 04:40 Dose: 999 mls/hr Documented By: Admin: 07/11/25 03:40 Dose: 1,995.8 mls/hr Documented By: STEVEN Sodium Chloride (Normal Saline 0.9%) 1,000 mls @ 1,000 mls/hr IV BOLUS ONE Stop: 07/11/25 07:37 Last Infusion: 07/11/25 07:54 Dose: Infused Documented By: Admin: 07/11/25 06:46 Dose: 250 mls/hr Documented By: STEVEN NOREPINEPHRINE BIT/0.9 % NACL (Norepinephr 4 Mg/250-0.9% Nacl) 4 mg in 250 mls @ 37.421 mls/hr IV TITRATE FERNANDA; Protocol Last Titration: 07/11/25 09:37 Dose: 0.09 mcg/kg/min, 33.7 mls/hr Documented By: Titration: 07/11/25 09:09 Dose: 0.07 mcg/kg/min, 26.2 mls/hr Documented By: Titration: 07/11/25 08:30 Dose: 0.05 mcg/kg/min, 18.711 mls/hr Documented By: Titration: 07/11/25 07:37 Dose: 0 mcg/kg/min, 0 mls/hr Documented By: Admin: 07/11/25 07:37 Dose: 0.1 mcg/kg/min, 37.421 mls/hr Documented By: RB Acetaminophen (Ofirmev) 1,000 mg in 100 mls @ 400 mls/hr IV NOW ONE Stop: 07/11/25 07:57 Last Infusion: 07/11/25 08:34 Dose: Infused Documented By: Admin: 07/11/25 07:48 Dose: 400 mls/hr Documented By: RB Piperacillin Sod/Tazobactam (Sod 3.375 gm/ Sodium Chloride) 100 mls @ 25 mls/hr IV Q8H FERNANDA Last Admin: 07/11/25 08:00 Dose: 25 mls/hr Documented By: RB Sodium Chloride (Normal Saline 0.9%) 716 mls @ 716 mls/hr IV BOLUS ONE Stop: 07/11/25 08:53 Last Infusion: 07/11/25 08:35 Dose: Infused Documented By: Admin: 07/11/25 07:59 Dose: 716 mls/hr Documented By: RB Sodium Chloride (Normal Saline 0.9%) 1,000 mls @ 1,000 mls/hr IV BOLUS ONE Stop: 07/11/25 09:39 Last Infusion: 07/11/25 09:23 Dose: Infused Documented By: Admin: 07/11/25 08:40 Dose: 1,000 mls/hr Documented By: RB Sodium Chloride (Normal Saline 0.9%) 1,000 mls @ 150 mls/hr IV CONT FERNANDA Last Admin: 07/11/25 09:29 Dose: 150 mls/hr Documented By: RB Sodium Chloride (Normal Saline 0.9%) 1,000 mls @ 1,000 mls/hr IV BOLUS ONE Stop: 07/11/25 10:07 Last Admin: 07/11/25 09:26 Dose: Not Given Documented By: RB Sodium Chloride (Normal Saline 0.9%) 1,000 mls @ 100 mls/hr IV CONT FERNANDA Last Admin: 07/11/25 09:28 Dose: Not Given Documented By: RB Ondansetron HCl (Ondansetron 4 Mg/2 Ml Inj) 4 mg IV Q6HR PRN PRN Reason: Nausea And Vomiting Last Admin: 07/11/25 00:59 Dose: 4 mg Documented By: STEVEN Vital Signs Vital signs: Vital Signs - 8 hr 07/11/25 01:30 07/11/25 01:30 07/11/25 01:32 Temperature Pulse Rate 60 60 Respiratory Rate 22 22 Blood Pressure 123/59 L Pulse Oximetry 97 97 Oxygen Delivery Method Nasal Cannula Nasal Cannula Oxygen Flow Rate 6 6 07/11/25 01:32 07/11/25 01:40 07/11/25 01:40 Temperature Pulse Rate 60 Respiratory Rate 22 Blood Pressure 119/58 L 115/52 L Pulse Oximetry 96 Oxygen Delivery Method Nasal Cannula Oxygen Flow Rate 6 07/11/25 01:53 07/11/25 01:53 07/11/25 02:00 Temperature Pulse Rate 77 73 Respiratory Rate 13 Blood Pressure 127/61 Pulse Oximetry 92 90 L Oxygen Delivery Method Nasal Cannula Nasal Cannula Oxygen Flow Rate 6 6 07/11/25 02:00 07/11/25 02:30 07/11/25 02:30 Temperature Pulse Rate 71 Respiratory Rate 16 Blood Pressure 114/58 L 101/56 L Pulse Oximetry 98 Oxygen Delivery Method Nasal Cannula Oxygen Flow Rate 6 07/11/25 03:00 07/11/25 03:00 07/11/25 03:30 Temperature Pulse Rate 67 67 Respiratory Rate 24 19 Blood Pressure 106/53 L Pulse Oximetry 95 97 Oxygen Delivery Method Nasal Cannula Nasal Cannula Oxygen Flow Rate 3 3 07/11/25 03:30 07/11/25 04:00 07/11/25 04:00 Temperature Pulse Rate 72 Respiratory Rate 22 Blood Pressure 97/53 L 95/53 L Pulse Oximetry 92 Oxygen Delivery Method Nasal Cannula Oxygen Flow Rate 3 07/11/25 04:30 07/11/25 04:32 07/11/25 04:32 Temperature Pulse Rate 74 73 Respiratory Rate 19 21 Blood Pressure 98/56 L Pulse Oximetry 95 96 Oxygen Delivery Method Nasal Cannula Nasal Cannula Oxygen Flow Rate 3 3 07/11/25 05:00 07/11/25 05:00 07/11/25 05:30 Temperature Pulse Rate 71 72 Respiratory Rate 18 23 Blood Pressure 93/50 L Pulse Oximetry 92 Oxygen Delivery Method Nasal Cannula Oxygen Flow Rate 3 07/11/25 05:30 07/11/25 05:59 07/11/25 06:01 Temperature Pulse Rate Respiratory Rate Blood Pressure 95/53 L 137/73 Pulse Oximetry 91 Oxygen Delivery Method Nasal Cannula Oxygen Flow Rate 3 07/11/25 06:11 07/11/25 06:12 07/11/25 06:12 Temperature Pulse Rate 75 72 Respiratory Rate 22 24 Blood Pressure 125/60 Pulse Oximetry 87 L 89 L Oxygen Delivery Method Oxygen Flow Rate 07/11/25 06:30 07/11/25 06:31 07/11/25 06:31 Temperature 99.3 F Pulse Rate 90 87 Respiratory Rate Blood Pressure 71/46 L Pulse Oximetry 91 86 L Oxygen Delivery Method Room Air Oxygen Flow Rate 07/11/25 06:34 07/11/25 06:34 07/11/25 06:35 Temperature Pulse Rate 80 78 Respiratory Rate 18 21 Blood Pressure 91/54 L Pulse Oximetry 90 L 91 Oxygen Delivery Method Oxygen Flow Rate 07/11/25 06:36 07/11/25 06:36 07/11/25 06:40 Temperature Pulse Rate 75 76 Respiratory Rate 16 17 Blood Pressure 107/52 L Pulse Oximetry 92 91 Oxygen Delivery Method Oxygen Flow Rate 07/11/25 06:40 07/11/25 06:45 07/11/25 06:45 Temperature Pulse Rate 74 Respiratory Rate 20 Blood Pressure 101/54 L 109/58 L Pulse Oximetry 88 L Oxygen Delivery Method Oxygen Flow Rate 07/11/25 06:50 07/11/25 06:50 07/11/25 06:51 Temperature Pulse Rate 72 Respiratory Rate 17 Blood Pressure 104/55 L 110/61 Pulse Oximetry 93 Oxygen Delivery Method Oxygen Flow Rate 07/11/25 06:51 07/11/25 06:55 07/11/25 06:55 Temperature Pulse Rate 72 72 Respiratory Rate 18 15 Blood Pressure 99/57 L Pulse Oximetry 93 97 Oxygen Delivery Method Oxygen Flow Rate 07/11/25 07:00 07/11/25 07:00 07/11/25 07:05 Temperature Pulse Rate 69 Respiratory Rate 17 Blood Pressure 106/59 L 102/59 L Pulse Oximetry 96 Oxygen Delivery Method Oxygen Flow Rate 07/11/25 07:05 07/11/25 07:10 07/11/25 07:10 Temperature Pulse Rate 70 77 Respiratory Rate 18 17 Blood Pressure 106/61 Pulse Oximetry 92 Oxygen Delivery Method Oxygen Flow Rate 07/11/25 07:15 07/11/25 07:15 07/11/25 07:20 Temperature Pulse Rate 69 70 Respiratory Rate 17 19 Blood Pressure 99/55 L Pulse Oximetry Oxygen Delivery Method Oxygen Flow Rate 07/11/25 07:20 07/11/25 07:28 07/11/25 07:28 Temperature Pulse Rate 71 Respiratory Rate 17 Blood Pressure 95/55 L 86/53 L Pulse Oximetry 92 Oxygen Delivery Method Oxygen Flow Rate 07/11/25 07:30 07/11/25 07:30 07/11/25 07:35 Temperature Pulse Rate 70 Respiratory Rate 17 Blood Pressure 90/52 L 112/65 Pulse Oximetry 88 L Oxygen Delivery Method Oxygen Flow Rate 07/11/25 07:35 07/11/25 07:40 07/11/25 07:40 Temperature Pulse Rate 74 85 Respiratory Rate 17 17 Blood Pressure 123/69 Pulse Oximetry 89 L 92 Oxygen Delivery Method Oximask Oxygen Flow Rate 4 07/11/25 07:45 07/11/25 07:45 07/11/25 07:50 Temperature Pulse Rate 84 74 Respiratory Rate 19 15 Blood Pressure 123/68 Pulse Oximetry 93 93 Oxygen Delivery Method Oximask Oximask Oxygen Flow Rate 4 4 07/11/25 07:50 07/11/25 07:55 07/11/25 07:55 Temperature Pulse Rate 72 Respiratory Rate 19 Blood Pressure 135/75 122/59 L Pulse Oximetry 94 Oxygen Delivery Method Oximask Oxygen Flow Rate 4 07/11/25 08:00 07/11/25 08:00 07/11/25 08:05 Temperature Pulse Rate 73 Respiratory Rate 24 Blood Pressure 111/55 L 88/54 L Pulse Oximetry Oxygen Delivery Method Oxygen Flow Rate 07/11/25 08:05 07/11/25 08:10 07/11/25 08:10 Temperature Pulse Rate 70 67 Respiratory Rate 19 20 Blood Pressure 91/54 L Pulse Oximetry 92 96 Oxygen Delivery Method Oximask Oximask Oxygen Flow Rate 4 4 07/11/25 08:15 07/11/25 08:15 07/11/25 08:20 Temperature Pulse Rate 66 Respiratory Rate 19 Blood Pressure 91/51 L 89/55 L Pulse Oximetry 94 Oxygen Delivery Method Oximask Oxygen Flow Rate 4 07/11/25 08:20 07/11/25 08:25 07/11/25 08:25 Temperature Pulse Rate 66 66 Respiratory Rate 17 20 Blood Pressure 94/51 L Pulse Oximetry 96 97 Oxygen Delivery Method Oximask Oximask Oxygen Flow Rate 4 4 07/11/25 08:30 07/11/25 08:30 07/11/25 08:35 Temperature 100.5 F H Pulse Rate 64 Respiratory Rate 18 Blood Pressure 88/53 L Pulse Oximetry 97 Oxygen Delivery Method Oximask Oxygen Flow Rate 4 07/11/25 08:35 07/11/25 08:35 07/11/25 08:40 Temperature Pulse Rate 61 Respiratory Rate 21 Blood Pressure 94/52 L 94/52 L Pulse Oximetry 96 Oxygen Delivery Method Oximask Oxygen Flow Rate 4 07/11/25 08:40 07/11/25 08:44 07/11/25 08:45 Temperature 100.8 F H Pulse Rate 60 60 Respiratory Rate 19 17 Blood Pressure 92/52 L Pulse Oximetry 94 95 Oxygen Delivery Method Oximask Oximask Oxygen Flow Rate 4 4 MDM - Abdominal Pain <Margaret Wagner MD - Last Filed: 07/13/25 11:18> Lab Data 07/11/25 06:45 07/11/25 06:45 Labs: Lab Results 07/11/25 07/11/25 07/11/25 Range/Units 00:45 01:10 01:15 WBC 19.5 H (4.5-11.0) X10^3/uL RBC 5.11 (4.5-5.9) X10^6/uL Hgb 15.9 (13.5-17.5) g/dL Hct 47.5 (41-53) % MCV 92.9 (80-100) fL MCH 31.2 (26-34) PG MCHC 33.6 (30-36) % RDW 14.7 (11.6-14.8) % Plt Count 178 (150-400) X10^3/uL Neut % (Auto) 85.9 H (50-75) % Lymph % (Auto) 8.7 L (25-40) % Evangeline % (Auto) 3.4 (3-14) % Eos % (Auto) 1.3 L (2-4) % Baso % (Auto) 0.7 (0-2) % Neut # (Auto) 90238 H (2752-9843) /uL Lymph # (Auto) 1700 (4990-2938) /uL Evangeline # (Auto) 700 (0-900) /uL Eos # (Auto) 300 (0-450) /uL Baso # (Auto) 100 (0-100) /uL Sodium 141 (137-145) mmol/L Potassium 3.3 L (3.4-5.1) mmol/L Chloride 100 (98-107) mmol/L Carbon Dioxide 19 L (22-32) mmol/L BUN 22 H (9-20) mg/dL Creatinine 1.36 H (0.66-1.25) mg/dL Estimated GFR 54 L (>60) mL/min BUN/Creatinine Ratio 16.2 (6-22) Glucose 144 H (70-99) mg/dL Lactate 7.8 H* (0.7-2.1) mmol/L Calcium 10.4 H (8.4-10.2) mg/dL Total Bilirubin 1.9 H (0.2-1.3) mg/dL AST 220 H (17-59) IU/L ALT 188 H (<50) IU/L Alkaline Phosphatase 80 (38-126) U/L Troponin I 0.069 H (0.01-0.034) ng/mL NT-Pro-B Natriuret Pep 464 H (<450) pg/mL Total Protein 8.9 H (6.3-8.2) g/dL Albumin 5.4 H (3.5-5.0) g/dL Globulin 3.5 (1.7-4.1) g/dL Albumin/Globulin Ratio 1.5 (1.0-2.8) Lipase 18152 H (23-300) U/L Urine Color Urine Appearance Urine pH (4.5-8.0) Ur Specific [place] (1.000-1.035) Urine Protein (Negative) Urine Glucose (UA) (Negative) g/dL Urine Ketones (NEGATIVE) Urine Occult Blood (Negative) Urine Nitrate (Negative) Urine Bilirubin (NEGATIVE) Urine Urobilinogen (0.2) E.U./dL Ur Leukocyte Esterase (NEGATIVE) Urine RBC (0-5/HPF) Urine WBC (0-5/HPF) Ur Squamous Epith Cells (0-5/HPF) Urine Bacteria (None) Ur Culture Indicated? Vol Urine Centrifuged A.calcoaceticus-baumannii cmplx PCR Not detected (Not Detect) Bacteroides fragilis Not detected (Not Detect) Donita albicans (PCR) Not detected (Not Detect) Donita auris (PCR) Not detected (Not Detect) C. glabrata (PCR) Not detected (Not Detect) C. krusei (PCR) Not detected (Not Detect) C. parapsilosis (PCR) Not detected (Not Detect) C. tropicalis (PCR) Not detected (Not Detect) C. neoform/gattii (PCR) Not detected (Not Detect) Enterobacterales (PCR) Detected (Not Detect) E. cloacae complex PCR Not detected (Not Detect) Enterococc faecalis PCR Not detected (Not Detect) Enterococc faecium PCR Not detected (Not Detect) E. coli (PCR) Not detected (Not Detect) H. influenzae (PCR) Not detected (Not Detect) Klebsiella aerogenes (PCR) Not detected (Not Detect) Klebsiella oxytoca PCR Detected (Not Detect) Klebsiella pneumoniae Detected (Not Detect) List. monocytogenes PCR Not detected (Not Detect) N. meningitidis (PCR) Not detected (Not Detect) Proteus species (PCR) Not detected (Not Detect) Salmonella spp. (PCR) Not detected (Not Detect) Serratia marcescens PCR Not detected (Not Detect) Staphylococcus sp PCR Not detected (Not Detect) Staph aureus (PCR) Not detected (Not Detect) mecA/C & MREJ Resist Gene Not applicable (Not Detect) mecA/C-Methicil Resis Gene Not applicable (Not Detect) mcr-1 Colistin Res Gene PCR Not detected (Not Detect) Staph epidermidis (PCR) Not detected (Not Detect) Staph lugdunensis PCR Not detected (Not Detect) S. maltophilia (PCR) Not detected (Not Detect) Streptococcus sp PCR Not detected (Not Detect) Group A Strep (PCR) Not detected (Not Detect) Strep agalactiae (PCR) Not detected (Not Detect) Strep pneumoniae (PCR) Not detected (Not Detect) P. aeruginosa (PCR) Not detected (Not Detect) Nathan/B-Vanco Res Genes Not applicable (Not Detect) blaIMP Car res Gene PCR Not detected (Not Detect) KPC-Carbap Res Gene PCR Not detected (Not Detect) blaNDM Car Res Gene PCR Not detected (Not Detect) OXA-48 Carbapenem Resis Gene (PCR) Not detected (Not Detect) blaVIM Car Res Gene PCR Not detected (Not Detect) CTX-M Gene Resistance (PCR) Not detected (Not Detect) Blood Type A Negative Antibody Screen Negative 07/11/25 07/11/25 07/11/25 Range/Units 03:03 03:15 05:33 WBC (4.5-11.0) X10^3/uL RBC (4.5-5.9) X10^6/uL Hgb (13.5-17.5) g/dL Hct (41-53) % MCV (80-100) fL MCH (26-34) PG MCHC (30-36) % RDW (11.6-14.8) % Plt Count (150-400) X10^3/uL Neut % (Auto) (50-75) % Lymph % (Auto) (25-40) % Evangeline % (Auto) (3-14) % Eos % (Auto) (2-4) % Baso % (Auto) (0-2) % Neut # (Auto) (8940-8577) /uL Lymph # (Auto) (0632-0107) /uL Evangeline # (Auto) (0-900) /uL Eos # (Auto) (0-450) /uL Baso # (Auto) (0-100) /uL Sodium (137-145) mmol/L Potassium (3.4-5.1) mmol/L Chloride (98-107) mmol/L Carbon Dioxide (22-32) mmol/L BUN (9-20) mg/dL Creatinine (0.66-1.25) mg/dL Estimated GFR (>60) mL/min BUN/Creatinine Ratio (6-22) Glucose (70-99) mg/dL Lactate 4.5 H* 3.8 H (0.7-2.1) mmol/L Calcium (8.4-10.2) mg/dL Total Bilirubin (0.2-1.3) mg/dL AST (17-59) IU/L ALT (<50) IU/L Alkaline Phosphatase (38-126) U/L Troponin I 0.084 H (0.01-0.034) ng/mL NT-Pro-B Natriuret Pep (<450) pg/mL Total Protein (6.3-8.2) g/dL Albumin (3.5-5.0) g/dL Globulin (1.7-4.1) g/dL Albumin/Globulin Ratio (1.0-2.8) Lipase (23-300) U/L Urine Color Urine Appearance Urine pH (4.5-8.0) Ur Specific [place] (1.000-1.035) Urine Protein (Negative) Urine Glucose (UA) (Negative) g/dL Urine Ketones (NEGATIVE) Urine Occult Blood (Negative) Urine Nitrate (Negative) Urine Bilirubin (NEGATIVE) Urine Urobilinogen (0.2) E.U./dL Ur Leukocyte Esterase (NEGATIVE) Urine RBC (0-5/HPF) Urine WBC (0-5/HPF) Ur Squamous Epith Cells (0-5/HPF) Urine Bacteria (None) Ur Culture Indicated? Vol Urine Centrifuged A.calcoaceticus-baumannii cmplx PCR (Not Detect) Bacteroides fragilis (Not Detect) Donita albicans (PCR) (Not Detect) Donita auris (PCR) (Not Detect) C. glabrata (PCR) (Not Detect) C. krusei (PCR) (Not Detect) C. parapsilosis (PCR) (Not Detect) C. tropicalis (PCR) (Not Detect) C. neoform/gattii (PCR) (Not Detect) Enterobacterales (PCR) (Not Detect) E. cloacae complex PCR (Not Detect) Enterococc faecalis PCR (Not Detect) Enterococc faecium PCR (Not Detect) E. coli (PCR) (Not Detect) H. influenzae (PCR) (Not Detect) Klebsiella aerogenes (PCR) (Not Detect) Klebsiella oxytoca PCR (Not Detect) Klebsiella pneumoniae (Not Detect) List. monocytogenes PCR (Not Detect) N. meningitidis (PCR) (Not Detect) Proteus species (PCR) (Not Detect) Salmonella spp. (PCR) (Not Detect) Serratia marcescens PCR (Not Detect) Staphylococcus sp PCR (Not Detect) Staph aureus (PCR) (Not Detect) mecA/C & MREJ Resist Gene (Not Detect) mecA/C-Methicil Resis Gene (Not Detect) mcr-1 Colistin Res Gene PCR (Not Detect) Staph epidermidis (PCR) (Not Detect) Staph lugdunensis PCR (Not Detect) S. maltophilia (PCR) (Not Detect) Streptococcus sp PCR (Not Detect) Group A Strep (PCR) (Not Detect) Strep agalactiae (PCR) (Not Detect) Strep pneumoniae (PCR) (Not Detect) P. aeruginosa (PCR) (Not Detect) Nathan/B-Vanco Res Genes (Not Detect) blaIMP Car res Gene PCR (Not Detect) KPC-Carbap Res Gene PCR (Not Detect) blaNDM Car Res Gene PCR (Not Detect) OXA-48 Carbapenem Resis Gene (PCR) (Not Detect) blaVIM Car Res Gene PCR (Not Detect) CTX-M Gene Resistance (PCR) (Not Detect) Blood Type Antibody Screen 07/11/25 07/11/25 07/11/25 Range/Units 06:45 07:35 08:40 WBC 21.8 H (4.5-11.0) X10^3/uL RBC 5.23 (4.5-5.9) X10^6/uL Hgb 16.1 (13.5-17.5) g/dL Hct 48.3 (41-53) % MCV 92.4 (80-100) fL MCH 30.8 (26-34) PG MCHC 33.3 (30-36) % RDW 14.3 (11.6-14.8) % Plt Count 147 L (150-400) X10^3/uL Neut % (Auto) 94.8 H (50-75) % Lymph % (Auto) 2.0 L (25-40) % Evangeline % (Auto) 3.0 (3-14) % Eos % (Auto) 0.0 L (2-4) % Baso % (Auto) 0.2 (0-2) % Neut # (Auto) 11567 H (5146-7987) /uL Lymph # (Auto) 400 L (1177-2445) /uL Evangeline # (Auto) 600 (0-900) /uL Eos # (Auto) 0 (0-450) /uL Baso # (Auto) 0 (0-100) /uL Sodium 140 (137-145) mmol/L Potassium 3.7 (3.4-5.1) mmol/L Chloride 107 (98-107) mmol/L Carbon Dioxide 15 L (22-32) mmol/L BUN 24 H (9-20) mg/dL Creatinine 1.56 H (0.66-1.25) mg/dL Estimated GFR 45 L (>60) mL/min BUN/Creatinine Ratio 15.4 (6-22) Glucose 180 H (70-99) mg/dL Lactate 5.5 H* (0.7-2.1) mmol/L Calcium 9.0 (8.4-10.2) mg/dL Total Bilirubin 2.2 H (0.2-1.3) mg/dL AST 237 H (17-59) IU/L ALT 201 H (<50) IU/L Alkaline Phosphatase 87 (38-126) U/L Troponin I (0.01-0.034) ng/mL NT-Pro-B Natriuret Pep (<450) pg/mL Total Protein 7.4 (6.3-8.2) g/dL Albumin 4.5 (3.5-5.0) g/dL Globulin 2.9 (1.7-4.1) g/dL Albumin/Globulin Ratio 1.6 (1.0-2.8) Lipase (23-300) U/L Urine Color Yellow Urine Appearance Clear Urine pH 5.5 (4.5-8.0) Ur Specific [place] <=1.005 (1.000-1.035) Urine Protein Negative (Negative) Urine Glucose (UA) 3+ H (Negative) g/dL Urine Ketones Trace H (NEGATIVE) Urine Occult Blood Negative (Negative) Urine Nitrate Negative (Negative) Urine Bilirubin Negative (NEGATIVE) Urine Urobilinogen 1.0 (0.2) E.U./dL Ur Leukocyte Esterase Negative (NEGATIVE) Urine RBC None seen (0-5/HPF) Urine WBC None seen (0-5/HPF) Ur Squamous Epith Cells None seen (0-5/HPF) Urine Bacteria None seen (None) Ur Culture Indicated? Cult not indicated Vol Urine Centrifuged 10ml (spun) A.calcoaceticus-baumannii cmplx PCR (Not Detect) Bacteroides fragilis (Not Detect) Donita albicans (PCR) (Not Detect) Donita auris (PCR) (Not Detect) C. glabrata (PCR) (Not Detect) C. krusei (PCR) (Not Detect) C. parapsilosis (PCR) (Not Detect) C. tropicalis (PCR) (Not Detect) C. neoform/gattii (PCR) (Not Detect) Enterobacterales (PCR) (Not Detect) E. cloacae complex PCR (Not Detect) Enterococc faecalis PCR (Not Detect) Enterococc faecium PCR (Not Detect) E. coli (PCR) (Not Detect) H. influenzae (PCR) (Not Detect) Klebsiella aerogenes (PCR) (Not Detect) Klebsiella oxytoca PCR (Not Detect) Klebsiella pneumoniae (Not Detect) List. monocytogenes PCR (Not Detect) N. meningitidis (PCR) (Not Detect) Proteus species (PCR) (Not Detect) Salmonella spp. (PCR) (Not Detect) Serratia marcescens PCR (Not Detect) Staphylococcus sp PCR (Not Detect) Staph aureus (PCR) (Not Detect) mecA/C & MREJ Resist Gene (Not Detect) mecA/C-Methicil Resis Gene (Not Detect) mcr-1 Colistin Res Gene PCR (Not Detect) Staph epidermidis (PCR) (Not Detect) Staph lugdunensis PCR (Not Detect) S. maltophilia (PCR) (Not Detect) Streptococcus sp PCR (Not Detect) Group A Strep (PCR) (Not Detect) Strep agalactiae (PCR) (Not Detect) Strep pneumoniae (PCR) (Not Detect) P. aeruginosa (PCR) (Not Detect) Nathan/B-Vanco Res Genes (Not Detect) blaIMP Car res Gene PCR (Not Detect) KPC-Carbap Res Gene PCR (Not Detect) blaNDM Car Res Gene PCR (Not Detect) OXA-48 Carbapenem Resis Gene (PCR) (Not Detect) blaVIM Car Res Gene PCR (Not Detect) CTX-M Gene Resistance (PCR) (Not Detect) Blood Type Antibody Screen Imaging Data Chest x-ray: Radiologist's Impression: PROCEDURE: XR CHEST 1V INDICATIONS: chest pain TECHNIQUE: One view of the chest was acquired. COMPARISON: [facility], , XR CHEST 1V, 06/26/2024, 3:34. [facility], , XR CHEST 1V, 09/23/2020, 5:10. FINDINGS AND IMPRESSION: Borderline cardiomegaly. Left chest wall pulse generator with dual-chamber biventricular electrode leads in place. Mediastinal clips and sternotomy wires and aortic valve replacement are present. Low lung volumes. No airspace consolidation or pleural effusion on this single view study. Degenerative osseous changes. US - abdomen: Radiologist's Impression: Gallbladder wall thickening up to 4.2 mm with pericholecystic fluid and small stones/sludge in the gallbladder neck. While there is no sonographic Seals's sign findings are concerning for acute cholecystitis. Recommend clinical correlation and consider further evaluation with HIDA scan. Common bile duct dilatation is nonspecific, measuring up to 9.7 mm. This can be further evaluated with MRCP as clinically indicated. CT scan - abdomen/pelvis: Radiologist's Impression: PROCEDURE: CT CHEST ABD PEL W CON INDICATIONS: abdominal pain, nausea, cyanosis TECHNIQUE: After the administration of intravenous contrast, 5 mm thick sections acquired from the lung apices to the symphysis. 5 mm coronal and sagittal reformats were performed, with additional 7 mm MIP reformats through the lungs. For radiation dose reduction, the following was used: automated exposure control, adjustment of mA and/or kV according to patient size. COMPARISON: [facility], CT, CT CHEST WITHOUT CONTRAST, 09/01/2024, 3:14. [facility], CT, CT ANGIO CHEST ABDOMEN, 04/25/2024, 15:18. FINDINGS: Image quality: Diagnostic Lungs and pleura: Background emphysematous changes. Scattered scarring and atelectasis. No airspace consolidation. No pleural effusions. Mediastinum, heart, and esophagus: Left chest wall pulse generator with electrode leads in place. Cardiomegaly. Dilated ascending aorta at 4.6 cm again seen. Aortic valve replacement and CABG changes. Unremarkable CT appearance of the esophagus. There are no enlarged lymph nodes by size criteria. Chest wall and thyroid: Unremarkable Liver: Hepatomegaly at 24 cm Gallbladder and biliary system: Mildly distended gallbladder with gallstones. Moderate pericholecystic edema. No biliary ductal dilation. Mild edema is seen surrounding the CBD and CHD. Pancreas: No ductal dilation. Possible mild edema is seen around the uncinate process and pancreatic head. Spleen: Prominent, measuring 13 cm Adrenals: No discrete nodules. Kidneys: Multiple cysts. No hydronephrosis. No enhancing solid renal mass. Vessels and lymph nodes: The main portal vein is patent. No abdominal aortic aneurysm. [id number] aortoiliac atherosclerotic calcifications partially fluid density lesion adjacent to the celiac axis again seen, measuring short axis diameter of 1.6 cm. 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 Bowel and peritoneum: Distended stomach. No bowel obstruction. No drainable abscess or ascites. Moderate colorectal fecal loading including a rectal stool ball. Scattered peritoneal calcifications. Nondilated appendix. Probable sequelae of fat necrosis in the left upper quadrant. Body wall: Bilateral inguinal hernias containing fat, greater on the right. Tiny fat containing umbilical hernia also present. Pelvis: Under distended urinary bladder. Heterogeneous prostate enhancement, nonspecific, not well assessed on CT. Bones: No aggressive appearing osseous abnormality. Diffuse degenerative osseous changes. IMPRESSION: No acute abnormality identified in the chest. Background emphysematous changes. Distended gallbladder with gallstones and surrounding edema. Correlate with ultrasound for sonographic Seals's sign. Edema also seen around the biliary system, which is nondilated. Correlate LFTs and consider MRCP if clinically needed. 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 Cardiomegaly. CABG changes. These findings were present previously. Distended stomach. No small bowel obstruction. Moderate colorectal fecal loading including a rectal stool ball. Hepatomegaly. Other findings above. MDM Narrative Medical decision making narrative: Patient is a 79-year-old man with multiple comorbidities to include significant cardiac history presents with acute onset of vomiting and abdominal pain. Differential diagnosis: ACS, AAA, cardiogenic shock, small versus large bowel obstruction, acute gastroenteritis, appendicitis, bowel perforation, less likely mesenteric ischemia, other. Labs: CBC with leukocytosis (WBC 19.5), left shift (Neut 85.9), no anemia or thrombocytopenia. Mild hypokalemia (K 3.3), LUCA (Cr 1.36, baseline 0.93-1.07), lactate 7.8 and 4.5 on repeat, Tbili 1.9, AST 220, ALT 188, Alk phos 80, troponin 0.069, 0.084, BNP 464, lipase 66877. Repeat labs completed WBC (21.8), neutro 94.8, no anemia, platelet 147, creatinine 1.56, GFR 45, T bili 2.2, AST 237, ALT 201, troponin 0.084, proBNP 464 --all trending in the negative direction. EKG: Ventricular paced rhythm, rate 85, QRS 156, QTC 533. This was compared to EKG obtained on 06/26/2024 which is largely unchanged however there is appears to be a right bundle-branch block in V1 and V2 that is not present in today's EKG. Imaging: CT please see CT read in above however, distended gallbladder is noted with gallstones. Ultrasound consistent with acute cholecystitis, see image section above. ED Course: Patient presented to ED shaking and rigors, breathing similar to [place], lips were cyanotic, fingertips were blue and cold to the touch, his chest and abdominal wall was mottled, distended, with voluntary guarding. Given his cardiac history there was initial concern for cardiogenic shock. Patient did not initially meet sepsis criteria however given his abdominal exam and presentation we initiated the sepsis protocol immediately. His labs then returned revealing significant leukocytosis and left shift, lactate of 7.8, and elevated liver enzymes as well as lipase consistent with pancreatitis. Initially presented with blood pressure of 125/88 however progressively declined. It appeared that he was responding to be responding to fluid resuscitation (blood pressure was 90s/50s and increased back to 125/60). His CT chest abdomen and pelvis as well as abdominal ultrasound was consistent with acute cholecystitis. In the setting of increased lipase, there is concern for choledocholithiasis and need for MRCP, which could be performed in the morning at 0800. Patient's troponin continue to trend upward, and given that he has by vernacularly paced, I called Dr. Mendieta, mounter automatic, who recommended gentle diuresis with 20 mg of Lasix (this was never administered given patient's hypotension). In the ER, patient required supplemental oxygen to maintain his oxygen saturation above 91%. He was re-evaluated by myself and had fine crackles in his lung bases, likely due to fluid resuscitation and heart failure. Patient was never in respiratory distress, nor did he need an excessive amount of supplemental oxygen support, however it was considered to place him on BiPAP. His CT also revealed a large stool burden include large stool ball in his rectum. Around 6:00 a.m., patient had a bowel movement then became increasingly lightheaded, diaphoretic, and hypotensive. I re-examined him and his blood pressure was 99/57 at that time. It was noted that he had only received 2 L of fluid which is not the adequate dose for fluid resuscitation in sepsis an additional L of fluid was given. Given his presentation at this time, concerns for progressively worsening disease, repeat labs were completed which are available above and trending in the negative direction. At 0700 patient signed out to Dr Ethel Andrade. Margaret Wagner MD Emergency Medicine [id number] 07/11/25 745am care is assumed, patient is independently evaluated, chart is reviewed Concern is for sepsis progressing to severe sepsis time of diagnosis 745 with re-evaluation persistent hypotension yet still good tissue perfusion with large IV J appreciated on ultrasound. Additional fluids and IV pressors initiated this time Acute cholecystitis with gallstones, acute pancreatitis. There is no overt evidence for common duct stone but mentioned of a nonmobile gallstone in the gallbladder neck. Patient does have a pacemaker, remains completely paced and chest pain-free however troponin is increasing and mild increased BNP with repeat labs this morning. I believe this is demand ischemia rather than an NSTEMI or cardiogenic shock. Briefly reviewed with Cardiology, Dr. Mendieta Labs are progressively worse this morning with White count increasing from 19.5-21.8. Zosyn to continue has been ordered Q 8, initial loading dose at initial evaluation in the ER Patient will need transfer even if we are able to do an MRCP at this facility. Currently [facility] has no beds, [facility] does not believe they are going to have MRCP capacity. 815am discussed with [place] on-call physician with concerns for now severe sepsis, acute cholecystitis, acute pancreatitis concern for common duct stone without ductal dilatation appreciated on CT or ultrasound with all parameters worsening this morning and now on pressors. Code discussion with the patient, he wants to have aggressive care including intubation to but not including CPR. He does have a pacemaker if you were to develop a life-threatening arrhythmia he would not want to be shocked nor have CPR started. 835 care is discussed with . Patient has had a total of 4217 cc normal saline. Levophed is being initiated, map is 68 pressure systolic of 92. We will do 1 more L of fluid in the continue fluids at 130 an hour. Dias catheter was placed and he is producing adequate urine 905 gen [place] surgeon accepts patient. He will be transfered ED-ED with anticipation of surgery today. ALS transport >2.5 hr Will check on airlift 110pm today call from the lab showing for 4 blood cultures positive for Gram-negative bacilli. Information was passed to Jez Nunez more patient was transferred <Ethel Andrade MD - Last Filed: 07/11/25 19:02> Lab Data Labs: Lab Results 07/11/25 07/11/25 07/11/25 Range/Units 00:45 01:10 01:15 WBC 19.5 H (4.5-11.0) X10^3/uL RBC 5.11 (4.5-5.9) X10^6/uL Hgb 15.9 (13.5-17.5) g/dL Hct 47.5 (41-53) % MCV 92.9 (80-100) fL MCH 31.2 (26-34) PG MCHC 33.6 (30-36) % RDW 14.7 (11.6-14.8) % Plt Count 178 (150-400) X10^3/uL Neut % (Auto) 85.9 H (50-75) % Lymph % (Auto) 8.7 L (25-40) % [place] % (Auto) 3.4 (3-14) % Eos % (Auto) 1.3 L (2-4) % Baso % (Auto) 0.7 (0-2) % Neut # (Auto) 34180 H (3065-2829) /uL Lymph # (Auto) 1700 (8204-4749) /uL [place] # (Auto) 700 (0-900) /uL Eos # (Auto) 300 (0-450) /uL Baso # (Auto) 100 (0-100) /uL Sodium 141 (137-145) mmol/L Potassium 3.3 L (3.4-5.1) mmol/L Chloride 100 (98-107) mmol/L Carbon Dioxide 19 L (22-32) mmol/L BUN 22 H (9-20) mg/dL Creatinine 1.36 H (0.66-1.25) mg/dL Estimated GFR 54 L (>60) mL/min BUN/Creatinine Ratio 16.2 (6-22) Glucose 144 H (70-99) mg/dL Lactate 7.8 H* (0.7-2.1) mmol/L Calcium 10.4 H (8.4-10.2) mg/dL Total Bilirubin 1.9 H (0.2-1.3) mg/dL AST 220 H (17-59) IU/L ALT 188 H (<50) IU/L Alkaline Phosphatase 80 (38-126) U/L Troponin I 0.069 H (0.01-0.034) ng/mL NT-Pro-B Natriuret Pep 464 H (<450) pg/mL Total Protein 8.9 H (6.3-8.2) g/dL Albumin 5.4 H (3.5-5.0) g/dL Globulin 3.5 (1.7-4.1) g/dL Albumin/Globulin Ratio 1.5 (1.0-2.8) Lipase 89688 H (23-300) U/L Urine Color Urine Appearance Urine pH (4.5-8.0) Ur Specific [place] (1.000-1.035) Urine Protein (Negative) Urine Glucose (UA) (Negative) g/dL Urine Ketones (NEGATIVE) Urine Occult Blood (Negative) Urine Nitrate (Negative) Urine Bilirubin (NEGATIVE) Urine Urobilinogen (0.2) E.U./dL Ur Leukocyte Esterase (NEGATIVE) Urine RBC (0-5/HPF) Urine WBC (0-5/HPF) Ur Squamous Epith Cells (0-5/HPF) Urine Bacteria (None) Ur Culture Indicated? Vol Urine Centrifuged A.calcoaceticus-baumannii cmplx PCR Not detected (Not Detect) Bacteroides fragilis Not detected (Not Detect) Donita albicans (PCR) Not detected (Not Detect) Donita auris (PCR) Not detected (Not Detect) C. glabrata (PCR) Not detected (Not Detect) C. krusei (PCR) Not detected (Not Detect) C. parapsilosis (PCR) Not detected (Not Detect) C. tropicalis (PCR) Not detected (Not Detect) C. neoform/gattii (PCR) Not detected (Not Detect) Enterobacterales (PCR) Detected (Not Detect) E. cloacae complex PCR Not detected (Not Detect) Enterococc faecalis PCR Not detected (Not Detect) Enterococc faecium PCR Not detected (Not Detect) E. coli (PCR) Not detected (Not Detect) H. influenzae (PCR) Not detected (Not Detect) Klebsiella aerogenes (PCR) Not detected (Not Detect) Klebsiella oxytoca PCR Detected (Not Detect) Klebsiella pneumoniae Detected (Not Detect) List. monocytogenes PCR Not detected (Not Detect) N. meningitidis (PCR) Not detected (Not Detect) Proteus species (PCR) Not detected (Not Detect) Salmonella spp. (PCR) Not detected (Not Detect) Serratia marcescens PCR Not detected (Not Detect) Staphylococcus sp PCR Not detected (Not Detect) Staph aureus (PCR) Not detected (Not Detect) mecA/C & MREJ Resist Gene Not applicable (Not Detect) mecA/C-Methicil Resis Gene Not applicable (Not Detect) mcr-1 Colistin Res Gene PCR Not detected (Not Detect) Staph epidermidis (PCR) Not detected (Not Detect) Staph lugdunensis PCR Not detected (Not Detect) S. maltophilia (PCR) Not detected (Not Detect) Streptococcus sp PCR Not detected (Not Detect) Group A Strep (PCR) Not detected (Not Detect) Strep agalactiae (PCR) Not detected (Not Detect) Strep pneumoniae (PCR) Not detected (Not Detect) P. aeruginosa (PCR) Not detected (Not Detect) Nathan/B-Vanco Res Genes Not applicable (Not Detect) blaIMP Car res Gene PCR Not detected (Not Detect) KPC-Carbap Res Gene PCR Not detected (Not Detect) blaNDM Car Res Gene PCR Not detected (Not Detect) OXA-48 Carbapenem Resis Gene (PCR) Not detected (Not Detect) blaVIM Car Res Gene PCR Not detected (Not Detect) CTX-M Gene Resistance (PCR) Not detected (Not Detect) Blood Type A Negative Antibody Screen Negative 07/11/25 07/11/25 07/11/25 Range/Units 03:03 03:15 05:33 WBC (4.5-11.0) X10^3/uL RBC (4.5-5.9) X10^6/uL Hgb (13.5-17.5) g/dL Hct (41-53) % MCV (80-100) fL MCH (26-34) PG MCHC (30-36) % RDW (11.6-14.8) % Plt Count (150-400) X10^3/uL Neut % (Auto) (50-75) % Lymph % (Auto) (25-40) % Evangeline % (Auto) (3-14) % Eos % (Auto) (2-4) % Baso % (Auto) (0-2) % Neut # (Auto) (9957-6222) /uL Lymph # (Auto) (2486-5309) /uL Evangeline # (Auto) (0-900) /uL Eos # (Auto) (0-450) /uL Baso # (Auto) (0-100) /uL Sodium (137-145) mmol/L Potassium (3.4-5.1) mmol/L Chloride (98-107) mmol/L Carbon Dioxide (22-32) mmol/L BUN (9-20) mg/dL Creatinine (0.66-1.25) mg/dL Estimated GFR (>60) mL/min BUN/Creatinine Ratio (6-22) Glucose (70-99) mg/dL Lactate 4.5 H* 3.8 H (0.7-2.1) mmol/L Calcium (8.4-10.2) mg/dL Total Bilirubin (0.2-1.3) mg/dL AST (17-59) IU/L ALT (<50) IU/L Alkaline Phosphatase (38-126) U/L Troponin I 0.084 H (0.01-0.034) ng/mL NT-Pro-B Natriuret Pep (<450) pg/mL Total Protein (6.3-8.2) g/dL Albumin (3.5-5.0) g/dL Globulin (1.7-4.1) g/dL Albumin/Globulin Ratio (1.0-2.8) Lipase (23-300) U/L Urine Color Urine Appearance Urine pH (4.5-8.0) Ur Specific [place] (1.000-1.035) Urine Protein (Negative) Urine Glucose (UA) (Negative) g/dL Urine Ketones (NEGATIVE) Urine Occult Blood (Negative) Urine Nitrate (Negative) Urine Bilirubin (NEGATIVE) Urine Urobilinogen (0.2) E.U./dL Ur Leukocyte Esterase (NEGATIVE) Urine RBC (0-5/HPF) Urine WBC (0-5/HPF) Ur Squamous Epith Cells (0-5/HPF) Urine Bacteria (None) Ur Culture Indicated? Vol Urine Centrifuged A.calcoaceticus-baumannii cmplx PCR (Not Detect) Bacteroides fragilis (Not Detect) Donita albicans (PCR) (Not Detect) Donita auris (PCR) (Not Detect) C. glabrata (PCR) (Not Detect) C. krusei (PCR) (Not Detect) C. parapsilosis (PCR) (Not Detect) C. tropicalis (PCR) (Not Detect) C. neoform/gattii (PCR) (Not Detect) Enterobacterales (PCR) (Not Detect) E. cloacae complex PCR (Not Detect) Enterococc faecalis PCR (Not Detect) Enterococc faecium PCR (Not Detect) E. coli (PCR) (Not Detect) H. influenzae (PCR) (Not Detect) Klebsiella aerogenes (PCR) (Not Detect) Klebsiella oxytoca PCR (Not Detect) Klebsiella pneumoniae (Not Detect) List. monocytogenes PCR (Not Detect) N. meningitidis (PCR) (Not Detect) Proteus species (PCR) (Not Detect) Salmonella spp. (PCR) (Not Detect) Serratia marcescens PCR (Not Detect) Staphylococcus sp PCR (Not Detect) Staph aureus (PCR) (Not Detect) mecA/C & MREJ Resist Gene (Not Detect) mecA/C-Methicil Resis Gene (Not Detect) mcr-1 Colistin Res Gene PCR (Not Detect) Staph epidermidis (PCR) (Not Detect) Staph lugdunensis PCR (Not Detect) S. maltophilia (PCR) (Not Detect) Streptococcus sp PCR (Not Detect) Group A Strep (PCR) (Not Detect) Strep agalactiae (PCR) (Not Detect) Strep pneumoniae (PCR) (Not Detect) P. aeruginosa (PCR) (Not Detect) Nathan/B-Vanco Res Genes (Not Detect) blaIMP Car res Gene PCR (Not Detect) KPC-Carbap Res Gene PCR (Not Detect) blaNDM Car Res Gene PCR (Not Detect) OXA-48 Carbapenem Resis Gene (PCR) (Not Detect) blaVIM Car Res Gene PCR (Not Detect) CTX-M Gene Resistance (PCR) (Not Detect) Blood Type Antibody Screen 07/11/25 07/11/25 07/11/25 Range/Units 06:45 07:35 08:40 WBC 21.8 H (4.5-11.0) X10^3/uL RBC 5.23 (4.5-5.9) X10^6/uL Hgb 16.1 (13.5-17.5) g/dL Hct 48.3 (41-53) % MCV 92.4 (80-100) fL MCH 30.8 (26-34) PG MCHC 33.3 (30-36) % RDW 14.3 (11.6-14.8) % Plt Count 147 L (150-400) X10^3/uL Neut % (Auto) 94.8 H (50-75) % Lymph % (Auto) 2.0 L (25-40) % Evangeline % (Auto) 3.0 (3-14) % Eos % (Auto) 0.0 L (2-4) % Baso % (Auto) 0.2 (0-2) % Neut # (Auto) 74003 H (6584-6563) /uL Lymph # (Auto) 400 L (4580-4579) /uL [place] # (Auto) 600 (0-900) /uL Eos # (Auto) 0 (0-450) /uL Baso # (Auto) 0 (0-100) /uL Sodium 140 (137-145) mmol/L Potassium 3.7 (3.4-5.1) mmol/L Chloride 107 (98-107) mmol/L Carbon Dioxide 15 L (22-32) mmol/L BUN 24 H (9-20) mg/dL Creatinine 1.56 H (0.66-1.25) mg/dL Estimated GFR 45 L (>60) mL/min BUN/Creatinine Ratio 15.4 (6-22) Glucose 180 H (70-99) mg/dL Lactate 5.5 H* (0.7-2.1) mmol/L Calcium 9.0 (8.4-10.2) mg/dL Total Bilirubin 2.2 H (0.2-1.3) mg/dL AST 237 H (17-59) IU/L ALT 201 H (<50) IU/L Alkaline Phosphatase 87 (38-126) U/L Troponin I (0.01-0.034) ng/mL NT-Pro-B Natriuret Pep (<450) pg/mL Total Protein 7.4 (6.3-8.2) g/dL Albumin 4.5 (3.5-5.0) g/dL Globulin 2.9 (1.7-4.1) g/dL Albumin/Globulin Ratio 1.6 (1.0-2.8) Lipase (23-300) U/L Urine Color Yellow Urine Appearance Clear Urine pH 5.5 (4.5-8.0) Ur Specific [place] <=1.005 (1.000-1.035) Urine Protein Negative (Negative) Urine Glucose (UA) 3+ H (Negative) g/dL Urine Ketones Trace H (NEGATIVE) Urine Occult Blood Negative (Negative) Urine Nitrate Negative (Negative) Urine Bilirubin Negative (NEGATIVE) Urine Urobilinogen 1.0 (0.2) E.U./dL Ur Leukocyte Esterase Negative (NEGATIVE) Urine RBC None seen (0-5/HPF) Urine WBC None seen (0-5/HPF) Ur Squamous Epith Cells None seen (0-5/HPF) Urine Bacteria None seen (None) Ur Culture Indicated? Cult not indicated Vol Urine Centrifuged 10ml (spun) A.calcoaceticus-baumannii cmplx PCR (Not Detect) Bacteroides fragilis (Not Detect) Donita albicans (PCR) (Not Detect) Donita auris (PCR) (Not Detect) C. glabrata (PCR) (Not Detect) C. krusei (PCR) (Not Detect) C. parapsilosis (PCR) (Not Detect) C. tropicalis (PCR) (Not Detect) C. neoform/gattii (PCR) (Not Detect) Enterobacterales (PCR) (Not Detect) E. cloacae complex PCR (Not Detect) Enterococc faecalis PCR (Not Detect) Enterococc faecium PCR (Not Detect) E. coli (PCR) (Not Detect) H. influenzae (PCR) (Not Detect) Klebsiella aerogenes (PCR) (Not Detect) Klebsiella oxytoca PCR (Not Detect) Klebsiella pneumoniae (Not Detect) List. monocytogenes PCR (Not Detect) N. meningitidis (PCR) (Not Detect) Proteus species (PCR) (Not Detect) Salmonella spp. (PCR) (Not Detect) Serratia marcescens PCR (Not Detect) Staphylococcus sp PCR (Not Detect) Staph aureus (PCR) (Not Detect) mecA/C & MREJ Resist Gene (Not Detect) mecA/C-Methicil Resis Gene (Not Detect) mcr-1 Colistin Res Gene PCR (Not Detect) Staph epidermidis (PCR) (Not Detect) Staph lugdunensis PCR (Not Detect) S. maltophilia (PCR) (Not Detect) Streptococcus sp PCR (Not Detect) Group A Strep (PCR) (Not Detect) Strep agalactiae (PCR) (Not Detect) Strep pneumoniae (PCR) (Not Detect) P. aeruginosa (PCR) (Not Detect) Nathan/B-Vanco Res Genes (Not Detect) blaIMP Car res Gene PCR (Not Detect) KPC-Carbap Res Gene PCR (Not Detect) blaNDM Car Res Gene PCR (Not Detect) OXA-48 Carbapenem Resis Gene (PCR) (Not Detect) blaVIM Car Res Gene PCR (Not Detect) CTX-M Gene Resistance (PCR) (Not Detect) Blood Type Antibody Screen MDM Narrative Medical decision making narrative: Patient is a 79-year-old man with multiple comorbidities to include significant cardiac history presents with acute onset of vomiting and abdominal pain. Differential diagnosis: ACS, AAA, cardiogenic shock, small versus large bowel obstruction, acute gastroenteritis, appendicitis, bowel perforation, less likely mesenteric ischemia, other. Labs: CBC with leukocytosis (WBC 19.5), left shift (Neut 85.9), no anemia or thrombocytopenia. Mild hypokalemia (K 3.3), LUCA (Cr 1.36, baseline 0.93-1.07), lactate 7.8 and 4.5 on repeat, Tbili 1.9, AST 220, ALT 188, Alk phos 80, troponin 0.069, 0.084, BNP 464, lipase 50971. Repeat labs completed WBC (21.8), neutro 94.8, no anemia, platelet 147, creatinine 1.56, GFR 45, T bili 2.2, AST 237, ALT 201, troponin 0.084, proBNP 464 --all trending in the negative direction. EKG: Ventricular paced rhythm, rate 85, QRS 156, QTC 533. This was compared to EKG obtained on 06/26/2024 which is largely unchanged however there is appears to be a right bundle-branch block in V1 and V2 that is not present in today's EKG. Imaging: CT please see CT read in above however, distended gallbladder is noted with gallstones. Ultrasound consistent with acute cholecystitis, see image section above. ED Course: Patient presented to ED shaking and rigors, breathing similar to [place], lips were cyanotic, fingertips were blue and cold to the touch, his chest and abdominal wall was mottled, distended, with voluntary guarding. Given his cardiac history there was initial concern for cardiogenic shock. Patient did not initially meet sepsis criteria however given his abdominal exam and presentation we initiated the sepsis protocol immediately. His labs then returned revealing significant leukocytosis and left shift, lactate of 7.8, and elevated liver enzymes as well as lipase consistent with pancreatitis. Initially presented with blood pressure of 125/88 however progressively declined. It appeared that he was responding to be responding to fluid resuscitation (blood pressure was 90s/50s and increased back to 125/60). His CT chest abdomen and pelvis as well as abdominal ultrasound was consistent with acute cholecystitis. In the setting of increased lipase, there is concern for choledocholithiasis and need for MRCP, which could be performed in the morning at 0800. Patient's troponin continue to trend upward, and given that he has by vernacularly paced, I called Dr. Mendieta, mounter automatic, who recommended gentle diuresis with 20 mg of Lasix (this was never administered given patient's hypotension). In the ER, patient required supplemental oxygen to maintain his oxygen saturation above 91%. He was re-evaluated by myself and had fine crackles in his lung bases, likely due to fluid resuscitation and heart failure. Patient was never in respiratory distress, nor did he need an excessive amount of supplemental oxygen support, however it was considered to place him on BiPAP. His CT also revealed a large stool burden include large stool ball in his rectum. Around 6:00 a.m., patient had a bowel movement then became increasingly lightheaded, diaphoretic, and hypotensive. I re-examined him and his blood pressure was 99/57 at that time. It was noted that he had only received 2 L of fluid which is not the adequate dose for fluid resuscitation in sepsis an additional L of fluid was given. Given his presentation at this time, concerns for progressively worsening disease, repeat labs were completed which are available above and trending in the negative direction. At 0[address] patient signed out to Dr Ethel Andrade. Margaret Wagner MD Emergency Medicine [id number] care is assumed, patient is independently evaluated, chart is reviewed Concern is for sepsis progressing to severe sepsis time of diagnosis 025 with re-evaluation persistent hypotension yet still good tissue perfusion with large IV J appreciated on ultrasound. Additional fluids and IV pressors initiated this time Acute cholecystitis with gallstones, acute pancreatitis. There is no overt evidence for common duct stone but mentioned of a nonmobile gallstone in the gallbladder neck. Patient does have a pacemaker, remains completely paced and chest pain-free however troponin is increasing and mild increased BNP with repeat labs this morning. I believe this is demand ischemia rather than an NSTEMI or cardiogenic shock. Briefly reviewed with Cardiology, Dr. Mendieta Labs are progressively worse this morning with White count increasing from 19.5-21.8. Zosyn to continue has been ordered Q 8, initial loading dose at initial evaluation in the ER Patient will need transfer even if we are able to do an MRCP at this facility. Currently [facility] has no beds, [facility] does not believe they are going to have MRCP capacity. 815am discussed with [place] on-call physician with concerns for now severe sepsis, acute cholecystitis, acute pancreatitis concern for common duct stone without ductal dilatation appreciated on CT or ultrasound with all parameters worsening this morning and now on pressors. Code discussion with the patient, he wants to have aggressive care including intubation to but not including CPR. He does have a pacemaker if you were to develop a life-threatening arrhythmia he would not want to be shocked nor have CPR started. 835 care is discussed with . Patient has had a total of 4217 cc normal saline. Levophed is being initiated, map is 68 pressure systolic of 92. We will do 1 more L of fluid in the continue fluids at 130 an hour. Dias catheter was placed and he is producing adequate urine 905 Dr Liao, surgeon accepts patient. He will be transfered ED-ED with anticipation of surgery today. ALS transport >2.5 hr Will check on airlift 110pm today call from the lab showing for 4 blood cultures positive for Gram-negative bacilli. Information was passed to Jez Nunez more patient was transferred Critical Care Time <Margaret Wagner MD - Last Filed: 07/13/25 11:18> Critical Care Time Critical Care Time: Yes Total Critical Care Time: 45 Attestation: I personally provided critical care services to this patient due to a high probability of imminent or life-threatening deterioration requiring my direct attention. This time includes my evaluation, management, and treatment of the patient, review of diagnostic studies, coordination of care, and discussions with consultants and the care team. It does not include time spent on separately billable procedures or time spent on activities not directly related to the patient?s critical care. Critical care was necessary for management of sepsis, respiratory failure, shock, arrhythmia, altered mental status, vasovagal episode, concern for NSTEMI, discussion with specialist, which posed an immediate threat to life or organ function. Margaret Wagner MD <Ethel Andrade MD - Last Filed: 07/11/25 19:02> Critical Care Time Total Critical Care Time: 75 Attestation: I personally provided critical care services to this patient due to a high probability of imminent or life-threatening deterioration requiring my direct attention. This time includes my evaluation, management, and treatment of the patient, review of diagnostic studies, coordination of care, and discussions with consultants and the care team. It does not include time spent on separately billable procedures or time spent on activities not directly related to the patient?s critical care. Critical care was necessary for management of sepsis, respiratory failure, shock, arrhythmia, altered mental status, vasovagal episode, concern for NSTEMI, discussion with specialist, which posed an immediate threat to life or organ function. Margaret Wagner MD Care is assumed, patient is clinically worsening with development of severe sepsis, addition of pressors, multiple consultations and arrangement for transfer to [facility] as well as family conversations and code discussions. Ethel Andrade MD Discharge Plan Departure Patient Disposition: [facility] Clinical Impression: Severe sepsis, Acute cholecystitis, Pancreatitis, LUCA (acute kidney injury), Elevated troponin Prescriptions: No Action multivitamin Tablet 1 tab PO DAILY Qty: 0 Jardiance 25 mg tablet 25 mg PO DAILY Qty: 30 0RF glipizide 5 mg tablet extended release 24hr 5 mg PO BID Qty: 180 1RF furosemide 20 mg tablet 20 mg PO BID Qty: 180 3RF alpha lipoic acid 600 mg capsule 600 mg PO DAILY Airborne (lysine HCl) 1,000-50 mg tablet, effervescent PO ascorbic acid (vitamin C) 1,000 mg tablet 500 mg PO DAILY Spiriva Respimat 2.5 mcg/actuation mist 2 inh inhalation QAM Qty: 4 12RF omeprazole 20 mg capsule,delayed release(DR/EC) 20 mg PO DAILY Qty: 90 3RF albuterol sulfate 90 mcg/actuation HFA aerosol inhaler 2 puff inhalation Q6H PRN (Reason: shortness of breath or wheezing) Qty: 6.7 0RF metoprolol succinate [Toprol XL] 25 mg tablet extended release 24 hr 25 mg PO BID aspirin 81 mg tablet 81 mg PO DAILY omega 1-spw-qxh-fish oil [Fish Oil] 1,200 (144-216) mg capsule 2 cap PO DAILY Qty: 180 0RF fenofibrate 50 mg capsule 50 mg PO DAILY Qty: 90 1RF nitroglycerin 0.4 mg tablet, sublingual 0.4 mg sublingual Q5M PRN Rx Instructions: Place 1 tablet (0.4mL) under the tongue every 5 (five) minutes as needed for chest pain. May repeat every 5 minutes up to 3 doses. Do not exceed 3 doses per episode. atorvastatin 80 mg tablet 80 mg PO BEDTIME Qty: 90 0RF metformin 1,000 mg tablet 1,000 mg PO BID Qty: 180 3RF ferrous sulfate [iron] 325 mg (65 mg iron) tablet 325 mg PO BID Qty: 60 0RF Rx Instructions: diabasic calcium phosphate 18mg + ferrous sulphate 65mg lisinopril 20 mg Tablet 20 mg PO BID Referrals: Peter Diaz DO [Primary Care Provider, [facility]] Sepsis Evaluation (ED) <Margaret Wagner MD - Last Filed: 07/13/25 11:18> Level 1 - Infection Sepsis Infection Criteria Present: Suspected New Infection Level 2 - SIRS Sepsis SIRS Criteria Present: Respiratory Rate > 20 bpm or PaCO2 < 32 mmHg and WBC < 4k or > 12k or Bands > 10% Level 3 - Organ Dysfunction Sepsis Organ Dysfunction Criteria Present: Lactic Acid > 2 mmol/L, Total Bilirubin > 2 mg/dl and SBP < 90 or MAP < 65 mmHg Response It is my opinion that this patient have a likely infectious etiology for meeting sepsis criteria: Does Fluid calculation based on 30 mL/kg within 1hr of criteria: ABW used Antibiotics initiated within 1 hr of Sepis dx: Yes Tissue Perfusion Reassessed within 6 hrs of infusion start time: Yes Date of Tissue Perfusion Reassessment completed: 07/11/25 Time Tissue Perfusion Reassessment completed: 07:34 <Ethel Andrade MD - Last Filed: 07/11/25 19:02> Response Time Tissue Perfusion Reassessment completed: 05:34
--- NOTE | 2025-07-11 00:29 | DI.RAD.S_ITS ---
PROCEDURE: XR CHEST 1V INDICATIONS: chest pain TECHNIQUE: One view of the chest was acquired. COMPARISON: [facility], CR, XR CHEST 1V, 06/26/2024, 3:34. [facility], CR, XR CHEST 1V, 09/23/2020, 5:10. FINDINGS AND IMPRESSION: Borderline cardiomegaly. Left chest wall pulse generator with dual-chamber biventricular electrode leads in place. Mediastinal clips and sternotomy wires and aortic valve replacement are present. Low lung volumes. No airspace consolidation or pleural effusion on this single view study. Degenerative osseous changes. Dictated by: Seth Pollock M.D. on 07/11/2025 at 0:57 Approved by: Seth Pollock M.D. on 07/11/2025 at 0:58
--- NOTE | 2025-07-11 00:30 | EKG_ITS ---
[facility] [address] [place] [address] Test Date: 2025-07-11 Pat Name: Seaed Friedman Department: [facility] Room: Gender: Male Social Media Manager: KAVON REYES : 1945 Requested By: Order Number: [id number] Reading MD: Al Kim MD Measurements Intervals [place] Rate: 82 P: -5 NC: QRS: 258 QRSD: 158 T: 58 QT: 458 QTc: 535 Interpretive Statements Ventricular-paced rhythm with occasional premature ventricular complexes Biventricular pacemaker detected Electronically Signed On 07-12-2025 8:12:01 PST by Al Kim MD
[2025-07-11 00:54] LABS: Add Manual Diff / Slide Review NO; Hematocrit 47.5 % (41-53); Hemoglobin 15.9 g/dL (13.5-17.5); Lymphocytes Absolute Auto 1700 /uL (1100-4500); Mean Corpuscular HGB Conc 33.6 % (30-36); Mean Corpuscular Hemoglobin 31.2 PG (26-34); Mean Corpuscular Volume 92.9 fL (80-100); Platelet Count 178 X10^3/uL (150-400)
[2025-07-11] MEDS: ONDANSETRON 4 MG/2 ML INJ IV (00:59)
--- NOTE | 2025-07-11 00:59 | DI.CT.S_ITS ---
PROCEDURE: CT CHEST ABD PEL W CON INDICATIONS: abdominal pain, nausea, cyanosis TECHNIQUE: After the administration of intravenous contrast, 5 mm thick sections acquired from the lung apices to the symphysis. 5 mm coronal and sagittal reformats were performed, with additional 7 mm MIP reformats through the lungs. For radiation dose reduction, the following was used: automated exposure control, adjustment of mA and/or kV according to patient size. COMPARISON: [facility], CT, CT CHEST WITHOUT CONTRAST, 09/01/2024, 3:14. [facility], CT, CT ANGIO CHEST ABDOMEN, 04/25/2024, 15:18. FINDINGS: Image quality: Diagnostic Lungs and pleura: Background emphysematous changes. Scattered scarring and atelectasis. No airspace consolidation. No pleural effusions. Mediastinum, heart, and esophagus: Left chest wall pulse generator with electrode leads in place. Cardiomegaly. Dilated ascending aorta at 4.6 cm again seen. Aortic valve replacement and CABG changes. Unremarkable CT appearance of the esophagus. There are no enlarged lymph nodes by size criteria. Chest wall and thyroid: Unremarkable Liver: Hepatomegaly at 24 cm Gallbladder and biliary system: Mildly distended gallbladder with gallstones. Moderate pericholecystic edema. No biliary ductal dilation. Mild edema is seen surrounding the CBD and CHD. Pancreas: No ductal dilation. Possible mild edema is seen around the uncinate process and pancreatic head. Spleen: Prominent, measuring 13 cm Adrenals: No discrete nodules. Kidneys: Multiple cysts. No hydronephrosis. No enhancing solid renal mass. Vessels and lymph nodes: The main portal vein is patent. No abdominal aortic aneurysm. [id number] aortoiliac atherosclerotic calcifications partially fluid density lesion adjacent to the celiac axis again seen, measuring short axis diameter of 1.6 cm. This is stable, but indeterminate. No lymphadenopathy otherwise by size criteria. 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 Bowel and peritoneum: Distended stomach. No bowel obstruction. No drainable abscess or ascites. Moderate colorectal fecal loading including a rectal stool ball. Scattered peritoneal calcifications. Nondilated appendix. Probable sequelae of fat necrosis in the left upper quadrant. Body wall: Bilateral inguinal hernias containing fat, greater on the right. Tiny fat containing umbilical hernia also present. Pelvis: Under distended urinary bladder. Heterogeneous prostate enhancement, nonspecific, not well assessed on CT. Bones: No aggressive appearing osseous abnormality. Diffuse degenerative osseous changes. IMPRESSION: No acute abnormality identified in the chest. Background emphysematous changes. Distended gallbladder with gallstones and surrounding edema. Correlate with ultrasound for sonographic Seals's sign. Edema also seen around the biliary system, which is nondilated. Correlate LFTs and consider MRCP if clinically needed. 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 Cardiomegaly. CABG changes. These findings were present previously. Distended stomach. No small bowel obstruction. Moderate colorectal fecal loading including a rectal stool ball. Hepatomegaly. Other findings above. Dictated by: Seth Pollock M.D. on 07/11/2025 at 2:01 Approved by: Seth Pollock M.D. on 07/11/2025 at 2:12
[2025-07-11 01:08] LABS: Alanine Aminotransferase 188 IU/L (<50); Albumin 5.4 g/dL (3.5-5.0); Albumin Globulin Ratio 1.5 (1.0-2.8); Alkaline Phosphatase 80 U/L (38-126); Blood Urea Nitrogen 22 mg/dL (9-20); Calcium 10.4 mg/dL (8.4-10.2); Carbon Dioxide 19 mmol/L (22-32); Chloride 100 mmol/L (98-107); Estimated Glomerular Filt Rate 54 mL/min (>60); Globulin 3.5 g/dL (1.7-4.1); Glucose 144 mg/dL (70-99); Potassium 3.3 mmol/L (3.4-5.1); Sodium 141 mmol/L (137-145); Total Protein 8.9 g/dL (6.3-8.2)
[2025-07-11 01:10] LABS: Lactate (Lactic Acid) 7.8 mmol/L (0.7-2.1)
[2025-07-11] MEDS: SODIUM CHLORIDE 0.9% 1,000 ML 1000 ML IV ×2 (01:15→08:40)
[2025-07-11 01:20] LABS: Troponin I 0.069 ng/mL (0.01-0.034)
[2025-07-11 01:25] LABS: HEMOLYSIS 20 (0-50)
[2025-07-11 01:30] LABS: Lipase 20531 U/L (23-300)
[2025-07-11] MEDS: PIPERACILLIN/TAZO 4.5 GM in SODIUM CHLORIDE 0.9% 100 ML IV (01:35)
[2025-07-11 02:12] LABS: NT-proBNP (BNP-Adult 18+) 464 pg/mL (<450)
[2025-07-11 02:24] LABS: Reflexed Lactate in 2 Hours Y
--- NOTE | 2025-07-11 02:26 | DI.US.S_ITS ---
PROCEDURE: US ABDOMEN LIMITED INDICATIONS: POSSIBLE CHOLECYSTITIS ON CT TECHNIQUE: Real-time focused scanning was performed of the abdomen, with image documentation. COMPARISON: [facility], CR, XR CHEST 1V, 07/11/2025, 0:32. [facility], CT, CT CHEST ABD PEL W CON, 07/11/2025, 1:17. FINDINGS: A few small gallstones are seen, including a 3 mm stone which appears nonmobile of the gallbladder neck. The gallbladder wall is mildly thickened at 4.2 mm. There is pericholecystic fluid. The sonographic Seals sign is negative. Biliary ductal dilatation is seen, measuring nearly 10 mm. The pancreas is not seen. IMPRESSION: Suspicion for cholecystitis, with gallstones including an non mobile gallstone in the gallbladder neck. There is gallbladder wall thickening and pericholecystic fluid. Biliary ductal dilatation is also seen. - If clinically appropriate, an MRCP could be considered for further evaluation (assuming that there is no contraindication to MRI). Note: No significant discrepancy from the preliminary report. Dictated by: Bubba Ordaz M.D. on 07/11/2025 at 6:29 Approved by: Bubba Ordaz M.D. on 07/11/2025 at 6:30
[2025-07-11 03:24] LABS: Lactate 2HR (Lactic Acid Rflx) 4.5 mmol/L (0.7-2.1)
[2025-07-11] MEDS: SODIUM CHLORIDE 0.9% 2,993.7 ML 1995.8 ML IV (03:40)
[2025-07-11 03:57] LABS: Troponin I 0.084 ng/mL (0.01-0.034)
--- NOTE | 2025-07-11 05:41 | EKG_ITS ---
[address] [address] Test Date: 2025-07-11 Pat Name: Saeed Friedman Department: Room: Gender: Male Quantitative Researcher: KAVON JOANN : 1945 Requested By: Order Number: [id number] Reading MD: Al Kim MD Measurements Intervals [place] Rate: 73 P: [place]: QRS: 248 QRSD: 160 T: 80 QT: 452 QTc: 497 Interpretive Statements Ventricular-paced rhythm with occasional premature ventricular complexes Biventricular pacemaker detected Electronically Signed On 07-12-2025 10:59:56 PST by Al Kim MD
[2025-07-11 05:49] LABS: Lactate (Lactic Acid) 3.8 mmol/L (0.7-2.1)
[2025-07-11] MEDS: SODIUM CHLORIDE 0.9% 1,000 ML 250 ML IV (06:46)
[2025-07-11 06:50] LABS: Add Manual Diff / Slide Review NO; Hematocrit 48.3 % (41-53); Hemoglobin 16.1 g/dL (13.5-17.5); Lymphocytes Absolute Auto 400 /uL (1100-4500); Mean Corpuscular HGB Conc 33.3 % (30-36); Mean Corpuscular Hemoglobin 30.8 PG (26-34); Mean Corpuscular Volume 92.4 fL (80-100); Platelet Count 147 X10^3/uL (150-400)
[2025-07-11 07:01] LABS: Alanine Aminotransferase 201 IU/L (<50); Albumin 4.5 g/dL (3.5-5.0); Albumin Globulin Ratio 1.6 (1.0-2.8); Alkaline Phosphatase 87 U/L (38-126); Blood Urea Nitrogen 24 mg/dL (9-20); Calcium 9.0 mg/dL (8.4-10.2); Carbon Dioxide 15 mmol/L (22-32); Chloride 107 mmol/L (98-107); Estimated Glomerular Filt Rate 45 mL/min (>60); Globulin 2.9 g/dL (1.7-4.1); Glucose 180 mg/dL (70-99); HEMOLYSIS 28 (0-50); Potassium 3.7 mmol/L (3.4-5.1); Sodium 140 mmol/L (137-145); Total Protein 7.4 g/dL (6.3-8.2)
--- NOTE | 2025-07-11 07:07 | PC.NURSE ---
DEVELOPER ADVISOR note: 0635 went to check patient, he had taken off his pulse oximeter. So I checked him. He was sitting at the end of the bed, leaning forward. I asked him to get back in bed, patient laid back in bed. He was sweaty and I asked Davide Patel, what's going on? He said I'm in pain. I let the RNs know about it, I checked his pulse oximeter, he was in the low 90%s. Sue RN and Misty DEVELOPER ADVISOR came in, we got the patient repositioned in bed, started his blood pressure, we put oxygen, and Dr. Wagner came in. Patient is currently in [facility].
[2025-07-11 07:11] LABS: Reflexed Lactate in 2 Hours Y
[2025-07-11] MEDS: NOREPINEPHRINE BIT/0.9 % NACL 4 MG/250 ML PLAST..BAG 37.421 MG IV (07:37)
[2025-07-11] MEDS: ACETAMINOPHEN IV 1,000 MG/100 ML VIAL 400 MG IV (07:48)
[2025-07-11 07:52] LABS: Lactate 2HR (Lactic Acid Rflx) 5.5 mmol/L (0.7-2.1)
--- NOTE | 2025-07-11 07:55 | DI.RAD.S_ITS ---
PROCEDURE: XR CHEST 1V INDICATIONS: check central line placement TECHNIQUE: One view of the chest was acquired. COMPARISON: [facility], , XR CHEST 1V, 07/11/2025, 0:32. FINDINGS: Surgical changes and devices: A right-sided central line is seen. The tip is obscured, yet is believed to overlie the inferior aspect of the superior vena cava. A pacer device is seen. The leads are seen in stable positions. Sternotomy wires and mediastinal clips are seen. A percutaneously placed aortic valve replacement can be seen. Lungs and pleura: No large pneumothorax or large pleural effusions are seen. Mediastinum: Mediastinal contours appear normal. Heart size is mildly enlarged. Bones and chest wall: No suspicious bony lesions. Age-appropriate bony degenerative changes are seen. Overlying soft tissues appear unremarkable. IMPRESSION: Interval placement of a right-sided central line, with the tip believed to overlie the inferior aspect of the superior vena cava. Dictated by: Bubba Ordaz M.D. on 07/11/2025 at 7:18 Approved by: Bubba Ordaz M.D. on 07/11/2025 at 7:19
[2025-07-11] MEDS: SODIUM CHLORIDE 0.9% IV (07:59)
[2025-07-11] MEDS: PIPERACILLIN/TAZO 3.375 GM in SODIUM CHLORIDE 0.9% 100 ML IV (08:00)
--- NOTE | 2025-07-11 08:02 | PC.NURSE ---
Provider placed central line in patient right side on neck. Chest x-ray has been taken to confirm placement. Patient blood pressure is remaining stable at this time. Norepi ready and available to start on peripheral line until central line is confirmed with radiology if and when neecded.
[2025-07-11 08:47] LABS: Appearance Urine UA CLEAR; Bilirubin Urine UA NEGATIVE (NEGATIVE); Color Urine UA YELLOW; Glucose Urine UA 3+ g/dL (Negative); Ketones Urine UA TRACE (NEGATIVE); Leukocyte Esterase Urine UA NEGATIVE (NEGATIVE); Nitrite Urine UA NEGATIVE (Negative); Occult Blood Urine UA NEGATIVE (Negative); Protein Urine UA NEGATIVE (Negative); Specific Gravity Urine UA <=1.005 (1.000-1.035); Urobilinogen Urine UA 1.0 E.U./dL (0.2); pH Urine UA 5.5 (4.5-8.0)
[2025-07-11 08:55] LABS: Culture Indicated Urine Cult Not Indicated
--- NOTE | 2025-07-11 09:02 | PC.NURSE ---
Addendum entered by Matt Cook RN 07/11/25 09:32: Provider placed an order for 1 L normal saline bolus and this RN asked if they wanted another liter post the one that she verbally ordered provider stated no. That 1L has been administered. Provider updated the maintaince fluid to 150ml an hour instead of 100ml an hour. This RN never started the 100ml/hr so that was not given and instead the 150ml an hour maintaince fluid was started as ordered. Original Note: Provider came and asked this RN patient total fluid intake. At that time it was 4116ml. Provder gave verbal order for an additional normal saline 1000ml at 1000ml an hour and then maintaince normal saline at 100ml an hour after that is complete.
[2025-07-11] MEDS: SODIUM CHLORIDE 0.9% 1,000 ML 150 ML IV (09:29)
--- NOTE | 2025-07-11 09:38 | PC.NURSE ---
This RN asked provider if they would like a repeat lactate order placed due to patient last result and provider responded no.
--- NOTE | 2025-07-11 10:37 | PC.NURSE ---
Patient spouse and 2nd daughter leave department with patient clothing belongings and cell phone. Patient is aware that spouse has these belonging. This RN asked patient spouse for a single contact number for the family for the RN to give to RN at [facility] and critical care transport nurse. Phone number is [phone]. Spouse name is Loida.
--- NOTE | 2025-07-11 11:01 | PC.NURSE ---
[facility] arrives this RN gives verbal report to Liya Stanley RN. This RN reviews patient current infusions and rates with this RN. That RN transfers all medications that are currently running and moves them to their pumps at this time. Patient is also moved to their monitoring equipment at this time. Patient leaves with 2L oxygen via oxymask.
--- NOTE | 2025-07-11 11:27 | PC.NURSE ---
This RN called and gave verbal report to RED Hardin an Emergency RN at [facility]. This RN verified with the transfer center that this was the appropriate place prior to report.
[2025-07-11 13:08] LABS: Acinetobacter calcoa-baumannii Not Detected (Not Detect); Bacteroides fragilis Not Detected (Not Detect); CTX-M Resistance Not Detected (Not Detect); Candida auris Not Detected (Not Detect); Candida glabrata Not Detected (Not Detect); Cryptococcus neoformans/gatti Not Detected (Not Detect); Enterobacterales Detected (Not Detect); Enterococcus faecalis Not Detected (Not Detect); Enterococcus faecium Not Detected (Not Detect); IMP Resistance Not Detected (Not Detect); KPC Resistance Not Detected (Not Detect); Klebsiella aerogenes Not Detected (Not Detect); NDM Resistance Not Detected (Not Detect); OXA-48-like Resistance Not Detected (Not Detect); Proteus species Not Detected (Not Detect); Serratia marcescens Not Detected (Not Detect); Staphylococcus epidermidis Not Detected (Not Detect); Staphylococcus lugdunensis Not Detected (Not Detect); Staphylococcus species Not Detected (Not Detect); Stenotrophomonas maltophilia Not Detected (Not Detect); Streptococcus agalactiae (Gr B Not Detected (Not Detect); Streptococcus pneumonia Not Detected (Not Detect); Streptococcus pyogenes (Gr A) Not Detected (Not Detect); Streptococcus species Not Detected (Not Detect); VIM Resistance Not Detected (Not Detect); mcr-1 Resistance Not Detected (Not Detect)
== END 2025-07-11 11:10 | disposition short-term general hospital (02) ==
PROVIDERS: Student in an Organized Health Care Education/Training Program; Emergency Provider Emergency Medicine; PCP Family Medicine
DX: A41.9 Sepsis, unspecified organism (principal); K85.90 Acute pancreatitis without necrosis or infection, unspecified; N17.9 Acute kidney failure, unspecified; R79.89 Other specified abnormal findings of blood chemistry; R10.9 Unspecified abdominal pain; R11.10 Vomiting, unspecified; E11.9 Type 2 diabetes mellitus without complications; I10 Essential (primary) hypertension; K81.0 Acute cholecystitis
CPT/HCPCS: 36415; 36556; 71045; 71260; 74177; 76705; 80053; 81001; 83605; 83690; 83880; 84484; 85025; 86850; 86900; 86901; 87040; 87077; 87154; 87186; 93005; 96361; 96365; 96367; 96375; 96376; 99285; 99291; J0131; J0165; J1171; J1938; J2405; J2543; J7030; J7050; Q9967